=== PATIENT | female | born 1945 | race Caucasian/White ===

== ENCOUNTER → 2017-05-31 12:48 | Outpatient (CLI) | payer MEDICARE, SELFPAY ==
--- NOTE | 2017-05-31 12:51 | HPBI_ITS ---
MAMMOGRAPHY - BILATERAL DIAGNOSTIC REASON FOR EXAM: Female, 71 years old. History of left breast lump and left breast soreness. PERTINENT HISTORY: Daughter with breast cancer. Aunts with breast cancer. History of multiple bilateral breast biopsies. TECHNIQUE: Digital bilateral breast coni (3D mammographic acquisition) in the CC and MLO projections. 2-D mediolateral oblique (MLO) and craniocaudad (CC) views of both breasts were obtained. CAD: Full Field Digital Mammography with Computer Added Detection was performed. COMPARISON: Comparison is made with prior examination dated November 09, 2013. FINDINGS: Breast Composition: There are scattered areas of fibroglandular density. There are no dominant masses or suspicious calcifications. No other significant abnormalities are identified. There has been no significant change since the prior study. HPBI/DIAG MAMM W/CAD, BILAT IMPRESSION: Stable bilateral diagnostic mammogram. With the patient's history of a palpable lump in the left breast, correlation with ultrasound is recommended. ASSESSMENT CATEGORY: BIRADS Category 0: Incomplete. Need additional imaging evaluation. A letter regarding these results will be sent to the patient by the facility within 30 days. Approximately 10% of breast cancers are not detected by mammography. A normal mammogram should not delay biopsy of a clinically suspicious abnormality. Electronically Signed: Fco Eric MD at 8:57 EST Tel [phone], Service support ,
--- NOTE | 2017-05-31 12:52 | US_ITS ---
STUDY: ULTRASOUND BREAST - LEFT REASON FOR EXAM: Female, 71 years old. Palpable lump left breast. TECHNIQUE: Axial and longitudinal images of the LEFT breast were performed with a high resolution ultrasound transducer. COMPARISON: Comparison is made with prior mammogram done earlier in the day. FINDINGS: LEFT Breast: The lower inner quadrant of the left breast was examined by ultrasound. No sonographic abnormality is seen. US/Breast Limited Unilateral IMPRESSION: No sonographic abnormality is seen. ASSESSMENT CATEGORY: BIRADS Category 1: Negative. A letter regarding these results will be sent to the patient by the facility within 30 days. Electronically Signed: Fco Eric MD at 15:44 EST Tel [phone], Service support ,
== END ==
PROVIDERS: Family Provider Family Medicine; PCP Family Medicine; Visit Provider Family Medicine
DX: N63.20 Unspecified lump in the left breast, unspecified quadrant (principal)
CPT/HCPCS: 76642; 77062; 77066; G0279

== ENCOUNTER 2017-06-30 06:54 | Day surgery (SDC) | payer MEDICARE, SELFPAY ==
[2017-06-30 07:14] VITALS: BP 100/74; PULSE 56; RESP 18; TEMP 36.6; O2SAT 98; BMI 31.1
--- NOTE | 2017-06-30 08:23 | PCM.OPRPT ---
Problem List (1) Gastro-esophageal reflux disease without esophagitis Status: Acute (2) Epigastric pain Status: Acute Report of Operation Date of Procedure: 06/30/17 Pre-Operative Diagnosis: K 21.9 gastroesophageal reflux disease without esophagitis. r10.13 epigastric abdominal pain Post-Operative Diagnosis: Same Surgery/Procedure Performed:: [id number] esophagogastroduodenoscopy with biopsy Type of Anesthesia:: MAC Description of Procedure: Patient was brought into the endoscopy suite. The back of her throat was sprayed with Cetacaine spray. A bite-block was placed. She was placed in the left lateral decubitus position. She was given graded anesthesia. The scope was inserted into the oropharynx. The scope was directed down through the esophagus into the stomach and into the duodenum without difficulty. Operative findings: 1. Duodenum: Normal appearance no mass lesions no ulcerations identified. 2. Stomach: Moderate amount of erythema identified in the antrum and prepyloric area. Biopsy for H. pylori was performed. There is no obvious ulcerations. There is no obvious signs of bleeding. Retroflexion did not show any signs of a hiatal hernia. 3. Esophagus: Normal appearance no mass lesions normal Z line no erythema no signs of bleeding or irritation. Patient's wrap looks intact. We will need to wait for the biopsies for H. pylori. She clearly has some irritation in the antral prepyloric area. - Admit VTE Documentation VTE Present on Admission: No VTE Mechan Device Prophylaxis: None VTE Pharm Prophylaxis ordered?: No Reason prophylaxis not ordered:: Treatment Not Indicated
[2017-06-30 08:26] VITALS: BP 100/74; BP 98/51; PULSE 48; RESP 16; TEMP 36.3; O2SAT 97
[2017-06-30 08:30] VITALS: BP 100/74; BP 94/54; PULSE 48; RESP 16; O2SAT 97
[2017-06-30 08:35] VITALS: BP 100/74; BP 115/61; PULSE 44; RESP 16; O2SAT 97
[2017-06-30 08:40] VITALS: BP 100/74; BP 109/71; PULSE 48; RESP 16; O2SAT 98
[2017-06-30 09:08] VITALS: BP 100/74
== END 2017-06-30 09:10 | disposition home or self-care (01) ==
LOC: EN 06:54 → AC 06:55
PROVIDERS: Family Provider Family Medicine; PCP Family Medicine; Visit Provider Surgery
PROC: 0DJ08ZZ Inspection of Upper Intestinal Tract, Via Natural or Artificial Opening Endoscopic (ICD-10-PCS; CPT 43235; principal; 2017-06-30 08:25)
DX: K21.9 Gastro-esophageal reflux disease without esophagitis (principal); R10.13 Epigastric pain; I10 Essential (primary) hypertension; F17.200 Nicotine dependence, unspecified, uncomplicated; D64.9 Anemia, unspecified; E78.00 Pure hypercholesterolemia, unspecified
CPT/HCPCS: 43239; J7120

== ENCOUNTER → 2017-09-11 08:32 | Outpatient (CLI) | payer MEDICARE, SELFPAY ==
--- NOTE | 2017-09-11 09:10 | CT_ITS ---
STUDY: LOW DOSE CT LUNG CANCER SCREENING REASON FOR EXAM: Female, 72 years old. TROUBLE BREATHING, TOBACCO ABUSE, SMOKER OF 50 YEARS X 1PPD, NOW DOWN TO 1 CIG PER DAY, FAM HX OF LUNG CA, HTN, CAD, ASTHMA, COPD. RADIATION DOSAGE (If Supplied By Facility): CTDIvol = ( 3.02 ) mGy, DLP = ( 85.35 ) mGycm TECHNIQUE: No contrast was administered. Low dose technique was utilized (average mAS-38 and kVp 120). 1.25 mm axial source images with a slice interval of 1.25-mm were reconstructed in lung windows. 2.5 mm axial source images with a slice interval of 2.5-mm were reconstructed in lung windows. 5.0 mm axial source images with a slice interval of 5.0-mm were reconstructed in soft tissue windows. Nodule measured using lung windows on PACS and/or independent workstation with automated measurement of minimum and maximum diameter. Nodule measurement reported as average diameter rounded to the nearest whole number. Growth is defined as an increase ins size of greater than 1.5 mm. COMPARISON: 10/15/2015 NODULES: 2 calcified lung nodules are noted the largest measures 1 cm is in the superior segment of the left lung lower lobe some of these nodules are calcified they most likely represent granulomas. There is no demonstrated pleural abnormality. Normal heart and pericardium. Normal mediastinum. Normal hilar regions. Normal unenhanced pulmonary arteries. Normal aorta arch and descending thoracic aorta. 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 Old osteoporotic compression fractures are seen at T6, T7, T9. There is posterior fusion extending from T8 to T10 in good alignment. 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 There is a stable right adrenal mass measures 5 x 2.7 cm is consistent with benign adenoma. CT/Low Dose CT Lung Screening IMPRESSION: Lung-RADS category 2. 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 Old osteoporotic compression fractures are seen at T6, T7, T9. There is posterior fusion extending from T8 to T10 in good alignment. 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 There is a stable right adrenal mass measures 5 x 2.7 cm is consistent with benign adenoma. Recommendation: Routine screening CT scan in one year. IMPORTANT NOTES FOR USE: ACR Lung-RADS Version 1.0 Assessment Categories Release Date: September 18, 2013 Category: Coded 0-4 bases on nodule(s) with highest degree of suspicion. Negative screen is defined as categories 1 and 2; a positive screen is defined as categories 3 and 4. Category 3 and 4A nodules that are unchanged on interval CT should be coded as category 2, and individuals returned to screening in 12 months. Category 4X: Category 3 or 4 nodules with additional imaging findings that increase the suspicion of lung cancer, such as spiculation, GGN that doubles in size in 1 year, enlarged lymph notes, etc. Category Modifiers: S (significant finding unrelated to lung cancer) and C (prior history of treated lung cancer) may be added to the 0-4 Lung-RADS Electronically Signed: Marques Sherwood MD at 2:16 EDT Tel , Service support ,
== END ==
PROVIDERS: Family Provider Family Medicine; PCP Family Medicine; Visit Provider Internal Medicine Pulmonary Disease
DX: Z12.2 Encounter for screening for malignant neoplasm of respiratory organs (principal); Z87.891 Personal history of nicotine dependence
CPT/HCPCS: G0297

== ENCOUNTER → 2017-09-13 10:52 | Outpatient (CLI) | payer MEDICARE, SELFPAY ==
[2017-09-13 12:18] LABS: Absolute Lymphocyte Count 1.17 X10^3/ul (0.83-4.51); Absolute Neutrophil Count 4.8 X10^3/uL (2.0-7.7); Basophil# 0.06 X10^3/uL; Basophil% 0.9 % (0-1); Eosinophil# 0.24 X10^3/uL; Eosinophils% 3.5 % (0-5); Hematocrit 38.4 % (37-47); Lymphocyte # 1.17 X10^3/ul (4.0); Lymphocyte % 16.8 % (19-41); Mean Corp Hgb Conc 31.3 g/gl (32-36); Mean Corpuscular Volume 102.4 fL (81-99); Mean Platelet Vol. 10.4 fl (6.2-12.0); Monocyte# 0.69 X10^3/uL; Monocyte% 9.9 % (0-10); Neutrophil # 4.78 X10^3/uL (2.7-7.7); Neutrophil % 68.8 % (47-70); Platelet Count 225 K/mm3 (150-450); RBC Distribution Width CV 14.1 % (11.6-14.6); RBC Distribution Width SD 52.3 fl (35.1-43.9); Red Blood Count 3.75 M/mm3 (4.2-5.4)
[2017-09-13 12:28] LABS: POSITIVE COUNT NO; POSITIVE DIFFERENTIAL NO; POSITIVE MORPHOLOGY NO
[2017-09-13 12:44] LABS: PTHIN 177.9 pg/mL (18.4-80.1)
[2017-09-13 12:47] LABS: Vitamin D,25 Hydroxy 50.4 ng/mL (29.95-100.01)
[2017-09-13 12:48] LABS: AST(SGOT) 22 U/L (15-37); Alanine Aminotransfer ALT/SGPT 22 U/L (13-56); Albumin, Serum 3.2 g/dL (3.2-5.0); Alkaline Phosphatase 104 U/L (45-117); Anion Gap 6 (5-15); BUN 14 mg/dL (7-18); BUN/Creat Ratio 17.1 RATIO (10-20); Calcium,Total 8.9 mg/dL (8.5-10.1); Chloride 112 mmol/L (98-107); Cholesterol 122 mg/dL (200); Creatinine, Serum 0.82 mg/dL (0.55-1.02); EST Glomerular Filtration Rate 73 mL/min (>60); Est Glom Filt Rate - Afr Amer 89 mL/min (>60); Ferritin 57 ng/mL (8-252); Globulin 3.3 g/dL (2.2-4.2); Glucose 82 mg/dL (74-106); High Density Lipoprotein 49 mg/dL; Iron 56 ug/dL (50-170); Iron Binding Capacity,Total 258 ug/dL (250-450); PERCENT IRON SATURATION 21.7 % (15.0-55.0); Potassium 3.4 mmol/L (3.5-5.1); Protein, Total 6.5 g/dL (6.4-8.2); Sodium Level 145 mmol/L (136-145); Triglycerides 126 mg/dL; Very Low Density Lipoprotein 25 mg/dL (5-40)
== END ==
PROVIDERS: Family Provider Family Medicine; PCP Family Medicine; Visit Provider Family Medicine
DX: I10 Essential (primary) hypertension (principal); E78.5 Hyperlipidemia, unspecified; D35.1 Benign neoplasm of parathyroid gland; D50.9 Iron deficiency anemia, unspecified; E55.9 Vitamin D deficiency, unspecified
CPT/HCPCS: 36415; 80053; 80061; 82306; 82728; 83540; 83550; 83970; 85025

== ENCOUNTER → 2017-10-07 12:44 | Outpatient (CLI) | payer MEDICARE, SELFPAY ==
--- NOTE | 2017-10-07 12:46 | ECHOD_ITS ---
Reason For Study: DECREASED EJECTION FRACTION Procedure This was a 2D Doppler, Color Flow transthoracic echocardiogram. The exam was of poor technical quality due to body habitus. The study was technically difficult. Exam performed in department. Left Ventricle Normal LV size. Left ventricular systolic function is normal. The estimated ejection fraction is 55 %. No regional wall motion abnormalities noted. Right Ventricle Normal RV size. Normal systolic function. Atria The left atrium is moderately enlarged. Normal right atrium. No doppler evidence for ASD. Mitral Valve There is no mitral annular calcification. Normal mitral valve. Trivial mitral valve insufficiency. Tricuspid Valve Normal tricuspid valve. Trivial tricuspid valve insufficiency. Right ventricular systolic pressure estimated to be 30 mmHg. Aortic Valve Trisinus/trileaflet aortic valve. Mild focal aortic valve thickening. Mild (1+) aortic valve insufficiency. Pulmonic Valve The pulmonic valve is not well visualized. Great Vessels Normal sized aortic root. Pericardium/Pleural No pericardial effusion. MMode/2D Measurements & Calculations LVIDd: 4.6 cm IVSd: 1.1 cm Ao root diam: 3.5 cm LVIDs: 3.3 cm LVPWd: 1.1 cm LA dimension: 3.7 cm RVDd: 2.4 cm FS: 28.6 % LAV(MOD-bp): 65.9 ml LA A4 area: 22.0 cm2 RA A4 area: 15.1 cm2 LAV(MOD-bp) Indexed: 37.4 ml/m2 LAV(MOD-sp2): 67.7 ml LAV(MOD-sp4): 64.5 ml Doppler Measurements & Calculations MV E max geoff: 63.8 cm/sec Lat Peak E' Geoff: 8.8 cm/sec Med Peak E' Geoff: 7.0 cm/sec MV A max geoff: 52.8 cm/sec E/E' lat: 7.3 E/E' med: 9.1 MV E/A: 1.2 Ao V2 max: 128.2 cm/sec AI max geoff: 461.3 cm/sec LV V1 max: 101.7 cm/sec Ao max P.6 mmHg AI max P.1 mmHg LV V1 max P.1 mmHg AI dec slope: 138.0 cm/sec2 AI P1/2t: 979.3 msec PA V2 max: 68.9 cm/sec TR max geoff: 257.9 cm/sec TR max P.6 mmHg Interpretation Summary The study was technically difficult. Left ventricular systolic function is normal. The estimated ejection fraction is 55 %. The left atrium is moderately enlarged. Trivial mitral valve insufficiency. Trivial tricuspid valve insufficiency. Mild focal aortic valve thickening. Mild (1+) aortic valve insufficiency. Right ventricular systolic pressure estimated to be 30 mmHg. Transmitral diastolic flow velocities suggest diastolic dysfunction (pseudonormal pattern). Ordering Physician: Marino Williamson Referring Physician: Marino Williamson Performed By: Britney Salcedo, RDCS, RVT
== END ==
PROVIDERS: Family Provider Family Medicine; PCP Family Medicine; Visit Provider Family Medicine
DX: R94.31 Abnormal electrocardiogram [ECG] [EKG] (principal); R93.1 Abnormal findings on diagnostic imaging of heart and coronary circulation
CPT/HCPCS: 93306

== ENCOUNTER → 2017-11-05 13:36 | Outpatient (CLI) | payer MEDICARE, MEDICAID, SELFPAY ==
--- NOTE | 2017-11-05 18:31 | LEAS_ITS ---
Arterial Study - Arterial Study Arterial Study: This is a 72-year-old female with a history of hypertension and smoking. The patient presents with symptoms suggesting intermittent claudication secondary to peripheral arterial occlusive disease. The patient was brought to the noninvasive vascular laboratory at this time for the purpose of bilateral noninvasive lower extremity arterial assessment. Doppler signal assessment was used to evaluate the pulses at ankle level bilaterally. The posterior tibial and dorsalis pedis pulses were triphasic bilaterally. Segmental limb pressures were obtained at ankle level bilaterally. The right ankle pressure, as determined by posterior tibial pulse, was measured at 135 mmHg. The right ankle pressure, as determined by dorsalis pedis pulse, was measured at 139 mmHg. The left ankle pressure, as determined by posterior tibial pulse, was measured at 134 mmHg. The left ankle pressure, as determined by dorsalis pedis pulse, was measured at 144 mmHg. Resting ankle-brachial indices were calculated bilaterally. The resting right ankle-brachial index was calculated to be 1.01. The resting left ankle- brachial index was calculated to be 1.05. Impression: Based upon the findings of this resting noninvasive lower extremity arterial study, there is no evidence of significant atherosclerotic peripheral arterial occlusive disease in the lower extremities bilaterally. Triphasic waveforms were noted at ankle level bilaterally. Resting ankle-brachial indices were bilaterally normal. In summary, this represents a normal resting noninvasive lower extremity arterial study bilaterally. The exercise portion of the study was not performed due to patient refusal.
== END ==
PROVIDERS: Family Provider Family Medicine; PCP Family Medicine; Visit Provider Family Medicine
DX: I73.9 Peripheral vascular disease, unspecified (principal)
CPT/HCPCS: 93922

== ENCOUNTER → 2017-11-20 08:36 | Outpatient (CLI) | payer MEDICARE, MEDICAID, SELFPAY ==
--- NOTE | 2017-11-20 08:49 | MRI_ITS ---
STUDY: MRI LUMBAR SPINE WITHOUT CONTRAST REASON FOR EXAM: Female, 72 years old. Severe claudication. Patient has low back pain with bilateral leg feet pain and swelling. TECHNIQUE: Standardized fat and water weighted pulse sequences were obtained in the sagittal and axial planes. COMPARISON: CT of abdomen and pelvis dated October 15, 2015. FINDINGS: Interpedicular screws are visible at T10. T12-L1: There are small Schmorl's nodes at the endplates. Normal disc height and morphology. There is loss of normal T2 hyperintensity consistent with degenerative disc disease. Normal bilateral facet joints. Normal central canal and bilateral lateral recesses. Normal bilateral intervertebral neural foramina. Normal lumbar lordosis. There is no substantial scoliosis. Normal conus medullaris that terminates at the L1-L2 level. L1-2: There is mild annular disk bulge and osteophyte complex. There is mild degenerative arthropathy of the facet joints. Bilateral neuroforamina are narrowed without MR evidence for nerve impingement. There is no significant central canal stenosis. Interpedicular screws are visible at L2. L2-3: There is a compression fracture of L3. Patient appears to have had a vertebroplasty at this level. Interpedicular screws are visible at L2 and L3. There is mild annular disk bulge and osteophyte complex. There is mild degenerative arthropathy of the facet joints. Bilateral neuroforamina are narrowed without MR evidence for nerve impingement. There is no significant central canal stenosis. L3-4: There is mild annular disk bulge and osteophyte complex. There is mild degenerative arthropathy of the facet joints. Bilateral neuroforamina are narrowed without MR evidence for nerve impingement. There is no significant central canal stenosis. Interpedicular screws are visible at L3 and L4. L4-5: There is a broad central disc protrusion. There is mild central acquired canal stenosis. There is mild degenerative arthropathy of the facet joints. Neural foramina are bilaterally narrowed without evidence for nerve impingement. Interpedicular screws are visible at L4. L5-S1: Normal endplates. Normal disc height, hydration and morphology. Normal bilateral facet joints. Normal central canal and bilateral lateral recesses. Normal bilateral intervertebral neural foramina. Normal visualized sacral ala. Normal visualized paraspinous soft tissue structures. Appears to be mild aneurysmal dilatation of the proximal abdominal aorta with maximum transverse dimension of 3.5 cm. MRI/Spine Lumbar (Routine) IMPRESSION: 1. Status post treatment for compression fracture of L3 with surgical fusion of the L2, L3, and L4 segments as well as vertebroplasty of L3. 2. Multilevel degenerative disc disease and degenerative arthropathy of the lumbar spine with acquired canal stenosis and neural foraminal narrowing as described. 3. Mild aneurysmal dilatation of the proximal abdominal aorta. Electronically Signed: Mary Grace Alcaraz MD at 9:21 EDT , Service support ,
== END ==
PROVIDERS: Family Provider Family Medicine; PCP Family Medicine; Visit Provider Family Medicine
DX: M48.062 Spinal stenosis, lumbar region with neurogenic claudication (principal)
CPT/HCPCS: 72148

== ENCOUNTER → 2017-12-27 14:36 | Outpatient (CLI) | payer MEDICARE, SELFPAY ==
[2017-12-27 16:07] LABS: Calcium,Total 8.1 mg/dL (8.5-10.1)
[2017-12-27 16:20] LABS: PTHIN 31.8 pg/mL (18.4-80.1); Vitamin D,25 Hydroxy 66.6 ng/mL (29.95-100.01)
== END ==
PROVIDERS: Family Provider Family Medicine; PCP Family Medicine
DX: E21.3 Hyperparathyroidism, unspecified (principal)
CPT/HCPCS: 36415; 82306; 82310; 83970

== ENCOUNTER → 2018-01-11 15:56 | Outpatient (CLI) | payer MEDICARE, SELFPAY ==
[2018-01-11 18:02] LABS: Anion Gap 9 (5-15); BUN 13 mg/dL (7-18); BUN/Creat Ratio 14.1 RATIO (10-20); Calcium,Total 7.9 mg/dL (8.5-10.1); Chloride 110 mmol/L (98-107); Creatinine, Serum 0.92 mg/dL (0.55-1.02); EST Glomerular Filtration Rate 64 mL/min (>60); Est Glom Filt Rate - Afr Amer 77 mL/min (>60); Glucose 94 mg/dL (74-106); Potassium 4.1 mmol/L (3.5-5.1); Sodium Level 144 mmol/L (136-145)
== END ==
PROVIDERS: Family Provider Family Medicine; PCP Family Medicine; Visit Provider Family Medicine
DX: D35.1 Benign neoplasm of parathyroid gland (principal)
CPT/HCPCS: 36415; 80048; 82330

== ENCOUNTER → 2018-01-19 12:51 | Outpatient (CLI) | payer MEDICARE, SELFPAY ==
[2018-01-19 14:59] LABS: AST(SGOT) 21 U/L (15-37); Alanine Aminotransfer ALT/SGPT 21 U/L (13-56); Albumin, Serum 3.4 g/dL (3.2-5.0); Alkaline Phosphatase 108 U/L (45-117); Anion Gap 9 (5-15); BUN 14 mg/dL (7-18); BUN/Creat Ratio 16.2 RATIO (10-20); Calcium,Total 8.4 mg/dL (8.5-10.1); Chloride 111 mmol/L (98-107); Creatinine, Serum 0.86 mg/dL (0.55-1.02); EST Glomerular Filtration Rate 69 mL/min (>60); Est Glom Filt Rate - Afr Amer 83 mL/min (>60); Globulin 3.5 g/dL (2.2-4.2); Glucose 101 mg/dL (74-106); Phosphorus 3.4 mg/dL (2.5-4.9); Potassium 4.1 mmol/L (3.5-5.1); Protein, Total 6.9 g/dL (6.4-8.2); Sodium Level 143 mmol/L (136-145)
[2018-01-19 15:07] LABS: PTHIN 38.2 pg/mL (18.4-80.1)
== END ==
PROVIDERS: Family Provider Family Medicine; PCP Family Medicine; Visit Provider Internal Medicine Endocrinology, Diabetes & Metabolism
DX: E21.0 Primary hyperparathyroidism (principal)
CPT/HCPCS: 36415; 80053; 82330; 83970; 84100

== ENCOUNTER → 2018-01-25 12:23 | Outpatient (CLI) | payer MEDICARE, SELFPAY ==
[2018-01-25 13:57] LABS: Magnesium 1.9 mg/dL (1.6-2.6)
[2018-01-26 08:34] LABS: PTHIN 37.9 pg/mL (18.4-80.1)
[2018-01-26 08:46] LABS: Vitamin D,25 Hydroxy 59.9 ng/mL (29.95-100.01)
[2018-01-28 03:07] LABS: Creatinine, Urine 156.1 mg/dL (Not Estab.); N-Telopeptide, Urine 349 nmol BCE (Not Estab.)
[2018-01-28 11:25] LABS: NTX:Creatinine Ratio, Urine 25 (0-89)
== END ==
PROVIDERS: Family Provider Family Medicine; PCP Family Medicine; Visit Provider Internal Medicine Endocrinology, Diabetes & Metabolism
DX: E21.0 Primary hyperparathyroidism (principal); R43.2 Parageusia
CPT/HCPCS: 36415; 82306; 82330; 82523; 82652; 83735; 83970

== ENCOUNTER → 2018-03-15 16:32 | Outpatient (CLI) | payer MEDICARE, SELFPAY ==
[2018-03-15 16:37] LABS: Red Blood Cells-Urine 0 SEEN /hpf (0-5)
[2018-03-15 18:01] LABS: Color, Urine Yellow (Yellow); Glucose, Dipstick Normal (Normal); Ketone-Dipstick Negative (Negative); Leukocyte Esterase-Dipstick 100 /ul (Negative); Nitrite-Dipstick Negative (Negative); Occult Blood-Urine 10 /ul (Negative); Protein-Dipstick 30 mg/dl (Negative); Specific Gravity, Urine 1.015 (1.002-1.030); Urine Clarity Clear (Clear); Urine Urobilinogen 1 mg/dl (Normal)
[2018-03-15 18:03] LABS: Urine Bilirubin Dipstick 1 mg/dL (Negative)
[2018-03-15 18:04] LABS: Absolute Lymphocyte Count 1.52 X10^3/ul (0.83-4.51); Absolute Neutrophil Count 4.5 X10^3/uL (2.0-7.7); Basophil# 0.08 X10^3/uL; Basophil% 1.1 % (0-1); Eosinophil# 0.23 X10^3/uL; Eosinophils% 3.3 % (0-5); Hematocrit 41.5 % (37-47); Hemoglobin 13.1 g/dl (12.0-15.0); Lymphocyte # 1.52 X10^3/ul (4.0); Lymphocyte % 21.7 % (19-41); Mean Corp Hgb Conc 31.6 g/gl (32-36); Mean Corpuscular Hgb 33.3 pg (27.0-32.0); Mean Corpuscular Volume 105.6 fL (81-99); Mean Platelet Vol. 10.4 fl (6.2-12.0); Monocyte# 0.72 X10^3/uL; Monocyte% 10.3 % (0-10); Neutrophil # 4.47 X10^3/uL (2.7-7.7); Neutrophil % 63.6 % (47-70); Platelet Count 212 K/mm3 (150-450); RBC Distribution Width CV 14.6 % (11.6-14.6); Red Blood Count 3.93 M/mm3 (4.2-5.4)
[2018-03-15 18:11] LABS: Bacteria RARE /hpf (None Seen); Hyaline Cast 0-5 SEEN /lpf (0-5); Mucous, Urine 1+ /hpf (<or=2+); Squamous Epithelial Cells - UA 0-5 SEEN /hpf (5-10); White Blood Cells 0-5 SEEN /hpf (0-5)
[2018-03-15 18:14] LABS: POSITIVE COUNT NO; POSITIVE DIFFERENTIAL NO; POSITIVE MORPHOLOGY NO
[2018-03-15 18:38] LABS: AST(SGOT) 28 U/L (15-37); Alanine Aminotransfer ALT/SGPT 27 U/L (13-56); Albumin, Serum 3.3 g/dL (3.2-5.0); Alkaline Phosphatase 108 U/L (45-117); Anion Gap 7 (5-15); BUN 13 mg/dL (7-18); BUN/Creat Ratio 13.5 RATIO (10-20); Calcium,Total 7.8 mg/dL (8.5-10.1); Chloride 108 mmol/L (98-107); Cholesterol 148 mg/dL (200); Creatinine, Serum 0.96 mg/dL (0.55-1.02); EST Glomerular Filtration Rate 61 mL/min (>60); Est Glom Filt Rate - Afr Amer 73 mL/min (>60); Ferritin 109 ng/mL (8-252); Globulin 3.4 g/dL (2.2-4.2); Glucose 83 mg/dL (74-106); High Density Lipoprotein 57 mg/dL; Iron 79 ug/dL (50-170); Iron Binding Capacity,Total 244 ug/dL (250-450); Potassium 4.1 mmol/L (3.5-5.1); Protein, Total 6.7 g/dL (6.4-8.2); Sodium Level 142 mmol/L (136-145); Triglycerides 157 mg/dL; Very Low Density Lipoprotein 31 mg/dL (5-40)
== END ==
PROVIDERS: Family Provider Family Medicine; PCP Family Medicine; Visit Provider Family Medicine
DX: I10 Essential (primary) hypertension (principal); E78.5 Hyperlipidemia, unspecified; D50.9 Iron deficiency anemia, unspecified; Z72.0 Tobacco use
CPT/HCPCS: 36415; 80053; 80061; 81001; 82728; 83540; 83550; 85025

== ENCOUNTER → 2018-04-19 09:50 | Outpatient (CLI) | payer MEDICARE, SELFPAY ==
[2018-04-19 09:50] VITALS: BMI 31.1
--- NOTE | 2018-04-19 09:53 | RAD_ITS ---
STUDY: X-RAY - LUMBAR SPINE REASON FOR EXAM: Female, 72 years old. Back pain. TECHNIQUE: 4 images(s) of the lumbar spine were obtained, including lateral flexion and extension views. COMPARISON: 3 plain film views of the lumbar spine November 17, 2015; MRI lumbar spine November 20, 2017. FINDINGS: Again seen is prior cement augmentation of the L3 vertebra as well as posterior fusion L2-L4 with metal hardware. Bilateral transpedicular screws at those levels are connected on either side by longitudinal metal rods. Similar findings are again noted in the lower thoracic spine down to T10. There is a mildly exaggerated lumbar lordosis. There is limited range of motion on flexion and extension. There is no substantial scoliosis. There is a normal alignment of the vertebrae. Normal vertebral bodies and endplates. Normal disc space heights. There is no demonstrated acute fracture. There is atherosclerotic calcification of the abdominal aorta and iliac arteries. Cluster of surgical clips noted in the left flank the abdomen. Intramedullary deepali and compression screw are noted in the left femur. Calcified injection granuloma noted in the soft tissues of the buttocks. RAD/L/S Spine Min 4 Views IMPRESSION: 1. Prior cement augmentation of the L3 vertebra as well as posterior spinal fusion L2-L3 with metal hardware again noted. 2. Mildly exaggerated lumbar lordosis with limited range of motion on flexion-extension. No instability is demonstrated, however. 3. The degenerative disc disease and degenerative arthropathies with canal stenosis seen on MR are not as clearly depicted in this modality. 4. Aortoiliac atherosclerotic calcific plaquing. No demonstrated aneurysm, but this portends some risk for future cardiovascular event, Abdominal Aortic Calcific Deposits Are an Important Predictor of Vascular Morbidity and Mortality; Daniel Johns et al. Circulation, Jul 2000;103:[id number]. Electronically Signed: Naeem Tavera MD at 10:33 EST , Service support ,
--- NOTE | 2018-04-19 09:53 | RAD_ITS ---
STUDY: X-RAY - THORACIC SPINE REASON FOR EXAM: Female, 72 years old. Back pain TECHNIQUE: 2 view(s) of the thoracic spine were obtained. COMPARISON: None. FINDINGS: There is a severe collapse of T9 vertebral body with subsequent accentuation of the kyphotic curvature of the thoracic spine. 2 please and transpedicular screws through T8-T9 and T10 are noted. There are also plates and transpedicular screws through L2-L3 and L4 with kyphoplasty in the L3 vertebral body. There is a mild 14 degree upper thoracic scoliosis with convexity to the right with a compensatory lower thoracic scoliosis with convexity to the left. There is a mild compression fracture T11 vertebral body. RAD/Thoracic Spine 3 Views IMPRESSION: There is a superior compression fracture involving the vertebral body of T9 with subsequent accentuation of the kyphotic curvature of the thoracic spine. 2 plates and transpedicular screws through T8, T9 and T10 are evident. A mild and old compression fracture of T11. A 14 degree upper thoracic scoliosis with convexity to the right and a compensatory lower thoracic scoliosis with convexity to the left Electronically Signed: Serafin Cruz MD at 4:09 EST Tel , Service support ,
--- OUTSIDE RECORDS SUMMARY | 2018-06-01 00:07 | XMS RPT_ITS ---
:1945 Author Organization OHIP Support Name Relationship Address Phone R Unavailable Unavailable Unavailable THRASH, DARRYL Unavailable MONIQUE MURGUIA + [place] . R Unavailable Unavailable Unavailable THRASH, DARRYL Unavailable MONIQUE MURGUIA + [place] . R Unavailable Unavailable Unavailable THRASH, DARRYL Unavailable Unavailable + R Unavailable Unavailable Unavailable THRASH, DARRYL Unavailable Unavailable + R Unavailable Unavailable Unavailable THRASH, DARRYL Unavailable Unavailable + R Unavailable Unavailable Unavailable THRASH, DARRYL Unavailable Unavailable + R Unavailable Unavailable Unavailable THRASH, DARRYL Unavailable Unavailable + BROWN, IALENE Unavailable Unavailable Unavailable THRASH, DARRYL Unavailable Unavailable + VANDORN, TEAONNA Unavailable Unavailable Unavailable BROWN, IALENE Unavailable Unavailable Unavailable THRASH, DARRYL Unavailable Unavailable + VANDORN, TEAONNA Unavailable Unavailable Unavailable BROWN, IALENE Unavailable Unavailable Unavailable THRASH, DARRYL Unavailable Unavailable + VANDORN, TEAONNA Unavailable Unavailable Unavailable BROWN, IALENE Unavailable Unavailable Unavailable THRASH, DARRYL Unavailable Unavailable + VANDORN, TEAONNA Unavailable Unavailable Unavailable BROWN, IALENE Unavailable Unavailable Unavailable THRASH, DARRYL Unavailable Unavailable + VANDORN, TEAONNA Unavailable Unavailable Unavailable BROWN, IALENE Unavailable Unavailable Unavailable THRASH, DARRYL Unavailable Unavailable + VANDORN, TEAONNA Unavailable Unavailable Unavailable BROWN, IALENE Unavailable Unavailable Unavailable THRASH, DARRYL Unavailable Unavailable + VANDORN, TEAONNA Unavailable Unavailable Unavailable BROWN, IALENE Unavailable Unavailable Unavailable THRASH, DARRYL Unavailable Unavailable + KATHIE GUARDADOA Unavailable Unavailable Unavailable R Unavailable Unavailable Unavailable THRDARRYL WATTERS Unavailable Unavailable + GREEN, COURTNEY Unavailable [address] [place] [address] R Unavailable Unavailable Unavailable GEORGE DOTSONLENE Unavailable Unavailable Unavailable DARRYL ROBISON Unavailable Unavailable + LEONID GUARDADOONNA Unavailable Unavailable Unavailable JOHN IALENE Unavailable Unavailable Unavailable THRDARRYL WATTERS Unavailable Unavailable + LEONID GUARDADOONNA Unavailable Unavailable Unavailable GREEN, COURTNEY Unavailable [address] [place] [address] R Unavailable Unavailable Unavailable GREEN, COURTNEY Unavailable [address] [place] [address] R Unavailable Unavailable Unavailable GREEN, COURTNEY Unavailable [address] [place] [address] R Unavailable Unavailable Unavailable GREEN, COURTNEY Unavailable [address] [place] [address] R Unavailable Unavailable Unavailable GREEN, COURTNEY Unavailable [address] [place] [address] R Unavailable Unavailable Unavailable GREEN, COURTNEY Unavailable [address] [place] [address] R Unavailable Unavailable Unavailable GREEN, COURTNEY Unavailable [address] [place] [address] R Unavailable Unavailable Unavailable GREEN, COURTNEY Unavailable [address] [place] [address] R Unavailable Unavailable Unavailable GREEN, COURTNEY Unavailable [address] [place] [address] R Unavailable Unavailable Unavailable GREEN, COURTNEY Unavailable [address] [place] [address] R Unavailable Unavailable Unavailable GREEN, COURTNEY Unavailable [address] [place] [address] R Unavailable Unavailable Unavailable Care Team Providers Name Role Phone ARACELY AMARO Attending Unavailable SHANTE, NEELKANT Referring Unavailable SHANTE, NEELKANT Primary Care Unavailable ARACELY AMARO Attending Unavailable SHANTE, NEELKANT Referring Unavailable SHANTE, NEELKANT Primary Care Unavailable ARACELY AMARO Admitting Unavailable ARACELY AMARO Attending Unavailable SHANTE, NEELKANT Referring Unavailable SHANTE, NEELKANT Primary Care Unavailable STEELE, MATEO F Attending Unavailable STEELE, MATEO F Referring Unavailable UNKNOWN, DOC Primary Care Unavailable STEELE, MATEO F Attending Unavailable STEELE, MATEO F Referring Unavailable UNKNOWN, DOC Primary Care Unavailable STEELE, MATEO F Attending Unavailable STEELE, MATEO F Referring Unavailable UNKNOWN, DOC Primary Care Unavailable AFSHAN PAINTER Attending Unavailable MATEO STEELE F Referring Unavailable UNKNOWN, DOC Primary Care Unavailable AMY HANLEY Attending Unavailable AFSHAN PAINTER Referring Unavailable UNKNOWN, DOC Primary Care Unavailable ARACELY AMARO Attending Unavailable SHANTE, NEELKANT Referring Unavailable ARACELY FRAUSTO Primary Care Unavailable ARACELY AMARO Attending Unavailable SHANTE, NEELKANT Referring Unavailable ARACELY FRAUSTO Primary Care Unavailable Aracely Frausto Attending Unavailable Aracely Frausto Primary Care Unavailable Aracely Frausto Attending Unavailable Aracely Frausto Primary Care Unavailable Aracely Frausto Attending Unavailable Aracely Frasuto Referring Unavailable Aracely Frausto Primary Care Unavailable Fritz Hart Attending Unavailable Aracely Frausto Referring Unavailable Aracely Frausto Primary Care Unavailable Fritz Hart Attending Unavailable Fritz Hart Referring Unavailable Aracely Frausto Primary Care Unavailable Fritz Hart Attending Unavailable Fritz Hart Referring Unavailable Aracely Frausto Primary Care Unavailable Fritz Hart Consulting Unavailable Kemar Lara Attending Unavailable Kemar Lara Referring Unavailable Francisco Fallon Attending Unavailable Francisco Fallon Referring Unavailable SchAracely elizalde Primary Care Unavailable Aracely Frausto Attending Unavailable Aracely Frausto Primary Care Unavailable Aracely Frausto Attending Unavailable Aracely Frausto Referring Unavailable SchAracely elizalde Primary Care Unavailable Tam Morelos Attending Unavailable Aracely Frausto Attending Unavailable Aracely Frausto Referring Unavailable Aracely Frausto Primary Care Unavailable Aracely Frausto Attending Unavailable Aracely Frausto Referring Unavailable Schinner, Aracely E Primary Care Unavailable RADHA SYLVESTER Attending Unavailable SchinAracely hughes E Primary Care Unavailable SchAracely elizalde E Attending Unavailable Aracely Frausto E Primary Care Unavailable Ragrajindernatjuni, Sheree N. Attending Unavailable Schinellen Aracely E Primary Care Unavailable Raghunathan, Sheree NDione Referring Unavailable Raghunatjuni, Sheree N. Attending Unavailable Schinellen, Aracely E Primary Care Unavailable Aracely Frausto E Attending Unavailable Aracely Frausto E Primary Care Unavailable Triny Bal Attending Unavailable Aracely Frausto Referring Unavailable Triny Bal Attending Unavailable Flaquita BalTriny Referring Unavailable Schinner, Aracely E Primary Care Unavailable PROBLEMS PROBLEMS DATE TYPE CONDITION / CODE ATTENDING STATUS SOURCE Unknown M54.9 - Dorsalgia, Triny Bal Active [place] [facility] unspecified / Community M54.9(ICD-10) Hospital Repository Unknown R43.2 - Parageusia / Raghunathan, Active [place] 8 R43.2(ICD-10) [facility] E21.0 - Primary Raghunathan, Active [place] [facility] hyperparathyroidism / Sheree N Community E21.0(ICD-10) Hospital Repository Unknown E21.3 - RADHA SYLVESTER Active [place] 8 Hyperparathyroidism, [facility] unspecified / Hospital E21.3(ICD-10) Repository Admitting Encounter for other [place] [address] diagnosis preprocedural AMY R University examination / [facility] Medical Z01.818(ICD-10) Center Repository Admitting Gastro-esophageal reflux [place] [address] diagnosis disease without AMY R University esophagitis / [facility] K21.9(ICD-10) Center Repository Admitting Essential (primary) 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 / University D35.1(ICD-10) [facility] Repository Admitting Obesity, unspecified / AFSHAN PAINTER [facility] 8 diagnosis E66.9(ICD-10) University [facility] Repository Admitting Hyperlipidemia, AFSHAN PAINTER [place] [address] diagnosis unspecified / University E78.5(ICD-10) [facility] Repository Admitting 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 Center / I25.110(ICD-10) Repository Admitting Paroxysmal atrial [place] [address] diagnosis fibrillation / [place] I48.0(ICD-10) [facility] Repository Unknown 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, lumbar region E Community with neurogenic Hospital claudication / Repository M48.062(ICD-10) Unknown R94.31 - Abnormal Aracely Frausto Active [place] 8 electrocardiogram [ECG] E Community [EKG] / R94.31(ICD-10) Hospital Repository Unknown Z87.891 - Personal Sibilia, Active [place] 8 history of nicotine [place] Community dependence / Hospital Z87.891(ICD-10) Repository Unknown B37.0 - Cand[place], Active [place] 8 stomatitis / Fritz [facility] B37.0(ICD-10) Hospital Repository Unknown N63.20 - Unspecified Clay Aracely Active [place] 8 lump in the left breast, E Community unspecified quadrant / Hospital N63.20(ICD-10) Repository Unknown D75.89 - Other specified SumanAracely elizalde Active [place] [facility] diseases of blood and E Community blood-forming organs / Hospital D75.89(ICD-10) Repository Unknown 289.89 - Other specified SumanAracely elizalde Active [place] [facility] diseases of blood and E Community blood-forming organs / Hospital 289.89(ICD-9) Repository PROCEDURES PROCEDURES No Procedure Records FoundRESULTS RESULTS ORTHOPEDIC VISIT Observed: 04/29/2018 Status: F Source: [place] RE[place] 11:58 PM [facility] RE[facility]IT[facility] [address] [place] [address] 5 [place] [address] OFFICE VISIT Date of Service: 04/19/18 MR#: [id number] Acct: [id number] Name: PAULINO DOTSON Rep #: [id number] : 1945 Provider: Triny Bal MD Age/Sex: 72/F [place] [facility]: Signed Intake Intake Visit Reasons: LOW BACK Is patient in pain?: Yes Allergies hydrocodone bitartrate [From Vicodin] Allergy (Verified 04/19/18 09:42) Rash Penicillins Allergy (Verified 04/19/18 09:42) Rash clindamycin Adverse Reaction (Verified 04/19/18 09:42) Other tizanidine HCl [From Zanaflex] Adverse Reaction (Verified 04/19/18 09:42) Other Medications Budesonide/Formoterol 160/4.5 [Symbicort 160/4.5 Mcg Inhaler (SP)] 2 puff INHALATION BID 01/10/14 [History Confirmed 06/28/17] Cholecalciferol (Vitamin D3) [Vitamin D3] 5,000 unit PO DAILY 01/10/14 [History Confirmed 06/28/17] Citalopram [Celexa] 40 mg PO DAILY 01/10/14 [History Confirmed 06/28/17] Omeprazole [Prilosec] 40 mg PO DAILY 01/10/14 [History Confirmed 06/28/17] Lactobacillus acidophilus 1.5 mg (250 million cell) capsule 100 mmu cells PO QDAY 06/03/17 [History Confirmed 06/28/17] amlodipine 5 mg tablet 5 mg PO QDAY 06/03/17 [History Confirmed 06/28/17] ascorbic acid (vitamin C) 500 mg tablet 500 mg PO QDAY 06/03/17 [History Confirmed 06/28/17] atorvastatin 40 mg tablet 40 mg PO QDAY 06/03/17 [History Confirmed 06/28/17] calcitonin (salmon) 200 unit/actuation nasal spray 1 unit INTRANASAL DAILY 06/03/17 [History Confirmed 06/28/17] docusate sodium 250 mg capsule 250 mg PO DAILY 06/03/17 [History Confirmed 06/28/17] ferrous sulfate 325 mg (65 mg iron) tablet 325 mg PO DAILY 06/03/17 [History Confirmed 06/28/17] ibuprofen 800 mg tablet 800 mg PO TID PRN 06/03/17 [History Confirmed 06/28/17] metoprolol tartrate 25 mg tablet 25 mg PO BID 06/03/17 [History Confirmed 06/28/17] Albuterol Inhaler [Ventolin Hfa (SP)] 1 - 2 puff INHALATION Q4H PRN PRN 06/28/17 [History Confirmed 06/28/17] PFSH Medical History Ureteral calculus (Acute) Shoulder pain (Acute) Adrenal mass (Acute) Hypercalcemia (Acute) Vitamin D deficiency (Acute) Chronic GERD (Acute) Hypertension (Chronic) Adrenal nodule (Acute) Primary hyperparathyroidism (Acute) Osteoporosis (Acute) Surgical History Hx of kyphoplasty (Acute) History of back surgery (Acute) History of bone marrow biopsy (Acute) History of hip surgery (Acute) History of adrenal surgery (Acute) Renal stones (Acute) S/P hysterectomy (Acute) Hx of section (Acute) S/P ovarian cystectomy (Acute) S/P parathyroidectomy (Acute) Family History Mother Arthritis Hypertension Heart disease Osteoporosis Father Arthritis Lung cancer Brother Asthma Lung cancer Kidney disease Sister Arthritis Autoimmune disease Daughter Breast cancer Social History Smoking Status: Current every day smoker alcohol intake: never substance use type: does not use caffeine: No what type of physical activity do you participate in: none frequency: does not exercise seatbelt use: always HPI LOW BACK: Details: PAULINO DOTSON is a 72 year old RHD F here today for low back and mid thoracic spine pain. Her pain is more right sided back pain. Patient notes that she has had pain for many years, starting around 2008 at work. She states it has progressed. She has had a compression fracture in her thoracic spine in 2014. She states she underwent cement augmentation without improvement. She then underwent a thoracic fusion T8-T10 in 12/2015. She then underwent a fusion of L2-4 in 06/2016. She lastly sustained another compression fracture in 12/2017. She states the pain improved after surgery, but worsened over the past 6- [address] Rivera in [place], [place] performed the procedures, but she is unable to return to him as he does not accept her insurance. She denies postoperative complications. She has increased pain with all activities, bending, and ambulation. It is improved with laying and NSAIDs. She denies difficulty with hand dexterity. She uses a walker since 2017 secondary to pain from her prior left hip fracture. She states she had surgery in 12/2014. She has urinary urgency. She denies constitutaion symptoms. Patient states that she completed physical therapy in 2017 which was not helpful. She has a tens unit, which does not help. Patient denies any injections. She denies taking any pain medications. The patient is a poor historian. She is on forteo for osteoporosis. 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 She has had a parathyroidectomy, HTN. She is retired. She does smoke. ROS Const Reports system reviewed and no additional complaints, except as docu Eyes Reports system reviewed and no additional complaints, except as docu ENT Reports system reviewed and no additional complaints, except as docu Card Reports system reviewed and no additional complaints, except as docu Resp Reports system reviewed and no additional complaints, except as docu GI Reports system reviewed and no additional complaints, except as docu Reports system reviewed and no additional complaints, except as docu Musc Reports back pain Skin/Breast Reports system reviewed and no additional complaints, except as docu Neuro Yes system reviewed and no additional complaints, except as docu Psych Reports system reviewed and no additional complaints, except as docu Endo Reports system reviewed and no additional complaints, except as docu Ortho Exam Spine Neuro: Yes Clonus (none bilaterally), Stout's (positive on the left) and Babinski (downgoing bilaterally) General: alert, oriented x3 Skin: Yes healed (midline lumbar and thoracic incision) Capillary Refill <2sec: Yes Palpable Pulses: 1+ bilateral dp and pt pulses Gait: normal gait (with walker), other (able to heel and toe stand) Motor: strength 5/5 throughout Sensory Exam: no sensory deficits noted DTR's: Rt Triceps: 2+, Lt Triceps: 2+, Rt Biceps: 2+, Lt Biceps: 2+, Rt Brachioradialis: 2+, Lt Brachioradialis: 2+, Rt Patellar: 2+, Lt Patellar: 2+, Rt Ankle: 2+, Lt Ankle: 2+ Plantar Reflexes: Withdrawal: bilateral Coordination: Romberg test normal Details: hyperthoracic kyphosis normal rapid claim clinician and release SPINE TESTING CERVICAL THORACIC LUMBAR SLR: Negative Musculoskeletal General: Yes normal gait Cervical Spine: cervical ROM normal Thoracic/Lumbar Spine: surgical scar(s) present, pain with thoraco-lumbar ROM, thoraco-lumbar ROM limited, paraspinal tenderness, thoracic spinal tenderness, lumbar spinal tenderness, straight leg raise negative bilaterally Strength 0=absent - 5=normal Deltoid R (C5): 5, Deltoid L (C5): 5, R Bicep (C5-6): 5, L Bicep (C5-6): 5, R Wrist Extensor (C6): 5, L Wrist Extensor (C6): 5, R Tricep (C7): 5, L Tricep (C7): 5, R Finger Flexors (C8): 5, L Finger Flexors (C8): 5, R First Dorsal Interossei (C8): 5, L First Dorsal Interossei (C8): 5, R Hip Flexor (L1-3): 5, L Hip Flexor (L1-3): 5, R Quadriceps (L2-4): 5, L Quadriceps (L2-4): 5, R Anterior Tibialis (L4-5): 5, L Anterior Tibialis (L4- 5): 5, R Hamstrings (L5-S1): 5, L Hamstrings (L5-S1): 5, GS (S1): 5, L GS (S1): 5, R Peroneals (S1): 5, L Peroneals (S1): 5 Assessment AND Plan Problems 1. Chronic bilateral thoracic back pain M54.6; G89.29 Plan Imaging XR lumbar spine 04/19/2018 - diffuse spondylosis with L3 cement augmentation, L2-4 instrumentation, T8-T10 instrumentation with T9 cement augmentation MRI lumbar spine 11/20/2017 reveals diffuse spondylosis with L2-4 instrumentation. No severe central stenosis DEXA 2014 reveals T score of left hip -2.4 and right hip -3.2 I/R/P 1. back pain, lumbar and thoracic 2. prior thoracic and lumbar cement augmentation with instrumentated fusion, done elsewhere 3. osteoporosis on forteo 4. history of parathyroidectomy 5. nicotine use Ms. Dotson presents with worsening thoracic back pain. Her lumbar MRI does not reveal a new compression fracture. Recommend an MRI thoracic spine with and without contrast to rule out a new compression fracture given her prior history of fragility fractures. Recommend physical therapy given her physical therapy has been over 1 year ago. Counseled on nicotine cessation. Follow up after MRI or sooner if issues arise. Plan of care discussed. All questions answered. She is in understanding. Orders Orders: Coding Level of Care Code Off vis,new,level 4 Diagnoses Chronic bilateral thoracic back pain M54.6; G89.29 Back pain location: thoracic back pain Chronicity: chronic Back pain laterality: bilateral 04/29/18 2358 <Electronically signed by Triny Bal MD> Date Triny Bal MD Cosigner Signature: Date (if applicable) CC: Aracely Frausto MD L/S SPINE MIN 4 Observed: 04/19/2018 Status: F Source: [place] VIEWS 9:54 AM [facility] REPOSITORY [facility] Imaging Services [address] [address] L/S Spine Min 4 Views MR#: [id number] Acct: [id number] Name: PAULINO DOTSON Rep #: [id number] : 1945 F 72 From: Amos Tavera MD PCP: Aracely Frausto MD Status: REG CLI Study: L/S Spine Min 4 Views Date of Exam: 04/19/18 Exam# [id number] Ordering Dr: Triny Bal MD STUDY: X-RAY - LUMBAR SPINE REASON FOR EXAM: Female, 72 years old. Back pain. TECHNIQUE: 4 images(s) of the lumbar spine were obtained, including lateral flexion and extension views. COMPARISON: 3 plain film views of the lumbar spine November 17, 2015; MRI lumbar spine November 20, 2017. FINDINGS: Again seen is prior cement augmentation of the L3 vertebra as well as posterior fusion L2-L4 with metal hardware. Bilateral transpedicular screws at those levels are connected on either side by longitudinal metal rods. Similar findings are again noted in the lower thoracic spine down to T10. There is a mildly exaggerated lumbar lordosis. There is limited range of motion on flexion and extension. There is no substantial scoliosis. There is a normal alignment of the vertebrae. Normal vertebral bodies and endplates. Normal disc space heights. There is no demonstrated acute fracture. There is atherosclerotic calcification of the abdominal aorta and iliac arteries. Cluster of surgical clips noted in the left flank the abdomen. Intramedullary deepali and compression screw are noted in the left femur. Calcified injection granuloma noted in the soft tissues of the buttocks. RAD/L/S Spine Min 4 Views IMPRESSION: 1. Prior cement augmentation of the L3 vertebra as well as posterior spinal fusion L2-L3 with metal hardware again noted. 2. Mildly exaggerated lumbar lordosis with limited range of motion on flexion-extension. No instability is demonstrated, however. 3. The degenerative disc disease and degenerative arthropathies with canal stenosis seen on MR are not as clearly depicted in this modality. 4. Aortoiliac atherosclerotic calcific plaquing. No demonstrated aneurysm, but this portends some risk for future cardiovascular event, Abdominal Aortic Calcific Deposits Are an Important Predictor of Vascular Morbidity and Mortality; Daniel Johns et al. Circulation, Jul 2000;103:1542-7658. Electronically Signed: Naeem Tavera MD at 10:33 EST , Service support , CC: Triny Bal MD; Aracely Frausto MD Floor Layer Tile: Signed THORACIC SPINE 3 Observed: 04/19/2018 Status: F Source: [place] VIEWS 9:54 AM [facility] REPOSIT[facility] Imaging Services [address] [address] Thoracic Spine 3 Views MR#: [id number] Acct: [id number] Name: PAULINO DOTSON Rep #: [id number] : 1945 F 72 From: Serafin Cruz MD PCP: Aracely Frausto MD Status: REG CLI Study: Thoracic Spine 3 Views Date of Exam: 04/19/18 Exam# [id number] Ordering Dr: Triny Bal MD STUDY: X-RAY - THORACIC SPINE REASON FOR EXAM: Female, 72 years old. Back pain TECHNIQUE: 2 view(s) of the thoracic spine were obtained. COMPARISON: None. FINDINGS: There is a severe collapse of T9 vertebral body with subsequent accentuation of the kyphotic curvature of the thoracic spine. 2 please and transpedicular screws through T8-T9 and T10 are noted. There are also plates and transpedicular screws through L2-L3 and L4 with kyphoplasty in the L3 vertebral body. There is a mild 14 degree upper thoracic scoliosis with convexity to the right with a compensatory lower thoracic scoliosis with convexity to the left. There is a mild compression fracture T11 vertebral body. RAD/Thoracic Spine 3 Views IMPRESSION: There is a superior compression fracture involving the vertebral body of T9 with subsequent accentuation of the kyphotic curvature of the thoracic spine. 2 plates and transpedicular screws through T8, T9 and T10 are evident. A mild and old compression fracture of T11. A 14 degree upper thoracic scoliosis with convexity to the right and a compensatory lower thoracic scoliosis with convexity to the left Electronically Signed: Serafin Cruz MD at 4:09 EST Tel , Service support , CC: Triny Bal MD; Aracely Frausto MD Floor Layer Tile: Signed URINALYSIS, COMPLETE Collected: 03/15/2018 Status: F Source: [place] 4:36 PM [facility] REPOSITORY Order Comment: How was Urine Obtained? CLEAN CATCH TYPE CODE TESTS RESULT OUT OF RANGE REFERENCE UNITS LAB L400.3000 Yellow COLOR Normal Yellow LAB L400.3050 Clear Normal CLARITY Clear LAB L400.3200 Normal mg/dl Normal GLUCOSE, UR Normal LAB L400.3300 Negative mg/dL High BILIRUBIN URINE 1 Result Comment: COLOR OF URINE MAY AFFECT DIPSTICK RESULTS. LAB L400.3400 Negative mg/dl Normal KETONE UR Negative LAB L400.3465 1.002-1.030 Normal SP.GR. DIPSTX 1.015 LAB L400.3550 5.0 - 8.0 pH Normal UR 5.0 LAB L400.3600 Negative mg/dl High PROT DIPSTX 30 LAB L400.3700 Normal mg/dl High UROBILI 1 LAB L400.3750 Negative Normal NITRITE UR Negative LAB L400.3780 Negative /ul High OCCULT 10 BLOOD-UR LAB L400.3800 Negative /ul High LEUK ESTERASE 100 LAB L400.4050 0-5 /hpf Normal WBC 0-5 SEEN LAB L400.4100 0-5 /hpf Normal RBC-UA 0 SEEN LAB L400.4150 5-10 /hpf Normal SQUAM EPI 0-5 SEEN LAB L400.4300 None Seen /hpf Normal BACTERIA RARE LAB L400.4350 <or=2+ /hpf Normal MUCUS, URINE 1+ LAB L400.4400 0-5 /lpf Normal HYALINE CAST 0-5 SEEN Performed By: #### L400.0001 #### [facility] [address] [facility]. [place], [place], [id number] CBC W/DIFF, AUTOMATED Collected: 03/15/2018 Status: F Source: [place] 4:33 PM [facility] REPOSITORY TYPE CODE TESTS RESULT OUT OF RANGE REFERENCE UNITS LAB L100.1000 4.4-11.0 K/mm3 Normal WBC 7.0 LAB L100.1200 4.2-5.4 M/mm3 Low RBC 3.93 LAB L100.1300 12.0-15.0 g/dl Normal HGB 13.1 LAB L100.1400 37-47 % Normal HCT 41.5 LAB L100.1500 81-99 fL High MCV 105.6 LAB L100.1600 27.0-32.0 pg High MCH 33.3 LAB L100.1700 32-36 g/gl Low MCHC 31.6 LAB L100.1810 11.6-14.6 % Normal RDW CV 14.6 LAB L100.1820 35.1-43.9 fl High RDW SD 57.0 LAB L100.1900 150-450 K/mm3 Normal PLT 212 LAB L100.2000 6.2-12.0 fl Normal MPV 10.4 LAB L100.2100 47-70 % Normal NEUT% 63.6 LAB L100.2200 19-41 % Normal LY% 21.7 LAB L100.2300 0-10 % High MONO% 10.3 LAB L100.2400 0-5 % Normal EO% 3.3 LAB L100.2500 0-1 % High BASO% 1.1 LAB L100.2550 0.0-0.9 % Normal IM GRAN % 0.000 Result Comment: IG% - Immature Granulocytes (promyelocytes, myelocytes and metamyelocytes) > 1% indicates that a LEFT SHIFT is Present. LAB L100.2620 2.0-7.7 X10 3/uL Normal Absolute Neut 4.5 LAB L100.2720 0.83-4.51 X10 3/ul Normal Absolute Lymph 1.52 Performed By: #### L100.0100, L500.4050, L500.4100, L503.6075, L503.6150, L503.6550 #### [facility] [address] [place], [address] COMPREHENSIVE METABOLIC Collected: 03/15/2018 Status: F Source: [facility] 4:33 PM [facility] REPOSITORY TYPE CODE TESTS RESULT OUT OF RANGE REFERENCE UNITS LAB L501.0100 74-106 mg/dL Normal GLU 83 Result Comment: Please note revised GLUCOSE reference range effective 2017. LAB L501.1000 7-18 mg/dL Normal BUN 13 LAB L501.1100 0.55-1.02 mg/dL Normal CREAT,SERUM 0.96 Result Comment: The validity of the calculated GFR AND GFRAA in patients over 70 years has not been determined. Clinical correlation is essential. LAB L501.1110 >60 mL/min Normal EST GFR 61 Result Comment: Non- GFR Calc LAB L501.1115 >60 mL/min Normal EST GFR - AA 73 Result Comment: GFR Calc LAB L501.1300 10-20 RATIO Normal BUN/CRE 13.5 LAB L501.1500 6.4-8.2 g/dL T Normal PROT 6.7 LAB L501.1800 3.2-5.0 g/dL Normal ALB 3.3 LAB L501.1950 2.2-4.2 g/dL Normal GLOB 3.4 LAB L501.2000 0.9-2.4 RATIO Normal A/G 1.0 LAB L501.2200 8.5-10.1 mg/dL Low CA 7.8 LAB L501.4100 15-37 U/L Normal AST 28 LAB L501.4305 45-117 U/L Normal ALK P 108 LAB L501.4405 13-56 U/L Normal ALT 27 LAB L501.4600 0.20-1.00 mg/dL T Normal BILI 0.30 LAB L501.5300 136-145 mmol/L NA Normal 142 LAB L501.5600 3.5-5.1 mmol/L K Normal 4.1 LAB L501.5900 98-107 mmol/L High CL 108 LAB L501.6100 21.0-32.0 mmol/L Normal CO2 27.0 LAB L501.6200 5-15 Normal GAP 7 Performed By: #### L100.0100, L500.4050, L500.4100, L503.6075, L503.6150, L503.6550 #### [facility] [address] [place], [address] LIPID PROFILE Collected: 03/15/2018 Status: F Source: [place] 4:33 PM [facility] REPOSITORY TYPE CODE TESTS RESULT OUT OF RANGE REFERENCE UNITS LAB L501.4900 200 mg/dL Normal CHOL 148 Result Comment: <200 mg/dL Desirable 200-240 mg/dL Borderline >240 mg/dL High Risk LAB L501.5000 mg/dL Normal TRIG 157 Result Comment: The drugs N-Acetylcysteine and Metamizole may falsely depress this assay. Serum Triglycerides Reference Interval Normal <150 mg/dL Borderline high 150 - 199 mg/dL High 200 - 499 mg/dL Very High > or = 500 mg/dL LAB L501.6400 mg/dL Normal HDL 57 Result Comment: The drugs N-Acetylcysteine and Metamizole may falsely depress this assay. Reference Range HDL <40 mg/dL Low HDL Cholesterol HDL >or= 60 mg/dL High HDL Cholesterol LAB L501.6500 0-130 mg/dL Normal LDL 60 LAB L501.6600 5-40 mg/dL Normal VLDL 31 Performed By: #### L100.0100, L500.4050, L500.4100, L503.6075, L503.6150, L503.6550 #### [facility] [address] [place], [place], [id number] IRON BINDING Collected: 03/15/2018 Status: F Source: [facility] 4:33 PM [facility] REPOSITORY TYPE CODE TESTS RESULT OUT OF RANGE REFERENCE UNITS LAB L503.6075 250-450 ug/dL Low TIBC 244 Performed By: #### L100.0100, L500.4050, L500.4100, L503.6075, L503.6150, L503.6550 #### [facility] [address] [place], [place], [id number] IRON Collected: 03/15/2018 Status: F Source: [place] 4:33 PM [facility] REPOSITORY TYPE CODE TESTS RESULT OUT OF RANGE REFERENCE UNITS LAB L503.6150 50-170 ug/dL Normal IRON 79 Performed By: #### L100.0100, L500.4050, L500.4100, L503.6075, L503.6150, L503.6550 #### [facility] [address] [place], [place], [id number] FERRITIN Collected: 03/15/2018 Status: F Source: [place] 4:33 PM [facility] REPOSITORY TYPE CODE TESTS RESULT OUT OF RANGE REFERENCE UNITS LAB L503.6550 8-252 ng/mL Normal FERRITIN 109 Performed By: #### L100.0100, L500.4050, L500.4100, L503.6075, L503.6150, L503.6550 #### [facility] [address] [place], [address] MAGNESIUM Collected: 01/25/2018 Status: F Source: [facility] 12:24 PM [facility] REPOSITORY TYPE CODE TESTS RESULT OUT OF RANGE REFERENCE UNITS LAB L501.5200 1.6-2.6 mg/dL Normal MG 1.9 Performed By: #### L501.5200 #### [facility] [address] [place], [address] PTHIN Collected: 01/25/2018 Status: F Source: [facility] 12:24 PM [facility] REPOSITORY TYPE CODE TESTS RESULT OUT OF RANGE REFERENCE UNITS LAB L509.1000 18.4-80.1 pg/mL Normal PTHIN 37.9 Performed By: #### L509.1000 #### [facility] [address] [place], [address] VITAMIN D,25 HYDROXY Collected: 01/25/2018 Status: F Source: [facility] 12:24 PM [facility] REPOSITORY TYPE CODE TESTS RESULT OUT OF RANGE REFERENCE UNITS LAB L506.1000 29.95-100.01 ng/mL Normal Vitamin D 59.9 25-OH Result Comment: Vitamin D 25(OH) Status Range Deficiency <20 ng/mL (50nmol/L) Insuffciency 20 - 30 ng/mL (50 - 75 nmol/L) Sufficiency 30 - 100 ng/mL (75 - 250 nmol/L) Toxicity >100 ng/mL (>250 nmol/L) Performed By: #### L506.1000 #### [facility] [address] [place], [address] CALCIUM IONIZED Collected: 01/25/2018 Status: F Source: [facility] 12:24 PM [facility] REPOSITORY TYPE CODE TESTS RESULT OUT OF RANGE REFERENCE UNITS LAB L3100.9600 4.5-5.6 mg/dL Normal IONIZED CA 5.0 Result Comment: Performed at: - [facility] [id number] Executive Asst: Herman Kimball PhD, Phone: [phone] Performed By: #### L3100.9600 #### [facility] (refer to report for specific site) refer to report for address and phone number VITAMIN D 1,25-DIHYDROXY Collected: 01/25/2018 Status: F Source: [facility] 12:24 PM [facility] REPOSITORY TYPE CODE TESTS RESULT OUT OF RANGE REFERENCE UNITS LAB L3300.0960 19.9-79.3 pg/mL Normal VITD 1,25 45.0 31363 Result Comment: Performed at: - [facility] [address] [id number] Executive Asst: Doug Thompson MD, Phone: [phone] Performed at: - [facility] [id number] Executive Asst: Herman Kimball PhD, Phone: [phone] Performed By: #### L3300.0960, L3620.0100 #### [facility] (refer to report for specific site) refer to report for address and phone number N-TELOPEPTIDE,UR X LINK Collected: 01/25/2018 Status: F Source: [facility] 12:24 PM [facility] REPOSITORY TYPE CODE TESTS RESULT OUT OF RANGE REFERENCE UNITS LAB L3620.0200 Not Estab. nmol BCE Normal 349 N-TELOPEPTID E LAB L3620.0300 Not Estab. mg/dL Normal 156.1 CREATININE,U R LAB L3620.0400 0-89 Normal 25 N-TELO:CRE UR Result Comment: Result Units: nM BCE/mM Cr LAB L3620.0500 Normal INTERPRET.GUIDE Result Comment: The N-telopeptide and Creatinine are used to calculate the N-telo/Creat. Ratio which is referred to as NTx. Suggested guidelines for the clinical use of NTx are as follows: 1. Menopausal Women not on Hormone Replacement Therapy (HRT): Women with a baseline NTx value >38 are at significant risk for a decrease in bone mineral density (BMD) after 1 year compared to women on HRT. The probability of a decline in BMD increases with NTx value as follows: (1): Baseline NTx Probability of Decrease in BMD 18- 38 1.4 p=0.28 38- 51 2.5 p=0.03 51- 67 3.8 p=0.0006 67-188 17.3 p=0.0001 2. Menopausal Women Receiving Antiresorptive Therapy: The probability that treatment is effective after three months is increased when the measured NTx value is <or=38 nM BCE/mM [employer], or NTx has decreased >or=30% from baseline.[1] 3. Patients with Paget's Disease of Bone: The probability that treatment is effective after one month is increased when the measured NTx value is within the reference range, or NTx has decreased >or=30% from baseline.[2] 1. Linda CH, Gaines NH, Az GS, et al. Am J Med, 102:29-37,1997. (1):M757, 1995. 2. Bone H, Marleen J, et al. J Bone Min Res.11(1):M757,1995 Performed By: #### L3300.0960, L3620.0100 #### [facility] (refer to report for specific site) refer to report for address and phone number COMPREHENSIVE METABOLIC Collected: 01/19/2018 Status: F [facility] REPOSITORY TYPE CODE TESTS RESULT OUT OF RANGE REFERENCE UNITS LAB L501.0100 74-106 mg/dL Normal GLU 101 Result Comment: Fasting Glucose result from 100 to 125 mg/dL suggests IMPAIRED HOMEOSTASIS per A.D.A. criteria. Please note revised GLUCOSE reference range effective 2017. LAB L501.1000 7-18 mg/dL Normal BUN 14 LAB L501.1100 0.55-1.02 mg/dL Normal CREAT,SERUM 0.86 Result Comment: The validity of the calculated GFR AND GFRAA in patients over 70 years has not been determined. Clinical correlation is essential. LAB L501.1110 >60 mL/min Normal EST GFR 69 Result Comment: Non- GFR Calc LAB L501.1115 >60 mL/min Normal EST GFR - AA 83 Result Comment: GFR Calc LAB L501.1300 10-20 RATIO Normal BUN/CRE 16.2 LAB L501.1500 6.4-8.2 g/dL T Normal PROT 6.9 LAB L501.1800 3.2-5.0 g/dL Normal ALB 3.4 LAB L501.1950 2.2-4.2 g/dL Normal GLOB 3.5 LAB L501.2000 0.9-2.4 RATIO Normal A/G 1.0 LAB L501.2200 8.5-10.1 mg/dL Low CA 8.4 LAB L501.4100 15-37 U/L Normal AST 21 LAB L501.4305 45-117 U/L Normal ALK P 108 LAB L501.4405 13-56 U/L Normal ALT 21 LAB L501.4600 0.20-1.00 mg/dL T Normal BILI 0.40 LAB L501.5300 136-145 mmol/L NA Normal 143 LAB L501.5600 3.5-5.1 mmol/L K Normal 4.1 LAB L501.5900 98-107 mmol/L High CL 111 LAB L501.6100 21.0-32.0 mmol/L Normal CO2 23.0 LAB L501.6200 5-15 Normal GAP 9 Performed By: #### L500.4050, L501.2300 #### [facility] [address] [facility] [place], [address] PHOSPHORUS Collected: 01/19/2018 Status: F Source: [place] 1:10 PM [facility] REPOSITORY TYPE CODE TESTS RESULT OUT OF RANGE REFERENCE UNITS LAB L501.2300 2.5-4.9 mg/dL Normal PHOS 3.4 Performed By: #### L500.4050, L501.2300 #### [facility] [address] [facility] [place], [address] PTHIN Collected: 01/19/2018 Status: F Source: [place] 1:10 PM [facility] REPOSITORY TYPE CODE TESTS RESULT OUT OF RANGE REFERENCE UNITS LAB L509.1000 18.4-80.1 pg/mL Normal PTHIN 38.2 Performed By: #### L509.1000 #### [facility] [address] [facility] [place], [address] CALCIUM IONIZED Collected: 01/19/2018 Status: F Source: [place] 1:10 PM [facility] REPOSITORY TYPE CODE TESTS RESULT OUT OF RANGE REFERENCE UNITS LAB L3100.9600 4.5-5.6 mg/dL Normal IONIZED CA 5.0 Result Comment: Performed at: [address] [id number] Executive Asst: Herman Kimball PhD, Phone: [phone] Performed By: #### L3100.9600 #### [facility] (refer to report for specific site) refer to report for address and phone number BASIC METABOLIC Collected: 01/11/2018 Status: F Source: [facility] PROFILE (BMP) 3:57 PM [facility] REPOSITORY TYPE CODE TESTS RESULT OUT OF RANGE REFERENCE UNITS LAB L501.0100 74-106 mg/dL Normal GLU 94 Result Comment: Please note revised GLUCOSE reference range effective 2017. LAB L501.1000 7-18 mg/dL Normal BUN 13 LAB L501.1100 0.55-1.02 mg/dL Normal CREAT,SERUM 0.92 Result Comment: The validity of the calculated GFR AND GFRAA in patients over 70 years has not been determined. Clinical correlation is essential. LAB L501.1110 >60 mL/min Normal EST GFR 64 Result Comment: Non- GFR Calc LAB L501.1115 >60 mL/min Normal EST GFR - AA 77 Result Comment: GFR Calc LAB L501.1300 10-20 RATIO Normal BUN/CRE 14.1 LAB L501.2200 8.5-10.1 mg/dL Low CA 7.9 LAB L501.5300 136-145 mmol/L NA Normal 144 LAB L501.5600 3.5-5.1 mmol/L K Normal 4.1 Result Comment: Slight Hemolysis, Result may be falsely increased. LAB L501.5900 98-107 mmol/L High CL 110 LAB L501.6100 21.0-32.0 mmol/L Normal CO2 25.0 LAB L501.6200 5-15 Normal 9 GAP Performed By: #### L500.2500 #### [facility] [address] [place], [address] CALCIUM IONIZED Collected: 01/11/2018 Status: F Source: [facility] 3:57 PM [facility] REPOSITORY TYPE CODE TESTS RESULT OUT OF REFERENCE UNITS RANGE LAB L3100.9600 4.5-5.6 mg/dL Low IONIZED CA 4.4 Result Comment: Performed at: [facility] [id number] Executive Asst: Herman Kimball PhD, Phone: [phone] Performed By: #### L3100.9600 #### [facility] (refer to report for specific site) refer to report for address and phone number CALCIUM,TOTAL Collected: 12/27/2017 Status: F Source: [facility] 2:40 PM [facility] REPOSITORY TYPE CODE TESTS RESULT OUT OF RANGE REFERENCE UNITS LAB L501.2200 8.5-10.1 mg/dL Low CA 8.1 Performed By: #### L501.0 #### [facility] [address] [facility] [place], [address] PTHIN Collected: 12/27/2017 Status: F Source: [facility] 2:40 PM [facility] REPOSITORY TYPE CODE TESTS RESULT OUT OF RANGE REFERENCE UNITS LAB L509.1000 18.4-80.1 pg/mL Normal PTHIN 31.8 Performed By: #### L509.1000 #### [facility] [address] [facility] [place], [address] VITAMIN D,25 HYDROXY Collected: 12/27/2017 Status: F Source: [facility] 2:40 PM [facility] REPOSITORY TYPE CODE TESTS RESULT OUT OF RANGE REFERENCE UNITS LAB L506.1000 29.95-100.01 ng/mL Normal Vitamin D 66.6 25-OH Result Comment: Vitamin D 25(OH) Status Range Deficiency <20 ng/mL (50nmol/L) Insuffciency 20 - 30 ng/mL (50 - 75 nmol/L) Sufficiency 30 - 100 ng/mL (75 - 250 nmol/L) Toxicity >100 ng/mL (>250 nmol/L) Performed By: #### L506.1000 #### [facility] [address] [facility] [place], [address] CALCIUM Collected: 12/11/2017 Status: F Source: [facility] 3:13 AM [facility] REPOSITORY TYPE CODE TESTS RESULT OUT OF REFERENCE UNITS RANGE LAB CA 8.6-10.5 mg/dL Calcium 9.0 Performed By: #### CA #### [facility] [address] [place] [address] [facility] [address] [place], [place] [address] PLATELET COUNT Collected: 12/11/2017 Status: F Source: [facility] 2:38 AM [facility] REPOSITORY TYPE CODE TESTS RESULT OUT OF REFERENCE UNITS RANGE LAB PLT 182-369 K/uL Low Platelet Count 178 LAB MPV 9.4-12.3 fL Mean Platelet 11.1 Volume Performed By: #### PLAT #### [facility] [id number] [place] [address] [address] [place] [address] *INTACT*PTH Collected: 12/10/2017 Status: F Source: [facility] (INTRAOPERATIVE) 5:11 PM [facility] REPOSITORY TYPE CODE TESTS RESULT OUT OF RANGE REFERENCE UNITS LAB RPTH 14.0-72.0 pg/mL Low 11.6 *Intact*PTH (Intraoperat tra) Result Comment: Called to and read back by PATRICIA MCCABE AT 1742 ON 12.10.2017 Performed By: #### RPTH #### [place] [address] *INTACT*PTH Collected: 12/10/2017 Status: F Source: [facility] (INTRAOPERATIVE) 5:03 PM [facility] REPOSITORY TYPE CODE TESTS RESULT OUT OF RANGE REFERENCE UNITS LAB RPTH 14.0-72.0 pg/mL 14.4 *Intact*PTH (Intraoperat tra) Result Comment: Called to and read back by PATRICIA MCCABE AT 1734 ON 12.10.2017 Performed By: #### RPTH #### [facility] [address] [place] [address] *INTACT*PTH Collected: 12/10/2017 Status: F Source: [facility] (INTRAOPERATIVE) 4:09 PM [facility] REPOSITORY TYPE CODE TESTS RESULT OUT OF RANGE REFERENCE UNITS LAB RPTH 14.0-72.0 pg/mL High 119.3 *Intact*PTH (Intraoperat tra) Result Comment: Called to and read back by PATRICIA MCCABE AT 1652 ON 12.10.2017 Performed By: #### RPTH #### [facility] [address] [facility] [address] [address] *INTACT*PTH Collected: 12/10/2017 Status: F Source: [facility] (INTRAOPERATIVE) 4:08 PM [facility] REPOSITORY TYPE CODE TESTS RESULT OUT OF RANGE REFERENCE UNITS LAB RPTH 14.0-72.0 pg/mL High 239.3 *Intact*PTH (Intraoperat tra) Result Comment: Called to and read back by PATRICIA MCCABE AT 1651 ON 12.10.2017 Performed By: #### RPTH #### [facility] [address] [place] [address] [address] [address] *INTACT*PTH Collected: 12/10/2017 Status: F Source: [facility] (INTRAOPERATIVE) 12:15 PM [facility] REPOSITORY TYPE CODE TESTS RESULT OUT OF RANGE REFERENCE UNITS LAB RPTH 14.0-72.0 pg/mL High 99.6 *Intact*PTH (Intraoperat tra) Result Comment: Called to and read back by JOSE SZYMANSKI RN 12/10/2017 @ 1246 Performed By: #### RPTH #### [place] [address] SURGICAL PATHOLOGY Observed: 12/10/2017 Status: F Source: [facility] 9:31 AM [facility] REPOSITORY Surgical Pathology Report Patient Name: PAULINO DOTSON [facility]. Rec #: [id number] Submitting Physician: ARACELY AMARO --- Clinical History --- Preoperative Diagnosis: Parathyroid adenoma. Additional History: Hyperparathyroidism. D35.1 ---Final Pathologic Diagnosis--- A. Possible right inferior parathyroid, parathyroidectomy: - Hypercellular parathyroid, consistent with adenoma day39/LSMD:12/14/2017 Electronically Signed By Oriana Darby M.D. 12/14/2017 11:29:27 Professional Interpretation performed at location: [address] [place] [address] ---INTRAOPERATIVE CONSULTATION DIAGNOSIS:--- A1F. Possible right inferior parathyroid (Frozen section performed): - Parathyroid gland, 0.2 g Note: Reported to Dr. Amaro at 5:30 p.m. on 12/10/2017. Examining pathologist:Aldo Tapia MD ---SPECIMEN(S) RECEIVED:--- SBX A: Parathyroid gland, BX ---GROSS DESCRIPTION:--- The specimen is received in one properly labeled container with the patient's name and accession number. A. The specimen is designated possible right inferior parathyroid and consists of a 0.2 g, 1.0 x 0.7 x 0.6 cm pink- hall tissue fragment. One half of the specimen is submitted for frozen section and resubmitted as received for permanent section in cassette A1F. TE 2 Summary of Cassettes: A1F, residual frozen section tissue; A1, remaining specimen Lab Use Only: JobID [id number] Gross description by: Janelle Martin Performed By: #### SURGP #### [facility] [address] [place] [address] [place] [address] XR CHEST PA AND Observed: 11/22/2017 Status: F Source: [facility] LATERAL 2:49 PM [facility] REPOSITORY EXAM: XR CHEST PA AND LATERAL, 11/22/2017 14:25 PM COMPARISON: No prior studies available for comparison. CLINICAL INDICATIONS: preop RELEVANT CLINICAL HISTORY: Z01.818:Preop exam for internal medicine D35.1:Parathyroid adenoma E66.9:Obesity (BMI 30.0-34.9) G47.33:STEFANIA (obstructive sleep apnea) I10:Essential hypertension, benign K21.9:Gastroesophageal reflux disease, esophagitis presence not specified FINDINGS: (Adequate technique) Implanted Devices: None Chest Wall: Postsurgical changes in the spine with vertebroplasty procedure of T8. Several other compression deformities noted resulting in a kyphotic curvature Rosalie: Normal Mediastinum: Normal Pleural Spaces: No pleural effusion. No pneumothorax. Lungs: Calcified granulomata in the right middle lobe and an projected in the retrosternal space Cardiac Silhouette: Normal, without overall or specific chamber enlargement, or abnormal calcification Thoracic Aorta: Tortuous aorta with atherosclerotic calcifications Pulmonary Vessels: Normal, without PVH IMPRESSION: Previous granulomatous disease. No acute process. PARATHYROID Observed: 11/22/2017 Status: F Source: [facility] 2:18 PM [facility] REPOSITORY EXAM: NUC PARATHYROID SESTAMIBI, 11/22/2017 10:40 AM CLINICAL INDICATIONS: HYPERPARATHYROIDISM; this study is requested for the detection of parathyroid adenoma. COMPARISON: Comparison is made to outside hospital parathyroid scintigraphy dated October 14, 2016. TECHNIQUE: Spot views of the neck/chest plus magnification views of the neck were obtained at approximately 15 minutes and 2 hours following the administration of 21.9 mCi of Tc-99m sestamibi. SPECT-CT of the neck was performed at 1 hour post radiotracer administration. DLP 404 KV 130 FINDINGS: Symmetric radiotracer uptake is identified in the region of the thyroid gland on 15 minute images with expected washout of radiotracer activity at 2 hours resulting in only mild, symmetric residual activity within the thyroid bed. There are no suspicious foci of retained radiotracer activity to suggest a parathyroid adenoma. Incidental note is made of a surgically absent right submandibular gland. IMPRESSION: No scintigraphic evidence of parathyroid adenoma. I personally viewed and interpreted these images and I have reviewed and approved this report. E LUMBAR Observed: 11/20/2017 Status: F Source: [facility] (ROUTINE) 8:49 AM [facility] REPOSITORY [facility] Imaging Services [address] [id number] Spine Lumbar (Routine) MR#: [id number] Acct: [id number] Name: PAULINO DOTSON Rep #: [id number] : 1945 F 72 From: Mary Grace Alcaraz MD PCP: Aracely Frausto MD Status: REG CLI Study: Spine Lumbar (Routine) Date of Exam: 11/20/17 Exam# [id number] Ordering Dr: Aracely Frausto MD STUDY: MRI LUMBAR SPINE WITHOUT CONTRAST REASON FOR EXAM: Female, 72 years old. Severe claudication. Patient has low back pain with bilateral leg feet pain and swelling. TECHNIQUE: Standardized fat and water weighted pulse sequences were obtained in the sagittal and axial planes. COMPARISON: CT of abdomen and pelvis dated October 15, 2015. FINDINGS: Interpedicular screws are visible at T10. T12-L1: There are small Schmorl's nodes at the endplates. Normal disc height and morphology. There is loss of normal T2 hyperintensity consistent with degenerative disc disease. Normal bilateral facet joints. Normal central canal and bilateral lateral recesses. Normal bilateral intervertebral neural foramina. Normal lumbar lordosis. There is no substantial scoliosis. Normal conus medullaris that terminates at the L1-L2 level. L1-2: There is mild annular disk bulge and osteophyte complex. There is mild degenerative arthropathy of the facet joints. Bilateral neuroforamina are narrowed without MR evidence for nerve impingement. There is no significant central canal stenosis. Interpedicular screws are visible at L2. L2-3: There is a compression fracture of L3. Patient appears to have had a vertebroplasty at this level. Interpedicular screws are visible at L2 and L3. There is mild annular disk bulge and osteophyte complex. There is mild degenerative arthropathy of the facet joints. Bilateral neuroforamina are narrowed without MR evidence for nerve impingement. There is no significant central canal stenosis. L3-4: There is mild annular disk bulge and osteophyte complex. There is mild degenerative arthropathy of the facet joints. Bilateral neuroforamina are narrowed without MR evidence for nerve impingement. There is no significant central canal stenosis. Interpedicular screws are visible at L3 and L4. L4-5: There is a broad central disc protrusion. There is mild central acquired canal stenosis. There is mild degenerative arthropathy of the facet joints. Neural foramina are bilaterally narrowed without evidence for nerve impingement. Interpedicular screws are visible at L4. L5-S1: Normal endplates. Normal disc height, hydration and morphology. Normal bilateral facet joints. Normal central canal and bilateral lateral recesses. Normal bilateral intervertebral neural foramina. Normal visualized sacral ala. Normal visualized paraspinous soft tissue structures. Appears to be mild aneurysmal dilatation of the proximal abdominal aorta with maximum transverse dimension of 3.5 cm. MRI/Spine Lumbar (Routine) IMPRESSION: 1. Status post treatment for compression fracture of L3 with surgical fusion of the L2, L3, and L4 segments as well as vertebroplasty of L3. 2. Multilevel degenerative disc disease and degenerative arthropathy of the lumbar spine with acquired canal stenosis and neural foraminal narrowing as described. 3. Mild aneurysmal dilatation of the proximal abdominal aorta. Electronically Signed: Mary Grace Alcaraz MD at 9:21 EDT , Service support , CC: Aracely Frausto MD Floor Layer Tile: Signed LOWER EXT ARTERIAL Observed: 11/05/2017 Status: F Source: [facility] 6:31 PM [facility] REPOSITORY [facility] Cardiovascular Services [address] [place] [address] 11/05/17 1826 MR#: [id number] Acct: [id number] Name: PAULINO DOTSON Rep #: [id number] : 1945 72 From: Faheem Jluian MD Attending Dr: Aracely Frausto MD Status: REG CLI Ordering Dr: Date: 11/05/17 Location: [facility] Sex: F C Admitted: Arterial Study - Arterial Study Arterial Study: This is a 72-year-old female with a history of hypertension and smoking. The patient presents with symptoms suggesting intermittent claudication secondary to peripheral arterial occlusive disease. The patient was brought to the noninvasive vascular laboratory at this time for the purpose of bilateral noninvasive lower extremity arterial assessment. Doppler signal assessment was used to evaluate the pulses at ankle level bilaterally. The posterior tibial and dorsalis pedis pulses were triphasic bilaterally. Segmental limb pressures were obtained at ankle level bilaterally. The right ankle pressure, as determined by posterior tibial pulse, was measured at 135 mmHg. The right ankle pressure, as determined by dorsalis pedis pulse, was measured at 139 mmHg. The left ankle pressure, as determined by posterior tibial pulse, was measured at 134 mmHg. The left ankle pressure, as determined by dorsalis pedis pulse, was measured at 144 mmHg. Resting ankle-brachial indices were calculated bilaterally. The resting right ankle-brachial index was calculated to be 1.01. The resting left ankle-brachial index was calculated to be 1.05. Impression: Based upon the findings of this resting noninvasive lower extremity arterial study, there is no evidence of significant atherosclerotic peripheral arterial occlusive disease in the lower extremities bilaterally. Triphasic waveforms were noted at ankle level bilaterally. Resting ankle-brachial indices were bilaterally normal. In summary, this represents a normal resting noninvasive lower extremity arterial study bilaterally. The exercise portion of the study was not performed due to patient refusal. 11/05/171830 <Electronically signed by Faheem Julian MD> Date Faheem Julian MD CC: Aracely Frausto MD Date Dictated: 11/05/171825 Date Transcribed: 11/05/171825 Floor Layer Tile: ALESSANDRO Signed CBC WITH DIFF Collected: 11/02/2017 Status: F Source: [facility] 11:26 AM [facility] REPOSITORY TYPE CODE TESTS RESULT OUT OF REFERENCE UNITS RANGE LAB WBC 3.98-10.04 K/uL WBC Count 7.75 LAB RBC 3.93-5.22 M/uL RBC Count 3.96 LAB HGB 11.2-15.7 g/dL Hemoglobin 12.7 LAB HCT 34.1-44.9 % Hematocrit 39.9 LAB MCV 79.4-94.8 fL Mean Cell 100.8 High Volume LAB MCH 25.6-32.2 pg Mean Cell 32.1 Hgb LAB MCHC 32.2-35.5 g/dL Mean Cell 31.8 Low Hgb Conc LAB RDW 11.7-14.4 % RBC 13.9 Distribution LAB PLT 182-369 K/uL Platelet 183 Count LAB MPV 9.4-12.3 fL Mean 9.9 Platelet Volume LAB NRBC 0.0-0.2 /100 WBC NUCLEATED 0.0 RBC LAB DTYPE Electronic DIFFERENTIAL TYPE Differential LAB IGRE % IMMATURE 0.3 GRANS % LAB SEGS % NEUTROPHIL 66.7 SEGMENTED LAB LYM % LYMPHOCYTE 18.7 % LAB MON % MONOCYTE % 9.8 LAB EOS % EOSINOPHIL 3.5 % LAB BASO % BASOPHIL % 1.0 LAB IGABS <0.04 K/uL IMMATURE <0.04 GRANS ABSOLUTE LAB SBANS 1.56-6.13 K/uL SEGS + 5.17 Bands,Absolute LAB ALYM 1.18-3.74 K/uL Abs Lymph 1.45 LAB AMONO 0.24-0.86 K/uL Abs [place] 0.76 LAB AEOS <0.37 K/uL Abs Eos 0.27 LAB ABASO <0.09 K/uL Abs Baso 0.08 Performed By: #### CBCDFM, ICAC, CMPNC #### [place] [address] #### IPTH, D125 #### [facility] [address] [place] [address] [address] [place] [address] IONIZED CALCIUM - Collected: 11/02/2017 Status: F Source: [facility] 11:26 AM [facility] REPOSITORY TYPE CODE TESTS RESULT OUT OF REFERENCE UNITS RANGE LAB ICA 4.60-5.30 mg/dL Ionized 5.00 Calcium Performed By: #### CBCDFM, ICAC, CMPNC #### [place] [address] #### IPTH, D125 #### [facility] [address] [place] [address] [place] [address] COMP METABOLIC Collected: 11/02/2017 Status: F [facility] 11:26 AM [facility] REPOSITORY TYPE CODE TESTS RESULT OUT OF REFERENCE UNITS RANGE LAB NA 133-143 mmol/L Sodium 143 LAB K 3.5-5.0 mmol/L Potassium 3.5 LAB CL 98-108 mmol/L Chloride High 110 LAB BUN 7-22 mg/dL BUN 12 LAB CREA 0.50-1.20 mg/dL Creatinine 0.71 LAB GLUC 70-99 mg/dL Glucose 93 LAB BILT <1.5 mg/dL Bilirubin Total 0.3 LAB ALB 3.5-5.0 g/dL Albumin 4.0 LAB TP 6.4-8.3 g/dL Total Protein 6.6 LAB AST 14-40 U/L AST 28 LAB ALP 32-126 U/L Alkaline Phosphatase 105 LAB CA 8.6-10.5 mg/dL Calcium 9.6 LAB CO2 22-30 mmol/L Carbon Dioxide 28 LAB ALT 9-48 U/L ALT 20 LAB GFR >60 mL/min/1.7 3sqM Est GFR,non >60 LAB GFRA >60 mL/min/1.7 3sqM Est GFR, >60 LAB GAP 7-17 mmol/L Anion Gap 9 LAB OSMC 278-305 mOsm/kg Osmolality (Calc) 297 Performed By: #### TAMARADFM, ICAC, CMPNC #### [facility] [address] [place] [address] #### IPTH, D125 #### [facility] [address] [place] [address] [place] [address] INTACT PTH Collected: 11/02/2017 Status: F Source: [facility] 11:26 AM [facility] REPOSITORY TYPE CODE TESTS RESULT OUT OF REFERENCE UNITS RANGE LAB IPTH 14.0-72.0 pg/mL High INTACT PTH 211.7 Performed By: #### TAMARADFM, ICAC, CMPNC #### [facility] [address] [place] [address] #### IPTH, D125 #### [facility] [address] [place] [address] 1,25-DIHYDROXYVITAMIN D Collected: Status: F Source: [facility] 11/02/2017 11:26 AM [facility] REPOSITORY TYPE CODE TESTS RESULT OUT OF RANGE REFERENCE UNITS LAB D125 20-79 pg/mL High 93.6 1,25-Dihydro xyvitamin D Performed By: #### CBCDFM, ICAC, CMPNC #### [facility] [address] [place] [address] #### IPTH, D125 #### [facility] [address] [place] [address] [facility] [address] [place] [address] ECHOCARDIOGRAM COMPLETE Observed: 10/07/2017 Status: F Source: [facility] 5:14 PM [facility] REPOSITORY [facility] Cardiovascular Services [address] [place] [address] Echo Complete 10/07/17 1250 MR#: [id number] Acct: [id number] Name: PAULINO DOTSON Rep #: [id number] : 1945 72 From: Tam Morelos MD Attending Dr: Aracely Frausto MD Status: REG CLI Ordering Dr: Aracely Frausto MD Date: 10/07/17 Location: [facility] Sex: F C Admitted: Reason For Study: DECREASED EJECTION FRACTION Procedure This was a 2D Doppler, Color Flow transthoracic echocardiogram. The exam was of poor technical quality due to body habitus. The study was technically difficult. Exam performed in department. Left Ventricle Normal LV size. Left ventricular systolic function is normal. The estimated ejection fraction is 55 %. No regional wall motion abnormalities noted. Right Ventricle Normal RV size. Normal systolic function. Atria The left atrium is moderately enlarged. Normal right atrium. No doppler evidence for ASD. Mitral Valve There is no mitral annular calcification. Normal mitral valve. Trivial mitral valve insufficiency. Tricuspid Valve Normal tricuspid valve. Trivial tricuspid valve insufficiency. Right ventricular systolic pressure estimated to be 30 mmHg. Aortic Valve Trisinus/trileaflet aortic valve. Mild focal aortic valve thickening. Mild (1+) aortic valve insufficiency. Pulmonic Valve The pulmonic valve is not well visualized. Great Vessels Normal sized aortic root. Pericardium/Pleural No pericardial effusion. MMode/2D Measurements AND Calculations LVIDd: 4.6 cm IVSd: 1.1 cm Ao root diam: 3.5 cm LVIDs: 3.3 cm LVPWd: 1.1 cm LA dimension: 3.7 cm RVDd: 2.4 cm FS: 28.6 % LAV(MOD-bp): 65.9 ml LA A4 area: 22.0 cm2 RA A4 area: 15.1 cm2 LAV(MOD-bp) Indexed: 37.4 ml/m2 LAV(MOD-sp2): 67.7 ml LAV(MOD-sp4): 64.5 ml Doppler Measurements AND Calculations MV E max gabriel: 63.8 cm/sec Lat Peak E' Gabriel: 8.8 cm/sec Med Peak E' Gabriel: 7.0 cm/sec MV A max gabriel: 52.8 cm/sec E/E' lat: 7.3 E/E' med: 9.1 MV E/A: 1.2 Ao V2 max: 128.2 cm/sec AI max gabriel: 461.3 cm/sec LV V1 max: 101.7 cm/sec Ao max P.6 mmHg AI max P.1 mmHg LV V1 max P.1 mmHg AI dec slope: 138.0 cm/sec2 AI P1/2t: 979.3 msec PA V2 max: 68.9 cm/sec TR max gabriel: 257.9 cm/sec TR max P.6 mmHg Interpretation Summary The study was technically difficult. Left ventricular systolic function is normal. The estimated ejection fraction is 55 %. The left atrium is moderately enlarged. Trivial mitral valve insufficiency. Trivial tricuspid valve insufficiency. Mild focal aortic valve thickening. Mild (1+) aortic valve insufficiency. Right ventricular systolic pressure estimated to be 30 mmHg. Transmitral diastolic flow velocities suggest diastolic dysfunction (pseudonormal pattern). Ordering Physician: Aracely Frausto Referring Physician: Aracely Frausto Performed By: Britney Salcedo, RDCS, RVT 10/07/171712 Date Tam Morelos MD CC: Aracely Frausto MD Date Dictated: 10/07/17 1250 Date Transcribed: 10/07/171712 Floor Layer Tile: Signed CBC W/DIFF, AUTOMATED Collected: 09/13/2017 Status: F Source: [facility] 10:55 AM [facility] REPOSITORY TYPE CODE TESTS RESULT OUT OF RANGE REFERENCE UNITS LAB L100.1000 4.4-11.0 K/mm3 Normal WBC 7.0 LAB L100.1200 4.2-5.4 M/mm3 Low RBC 3.75 LAB L100.1300 12.0-15.0 g/dl Normal HGB 12.0 LAB L100.1400 37-47 % Normal HCT 38.4 LAB L100.1500 81-99 fL High MCV 102.4 LAB L100.1600 27.0-32.0 pg Normal MCH 32.0 LAB L100.1700 32-36 g/gl Low MCHC 31.3 LAB L100.1810 11.6-14.6 % Normal RDW CV 14.1 LAB L100.1820 35.1-43.9 fl High RDW SD 52.3 LAB L100.1900 150-450 K/mm3 Normal PLT 225 LAB L100.2000 6.2-12.0 fl Normal MPV 10.4 LAB L100.2100 47-70 % Normal NEUT% 68.8 LAB L100.2200 19-41 % Low LY% 16.8 LAB L100.2300 0-10 % Normal MONO% 9.9 LAB L100.2400 0-5 % Normal EO% 3.5 LAB L100.2500 0-1 % Normal BASO% 0.9 LAB L100.2550 0.0-0.9 % Normal IM GRAN % 0.100 Result Comment: IG% - Immature Granulocytes (promyelocytes, myelocytes and metamyelocytes) > 1% indicates that a LEFT SHIFT is Present. LAB L100.2620 2.0-7.7 X10 3/uL Normal Absolute Neut 4.8 LAB L100.2720 0.83-4.51 X10 3/ul Normal Absolute Lymph 1.17 Performed By: #### L100.0100 #### [facility] [address] [place], [address] PTHIN Collected: 09/13/2017 Status: F Source: [place] 10:55 AM [facility] REPOSITORY TYPE CODE TESTS RESULT OUT OF RANGE REFERENCE UNITS LAB L509.1000 18.4-80.1 pg/mL High PTHIN 177.9 Result Comment: Please Note: PTH INTACT METHOD AND REFERENCE RANGE CHANGE Effective 05/12/2017. Performed By: #### L509.1000 #### [facility] [address] [place], [place], [address] VITAMIN D,25 HYDROXY Collected: 09/13/2017 Status: F Source: [place] 10:55 [facility] REPOSITORY TYPE CODE TESTS RESULT OUT OF RANGE REFERENCE UNITS LAB L506.1000 29.95-100.01 ng/mL Normal Vitamin D 50.4 25-OH Result Comment: Vitamin D 25(OH) Status Range Deficiency <20 ng/mL (50nmol/L) Insuffciency 20 - 30 ng/mL (50 - 75 nmol/L) Sufficiency 30 - 100 ng/mL (75 - 250 nmol/L) Toxicity >100 ng/mL (>250 nmol/L) Performed By: #### L506.1000 #### [facility] [address] [place], [address] COMPREHENSIVE METABOLIC Collected: 09/13/2017 Status: F Source: [facility] 10:55 AM [facility] REPOSITORY TYPE CODE TESTS RESULT OUT OF RANGE REFERENCE UNITS LAB L501.0100 74-106 mg/dL Normal GLU 82 Result Comment: Please note revised GLUCOSE reference range effective 2017. LAB L501.1000 7-18 mg/dL Normal BUN 14 LAB L501.1100 0.55-1.02 mg/dL Normal CREAT,SERUM 0.82 Result Comment: The validity of the calculated GFR AND GFRAA in patients over 70 years has not been determined. Clinical correlation is essential. LAB L501.1110 >60 mL/min Normal EST GFR 73 Result Comment: Non- GFR Calc LAB L501.1115 >60 mL/min Normal EST GFR - AA 89 Result Comment: GFR Calc LAB L501.1300 10-20 RATIO Normal BUN/CRE 17.1 LAB L501.1500 6.4-8.2 g/dL T Normal PROT 6.5 LAB L501.1800 3.2-5.0 g/dL Normal ALB 3.2 LAB L501.1950 2.2-4.2 g/dL Normal GLOB 3.3 LAB L501.2000 0.9-2.4 RATIO Normal A/G 1.0 LAB L501.2200 8.5-10.1 mg/dL CA Normal 8.9 LAB L501.4100 15-37 U/L Normal AST 22 LAB L501.4305 45-117 U/L Normal ALK P 104 LAB L501.4405 13-56 U/L Normal ALT 22 LAB L501.4600 0.20-1.00 mg/dL T Normal BILI 0.20 LAB L501.5300 136-145 mmol/L NA Normal 145 LAB L501.5600 3.5-5.1 mmol/L Low K 3.4 LAB L501.5900 98-107 mmol/L High CL 112 LAB L501.6100 21.0-32.0 mmol/L Normal CO2 27.0 LAB L501.6200 5-15 Normal GAP 6 Performed By: #### L500.4050, L500.4100, L503.6030, L503.6550 #### [facility] [address] [place], [address] LIPID PROFILE Collected: 09/13/2017 Status: F Source: [place] 10:55 AM [facility] REPOSITORY TYPE CODE TESTS RESULT OUT OF RANGE REFERENCE UNITS LAB L501.4900 200 mg/dL Normal CHOL 122 Result Comment: <200 mg/dL Desirable 200-240 mg/dL Borderline >240 mg/dL High Risk LAB L501.5000 mg/dL Normal TRIG 126 Result Comment: The drugs N-Acetylcysteine and Metamizole may falsely depress this assay. Serum Triglycerides Reference Interval Normal <150 mg/dL Borderline high 150 - 199 mg/dL High 200 - 499 mg/dL Very High > or = 500 mg/dL LAB L501.6400 mg/dL Normal HDL 49 Result Comment: The drugs N-Acetylcysteine and Metamizole may falsely depress this assay. Reference Range HDL <40 mg/dL Low HDL Cholesterol HDL >or= 60 mg/dL High HDL Cholesterol LAB L501.6500 0-130 mg/dL Normal LDL 48 LAB L501.6600 5-40 mg/dL Normal VLDL 25 Performed By: #### L500.4050, L500.4100, L503.6030, L503.6550 #### [facility] [address] [place], [place], [id number] IRON+IRON BINDING Collected: 09/13/2017 Status: F Source: [place] [facility] 10:55 AM [facility] REPOSITORY TYPE CODE TESTS RESULT OUT OF RANGE REFERENCE UNITS LAB L503.6075 250-450 ug/dL TIBC Normal 258 LAB L503.6150 50-170 ug/dL IRON Normal 56 LAB L503.6250 15.0-55.0 % IRON Normal SATURATION 21.7 Performed By: #### L500.4050, L500.4100, L503.6030, L503.6550 #### [facility] [address] [place], [place], [address] FERRITIN Collected: 09/13/2017 Status: F Source: [place] 10:55 AM [facility] REPOSITORY TYPE CODE TESTS RESULT OUT OF RANGE REFERENCE UNITS LAB L503.6550 8-252 ng/mL Normal FERRITIN 57 Performed By: #### L500.4050, L500.4100, L503.6030, L503.6550 #### [facility] [address] [place], [place], [id number] LOW DOSE CT LUNG Observed: 09/11/2017 Status: F Source: [place] [facility] 9:18 AM [facility] REPOSITORY [facility] Imaging Services [address] [place] [address] Lung Screening MR#: [id number] Acct: [id number] Name: PAULINO DOTSON Rep #: [id number] : 1945 F 72 From: Marques Sherwood MD PCP: Aracely Frausto MD Status: REG CLI Study: Low Dose CT Lung Screening Date of Exam: 09/11/17 Exam# [id number] Ordering Dr: Francisco Fallon MD STUDY: LOW DOSE CT LUNG CANCER SCREENING REASON FOR EXAM: Female, 72 years old. TROUBLE BREATHING, TOBACCO ABUSE, SMOKER OF 50 YEARS X 1PPD, NOW DOWN TO 1 CIG PER DAY, FAM HX OF LUNG CA, HTN, CAD, ASTHMA, COPD. RADIATION DOSAGE (If Supplied By Facility): CTDIvol = ( 3.02 ) mGy, DLP = ( 85.35 ) mGycm TECHNIQUE: No contrast was administered. Low dose technique was utilized (average mAS-38 and kVp 120). 1.25 mm axial source images with a slice interval of 1.25- mm were reconstructed in lung windows. 2.5 mm axial source images with a slice interval of 2.5-mm were reconstructed in lung windows. 5.0 mm axial source images with a slice interval of 5.0-mm were reconstructed in soft tissue windows. Nodule measured using lung windows on PACS and/or independent workstation with automated measurement of minimum and maximum diameter. Nodule measurement reported as average diameter rounded to the nearest whole number. Growth is defined as an increase ins size of greater than 1.5 mm. COMPARISON: 10/15/2015 NODULES: 2 calcified lung nodules are noted the largest measures 1 cm is in the superior segment of the left lung lower lobe some of these nodules are calcified they most likely represent granulomas. There is no demonstrated pleural abnormality. Normal heart and pericardium. Normal mediastinum. Normal hilar regions. Normal unenhanced pulmonary arteries. Normal aorta arch and descending thoracic aorta. 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 Old osteoporotic compression fractures are seen at T6, T7, T9. There is posterior fusion extending from T8 to T10 in good alignment. 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 There is a stable right adrenal mass measures 5 x 2.7 cm is consistent with benign adenoma. CT/Low Dose CT Lung Screening IMPRESSION: Lung-RADS category 2. 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 Old osteoporotic compression fractures are seen at T6, T7, T9. There is posterior fusion extending from T8 to T10 in good alignment. 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 There is a stable right adrenal mass measures 5 x 2.7 cm is consistent with benign adenoma. Recommendation: Routine screening CT scan in one year. IMPORTANT NOTES FOR USE: ACR Lung-RADS Version 1.0 Assessment Categories Release Date: September 18, 2013 Category: Coded 0-4 bases on nodule(s) with highest degree of suspicion. Negative screen is defined as categories 1 and 2; a positive screen is defined as categories 3 and 4. Category 3 and 4A nodules that are unchanged on interval CT should be coded as category 2, and individuals returned to screening in 12 months. Category 4X: Category 3 or 4 nodules with additional imaging findings that increase the suspicion of lung cancer, such as spiculation, GGN that doubles in size in 1 year, enlarged lymph notes, etc. Category Modifiers: S (significant finding unrelated to lung cancer) and C (prior history of treated lung cancer) may be added to the 0-4 Lung-RADS Electronically Signed: Marques Sherwood MD at 2:16 EDT Tel , Service support , CC: Aracely Frausto MD; Francisco Fallon MD Floor Layer Tile: Signed OPERATIVE REPORT Observed: 06/30/2017 Status: F Source: [facility] 8:27 AM [facility] REPOSITORY [facility] Medical Records Department [address] [place] [address] Operative Report 06/30/17 0823 MR#: [id number] Acct: [id number] Name: PAULINO DOTSON Rep #: [id number] : 1945 71 From: Fritz Hart MD PCP: Aracely Frausto MD Status: REG [facility] Location: [place] [address] Problem List (1) Gastro-esophageal reflux disease without esophagitis Status: Acute (2) Epigastric pain Status: Acute Report of Operation Date of Procedure: 06/30/17 Pre-Operative Diagnosis: K 21.9 gastroesophageal reflux disease without esophagitis. r10.13 epigastric abdominal pain Post-Operative Diagnosis: Same Surgery/Procedure Performed:: 77021 esophagogastroduodenoscopy with biopsy Type of Anesthesia:: MAC Description of Procedure: Patient was brought into the endoscopy suite. The back of her throat was sprayed with Cetacaine spray. A bite-block was placed. She was placed in the left lateral decubitus position. She was given graded anesthesia. The scope was inserted into the oropharynx. The scope was directed down through the esophagus into the stomach and into the duodenum without difficulty. Operative findings: 1. Duodenum: Normal appearance no mass lesions no ulcerations identified. 2. Stomach: Moderate amount of erythema identified in the antrum and prepyloric area. Biopsy for H. pylori was performed. There is no obvious ulcerations. There is no obvious signs of bleeding. Retroflexion did not show any signs of a hiatal hernia. 3. Esophagus: Normal appearance no mass lesions normal Z line no erythema no signs of bleeding or irritation. Patient's wrap looks intact. We will need to wait for the biopsies for H. pylori. She clearly has some irritation in the antral prepyloric area. - Admit VTE Documentation VTE Present on Admission: No VTE Mechan Device Prophylaxis: None VTE Pharm Prophylaxis ordered?: No Reason prophylaxis not ordered:: Treatment Not Indicated 06/30/17 0827 <Electronically signed by Fritz Hart MD> Date Fritz Hart MD CC: Fritz Hart MD; Aracely Frausto MD Signed SURGERY VISIT REPORT Observed: 06/04/2017 Status: F Source: [place] 7:42 AM [facility] [address] [place] [id number] OFFICE VISIT Date of Service: 06/03/17 MR#: [id number] Acct: [id number] Name: PAULINO DOTSON Rep #: [id number] : 1945 Provider: Fritz Hart MD Age/Sex: 71/F Location: [facility] Status: Signed Intake Vital Signs06/03/17 Height 5 ft 1 in 06/03/17 Weight: 169 lb 8 oz Intake Visit Reasons: Gastroesophageal reflux disease (GERD) Official Court Interpreter Required: No Is patient in pain?: No Allergies acetaminophen [From Vicodin] Allergy (Verified 06/03/17 15:19) Rash hydrocodone bitartrate [From Vicodin] Allergy (Verified 06/03/17 15:19) Rash Penicillins Allergy (Verified 06/03/17 15:19) Rash clindamycin Adverse Reaction (Verified 06/03/17 15:19) Other tizanidine HCl [From Zanaflex] Adverse Reaction (Verified 06/03/17 15:19) Other Medications Budesonide/Formoterol 160/4.5 [Symbicort 160/4.5 Mcg Inhaler (SP)] 2 puff INHALATION BID 01/10/14 [History Confirmed 06/03/17] Cholecalciferol (Vitamin D3) [Vitamin D3] 5,000 unit PO DAILY 01/10/14 [History Confirmed 06/03/17] Citalopram [Celexa] 40 mg PO DAILY 01/10/14 [History Confirmed 06/03/17] Omeprazole [Prilosec] 40 mg PO DAILY 01/10/14 [History Confirmed 06/03/17] Lactobacillus acidophilus 1.5 mg (250 million cell) capsule 100 mmu cells PO QDAY 06/03/17 [History Confirmed 06/03/17] amlodipine 5 mg tablet 5 mg PO QDAY 06/03/17 [History Confirmed 06/03/17] ascorbic acid (vitamin C) 500 mg tablet 500 mg PO QDAY 06/03/17 [History Confirmed 06/03/17] atorvastatin 40 mg tablet 40 mg PO QDAY 06/03/17 [History Confirmed 06/03/17] calcitonin (salmon) 200 unit/actuation nasal spray unit INTRANASAL 06/03/17 [History Confirmed 06/03/17] docusate sodium 250 mg capsule 250 mg PO ONCE 06/03/17 [History Confirmed 06/03/17] ferrous sulfate 325 mg (65 mg iron) tablet PO 06/03/17 [History Confirmed 06/03/17] ibuprofen 800 mg tablet 800 mg PO TID 06/03/17 [History Confirmed 06/03/17] metoprolol tartrate 25 mg tablet 25 mg PO BID 06/03/17 [History Confirmed 06/03/17] nystatin 100,000 unit/mL oral suspension 100,000 unit PO ONCE #250 ml 06/03/17 [Rx Confirmed 06/03/17] [facility] Medical History Ureteral calculus (Acute) Shoulder pain (Acute) Adrenal mass (Acute) Hypercalcemia (Acute) Vitamin D deficiency (Acute) Chronic GERD (Acute) Hypertension (Chronic) Adrenal nodule (Acute) Primary hyperparathyroidism (Acute) Osteoporosis (Acute) Surgical History Hx of kyphoplasty (Acute) History of back surgery (Acute) History of bone marrow biopsy (Acute) History of hip surgery (Acute) History of adrenal surgery (Acute) Renal stones (Acute) S/P hysterectomy (Acute) Hx of section (Acute) S/P ovarian cystectomy (Acute) S/P parathyroidectomy (Acute) Family History Mother Arthritis Hypertension Heart disease Osteoporosis Father Arthritis Lung cancer Brother Asthma Lung cancer Kidney disease Sister Arthritis Autoimmune disease Daughter Breast cancer Social History Smoking Status: Current every day smoker alcohol intake: never substance use type: does not use caffeine: No what type of physical activity do you participate in: none frequency: does not exercise seatbelt use: always HPI HPI HPI: PAULINO DOTSON, is a 71 F who presents to the office today for epigastric abdominal pain and a history of gastric ulcers. Patient was seen by her primary care physician who palpated her upper abdomen and once noted that the patient has significantly increased abdominal discomfort in the epigastric right upper quadrant area. Patient has a known history of reflux disease and had a esophagogastroduodenoscopy by Dr. Proctor on May 31, 2013. Patient was noted to have a normal esophagus and erythematous mucosa in the antrum normal duodenum. I do not have the results of H pylori. Patient presents today for evaluation of upper endoscopy for reflux and epigastric abdominal discomfort. ROS General General: Yes weight change and fatigue; no appetite, colon cancer, breast cancer or weakness HEENT HEENT: Yes eye surgery; no difficulty swallowing, eye injury, swollen glands or hoarseness Endo Endocrine: Yes thyroid disease; no diabetes mellitus, thyroid cancer, Hair loss, heat intolerance or cold intolerance Skin Skin: No rash or changing moles Musc Musculoskeletal: Yes back problems and arthritis; no rheumatoid arthritis, gout or joint pain Cardio Cardiovascular: Yes atrial fibrillation and high blood pressure; no murmur, pacemaker, heart disease, heart attack, heart stent, palpitations, shortness of breat with exertion or chest pain Psych Psychiatric: Yes depression; no anxiety or hearing voices Resp Respiratory: Yes COPD, No shortness of breath, No sleep apnea, No cough, No asthma, No emphysema, No wheezing Gastro Gastrointestinal: Yes abdominal pain, Yes nausea or vomiting, No diarrhea, Yes constipation, No blood in stool, Yes acid reflux, Yes hemorrhoids, No ulcers, No gallbladder problem, No black,tarry stools Mookie Hematologic: No blood thinners, No blood disorders, No bleeding, No anemia, No blood clots Neuro Neurologic: No system reviewed and no additional complaints, except as docu, No as per HPI, No abnormal walking, No abnormal hearing, No abnormal movements, No abnormal speech, No behavioral changes, No burning sensations, No confusion, No seizure-like activity, No unsteadiness, No dizziness, No localized weakness, No frequent falls, No headache(s), No lack of coordination, No loss of vision, No memory loss, No numbness, No other visual disturbances, No radiating pain, No restless legs, No sensory deficit, No fainting, No tingling, No tremor(s), No weakness, No other Exam Const General: well developed, no acute distress, well hydrated Orientation: oriented to person, oriented to place, oriented to time [facility] Head: normocephalic, atraumatic Ears: external ears normal Mouth: moist mucous membranes Eyes Sclera: sclerae normal Pupils: normal by confrontation Neck Neck: no lymphadenopathy noted Neck mass: No Thyroid: symmetrical, thyroid normal Chest Chest palpation AND inspection: normal inspection of the chest Resp Effort AND Inspection: normal respiratory effort Auscultation: clear to auscultation bilaterally Percussion: percussion normal Cardio Rate: regular rate Rhythm: regular rhythm Heart Sounds: no murmurs GI Palpation: soft, no masses, no hepatosplenomegaly, tender in the epigastrum (This is minimal tenderness to deep palpation there is no rebound guarding or peritoneal signs identified) Rectal Exam: other Other: Rectal exam deferred. Extrem General: no clubbing, cyanosis or edema, normal to inspection Assessment AND Plan 1. Gastroesophageal reflux disease, esophagitis presence not specified K21.9 Plan I have discussed the above with the patient. I have offered the patient esophagogastroduodenoscopy for evaluation. I have explained the risks/benefits of the procedure and described the procedure. I have discussed the risks with the patient, including but not limited to: infection, bleeding, perforation of the GI tract requiring emergency surgery, inability to complete the procedure, injury to any internal organs, complications of anesthesia, etc. - the patient understands and agrees to proceed. I have answered all the patient's questions to the patient's satisfaction and the patient has no further questions. The patient has been given instructions for the colon cleansing preparation. 2. Epigastric abdominal pain R10.13 Plan Detail Other Medications New: Discontinued: hydrocodone-acetaminophen 5-325 mg Disc1 - 2 tabs PO Q6H PRN PRN Pain Fatmata Blackwell ontinued Reason: Pt no longer taking 06/04/17 0742 <Electronically signed by Fritz Hart MD> Date Fritz Hart MD Cosigner Signature: Date (if applicable) CC: Aracely Frausto MD PULMONARY FUNCTION Observed: 06/03/2017 Status: F Source: [place] REPORT COMP 3:34 PM [facility] REPOSITORY [facility] Pulmonary Services/Neurology [address] [place] [address] MR#: [id number] Acct: [id number] Name: PAULINO DOTSON Rep #: [id number] : 1945 71 From: Kemar Lara MD Referring Dr: Aracely Frausto MD Status: REG CLI Ordering Dr: Date: Location: [facility] Sex: F C COMPLETE PULMONARY FUNCTION TEST INTERPRETATION Brief HPI: Patient is a 71 year old female, currently under the care of Dr. Frausto, who presents to [facility] for complete pulmonary function tests secondary to diagnosis of COPD. Respiratory therapist reports good effort and reproducible results. Interpretation: Forced expiration spirometry shows a moderately severe large airways obstructive ventilatory defect with an FEV1 of 59 % predicted. There is a significant bronchodilator response in both FEV1 and FVC by ATS criteria. Spirograms are of good quality and plateau slowly, indicating slowly emptying areas of the lungs. The respiratory flow volume loop shows decreased expiratory flow rates at all lung volumes consistent with airway obstruction. Lung volumes by body plethysmography show a normal total lung capacity at 4.83 L, 115 % predicted. FRC and RV are elevated out of proportion. Lung volume measurements are consistent with air-trapping. Diffusion capacity by carbon monoxide is at the lower limit of normal at 63 % predicted. The airway resistance is elevated. No previous pulmonary function tests were available for review. Impression: Partially reversible moderately severe large airways obstructive ventilatory defect with symmetric reduction diffusing capacity consistent with COPD/asthma overlap syndrome. 06/03/17 1534 <Electronically signed by Kemar Lara MD> Date Kemar Lara MD CC: Kemar Lara MD; Aracely Frausto MD Date Dictated: 06/03/17 153 Date Transcribed: 06/03/17 153 Floor Layer Tile: ARIEL Signed BREAST LIMITED Observed: 05/31/2017 Status: F Source: [place] UNILATERAL 12:53 PM [facility] REPOSITORY [facility] Imaging Services [address] [place] [address] Breast Limited Unilateral MR#: [id number] Acct: [id number] Name: PAULINO DOTSON Rep #: [id number] : 1945 F 71 From: Fco Eric MD PCP: Aracely Frausto MD Status: REG CLI Study: Breast Limited Unilateral Date of Exam: 05/31/17 Exam# [id number] Ordering Dr: Aracely Frausto MD STUDY: ULTRASOUND BREAST - LEFT REASON FOR EXAM: Female, 71 years old. Palpable lump left breast. TECHNIQUE: Axial and longitudinal images of the LEFT breast were performed with a high resolution ultrasound transducer. COMPARISON: Comparison is made with prior mammogram done earlier in the day. FINDINGS: LEFT Breast: The lower inner quadrant of the left breast was examined by ultrasound. No sonographic abnormality is seen. US/Breast Limited Unilateral IMPRESSION: No sonographic abnormality is seen. ASSESSMENT CATEGORY: BIRADS Category 1: Negative. A letter regarding these results will be sent to the patient by the facility within 30 days. Electronically Signed: Fco Eric MD at 15:44 EST Tel [phone], Service support , CC: Aracely Frausto MD Floor Layer Tile: Signed DIAG MAMM W/CAD, Observed: 05/31/2017 Status: F Source: [place] BILAT 12:53 PM [facility] REPOSITORY [facility] Imaging Services [address] [place], [place] [address] [place] [address] DIAG MAMM W/CAD, BILAT MR#: [id number] Acct: [id number] Name: PAULINO DOTSON Rep #: [id number] : 1945 F 71 From: Fco Eric MD PCP: Aracely Frausto MD Status: REG CLI Study: DIAG MAMM W/CAD, BILAT Date of Exam: 05/31/17 Exam# [id number] Ordering Dr: Aracely Frausto MD MAMMOGRAPHY - BILATERAL DIAGNOSTIC REASON FOR EXAM: Female, 71 years old. History of left breast lump and left breast soreness. PERTINENT HISTORY: Daughter with breast cancer. Aunts with breast cancer. History of multiple bilateral breast biopsies. TECHNIQUE: Digital bilateral breast coni (3D mammographic acquisition) in the CC and MLO projections. 2-D mediolateral oblique (MLO) and craniocaudad (CC) views of both breasts were obtained. CAD: Full Field Digital Mammography with Computer Added Detection was performed. COMPARISON: Comparison is made with prior examination dated November 09, 2013. FINDINGS: Breast Composition: There are scattered areas of fibroglandular density. There are no dominant masses or suspicious calcifications. No other significant abnormalities are identified. There has been no significant change since the prior study. BI/DIAG MAMM W/CAD, BILAT IMPRESSION: Stable bilateral diagnostic mammogram. With the patient's history of a palpable lump in the left breast, correlation with ultrasound is recommended. ASSESSMENT CATEGORY: BIRADS Category 0: Incomplete. Need additional imaging evaluation. A letter regarding these results will be sent to the patient by the facility within 30 days. Approximately 10% of breast cancers are not detected by mammography. A normal mammogram should not delay biopsy of a clinically suspicious abnormality. Electronically Signed: Fco Eric MD at 8:57 EST Tel [phone], Service support , CC: Aracely Frausto MD Floor Layer Tile: Signed FOLATES, (FOLIC ACID) Collected: 05/25/2017 Status: F Source: [place] 3:54 PM [facility] REPOSITORY Order Comment: Order Date: 05/25/17 Order Info: 2284-8 - FOLS Is Patient Taking Vitamins or Folic Acid Supplements? N TYPE CODE TESTS RESULT OUT OF RANGE REFERENCE UNITS LAB L506.0250 3.1-55.4 ng/mL Normal FOLATES 31.70 Result Comment: Please note revised Folates reference range effective 2017. Moderate Hemolysis, Result may be falsely increased. Performed By: #### L506.0250, L503.0105 #### [facility] Laboratory [address] [place], [address] VITAMIN B12 Collected: 05/25/2017 Status: F Source: [place] 3:54 PM [facility] REPOSITORY Order Comment: Order Date: 05/25/17 Order Info: 2132-9 - B12 SPECIMEN IS MODERATELY HEMOLYZED. RESULTS MAY BE EFFECTED. TYPE CODE TESTS RESULT OUT OF REFERENCE UNITS RANGE LAB L503.0105 211-911 pg/mL High Vitamin B12 1118 Performed By: #### L506.0250, L503.0105 #### [facility] [address] [place], [address] ALLERGIES ALLERGIES DATE TYPE / CODE NAME / CODE REACTION SEVERITY SOURCE 04/19/2018 Drug hydrocodone Rash Unknown [place] Allergy/416 bitartrate/A811601 Formerly [facility] 060201([place] [address] 04/19/2018 Drug tizanidine Other Unknown [place] Allergy/416 HCl/[id number](RXN Community 538623([facility] ED CT) Repository 04/19/2018 Drug Penicillins/A40599 Rash Unknown [place] Allergy/416 0476(RXNORM) Former[facility] 718370([facility] ED CT) Repository 04/19/2018 Drug clindamycin/Z88690 Other Unknown [place] Allergy/416 2794(RXNORM) Former[facility] 313894([facility] ED CT) Repository 06/03/2017 Drug acetaminophen/F006 Rash Unknown [place] Allergy/416 111568(RXNORM) [facility] 597973([facility] ED CT) Repository ENCOUNTERS ENCOUNTERS ADMIT/DISCHARGE ACCOUNT NUMBER ADMITTING ENCOUNTER LOCATION SOURCE CLASS 04/19/2018 [id number] [facility] ding:HPRAD Repository 04/19/2018/04/19/20 [id number] Ambulatory BMSBuilding: [place] 18 [facility] Repository 03/15/2018 [id number] [facility] ding:MFPLAB Repository 01/25/2018 [id number] [facility] ding:MFPLAB Repository 01/19/2018 [id number] [facility] ding:MTLAB Repository 01/11/2018 [id number] [facility] ding:MFPLAB Repository 12/27/2017 [id number] [facility] ding:MFPLAB Repository 12/21/2017 [id number] Ambulatory Building:[address] Repository 12/21/2017 [id number] Ambulatory Building:[facility] Repository 12/10/2017/12/12/19 [id number] ARACELY AMARO Ambulatory Building:[place] [address] Room: [address]: A [facility] Repository 11/22/2017 [id number] Ambulatory Building:[facility] Repository 11/22/2017 [id number] Ambulatory Building:[facility] Repository 11/22/2017 [id number] Ambulatory Building:[facility] Repository 11/22/2017 [id number] Ambulatory Building:[facility] Repository 11/22/2017 [id number] Ambulatory Building:[facility] Repository 11/20/2017 [id number] [facility] ding:MRI Repository 11/05/2017 [id number] [facility] ding:[facility] Repository 11/02/2017 [id number] Ambulatory Building:[address] Repository 11/02/2017 [id number] Ambulatory Building:[facility] Repository 10/07/2017 [id number] [facility] ding[facility] Repository 10/07/2017 [id number] Ambulatory BMSBuilding: [place] [facility] Repository 09/13/2017 [id number] [facility] ding:MFPLAB Repository 09/11/2017 [id number] [facility] ding:CT Repository 06/30/2017/06/30/19 [id number] Ambulatory [place] [address] ding:ENRoom: Repository AC12 06/30/2017 [id number] Ambulatory BMSBuilding: [place] BMS.CF.formerly [facility] Repository 06/03/2017/06/03/19 [id number] Ambulatory BMSBuilding: [place] 18 BMS.formerly [facility] Repository 06/03/2017 [id number] [facility] ding:PSN Repository 06/03/2017 [id number] Ambulatory BMSBuilding: [place] [facility] Repository 05/31/2017 [id number] [facility] ding:BI Repository 05/25/2017 [id number] [facility] ding:MFPLAB Repository PAYERS PAYERS ENCOUNTER GUARANTOR PAYER SUBSCRIBER SOURCE 04/19/2018 IAYAMILKAE F Primary IALENE F [place] [id number] Insurance:[facility] BROWNDOB: Community [address] *IN [facility] [id number] Number: Repository [address]Khm: (630) [id number] [phone] () Date:9055-63-25TOXV CLAIMS DEPO [address] [address]BS: 04/19/2018 Secondary IALENE F [place] Insurance:MEDICARE BROWNDOB: Community PART A [facility] [id number] Hospital Number: Repository [id number] Date:2018-04-19 04/19/2018 Tertiary NOT GIVENUNK [place] Insurance:SELF PAY [facility] Number: Effective Repository Date:2018-04-19 04/19/2018 IALENE F Primary IALENE F [place] [id number] Insurance:MYCARE [facility]SC BROWNDOB: Community [address] *IN [facility] [id number] Number: Repository [address]Wnn: 740 [id number] [phone] (HP) Date:0285-37-77NKWG CLAIMS [address] [place] [address]PP: 04/19/2018 Secondary IALENE F [place] Insurance:MEDICARE BROWNDOB: Community PART A [facility] [id number] Hospital Number: Repository [id number] Date:2018-01-27 04/19/2018 Tertiary NOT GIVENUNK [place] Insurance:SELF PAY [facility] Number: Effective Repository Date:2018-04-19 03/15/2018 IALENE F Primary IALENE F [place] [id number] Insurance:MYCARE CRSC BROWNDOB: Community [address] *IN [facility] [id number] Number: Repository [address]Vsv: 740 [id number] [phone] () Date:4203-01-11VHCM CLAIMS DEPTPO [address] [place] [address]NL: 03/15/2018 Secondary NOT GIVENUNK [place] Insurance:SELF PAY [facility] Number: Effective Repository Date:2018-03-15 01/25/2018 IALENE F Primary IALENE F [place] [id number] Insurance:MYCARE CRSC BROWNDOB: Community SEE [address] *IN [facility] [id number] Number: Repository [address]Eci: 740 [id number] [phone] () Date:9108-81-17FWIY CLAIMS [address] [place] [address]SP: 01/25/2018 Secondary NOT GIVENUNK [place] Insurance:SELF PAY [facility] Number: Effective Repository Date:2018-01-25 01/19/2018 IALENE F Primary IALENE F [place] [id number] Insurance:MYCARE CRS BROWNDOB: Community [address] *IN [facility] [id number] Number: Repository [address]Yjd: 740 [id number] [phone] () Date:4886-37-01KJEN [address]S [address], [place] [address]DX: 01/19/2018 Secondary NOT GIVENUNK [place] Insurance:SELF PAY [facility] Number: Effective Repository Date:2018-01-19 01/11/2018 IALENE F Primary IALENE F [place] [id number] Insurance:[facility] Community SEE [address] *IN [facility] [id number] Number: Repository [address]Lwn: 740 [id number] [phone] () Date:8563-91-21EYWI CLAIMS [address] [place] [address]TZ: 01/11/2018 Secondary NOT GIVENUNK [place] Insurance:SELF PAY [facility] Number: Effective Repository Date:2018-01-11 12/27/2017 IALENE F Primary IALENE F [place] [id number] [facility] Community SEE [address] *IN [facility] [id number] Number: Repository [address]Ydz: 740 [id number] [phone] () Date:7963-63-35BRMU [address], [place] [address]HP: 12/27/2017 Secondary NOT GIVENUNK [place] Insurance:SELF PAY [facility] Number: Effective Repository Date:2017-12-27 12/21/2017 IALENE F Primary IALENE F [facility] BROWNDOB: [facility]: [place] MYCARE MEDICARE [id number] [facility] [address] RXPolicy Number: [address] Center [address] [place] [address], [place] [id number] [address] [place] [address], [place] Repository [address]Wic: (740) Date:6593-81-52Jblc 58219Joc: () Name:SANGITA [id number] () 12/21/2017 [facility]ALENE F [facility]: [place] MYCARE MEDICARE [id number] [facility] [address] RXPolicy Number: [address] Center [address] [place] [address] [id number] [place] [address], [place] Repository [address]Yky: (740) Date:5446-54-75Zwrn 43525Gvb: () Name:CARE [phone] () 12/10/2017 IALENE F Primary [facility]ENE F [facility] Insurance:[facility]: [place] MYCARE MEDICARE [id number] [facility] [address]T RXPolicy Number: [address] Center [address] [place] [address] [id number] [place] [address] Repository 036[address]Zng: (740) Date:2191-16-05Cenz 46067Kmw: () Name:CARE [phone] () 11/22/2017 IALENE F Primary [facility]ENE [facility] Insurance:[facility]: [place] MYCARE MEDICARE [id number] [facility] [address] RXPolicy Number: [address] Center [address] [place] [address], [place] [id number] [address] [place] [address], [place] Repository [address]Uzw: (740) Date:8709-30-36Xlsh 36643Nhe: () Name:CARE [phone] () 11/22/2017 IALENE F Primary [facility]ENE [facility] Insurance:[facility]: [place] MYCARE MEDICARE [id number] [facility] [address] RXPolicy Number: [address] Center [address] [place] [address] [id number] [place] [address] Repository [address]Hpj: (740) Date:9560-23-10Hcrx 93196Ran: () Name:CARE [phone] () 11/22/2017 IALENE F Primary [facility]ENE F [facility] Insurance:[facility]: [place] MYCARE MEDICARE [id number] [facility] [address] RXPolicy Number: [address] Center [address] [place] [address] [id number] [place] [address] Repository 83[address]Vzb: (740) Date:1679-60-12Ymcx 48010Ytx: () Name:CARE [phone] () 11/22/2017 IALENE F Primary [facility]ALENE F [facility]: [place] MYCARE MEDICARE [id number] [facility] [address] RXPolicy Number: [address] Center [address] [place] [address] [id number] [place] [address] Repository [address]Xks: (740) Date:2081-58-88Hqwn 98933Xkq: () Name:CARE [phone] () 11/22/2017 IALENE F Primary [facility]ALENE F [facility]: Insurance:[facility]: [place] MYCARE MEDICARE [id number] [facility] [address]T RXPolicy Number: [address] Center [address] [place] [address] [id number] [place] [address] Repository [address]Yvi: (740) Date:1044-12-97Zmbv 98866Xlv: () Name:[facility] [id number] () 11/20/2017 IALENE F Primary IALENE F [place] [id number] Insurance:[facility]: Community SEE [address] MEDICARE [facility] [id number] Number: Repository [address]Wdd: 740 [id number] [phone] () Date:0459-74-80XL [address] [place] [address]HK: 11/20/2017 Secondary IALENE F [place] Insurance:MEDICAIDPol BROWNDOB: [facility] icy Number: [id number] Hospital [id number] Repository Date:2017-11-16 11/20/2017 Tertiary NOT GIVENUNK [place] Insurance:[facility] Number: Effective Repository Date:2017-11-16 11/05/2017 IALENE F Primary IALENE F [place] [id number] [facility] SEE [address]T MEDICARE [facility] [id number] Number: Repository [address]Dei: 740 [id number] [phone] () Date:3820-93-75RZ [address] [address]MU: 11/05/2017 Secondary IALENE F [place] Insurance:MEDICAIDPol BROWNDOB: [facility] icy Number: [id number] Hospital [id number] Repository Date:2017-10-13 11/05/2017 Tertiary NOT GIVENUNK [place] Insurance:SELF PAY [facility] Number: Effective Repository Date:2017-10-13 11/02/2017 IALENE F Primary IALENE F [facility] BROWNDOB: Insurance[facility] [place] HUMANA O [facility] [id number] [address] Number: [address] Center [address] [place] [address] [id number] [place] [address] Repository [phone]: [phone]) Date:2016-11-18 [id number]: () [id number] [phone] () Name:CARE 11/02/2017 Secondary IALENE F [facility] Number: [id number] [facility] [id number] Center Date:2017-10-[address] [place] [address] Repository [id number] [phone]: [phone]) Name:NATHALIE [phone] () 11/02/2017 IALENE F Primary IALENE F [facility] BROWNDOB: Insurance:MEDICARE BROWNDOB: [place] [facility] [id number] [facility] [address] Number: [address] Center [address] [place] [address] [id number] [address] [place] [address] Repository [phone]: [phone]) Date:[id number] [id number]: () Name:[facility] [phone] () 10/07/2017 IALENE F Primary IALENE F [place] [id number] Insurance:HUMANA BROWNDOB: Community [address] MEDICARE [facility] [id number] Number: Repository [phone]: [phone]) [id number] [phone] () Date:[id number] [address] [place] [address]AJ: 10/07/2017 Secondary NOT GIVENUNK Jose Carlos Insurance:SELF PAY [facility]: Effective Repository Date:2017-09-14 10/07/2017 IALENE F Primary IALENE F Jose [place] [id number] Insurance:HUMANA BROWNDOB: Community [address] MEDICARE [facility] [id number] Number: Repository [phone]: [phone] [id number] [phone] ([phone]) Date:[id number] [address]4601WP: 10/07/2017 Secondary NOT GIVENUNK Jose Carlos Insurance:SELF PAY [facility] Number: Effective Repository Date:2017-10-07 09/13/2017 IALENE F Primary IALENE F Jose Carlos [id number] Insurance:HUMANA BROWNDOB: Community [address] MEDICARE [facility] [id number] Number: Repository [phone]: [phone]) [id number] [phone] () Date:9953-06-60VJ [address]4601WP: 09/13/2017 Secondary NOT GIVENUNK [place] Insurance:SELF PAY [facility] Number: Effective Repository Date:2017-09-13 09/11/2017 IALENE F Primary IALENE F [place] [id number] Insurance:HUMANA BROWNDOB: Community [address] MEDICARE [facility] [id number] Number: Repository [phone]: [phone]) [id number] [phone] () Date:[id number] [address] [address]XG: 09/11/2017 Secondary NOT GIVENUNK [place] Insurance:SELF PAY [facility] Number: Effective Repository Date:2017-09-03 06/30/2017 IALENE [id number] Primary IALENE BROWNDOB: [place] [address] Insurance:HUMANA [id number] [place] [address] [facility] [id number]: [phone]) Number: Repository [phone] () [id number] Date:0500-15-99BH [address] [address]YM: 06/30/2017 Secondary NOT GIVENUNK Jose Carlos Insurance:SELF PAY [facility] Number: Effective Repository Date:2017-06-03 06/30/2017 PAULINO HOLGUIN66 Primary IALENE BROWNDOB: Jose Carlos [address] Insurance:HUMANA [id number] [place] [address] [facility] [address]Tel: (740) Number: Repository [phone] () [id number] Date:[id number] [place] [address]WP: 06/30/2017 Secondary NOT GIVENUNK [place] Insurance:SELF PAY [facility] Number: Effective Repository Date:2017-06-30 06/03/2017 PAULINO HOLGUIN66 Primary IALENE BROWNDOB: Jose Carlos [address] Insurance:HUMANA [id number] [place] [address] [facility] [address]Tel: (740) Number: Repository [phone] () [id number] Date:[id number] [place] [address]WP: 06/03/2017 Secondary NOT GIVENUNK [place] Insurance:SELF PAY [facility] Number: Effective Repository Date:2017-05-27 06/03/2017 PAULINO HOLGUIN66 Primary IALENE BROWNDOB: [place] [address] Insurance:HUMANA [id number] [place] [address] [facility] [address]Tel: (740) Number: Repository [phone] () [id number] Date:1570-41-60[place] [address]WP: 06/03/2017 Secondary NOT GIVENUNK [place] Insurance:SELF PAY [facility] Number: Effective Repository Date:2017-06-02 06/03/2017 PAULINO HOLGUIN66 Primary IALENE BROWNDOB: [place] [address] Insurance:HUMANA [id number] [place] [address] [facility] [address]Tel: (740) Number: Repository [phone] () [id number] Date:[id number] [address] [place] [address]ZN: 06/03/2017 Secondary NOT GIVENUNK Jose Acrlos Insurance:SELF PAY [facility] Number: Effective Repository Date:2017-06-03 05/31/2017 PAULINO HOLGUIN66 Primary IALENE BROWNDOB: [place] [address] Insurance:HUMAN [id number] [place] [address] [facility] [address]Tel: (740) Number: Repository [phone] () [id number] Date:1331-08-21CW [address] [place] [address]LC: 05/31/2017 Secondary NOT GIVENUNK [place] Insurance:SELF PAY [facility] Number: Effective Repository Date:2017-05-27 05/25/2017 PAULINO HOLGUIN66 Primary IALENE BROWNDOB: [place] [address] Insurance:[facility] [id number] [place] [address] [facility] [address]Tel: [phone]) Number: Repository [phone] () [id number] Date:[id number] [address] [place] [address]WD: 05/25/2017 Secondary NOT GIVENUNK [place] Insurance:SELF PAY [facility] Number: Effective Repository Date:2017-05-25
== END ==
PROVIDERS: Family Provider Family Medicine; PCP Family Medicine; Referring Provider Orthopaedic Surgery; Visit Provider Orthopaedic Surgery
DX: M54.9 Dorsalgia, unspecified (principal)
CPT/HCPCS: 72072; 72110

== ENCOUNTER → 2018-05-19 11:55 | Outpatient (CLI) | payer MEDICARE, SELFPAY ==
[2018-04-19 09:50] VITALS: BMI 31.1
--- NOTE | 2018-05-19 11:58 | MRI_ITS ---
STUDY: MRI THORACIC SPINE WITH AND WITHOUT CONTRAST REASON FOR EXAM: Female, 72 years old. Fracture and back pain TECHNIQUE: 7 ml of Gadavist was administered intravenously for the contrast portion of the examination. COMPARISON: Radiographs 04/19/2018 FINDINGS: Remote compression fractures of T6, T9 and L3. Mild T9 retropulsion. And L3 vertebroplasties. Bilateral posterior pedicle fusions at T8 and T10 with left pedicle fusion at T9. Bilateral posterior pedicle fusions at L2, L3, and L4. No acute compression fractures are seen. Exaggerated thoracic kyphosis. At T6-7, a central disc protrusion is present with mild central canal stenosis. At T7-8, a right paracentral disc protrusion is present with mild central canal stenosis. At T10-11, a right paracentral disc protrusion is present with minimal central canal stenosis. A right adrenal mass is present measuring 5.2 x 2.[address] or adrenal MRI. MRI/Spine Thoracic W/WO Contrast IMPRESSION: Multilevel degenerative disease and postoperative change as described. Remote compression deformities of T6, T9, and L3 with mild T9 retropulsion. No cord signal abnormalities are seen. No evidence of exiting nerve root impingement. Indeterminate right adrenal mass. Consider adrenal CT or MRI. Electronically Signed: Doug Crystal MD at 6:45 EST Tel , Service support ,
[2018-05-19 12:46] LABS: CREATININE FINGERSTICK 0.7 mg/dL (0.55-1.02); EGFR FINGERSTICK > 60.0000 mL/min (>60)
== END ==
PROVIDERS: Family Provider Family Medicine; PCP Family Medicine; Referring Provider Orthopaedic Surgery; Visit Provider Orthopaedic Surgery
DX: S22.000A Wedge compression fracture of unspecified thoracic vertebra, initial encounter for closed fracture (principal)
CPT/HCPCS: 72157; A9585

== ENCOUNTER → 2018-06-14 13:34 | Outpatient (CLI) | payer MEDICARE, SELFPAY ==
[2018-04-19 09:50] VITALS: BMI 31.1
[2018-06-14 15:50] LABS: Absolute Lymphocyte Count 0.97 X10^3/ul (0.83-4.51); Absolute Neutrophil Count 8.8 X10^3/uL (2.0-7.7); Basophil# 0.08 X10^3/uL; Basophil% 0.7 % (0-1); Eosinophil# 0.17 X10^3/uL; Eosinophils% 1.5 % (0-5); Hematocrit 41.5 % (37-47); Hemoglobin 13.9 g/dl (12.0-15.0); Lymphocyte # 0.97 X10^3/ul (4.0); Lymphocyte % 8.8 % (19-41); Mean Corp Hgb Conc 33.5 g/gl (32-36); Mean Corpuscular Hgb 35.1 pg (27.0-32.0); Mean Corpuscular Volume 104.8 fL (81-99); Mean Platelet Vol. 10.2 fl (6.2-12.0); Monocyte# 0.97 X10^3/uL; Monocyte% 8.8 % (0-10); Neutrophil # 8.77 X10^3/uL (2.7-7.7); Neutrophil % 79.8 % (47-70); POSITIVE COUNT NO; POSITIVE DIFFERENTIAL NO; POSITIVE MORPHOLOGY NO; Platelet Count 265 K/mm3 (150-450); RBC Distribution Width SD 54.4 fl (35.1-43.9); Red Blood Count 3.96 M/mm3 (4.2-5.4)
[2018-06-14 15:54] LABS: ALB/GLOB Ratio 0.8 RATIO (0.9-2.4); AST(SGOT) 22 U/L (15-37); Alanine Aminotransfer ALT/SGPT 22 U/L (13-56); Albumin, Serum 3.1 g/dL (3.2-5.0); Alkaline Phosphatase 122 U/L (45-117); Anion Gap 9 (5-15); BUN 19 mg/dL (7-18); BUN/Creat Ratio 21.5 RATIO (10-20); Calcium,Total 8.4 mg/dL (8.5-10.1); Chloride 111 mmol/L (98-107); Cholesterol 131 mg/dL (200); Creatinine, Serum 0.88 mg/dL (0.55-1.02); EST Glomerular Filtration Rate 67 mL/min (>60); Est Glom Filt Rate - Afr Amer 81 mL/min (>60); Ferritin 95 ng/mL (8-252); Globulin 3.8 g/dL (2.2-4.2); Glucose 85 mg/dL (74-106); High Density Lipoprotein 71 mg/dL; Iron 71 ug/dL (50-170); Iron Binding Capacity,Total 243 ug/dL (250-450); Protein, Total 6.9 g/dL (6.4-8.2); Sodium Level 146 mmol/L (136-145); Triglycerides 102 mg/dL; Very Low Density Lipoprotein 20 mg/dL (5-40)
[2018-06-14 16:34] LABS: PTHIN 40.2 pg/mL (18.4-80.1)
[2018-06-14 16:48] LABS: Vitamin D,25 Hydroxy 71.4 ng/mL (29.95-100.01)
--- OUTSIDE RECORDS SUMMARY | 2018-08-16 18:10 | XMS RPT_ITS ---
:1945 Author Organization OHIP Support Name Relationship Address Phone R Unavailable Unavailable Unavailable THRASH, DARRYL Unavailable [address] + [place] [address] R Unavailable Unavailable Unavailable THRASH, DARRYL Unavailable [address] + [place] [address] R Unavailable Unavailable Unavailable THRASH, DARRYL Unavailable [...] Unavailable Unavailable THRASH, DARRYL Unavailable Unavailable + JOHNATHAN DOTSONE Unavailable Unavailable Unavailable THRASH, DARRYL Unavailable Unavailable [...] Unavailable + VANDORN, TEAONNA Unavailable Unavailable Unavailable R Unavailable Unavailable Unavailable THRASH, DARRYL Unavailable Unavailable + GREEN, COUTRNEY Unavailable [address] [place] [address] R Unavailable Unavailable Unavailable BROWN, IALENE Unavailable Unavailable Unavailable THRASH, DARRYL Unavailable Unavailable + VANDORN, TEAONNA Unavailable Unavailable Unavailable BROWN, IALENE Unavailable Unavailable Unavailable THRASH, DARRYL Unavailable Unavailable + VANDORN, TEAONNA Unavailable Unavailable Unavailable GREEN, COURTNEY Unavailable [address] [place] [address] R Unavailable Unavailable Unavailable GREEN, COURTNEY Unavailable [address] [place] [address] R Unavailable Unavailable Unavailable GREEN, COURTNEY Unavailable [address] [place] [address] R Unavailable Unavailable Unavailable GREEN, COURTNEY Unavailable [address] [place] [address] R Unavailable Unavailable Unavailable GREEN, COURTNEY Unavailable [address] [place] [address] R Unavailable Unavailable Unavailable GREEN, COURTNEY Unavailable [address] [place] [address] R Unavailable Unavailable Unavailable Care Team Providers Name Role Phone ARACELY AMARO Attending Unavailable SHANTE, NEELKANT Referring Unavailable SHANTE, NEELKANT Primary Care Unavailable ARACELY AMARO Attending Unavailable SHANTE, NEELKANT Referring Unavailable SHANTE, NEELKANT Primary Care Unavailable ARACELY AMARO Admitting Unavailable ARACELY AMARO Attending Unavailable SHANTE, NEELKANT Referring Unavailable SHANTE, NEELKANT Primary Care Unavailable MATEO STEELE Attending Unavailable MATEO STEELE Referring Unavailable UNKNOWN, DOC Primary Care Unavailable KOBE STEELEHEL F Attending Unavailable STEELE, MATEO F Referring Unavailable UNKNOWN, DOC Primary Care Unavailable STEELE, MATEO F Attending Unavailable STEELE, MATEO F Referring Unavailable UNKNOWN, DOC Primary Care Unavailable AFSHAN PAINTER Attending Unavailable STEELE, MATEO F Referring Unavailable UNKNOWN, DOC Primary Care Unavailable AMY HANLEY Attending Unavailable AFSHAN PAINTER Referring Unavailable UNKNOWN, DOC Primary Care Unavailable ARACELY AMARO Attending Unavailable ANDREW FREY Referring Unavailable SCHINARACELY NELSON Primary Care Unavailable ARACELY AMARO Attending Unavailable ANDREW FREY Referring Unavailable SCHINARACELY NELSON Primary Care Unavailable Triny Bal Attending Unavailable Triny Bal Referring Unavailable SchAracely elizalde Primary Care Unavailable Aracely Frausto Attending Unavailable Aracely Frausto Primary Care Unavailable Fritz Hart Attending Unavailable Fritz Hart Referring Unavailable SchAracely elizalde Primary Care Unavailable Fritz Hart Attending Unavailable Fritz Hart Referring Unavailable Aracely Frausto Primary Care Unavailable Fritz Hart Consulting Unavailable Francisco Fallon Attending Unavailable Francisco Fallon Referring Unavailable SchAracely elizalde Primary Care Unavailable SchAracely elizalde Attending Unavailable Aracely Frausto Primary Care Unavailable Aracely Frausto Attending Unavailable Aracely Frausto Referring Unavailable SchAracely elizalde Primary Care Unavailable Tam Morelos Attending Unavailable SchAracely elizalde Attending Unavailable Aracely Frausto Referring Unavailable SchAracely elizalde Primary Care Unavailable Aracely Frausto Attending Unavailable Aracely Frausto Referring Unavailable SchAracely elizalde Primary Care Unavailable RADHA SYLVESTER Attending Unavailable SchAracely elizalde Primary Care Unavailable SchAracely elizalde Attending Unavailable Aracely Frausto Primary Care Unavailable Sheree Pelayo Attending Unavailable Aracely Frausto Primary Care Unavailable Pierce, Sheree NDione Referring Unavailable Sheree Pelayo Attending Unavailable Aracely Frausto Primary Care Unavailable Aracely Frausto Attending Unavailable Aracely Frausto Primary Care Unavailable Triny Bal Attending Unavailable Aracely Frausto Referring Unavailable Triny Bal Attending Unavailable Triny Bal Referring Unavailable Schinner, Aracley E Primary Care Unavailable PROBLEMS PROBLEMS DATE TYPE CONDITION / CODE ATTENDING STATUS SOURCE Unknown M54.9 - Dorsalgia, Triny Bal Active [place] 8 unspecified / [facility] M54.9(ICD-10) Hospital Repository Unknown R43.2 - Parageusia / Raghunathan, Active [place] 8 R43.2(ICD-10) [facility] Repository Unknown E21.0 - Primary Raghunathan, Active [place] 8 hyperparathyroidism / [facility] E21.0(ICD-10) Hospital Repository Unknown E21.3 - RADHA SYLVESTER Active [place] 8 Hyperparathyroidism, [facility] unspecified / Hospital E21.3(ICD-10) Repository Admitting Encounter for other HANLEY, [place] [address] diagnosis preprocedural AMY R [facility] examination [facility] Z01.818(ICD-10) Center Repository Admitting Gastro-esophageal reflux [place] [address] diagnosis disease without AMY R University esophagitis / [facility] K21.9(ICD-10) Center Repository Admitting Essential (primary) [place] [address] diagnosis hypertension / AMY R University I10(ICD-10) [facility] Repository Admitting Obstructive sleep apnea [facility], [place] [address] diagnosis (adult) (pediatric) / AMY R University G47.33(ICD-10) [facility] Repository Admitting 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 / University D35.1(ICD-10) [facility] Repository Admitting Obesity, unspecified / PAINTER, AFSHAN [place] [address] diagnosis E66.9(ICD-10) University [facility] Repository Admitting Hyperlipidemia, PAINTER, AFSHAN [place] [address] diagnosis unspecified / University E78.5(ICD-10) [facility] Repository Admitting Atherosclerotic heart PAINTER, 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 Center / I25.110(ICD-10) Repository Admitting Paroxysmal atrial AFSHAN PAINTER Active [facility] 8 diagnosis fibrillation / University I48.0(ICD-10) [facility] Repository Unknown 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, lumbar region E Community with neurogenic Hospital claudication / Repository M48.062(ICD-10) Unknown R94.31 - Abnormal Aracely Frausto Active [place] 8 electrocardiogram [ECG] E Community [EKG] / R94.31(ICD-10) Hospital Repository Unknown Z87.891 - Personal Sibilia, Active [place] 8 history of nicotine [facility] dependence / Hospital Z87.891(ICD-10) Repository PROCEDURES PROCEDURES No Procedure Records FoundRESULTS RESULTS CBC W/DIFF, AUTOMATED Collected: 06/14/2018 Status: F Source: [place] 1:37 PM [facility] HOSPITAL REPOSITORY Order Comment: DR. FRAUSTO ORDERED TIBC,LIPID,VITD,CMP,BRADY,IRON,CBCD DR. PELAYO ORDERED CALCIUM,CMP,PTH BOTH DRS ARE TO GET ALL RESULTS TYPE CODE TESTS RESULT OUT OF RANGE REFERENCE UNITS LAB L100.1000 4.4-11.0 K/mm3 Normal WBC 11.0 LAB L100.1200 4.2-5.4 M/mm3 Low RBC 3.96 LAB L100.1300 12.0-15.0 g/dl Normal HGB 13.9 LAB L100.1400 37-47 % Normal HCT 41.5 LAB L100.1500 81-99 fL High MCV 104.8 LAB L100.1600 27.0-32.0 pg High MCH 35.1 LAB L100.1700 32-36 g/gl Normal MCHC 33.5 LAB L100.1810 11.6-14.6 % Normal RDW CV 14.0 LAB L100.1820 35.1-43.9 fl High RDW SD 54.4 LAB L100.1900 150-450 K/mm3 Normal PLT 265 LAB L100.2000 6.2-12.0 fl Normal MPV 10.2 LAB L100.2100 47-70 % High NEUT% 79.8 LAB L100.2200 19-41 % Low LY% 8.8 LAB L100.2300 0-10 % Normal MONO% 8.8 LAB L100.2400 0-5 % Normal EO% 1.5 LAB L100.2500 0-1 % Normal BASO% 0.7 LAB L100.2550 0.0-0.9 % Normal IM GRAN % 0.400 Result Comment: IG% - Immature Granulocytes (promyelocytes, myelocytes and metamyelocytes) > 1% indicates that a LEFT SHIFT is Present. LAB L100.2620 2.0-7.7 X10 3/uL High Absolute Neut 8.8 LAB L100.2720 0.83-4.51 X10 3/ul Normal Absolute Lymph 0.97 Performed By: #### L100.0100 #### [facility] [address] [place], [place], [address] COMPREHENSIVE METABOLIC Collected: 06/14/2018 Status: F Source: [facility] 1:37 PM [facility] Order Comment: DR. FRAUSTO ORDERED TIBC,LIPID,VITD,CMP,BRADY,IRON,CBCD DR. PELAYO ORDERED CALCIUM,CMP,PTH BOTH DRS ARE TO GET ALL RESULTS TYPE CODE TESTS RESULT OUT OF RANGE REFERENCE UNITS LAB L501.0100 74-106 mg/dL Normal GLU 85 Result Comment: Please note revised GLUCOSE reference range effective 2017. LAB L501.1000 7-18 mg/dL High BUN 19 LAB L501.1100 0.55-1.02 mg/dL Normal CREAT,SERUM 0.88 Result Comment: The validity of the calculated GFR AND GFRAA in patients over 70 years has not been determined. Clinical correlation is essential. LAB L501.1110 >60 mL/min Normal EST GFR 67 Result Comment: Non- GFR Calc LAB L501.1115 >60 mL/min Normal EST GFR - AA 81 Result Comment: GFR Calc LAB L501.1300 10-20 RATIO High BUN/CRE 21.5 LAB L501.1500 6.4-8.2 g/dL T Normal PROT 6.9 LAB L501.1800 3.2-5.0 g/dL Low ALB 3.1 LAB L501.1950 2.2-4.2 g/dL Normal GLOB 3.8 LAB L501.2000 0.9-2.4 RATIO Low A/G 0.8 LAB L501.2200 8.5-10.1 mg/dL Low CA 8.4 LAB L501.4100 15-37 U/L Normal AST 22 LAB L501.4305 45-117 U/L High ALK P 122 LAB L501.4405 13-56 U/L Normal ALT 22 LAB L501.4600 0.20-1.00 mg/dL T Normal BILI 0.40 LAB L501.5300 136-145 mmol/L High NA 146 LAB L501.5600 3.5-5.1 mmol/L K Normal 4.0 LAB L501.5900 98-107 mmol/L High CL 111 LAB L501.6100 21.0-32.0 mmol/L Normal CO2 26.0 LAB L501.6200 5-15 Normal GAP 9 Performed By: #### L500.4050, L500.4100, L503.6075, L503.6150, L503.6550 #### [facility] [address] [place], [address] LIPID PROFILE Collected: 06/14/2018 Status: F Source: [place] 1:37 PM [facility]ITORY Order Comment: DR. FRAUSTO ORDERED TIBC,LIPID,VITD,CMP,BRADY,IRON,CBCD DR. PELAYO ORDERED CALCIUM,CMP,PTH BOTH DRS ARE TO GET ALL RESULTS TYPE CODE TESTS RESULT OUT OF RANGE REFERENCE UNITS LAB L501.4900 200 mg/dL Normal CHOL 131 Result Comment: <200 mg/dL Desirable 200-240 mg/dL Borderline >240 mg/dL High Risk LAB L501.5000 mg/dL Normal TRIG 102 Result Comment: The drugs N-Acetylcysteine and Metamizole may falsely depress this assay. Serum Triglycerides Reference Interval Normal <150 mg/dL Borderline high 150 - 199 mg/dL High 200 - 499 mg/dL Very High > or = 500 mg/dL LAB L501.6400 mg/dL Normal HDL 71 Result Comment: The drugs N-Acetylcysteine and Metamizole may falsely depress this assay. Reference Range HDL <40 mg/dL Low HDL Cholesterol HDL >or= 60 mg/dL High HDL Cholesterol LAB L501.6500 0-130 mg/dL Normal LDL 40 LAB L501.6600 5-40 mg/dL Normal VLDL 20 Performed By: #### L500.4050, L500.4100, L503.6075, L503.6150, L503.6550 #### [facility] [address] [place], [place], [id number] IRON BINDING Collected: 06/14/2018 Status: F Source: [facility] 1:37 PM [facility] Order Comment: DR. FRAUSTO ORDERED TIBC,LIPID,VITD,CMP,BRADY,IRON,CBCD DR. PELAYO ORDERED CALCIUM,CMP,PTH BOTH DRS ARE TO GET ALL RESULTS TYPE CODE TESTS RESULT OUT OF RANGE REFERENCE UNITS LAB L503.6075 250-450 ug/dL Low TIBC 243 Performed By: #### L500.4050, L500.4100, L503.6075, L503.6150, L503.6550 #### [facility] [address] [place], [place], [id number] IRON Collected: 06/14/2018 Status: F Source: [place] 1:37 PM [facility] Order Comment: DR. FRAUSTO ORDERED TIBC,LIPID,VITD,CMP,BRADY,IRON,CBCD DR. PELAYO ORDERED CALCIUM,CMP,PTH BOTH DRS ARE TO GET ALL RESULTS TYPE CODE TESTS RESULT OUT OF RANGE REFERENCE UNITS LAB L503.6150 50-170 ug/dL Normal IRON 71 Performed By: #### L500.4050, L500.4100, L503.6075, L503.6150, L503.6550 #### [facility] [address] [place], [address] FERRITIN Collected: 06/14/2018 Status: F Source: [place] 1:37 PM [facility] Order Comment: DR. FRAUSTO ORDERED TIBC,LIPID,VITD,CMP,BRADY,IRON,CBCD DR. PELAYO ORDERED CALCIUM,CMP,PTH BOTH DRS ARE TO GET ALL RESULTS TYPE CODE TESTS RESULT OUT OF RANGE REFERENCE UNITS LAB L503.6550 8-252 ng/mL Normal FERRITIN 95 Performed By: #### L500.4050, L500.4100, L503.6075, L503.6150, L503.6550 #### [facility] [address] [place], [place], [address] PTHIN Collected: 06/14/2018 Status: F Source: [place] 1:37 PM [facility] Order Comment: DR. FRAUSTO ORDERED TIBC,LIPID,VITD,CMP,BRADY,IRON,CBCD DR. PELAYO ORDERED CALCIUM,CMP,PTH BOTH DRS ARE TO GET ALL RESULTS TYPE CODE TESTS RESULT OUT OF RANGE REFERENCE UNITS LAB L509.1000 18.4-80.1 pg/mL Normal PTHIN 40.2 Performed By: #### L509.1000 #### [facility] [place], [place], [id number] VITAMIN D,25 HYDROXY Collected: 06/14/2018 Status: F Source: [place] 1:37 PM [facility] Order Comment: DR. FRAUSTO ORDERED TIBC,LIPID,VITD,CMP,BRADY,IRON,CBCD DR. PELAYO ORDERED CALCIUM,CMP,PTH BOTH DRS ARE TO GET ALL RESULTS TYPE CODE TESTS RESULT OUT OF RANGE REFERENCE UNITS LAB L506.1000 29.95-100.01 ng/mL Normal Vitamin D 71.4 25-OH Result Comment: Vitamin D 25(OH) Status Range Deficiency <20 ng/mL (50nmol/L) Insuffciency 20 - 30 ng/mL (50 - 75 nmol/L) Sufficiency 30 - 100 ng/mL (75 - 250 nmol/L) Toxicity >100 ng/mL (>250 nmol/L) Performed By: #### L506.1000 #### [facility] [place], [place], [address] CALCIUM IONIZED Collected: 06/14/2018 Status: F Source: [place] 1:37 PM [facility] Order Comment: DR. FRAUSTO ORDERED TIBC,LIPID,VITD,CMP,BRADY,IRON,CBCD DR. PELAYO ORDERED CALCIUM,CMP,PTH BOTH DRS ARE TO GET ALL RESULTS TYPE CODE TESTS RESULT OUT OF RANGE REFERENCE UNITS LAB L3100.9600 4.5-5.6 mg/dL Normal IONIZED CA 5.2 Result Comment: Performed at: CB - [facility] [address] [id number] Wire Rope Sling Maker: Herman Kimball PhD, Phone: [phone] Performed By: #### L3100.9600 #### [facility] (refer to report for specific site) refer to report for address and phone number CREATININE FINGERSTICK Collected: 05/19/2018 Status: F Source: [place] 12:26 PM [facility] TYPE CODE TESTS RESULT OUT OF RANGE REFERENCE UNITS LAB L9100.0210 0.55-1.02 mg/dL Normal CREATININE WB 0.7 LAB L9100.0220 >60 mL/min EGFR WB Normal > 60.0000 Performed By: #### L9100.0200 #### [facility] Point of Care [address] [place] [address] SPINE THORACIC W/WO Observed: 05/19/2018 Status: F Source: [place] CONTRAST 11:58 AM [facility] REPOSITORY [facility] Imaging Services [address] [place] [address] Spine Thoracic W/WO Contrast MR#: [id number] Acct: [id number] Name: PAULINO DOTSON Rep #: [id number] : 1945 F 72 From: Doug Crystal MD PCP: Aracely Frausto MD Status: REG CLI Study: Spine Thoracic W/WO Contrast Date of Exam: 05/19/18 Exam# [id number] Ordering Dr: Triny Bal MD STUDY: MRI THORACIC SPINE WITH AND WITHOUT CONTRAST REASON FOR EXAM: Female, 72 years old. Fracture and back pain TECHNIQUE: 7 ml of Gadavist was administered intravenously for the contrast portion of the examination. COMPARISON: Radiographs 04/19/2018 FINDINGS: Remote compression fractures of T6, T9 and L3. Mild T9 retropulsion. And L3 vertebroplasties. Bilateral posterior pedicle fusions at T8 and T10 with left pedicle fusion at T9. Bilateral posterior pedicle fusions at L2, L3, and L4. No acute compression fractures are seen. Exaggerated thoracic kyphosis. At T6-7, a central disc protrusion is present with mild central canal stenosis. At T7-8, a right paracentral disc protrusion is present with mild central canal stenosis. At T10-11, a right paracentral disc protrusion is present with minimal central canal stenosis. A right adrenal mass is present measuring 5.2 x 2.[address] or adrenal MRI. MRI/Spine Thoracic W/WO Contrast IMPRESSION: Multilevel degenerative disease and postoperative change as described. Remote compression deformities of T6, T9, and L3 with mild T9 retropulsion. No cord signal abnormalities are seen. No evidence of exiting nerve root impingement. Indeterminate right adrenal mass. Consider adrenal CT or MRI. Electronically Signed: Doug Crystal MD at 6:45 EST Tel , Service support , CC: Triny Bal MD; Aracely Frausto MD Print Production Associate: Signed ORTHOPEDIC VISIT Observed: 04/29/2018 Status: F Source: [place] REPORT 11:58 PM [facility] REPOS[facility]ORY [facility] [address] [place] [address] OFFICE VISIT Date of Service: 04/19/18 MR#: [id number] Acct: [id number] Name: PAULINO DOTSON Rep #: [id number] : 1945 Provider: Triny Bal MD Age/Sex: 72/F Location[place] [facility] [place] Status: Signed Intake Intake Visit Reasons: LOW [...] [address] Rivera in [place], [place] performed the procedures, but she is [...] on forteo for osteoporosis. 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 She has had a parathyroidectomy, HTN. She [...] reviewed and no additional complaints, [facility] Reports system reviewed and no additional complaints, except [facility] Musc Reports back pain Skin/Breast Reports system reviewed and no additional complaints, except [facility] Neuro Yes system reviewed and no additional complaints, except [facility] Psych Reports system reviewed and no additional complaints, except [facility] Endo Reports system reviewed and no additional [...] test normal Details: hyperthoracic kyphosis normal rapid renal medicine specialist and release SPINE TESTING CERVICAL THORACIC LUMBAR [...] Chronicity: chronic Back pain laterality: bilateral 04/29/18 8175 <Electronically signed by Triny Bal MD> Date Triny Bal MD Cosigner Signature: Date (if applicable) CC: Aracely Frausto MD L/S SPINE MIN 4 Observed: 04/19/2018 Status: F Source: [place] VIEWS 9:54 AM [facility] RE[facility] Imaging Services [address] [place] [address] L/S Spine Min 4 Views MR#: [id number] Acct: [id number] Name: PAULINO DOTSON Rep #: [id number] : 1945 F 72 From: Amos Tavera MD PCP: Aracely Frausto MD Status: REG CLI Study: L/S Spine Min 4 Views Date of Exam: 04/19/18 Exam# [id number] Ordering Dr: Triny Bal MD STUDY: X-RAY [...] Mortality; Daniel Johns et al. Circulation, Jul 2000;103:7932-5424. Electronically Signed: Naeem Tavera MD at 10:33 EST , Service support , CC: Triny Bal MD; Aracely Frausto MD Print Production Associate: Signed THORACIC SPINE 3 Observed: 04/19/2018 Status: F Source: [facility] 9:54 AM [facility] RE[facility] Imaging Services [address] [place] [address] Thoracic Spine 3 Views MR#: [id number] Acct: [id number] Name: PAULINO DOTSON Rep #: [id number] : 1945 F 72 From: Serafin Cruz MD PCP: Aracely Frausto MD Status: REG CLI Study: Thoracic Spine 3 Views Date of Exam: 04/19/18 Exam# [id number] Ordering Dr: Triny Bal MD STUDY: X-RAY [...] CC: Triny Bal MD; Aracely Frausto MD Print Production Associate: Signed URINALYSIS, COMPLETE Collected: 03/15/2018 Status: F Source: [place] 4:36 PM [facility] RE[facility]ITORY Order Comment: How was Urine Obtained? [...] 0-5 SEEN Performed By: #### L400.0001 #### [facility] [address] [place], [place], [id number] CBC W/DIFF, AUTOMATED Collected: 03/15/2018 Status: F Source: [place] 4:33 PM [facility] RE[facility] TYPE CODE TESTS RESULT OUT OF [...] L100.0100, L500.4050, L500.4100, L503.6075, L503.6150, L503.6550 #### [facility] [address] [place], [address] COMPREHENSIVE METABOLIC Collected: 03/15/2018 Status: F [facility] TYPE CODE TESTS RESULT OUT OF [...] L100.0100, L500.4050, L500.4100, L503.6075, L503.6150, L503.6550 #### [facility] [address] [place], [place], [id number] LIPID PROFILE Collected: 03/15/2018 Status: F Source: [place] 4:33 PM [facility] TYPE CODE TESTS RESULT OUT OF [...] L100.0100, L500.4050, L500.4100, L503.6075, L503.6150, L503.6550 #### [facility] [address] [place], [place], [id number] IRON BINDING Collected: 03/15/2018 Status: F Source: [place] 4:33 PM [facility] RE[facility] TYPE CODE TESTS RESULT OUT OF RANGE REFERENCE UNITS LAB L503.6075 250-450 ug/dL Low TIBC 244 Performed By: #### L100.0100, L500.4050, L500.4100, L503.6075, L503.6150, L503.6550 #### [facility] [address] [place], [address] IRON Collected: 03/15/2018 Status: F Source: [place] 4:33 PM [facility] TYPE CODE TESTS RESULT OUT OF RANGE REFERENCE UNITS LAB L503.6150 50-170 ug/dL Normal IRON 79 Performed By: #### L100.0100, L500.4050, L500.4100, L503.6075, L503.6150, L503.6550 #### [facility] [address] [place], [address] FERRITIN Collected: 03/15/2018 Status: F Source: [place] 4:33 PM [facility] TYPE CODE TESTS RESULT OUT OF RANGE REFERENCE UNITS LAB L503.6550 8-252 ng/mL Normal FERRITIN 109 Performed By: #### L100.0100, L500.4050, L500.4100, L503.6075, L503.6150, L503.6550 #### [facility] [place], [address] MAGNESIUM Collected: 01/25/2018 Status: F Source: [place] 12:24 PM [facility] TYPE CODE TESTS RESULT OUT OF RANGE REFERENCE UNITS LAB L501.5200 1.6-2.6 mg/dL Normal MG 1.9 Performed By: #### L501.5200 #### [facility] [address] [place], [address] PTHIN Collected: 01/25/2018 Status: F Source: [place] 12:24 PM [facility] TYPE CODE TESTS RESULT OUT OF RANGE REFERENCE UNITS LAB L509.1000 18.4-80.1 pg/mL Normal PTHIN 37.9 Performed By: #### L509.1000 #### [facility] [address] [place], [address] VITAMIN D,25 HYDROXY Collected: 01/25/2018 Status: F Source: [place] 12:24 PM [facility] TYPE CODE TESTS RESULT OUT OF RANGE REFERENCE UNITS LAB L506.1000 29.95-100.01 ng/mL Normal Vitamin D 59.9 25-OH Result Comment: Vitamin D 25(OH) Status Range Deficiency <20 ng/mL (50nmol/L) Insuffciency 20 - 30 ng/mL (50 - 75 nmol/L) Sufficiency 30 - 100 ng/mL (75 - 250 nmol/L) Toxicity >100 ng/mL (>250 nmol/L) Performed By: #### L506.1000 #### [facility] [place], [address] CALCIUM IONIZED Collected: 01/25/2018 Status: F Source: [facility] 12:24 PM [facility] TYPE CODE TESTS RESULT OUT OF RANGE REFERENCE UNITS LAB L3100.9600 4.5-5.6 mg/dL Normal IONIZED CA 5.0 Result Comment: Performed at: [address] [id number] Wire Rope Sling Maker: Herman Kimball PhD, Phone: [phone] Performed By: #### L3100.9600 #### [facility] (refer to report for specific site) refer to report for address and phone number VITAMIN D 1,25-DIHYDROXY Collected: 01/25/2018 Status: F Source: [place] CAR[place]OS 12:24 PM [facility] TYPE CODE TESTS RESULT OUT OF RANGE REFERENCE UNITS LAB L3300.0960 19.9-79.3 pg/mL Normal VITD 1,25 45.0 05936 Result Comment: Performed at: [address] [id number] Wire Rope Sling Maker: Doug [place] MD, Phone: [phone] Performed at: [address] [id number] Wire Rope Sling Maker: Herman Kimball PhD, Phone: [phone] Performed By: #### L3300.0960, L3620.0100 #### [facility] (refer to report for specific site) refer to report for address and phone number N-TELOPEPTIDE,UR X LINK Collected: 01/25/2018 Status: F Source: [place] 12:24 PM [facility] TYPE CODE TESTS RESULT OUT OF [...] measured NTx value is <or=38 nM BCE/mM MUSIC MINISTER, or NTx has decreased >or=30% from baseline.[1] 3. Patients with Paget's Disease of Bone: The probability that treatment is effective after one month is increased when the measured NTx value is within the reference range, or NTx has decreased >or=30% from baseline.[2] 1. Linda CH, Gaines NH, Az GS, et al. Am J Med, 102:29-37,1997. (1):M757, 1996. 2. Bone H, Marleen J, et al. J Bone Min Res.11(1):M757,1995 Performed By: #### L3300.0960, L3620.0100 #### [facility] (refer to report for specific site) refer to report for address and phone number COMPREHENSIVE METABOLIC Collected: 01/19/2018 Status: F [facility] PM [facility] TYPE CODE TESTS RESULT OUT OF [...] 9 Performed By: #### L500.4050, L501.2300 #### [facility] Laboratory [address] [place], [address] PHOSPHORUS Collected: 01/19/2018 Status: F Source: [place] CARLOS 1:10 PM [facility] REPOS[facility] TYPE CODE TESTS RESULT OUT OF RANGE REFERENCE UNITS LAB L501.2300 2.5-4.9 mg/dL Normal PHOS 3.4 Performed By: #### L500.4050, L501.2300 #### [facility] Laboratory [address] [place], [address] PTHIN Collected: 01/19/2018 Status: F Source: [place] CAR[place] 1:10 PM [facility]POS[facility] TYPE CODE TESTS RESULT OUT OF RANGE REFERENCE UNITS LAB L509.1000 18.4-80.1 pg/mL Normal PTHIN 38.2 Performed By: #### L509.1000 #### [facility] Laboratory [address] [place], [place], [address] CALCIUM IONIZED Collected: 01/19/2018 Status: F Source: [place] CAR[place] 1:10 PM [facility] TYPE CODE TESTS RESULT OUT OF RANGE REFERENCE UNITS LAB L3100.9600 4.5-5.6 mg/dL Normal IONIZED CA 5.0 Result Comment: Performed at: [facility] [id number] Wire Rope Sling Maker: Herman Kimball PhD, Phone: [phone] Performed By: #### L3100.9600 #### [facility] (refer to report for specific site) refer to report for address and phone number BASIC METABOLIC Collected: 01/11/2018 Status: F Source: JOSE CARLOS PROFILE (BMP) 3:57 PM [facility] TYPE CODE TESTS RESULT OUT OF [...] 9 GAP Performed By: #### L500.2500 #### [facility] Laboratory [address] [place], [address] CALCIUM IONIZED Collected: 01/11/2018 Status: F Source: [place] CAR[facility] 3:57 PM [facility] TYPE CODE TESTS RESULT OUT OF REFERENCE UNITS RANGE LAB L3100.9600 4.5-5.6 mg/dL Low IONIZED CA 4.4 Result Comment: Performed at: [facility] [address] [id number] Wire Rope Sling Maker: Herman Kimball PhD, Phone: [phone] Performed By: #### L3100.9600 #### [facility] (refer to report for specific site) refer to report for address and phone number CALCIUM,TOTAL Collected: 12/27/2017 Status: F Source: [place] [facility] 2:40 PM [facility] TYPE CODE TESTS RESULT OUT OF RANGE REFERENCE UNITS LAB L501.2200 8.5-10.1 mg/dL Low CA 8.1 Performed By: #### L501.2200 #### [facility] Laboratory [address] [place], [address] PTHIN Collected: 12/27/2017 Status: F Source: [facility] 2:40 PM [facility] TYPE CODE TESTS RESULT OUT OF RANGE REFERENCE UNITS LAB L509.1000 18.4-80.1 pg/mL Normal PTHIN 31.8 Performed By: #### L509.1000 #### [facility] Laboratory [address] [place], [address] VITAMIN D,25 HYDROXY Collected: 12/27/2017 Status: F Source: JO[facility] CARLOS 2:40 PM [facility] TYPE CODE TESTS RESULT OUT OF RANGE REFERENCE UNITS LAB L506.1000 29.95-100.01 ng/mL Normal Vitamin D 66.6 25-OH Result Comment: Vitamin D 25(OH) Status Range Deficiency <20 ng/mL (50nmol/L) Insuffciency 20 - 30 ng/mL (50 - 75 nmol/L) Sufficiency 30 - 100 ng/mL (75 - 250 nmol/L) Toxicity >100 ng/mL (>250 nmol/L) Performed By: #### L506.1000 #### [facility] [address] [place], [address] CALCIUM Collected: 12/11/2017 Status: F Source: [facility] 3:13 AM [facility] REPOSITORY TYPE CODE TESTS RESULT OUT OF REFERENCE UNITS RANGE LAB CA 8.6-10.5 mg/dL Calcium 9.0 Performed By: #### CA #### [place] [address] PLATELET COUNT Collected: 12/11/2017 Status: F Source: [facility] BATTERY 2:38 AM [facility] REPOSITORY TYPE CODE TESTS RESULT OUT OF REFERENCE UNITS RANGE LAB PLT 182-369 K/uL Low Platelet Count 178 LAB MPV 9.4-12.3 fL Mean Platelet 11.1 Volume Performed By: #### PLAT #### [id number] [place] [address] *INTACT*PTH Collected: 12/10/2017 Status: F Source: [facility] (INTRAOPERATIVE) 5:11 PM [facility] REPOSITORY TYPE CODE TESTS RESULT OUT OF RANGE REFERENCE UNITS LAB RPTH 14.0-72.0 pg/mL Low 11.6 *Intact*PTH (Intraoperat tra) Result Comment: Called to and read back by PATRICIA MCCABE AT 1742 ON 12.10.2017 Performed By: #### RPTH #### [id number] [place] [address] *INTACT*PTH Collected: 12/10/2017 Status: F Source: [facility] (INTRAOPERATIVE) 5:03 PM [facility] REPOSITORY TYPE CODE TESTS RESULT OUT OF RANGE REFERENCE UNITS LAB RPTH 14.0-72.0 pg/mL 14.4 *Intact*PTH (Intraoperat tra) Result Comment: Called to and read back by PATRICIA MCCABE AT 1734 ON 12.10.2017 Performed By: #### RPTH #### [facility] [address] [place] [id number] [place] [address] [address] [place] [address] *INTACT*PTH Collected: 12/10/2017 Status: F Source: [facility] (INTRAOPERATIVE) 4:09 PM [facility] REPOSITORY TYPE CODE TESTS RESULT OUT OF RANGE REFERENCE UNITS LAB RPTH 14.0-72.0 pg/mL High 119.3 *Intact*PTH (Intraoperat tra) Result Comment: Called to and read back by PATRICIA MCCABE AT 1652 ON 12.10.2017 Performed By: #### RPTH #### [facility] [address] [place] [address] [facility] [address] [address] *INTACT*PTH Collected: 12/10/2017 Status: F Source: [facility] (INTRAOPERATIVE) 4:08 PM [facility] REPOSITORY TYPE CODE TESTS RESULT OUT OF RANGE REFERENCE UNITS LAB RPTH 14.0-72.0 pg/mL High 239.3 *Intact*PTH (Intraoperat tra) Result Comment: Called to and read back by PATRICIA MCCABE AT 1651 ON 12.10.2017 Performed By: #### RPTH #### [facility] [address] [place] [address] [facility] [address] [address] *INTACT*PTH Collected: 12/10/2017 Status: F Source: [facility] (INTRAOPERATIVE) 12:15 PM [facility] REPOSITORY TYPE CODE TESTS RESULT OUT OF RANGE REFERENCE UNITS LAB RPTH 14.0-72.0 pg/mL High 99.6 *Intact*PTH (Intraoperat tra) Result Comment: Called to and read back by JOSE SZYMANSKI RN 12/10/2017 @ 1246 Performed By: #### RPTH #### [facility] [address] [place] [address] [place] [address] SURGICAL PATHOLOGY Observed: 12/10/2017 Status: F Source: [facility] 9:31 AM [facility] REPOSITORY Surgical Pathology Report Patient Name: PAULINO DOTSON [facility]. Rec #: [id number] Submitting Physician: ARACELY AMARO --- Clinical History --- Preoperative Diagnosis: Parathyroid adenoma. Additional History: Hyperparathyroidism. D35.1 ---Final Pathologic Diagnosis--- A. Possible right inferior parathyroid, parathyroidectomy: - Hypercellular parathyroid, consistent with adenoma day39/LSMD:12/14/2017 Electronically Signed By Oriana Darby M.D. 12/14/2017 11:29:27 Professional Interpretation performed at location: [address] [place] [address] ---INTRAOPERATIVE CONSULTATION DIAGNOSIS:--- A1F. Possible right inferior [...] A1, remaining specimen Lab Use Only: JobID [id number] Gross description by: Janelle Martin Performed By: #### SURGP #### [facility] [address] [place] [address] [place] [address] XR CHEST PA AND Observed: 11/22/2017 Status: F Source: [facility]ERAL 2:49 PM [facility] REPOSITORY EXAM: XR CHEST PA AND LATERAL, [...] process. PARATHYROID Observed: 11/22/2017 Status: F Source: [facility] SESTAMIBI 2:18 PM [facility] REPOSITORY EXAM: NUC PARATHYROID SESTAMIBI, 11/22/2017 10:40 [...] F Source: JOSE CARLOS (ROUTINE) 8:49 AM [facility] Imaging Services [address] [place] [address] Spine Lumbar (Routine) MR#: [id number] Acct: [id number] Name: PAULINO DOTSON Rep #: [id number] : 1945 F 72 From: Mary Grace Alcaraz MD PCP: Aracely Frausto MD Status: REG CLI Study: Spine Lumbar (Routine) Date of Exam: 11/20/17 Exam# [id number] Ordering Dr: Aracely Frausto MD STUDY: MRI [...] Service support , CC: Aracely Frausto MD Print Production Associate: Signed LOWER EXT ARTERIAL Observed: 11/05/2017 Status: F Source: [place] STUDY 6:31 PM [facility] REPOS[facility]ORY [facility] Cardiovascular Services [address] [place] [address] 11/05/17 1826 MR#: [id number] Acct: [id number] Name: PAULINO DOTSON Rep #: [id number] : 1945 72 From: Faheem Julian MD Attending Dr: Aracely Frausto MD Status: REG CLI Ordering Dr: Date: 11/05/17 Location: [facility] Sex: F C Admitted: Arterial Study - [...] MD Date Dictated: 11/05/171825 Date Transcribed: 11/05/171825 Print Production Associate: ALESSANDRO Signed CBC WITH DIFF Collected: 11/02/2017 Status: F Source: [facility] 11:26 AM [facility] REPOSITORY TYPE CODE TESTS RESULT OUT OF [...] Lymph 1.45 LAB AMONO 0.24-0.86 K/uL Abs [place] 0.76 LAB AEOS <0.37 K/uL Abs Eos 0.27 LAB ABASO <0.09 K/uL Abs Baso 0.08 Performed By: #### CBCDFM, ICAC, CMPNC #### [place] [address] [address] [place] [address] #### IPTH, D125 #### [facility] [place] [address] [place] [address] [place] [address] IONIZED CALCIUM - Collected: 11/02/2017 Status: F Source: [facility] ARIELA LAB 11:26 AM [facility] REPOSITORY TYPE CODE TESTS RESULT OUT OF REFERENCE UNITS RANGE LAB ICA 4.60-5.30 mg/dL Ionized 5.00 Calcium Performed By: #### CBCDFM, ICAC, CMPNC #### [facility] [address] [place] [address] #### IPTH, D125 #### [facility] [address] [place] [address] [address] [place], [place] [address] COMP METABOLIC Collected: 11/02/2017 Status: F Source: [facility] IVORY LAB 11:26 AM [facility] REPOSITORY TYPE CODE TESTS RESULT OUT OF [...] mOsm/kg Osmolality (Calc) 297 Performed By: #### CBCDFM, ICAC, CMPNC #### [facility] [address] [place] [address] #### IPTH, D125 #### [facility] [address] [place] [address] [address] [place] [address] INTACT PTH Collected: 11/02/2017 Status: F Source: [facility] 11:26 AM [facility] REPOSITORY TYPE CODE TESTS RESULT OUT OF REFERENCE UNITS RANGE LAB IPTH 14.0-72.0 pg/mL High INTACT PTH 211.7 Performed By: #### CBCDFM, ICA, CMPNC #### [facility] [address] [place], [place] [address] #### IPTH, D125 #### [facility] [address] [place] [address] [facility] [address] [place], [place] [address] 1,25-DIHYDROXYVITAMIN D Collected: Status: F Source: [facility] 11/02/2017 11:26 AM [facility] REPOSITORY TYPE CODE TESTS RESULT OUT OF RANGE REFERENCE UNITS LAB D125 20-79 pg/mL High 93.6 1,25-Dihydro xyvitamin D Performed By: #### CBCDFM, ICA, CMPNC #### [facility] [address] [place], [place] [address] #### IPTH, D125 #### [facility] [address] [place] [address] [facility] [address] [place], [place] [address] ECHOCARDIOGRAM COMPLETE Observed: 10/07/2017 Status: F Source: [place] 5:14 PM [facility] Cardiovascular Services [address] [place] [address] Echo Complete 10/07/17 1250 MR#: [id number] Acct: [id number] Name: PAULINO DOTSON Rep #: [id number] : 1945 72 From: Tam Morelos MD Attending Dr: Aracely Frausto MD Status: REG CLI Ordering Dr: Aracely Frausto MD Date: 10/07/17 Location: [facility] Sex: F C Admitted: Reason For Study: [...] Doppler Measurements AND Calculations MV E max geoff: 63.8 cm/sec Lat Peak E' Geoff: 8.8 cm/sec Med Peak E' Geoff: 7.0 cm/sec MV A max geoff: 52.8 cm/sec E/E' lat: 7.3 E/E' med: 9.1 MV E/A: 1.2 Ao V2 max: 128.2 cm/sec AI max geoff: 461.3 cm/sec LV V1 max: 101.7 cm/sec Ao max P.6 mmHg AI max P.1 mmHg LV V1 max P.1 mmHg AI dec slope: 138.0 cm/sec2 AI P1/2t: 979.3 msec PA V2 max: 68.9 cm/sec TR max geoff: 257.9 cm/sec TR max P.6 mmHg Interpretation [...] Physician: Aracely Frausto Performed By: Britney Salcedo, ZHANG, RVT 10/07/171712 Date Tam Morelos MD CC: Aracely Frausto MD Date Dictated: 10/07/17 1250 Date Transcribed: 10/07/171712 Print Production Associate: Signed CBC W/DIFF, AUTOMATED Collected: 09/13/2017 Status: F Source: [facility] CAR[facility] 10:55 AM [facility] HOSPITAL REPOSITORY TYPE CODE TESTS RESULT OUT OF [...] Lymph 1.17 Performed By: #### L100.0100 #### [place] [facility] Laboratory [address] [place], [place], [address] PTHIN Collected: 09/13/2017 Status: F Source: [place] 10:55 AM [facility]POS[facility] TYPE CODE TESTS RESULT OUT OF RANGE REFERENCE UNITS LAB L509.1000 18.4-80.1 pg/mL High PTHIN 177.9 Result Comment: Please Note: PTH INTACT METHOD AND REFERENCE RANGE CHANGE Effective 05/12/2017. Performed By: #### L509.1000 #### [facility] Laboratory [address] [place], [address] VITAMIN D,25 HYDROXY Collected: 09/13/2017 Status: F Source: [place] 10:55 AM [facility] TYPE CODE TESTS RESULT OUT OF RANGE REFERENCE UNITS LAB L506.1000 29.95-100.01 ng/mL Normal Vitamin D 50.4 25-OH Result Comment: Vitamin D 25(OH) Status Range Deficiency <20 ng/mL (50nmol/L) Insuffciency 20 - 30 ng/mL (50 - 75 nmol/L) Sufficiency 30 - 100 ng/mL (75 - 250 nmol/L) Toxicity >100 ng/mL (>250 nmol/L) Performed By: #### L506.1000 #### [facility] Laboratory [address] [place], [address] COMPREHENSIVE METABOLIC Collected: 09/13/2017 Status: F Source: [facility] 10:55 AM [facility] REPOSITORY TYPE CODE TESTS RESULT OUT OF [...] By: #### L500.4050, L500.4100, L503.6030, L503.6550 #### [facility] Laboratory [address] [facility] [place], [place], [address] LIPID PROFILE Collected: 09/13/2017 Status: F Source: [place] 10:55 AM [facility] REPOSITORY TYPE CODE TESTS RESULT OUT OF [...] By: #### L500.4050, L500.4100, L503.6030, L503.6550 #### [facility] Laboratory [address] [place], [place], [address] IRON+IRON BINDING Collected: 09/13/2017 Status: F Source: [place] CAR[place] [place]AC[place] 10:55 AM [facility] REPOSITORY TYPE CODE TESTS RESULT OUT OF RANGE REFERENCE UNITS LAB L503.6075 250-450 ug/dL TIBC Normal 258 LAB L503.6150 50-170 ug/dL IRON Normal 56 LAB L503.6250 15.0-55.0 % IRON Normal SATURATION 21.7 Performed By: #### L500.4050, L500.4100, L503.6030, L503.6550 #### [facility] Laboratory [address] [place], [address] FERRITIN Collected: 09/13/2017 Status: F Source: [place] 10:55 AM [facility] REPOSITORY TYPE CODE TESTS RESULT OUT OF RANGE REFERENCE UNITS LAB L503.6550 8-252 ng/mL Normal FERRITIN 57 Performed By: #### L500.4050, L500.4100, L503.6030, L503.6550 #### [facility] Laboratory [address] [place], [address] LUNG Observed: 09/11/2017 Status: F Source: [place] SCREENING 9:18 AM [facility] REPOSITORY [facility] Imaging Services [address] [place] [address] Lung Screening MR#: [id number] Acct: [id number] Name: PAULINO DOTSON Rep #: [id number] : 1945 F 72 From: Marques Sherwood MD PCP: Aracely Frausto MD Status: [facility] CLI Study: Low Dose CT Lung Screening Date of Exam: 09/11/17 Exam# [id number] Ordering Dr: Francisco Fallon MD STUDY: LOW [...] CC: Aracely Frausto MD; Francisco Fallon MD Print Production Associate: Signed OPERATIVE REPORT Observed: 06/30/2017 Status: F Source: [place] 8:27 AM [facility] Medical Records Department [address] [place] [address] Operative Report 06/30/17 0823 MR#: [id number] Acct: [id number] Name: PAULINO DOTSON Rep #: [id number] : 1945 71 From: Fritz Hart MD PCP: Aracely Frausto MD Status: REG [facility] Y Location: [place] [address] Problem List (1) Gastro-esophageal reflux disease without esophagitis Status: Acute (2) Epigastric pain Status: Acute Report of Operation Date of Procedure: 06/30/17 Pre-Operative Diagnosis: K 21.9 gastroesophageal reflux disease without esophagitis. r10.13 epigastric abdominal pain Post-Operative Diagnosis: Same Surgery/Procedure Performed:: 41893 esophagogastroduodenoscopy with biopsy Type of Anesthesia:: MAC [...] Reason prophylaxis not ordered:: Treatment Not Indicated 06/30/17826 <Electronically signed by Fritz Hart MD> Date Fritz Hart MD CC: Fritz Hart MD; Aracely Frausto MD Signed ALLERGIES ALLERGIES DATE TYPE / CODE NAME / CODE REACTION SEVERITY SOURCE 04/19/2018 Drug hydrocodone Rash Unknown [place] Allergy/416 bitartrate/Y949683 [facility] 240516[facility] 04/19/2018 Drug tizanidine Other Unknown [place] Allergy/416 HCl/[id number](RXN Community 519221([facility] ED CT) Repository 04/19/2018 Drug Penicillins/X48886 Rash Unknown [place] Allergy/416 0476(RXNORM) Community 775430([facility] ED CT) Repository 04/19/2018 Drug clindamycin/K97710 Other Unknown [place] Allergy/416 2794(RXNORM) [facility] 673714([facility] ED CT) Repository ENCOUNTERS ENCOUNTERS ADMIT/DISCHARGE ACCOUNT NUMBER ADMITTING ENCOUNTER LOCATION SOURCE CLASS 06/14/2018 [id number] [facility] ding:MFPLAB Repository 05/19/2018 [id number] [facility] ding:MRI Repository 04/19/2018 [id number] [facility] ding:HPRAD Repository 04/19/2018/04/19/20 [id number] Ambulatory BMSBuilding: [place] [address] [facility] Repository 03/15/2018 [id number] Ambulatory [facility] ding:MFPLAB Repository 01/25/2018 [id number] Ambulatory [facility] ding:MFPLAB Repository 01/19/2018 [id number] Ambulatory [facility] ding:MTLAB Repository 01/11/2018 [id number] Ambulatory [facility] ding:MFPLAB Repository 12/27/2017 [id number] Ambulatory [facility] ding:MFPLAB Repository 12/21/2017 [id number] Ambulatory Building:[address] Repository 12/21/2017 [id number] Ambulatory Building:[facility] Repository 12/10/2017/12/12/19 [id number] ARACELY AMARO Ambulatory Building:[place] [address] Room: [address]: [facility] Repository 11/22/2017 [id number] Ambulatory Building:[facility] Repository 11/22/2017 [id number] Ambulatory Building:[facility] Repository 11/22/2017 [id number] Ambulatory Building:[facility] Repository 11/22/2017 [id number] Ambulatory Building:[facility] Repository 11/22/2017 [id number] Ambulatory Building:[facility] Repository 11/20/2017 [id number] Ambulatory [facility] ding:MRI Repository 11/05/2017 [id number] Ambulatory [facility] ding:[facility] Repository 11/02/2017 [id number] Ambulatory Building:[address] Repository 11/02/2017 [id number] Ambulatory Building:[facility] Repository 10/07/2017 [id number] Ambulatory [facility] ding:[facility] Repository 10/07/2017 [id number] Ambulatory BMSBuilding: [place] [facility] Repository 09/13/2017 [id number] [facility] Rep[facility] 09/11/2017 [id number] [facility] Repository 06/30/2017/06/30/19 [id number] Ambulatory [place] ding:ENRoom: Repository AC12 06/30/2017 [id number] Ambulatory BMSBuilding: [place] BMS.[facility] Repository PAYERS PAYERS ENCOUNTER GUARANTOR PAYER SUBSCRIBER SOURCE 06/14/2018 IALENE Stacy Primary IALENE Stacy [id number] Insurance:MYCARE CRSC BROWNDOB: Community SEE [address] *IN [facility] [id number] Number: Repository [id number]: [phone] [id number] () Date:1257-13-08KVRW CLAIMS DEPTPO [address] [address]XA: 06/14/2018 Secondary NOT GIVENUNK [place] Insurance:SELF PAY [facility] Number: Effective Repository Date:2018-06-14 05/19/2018 IAYAMILKAE Stacy Primary JOHNATHANE Stacy Branch [id number] Insurance:MYCARE CRSC BROWNDOB: Community SEE [address] *IN [facility] [id number] Number: Repository [id number]: ([phone] [id number] [phone] () Date:[id number] CLAIMS [address] [place] [address]SA: 05/19/2018 Secondary NOT GIVENUNK [place] Insurance:SELF PAY [facility] Number: Effective Repository Date:2018-05-05 04/19/2018 IALENE F Primary IALENE F [place] [id number] Insurance:MYCARE CRSC BROWNDOB: Community SEE [address] *IN [facility] [id number] Number: Repository [address]Imu: ([phone] [id number] [phone] (HP) Date:2770-37-52ZERD CLAIMS [address], [place] [address]WK: 04/19/2018 Secondary IALENE F [place] Insurance:MEDICARE BROWNDOB: Community PART A [facility] [facility] [id number] Hospital Number: Repository [id number] Date:2018-04-19 04/19/2018 Tertiary [place] Insurance:SELF PAY [facility]: Effective Repository Date:2018-04-19 04/19/2018 IALENE F Primary IALENE F [place] [id number] Insurance:MYCARE CRSC BROWNDOB: Community SEE [address] *IN [facility] [id number] Number: Repository [id number]: [phone] [id number] [phone] (HP) Date:9924-01-96WQRS [address]S [address] [address]EL: 04/19/2018 Secondary IALENE F [place] Insurance:MEDICARE BROWNDOB: Community PART A [facility] [id number] Number: Repository [id number] Date:2018-01-27 04/19/2018 Tertiary NOT GIVENUNK [place] Insurance:SELF PAY [facility] Number: Effective Repository Date:2018-04-19 03/15/2018 IALENE F Primary IALENE F [place] [id number] Insurance:MYCARE CRSC BROWNDOB: Community SEE [address] *IN [facility] [id number] Number: Repository [id number]: (169) [id number] [phone] (HP) Date:8549-98-48LHZP CLAIMS [address], [place] [address]PO: 03/15/2018 Secondary NOT GIVENUNK [place] Insurance:SELF PAY [facility] Number: Effective Repository Date:2018-03-15 01/25/2018 IALENE F Primary IALENE F [place] [id number] Insurance:MYCARE CRSC BROWNDOB: Community SEE [address] *IN [facility] [id number] Number: Repository [phone]: [phone] [id number] [phone] (HP) Date:5669-15-65ZBXB [place]S [address] [address]SY: 01/25/2018 Secondary NOT GIVENUNK [place] Insurance:SELF PAY [facility] Number: Effective Repository Date:2018-01-25 01/19/2018 IALENE F Primary IALENE F [place] [id number] Insurance:MYCARE CRSC BROWNDOB: Community SEE [address] *IN [address] Number: Repository [phone]: [phone] [id number] [phone] (HP) Date:6604-80-99XFEW CLAIMS [address] [address]CY: 01/19/2018 Secondary [place] GIVENUNK [place] Insurance:SELF PAY [facility] Number: Effective Repository Date:2018-01-19 01/11/2018 IALENE F Primary IALENE F [place] [id number] Insurance:MYCARE CRSC BROWNDOB: Community SEE [address] *IN [facility] [id number] Number: Repository [phone]: [phone] [id number] [phone] (HP) Date:2659-63-44LLGH CLAIMS [address] [address]EG: 01/11/2018 Secondary NOT GIVENUNK [place] Insurance:SELF PAY [facility] Number: Effective Repository Date:2018-01-11 12/27/2017 IALENE F Primary IALENE F [place] [id number] Insurance:MYCARE CRSC BROWNDOB: Community SEE [address] *IN [place] [id number] Number: Repository [phone]: ([phone] [id number] [phone] () Date:9765-87-75URDH CLAIMS [address] [place] [address]DY: 12/27/2017 Secondary NOT GIVENUNK [place] Insurance:SELF PAY [facility] Number: Effective Repository Date:2017-12-27 12/21/2017 IALENE F Primary [facility] F [facility] [place] MYCARE MEDICARE [id number] [facility] [address] RXPolicy Number: [address] Center [address] [place] [address] [id number] [place] [address] Repository [address]Gto: (740) Date:6175-76-94Ugsj 82317Dhc: () Name:CARE [phone] () 12/21/2017 IALENE F Primary IALENE F [facility]: Insurance:[facility]: [place] MYCARE MEDICARE [id number] [facility] [address] APT RXPolicy Number: [address] Center [address] [place] [address] [id number] [place] [address] Repository 78[address]Hdu: (740) Date:9057-55-23Jeem 18669Vmd: () Name:CARE [phone] () 12/10/2017 IALENE F Primary IALENE F [facility] [place] MYCARE MEDICARE [id number] [facility] [address] APT RXPolicy Number: [address] Center [address] [place] [id number] [place] [address] Repository 087[address]Lmg: (740) Date:7056-82-65Szbq 78523Hot: () Name:CARE [phone] () 11/22/2017 IALENE F Primary IALENE F [facility]: Insurance:[facility]: [place] MYCARE MEDICARE [id number] [facility] [address] APT RXPolicy Number: [address] Center [address] [place] [address] [id number] [place] [address] Repository 328[address]Uow: (740) Date:6154-36-36Dhgb 30854Hyw: () Name:CARE [phone] () 11/22/2017 IALENE F Primary IALENE F [facility] [place] MYCARE MEDICARE [id number] [facility] [address] APT RXPolicy Number: [address] Center [address] [place] [address] [id number] [place] [address] Repository 03377Zkv: (740) Date:6620-15-77Jmpg 24283Ike: () Name:CARE [phone] () 11/22/2017 IALENE F Primary IALENE F [facility]: [facility] [place] MYCARE MEDICARE [id number] [facility] [address] APT RXPolicy Number: [address] Center [address] [place] [id number] [place] [address] Repository 54605Kqo: (740) Date:1907-67-26Udgn 45203Afj: () Name:CARE [phone] () 11/22/2017 IALENE F Primary IALENE F [facility]: [facility] [place] MYCARE MEDICARE [id number] [facility] [address] RXPolicy Number: [address] Center [address] [place] [address] [id number] [place] [address] Repository 43095Fqc: (740) Date:5270-94-56Qpvk 42852Zgm: () Name:CARE [phone] () 11/22/2017 IALENE F Primary IALENE F [facility]: Insurance:[facility]: [place] MYCARE MEDICARE [id number] [facility] SEE [address] APT RXPolicy Number: [address] Center [address] [place] [address] [id number] [place] [address] Repository 90766Dsz: (740) Date:1084-25-92Fydo 51712Sjc: () Name:CARE [phone] () 11/20/2017 IALENE F Primary IALENE F [place] [id number] [facility] Community SEE RDAPT MEDICARE [facility] [id number] Number: Repository [address]Vtj: 740) [id number] [phone] () Date:1160-91-32[place] [address]WP: 11/20/2017 Secondary IALENE F [place] Insurance:MEDICAIDPol BROWNDOB: [facility] ic Number: [id number] Hospital [id number] Repository Date:2017-11-16 11/20/2017 Tertiary NOT [place]IVENUNK [place] Insurance:SELF PAY [facility]: Effective Repository Date:2017-11-16 11/05/2017 IALENE F Primary IALENE F [place] [id number] Insurance[facility] Community SEE [address] MEDICARE [facility] [id number] Number: Repository [phone]: 740) [id number] [phone] () Date:8053-86-22YF [address] [address]WK: 11/05/2017 Secondary IALENE F [place] Insurance:[facility]ID[facility] SystemB: [facility] icy Number: [id number] Hospital [id number] Repository Date:2017-10-13 11/05/2017 Tertiary NOT GIVENUNK [place] Insurance:SELF PAY [facility] Number: Effective Repository Date:2017-10-13 11/02/2017 IALENE F Primary IALENE F [facility] BROWNDOB: Insurance:[facility]ICARE [facility] [place] HUMANA HMO [facility] [id number] [facility] [address] Number: [address] Center [address] [place] [address] [id number] [place], [place] Repository [address]Tlv: (740) Date:2016-11-18 41567Een: () 8191-23-12Cphh [phone] () Name:CARE 11/02/2017 Secondary IALENE F [facility] Insurance:MEDICAIDPol BROWNDOB: [place] icy Number: [id number] [facility] [id number] [address] Center Date:2017-10-22[place], [place] Repository [id number] 57527Brk: (740) Name:NATHALIE [phone] () 11/02/2017 IALENE F Primary IALENE F [facility] BROWNDOB: Insurance:MEDICARE [facility] [place] HUMANA O [facility] [id number] [facility] [address] Number: [address] Center [address] [place] [address] [id number] [place], [place] Repository [address]Xwv: (740) Date:1658-52-57Wixl 45540Yol: () Name:CARE [phone] () 10/07/2017 IALENE F Primary IALENE F [place] [id number] Insurance:HUMANA BROWNDOB: Community SEE [address] MEDICARE OPolicy [id number] [place] Number: Repository [phone]: [phone]) [id number] [phone] (HP) Date:3070-47-16VS [address] [place] [address]VP: 10/07/2017 Secondary NOT GIVENUNK [place] Insurance:SELF PAY [facility] Number: Effective Repository Date:2017-09-14 10/07/2017 IALENE F Primary IALENE F Jose [place] [id number] Insurance:HUMANA BROWNDOB: Community SEE [address] MEDICARE PPOPolicy [id number] [place] Number: Repository [address]Lzp: (740) [id number] [phone] (HP) Date:2364-80-81LW [address] [place] [address]NU: 10/07/2017 Secondary NOT GIVENUNK [place] Insurance:SELF PAY [facility] Number: Effective Repository Date:2017-10-07 09/13/2017 IALENE F Primary IALENE F [place] [id number] Insurance:HUMANA BROWNDOB: Community SEE [address] MEDICARE PPOPolicy [id number] Number: Repository [address]Bhh: (740) [id number] [phone] (HP) Date:8730-38-41RL [address] [address]LW: 09/13/2017 Secondary NOT GIVENUNK [place] Insurance:SELF PAY [facility] Number: Effective Repository Date:2017-09-13 09/11/2017 IALENE F Primary IALENE F [place] [id number] Insurance:HUMANA BROWNDOB: Community SEE [address] MEDICARE PPOPolicy [id number] Number: Repository [address]Yug: [phone]) [id number] [phone] (HP) Date:7325-14-65YX [address] [place] [address]IC: 09/11/2017 Secondary NOT GIVENUNK [place] Insurance:SELF PAY [facility] Number: Effective Repository Date:2017-09-03 06/30/2017 PAULINO HOLGUIN66 Primary IALENE BROWNDOB: [place] SEE [address] Insurance:HUMAN [id number] [place] MEDICARE PPOPolicy Hospital [address]Tel: (740) Number: Repository [phone] () [id number] Date:6704-02-15WG [address] [place] [address]PL: 06/30/2017 Secondary NOT GIVENUNK Jose [place] Insurance:SELF PAY [facility] Number: Effective Repository Date:2017-06-03 06/30/2017 PAULINO HOLGUIN66 Primary IALENE BROWNDOB: Jose [place] SEE [address] Insurance:[facility] [id number] [place] MEDICARE PPOPolicy Hospital [id number]: (600) Number: Repository [phone] () [id number] Date:0701-65-62HC [address] [place] [address]VT: 06/30/2017 Secondary NOT GIVENUNK [place] Insurance:SELF PAY [facility] Number: Effective Repository Date:2017-06-30
== END ==
PROVIDERS: Family Provider Family Medicine; PCP Family Medicine; Visit Provider Family Medicine
DX: D50.9 Iron deficiency anemia, unspecified (principal); E78.5 Hyperlipidemia, unspecified; I10 Essential (primary) hypertension; E55.9 Vitamin D deficiency, unspecified; M81.0 Age-related osteoporosis without current pathological fracture
CPT/HCPCS: 36415; 80053; 80061; 82306; 82330; 82728; 83540; 83550; 83970; 85025

== ENCOUNTER → 2018-08-04 15:45 | Outpatient (CLI) | payer MEDICARE, SELFPAY ==
[2018-04-19 09:50] VITALS: BMI 31.1
== END ==
PROVIDERS: Family Provider Family Medicine; PCP Family Medicine; Referring Provider Otolaryngology; Visit Provider Otolaryngology
DX: J02.9 Acute pharyngitis, unspecified (principal)
CPT/HCPCS: 87070; 87077; 87186

== ENCOUNTER → 2018-09-08 15:49 | Outpatient (CLI) | payer MEDICARE, SELFPAY ==
[2018-04-19 09:50] VITALS: BMI 31.1
[2018-09-08 17:39] LABS: Absolute Lymphocyte Count 0.96 X10^3/ul (0.83-4.51); Absolute Neutrophil Count 7.3 X10^3/uL (2.0-7.7); Basophil# 0.04 X10^3/uL; Basophil% 0.4 % (0-1); Eosinophil# 0.33 X10^3/uL; Eosinophils% 3.4 % (0-5); Hematocrit 41.8 % (37-47); Hemoglobin 13.7 g/dl (12.0-15.0); Lymphocyte # 0.96 X10^3/ul (4.0); Lymphocyte % 9.9 % (19-41); Mean Corp Hgb Conc 32.8 g/gl (32-36); Mean Corpuscular Hgb 33.3 pg (27.0-32.0); Mean Corpuscular Volume 101.5 fL (81-99); Mean Platelet Vol. 10.5 fl (6.2-12.0); Monocyte# 1.01 X10^3/uL; Monocyte% 10.4 % (0-10); Neutrophil # 7.31 X10^3/uL (2.7-7.7); Neutrophil % 75.6 % (47-70); Platelet Count 195 K/mm3 (150-450); RBC Distribution Width CV 15.4 % (11.6-14.6); RBC Distribution Width SD 56.7 fl (35.1-43.9); Red Blood Count 4.12 M/mm3 (4.2-5.4); White Blood Count 9.7 K/mm3 (4.4-11.0)
[2018-09-08 17:40] LABS: POSITIVE COUNT NO; POSITIVE DIFFERENTIAL NO; POSITIVE MORPHOLOGY NO
[2018-09-08 17:54] LABS: Vitamin B12 874 pg/mL (211-911); Vitamin D,25 Hydroxy 75.2 ng/mL (29.95-100.01)
[2018-09-08 17:56] LABS: AST(SGOT) 29 U/L (15-37); Alanine Aminotransfer ALT/SGPT 21 U/L (13-56); Albumin, Serum 3.2 g/dL (3.2-5.0); Alkaline Phosphatase 138 U/L (45-117); Anion Gap 9 (5-15); BUN 6 mg/dL (7-18); BUN/Creat Ratio 7.2 RATIO (10-20); CPK Total, Creatine Kinase 70 U/L (26-192); Calcium,Total 8.1 mg/dL (8.5-10.1); Chloride 111 mmol/L (98-107); Cholesterol 142 mg/dL (200); Creatinine, Serum 0.83 mg/dL (0.55-1.02); EST Glomerular Filtration Rate 72 mL/min (>60); Est Glom Filt Rate - Afr Amer 87 mL/min (>60); Ferritin 89 ng/mL (8-252); Globulin 3.2 g/dL (2.2-4.2); Glucose 87 mg/dL (74-106); High Density Lipoprotein 64 mg/dL; Iron 86 ug/dL (50-170); Iron Binding Capacity,Total 238 ug/dL (250-450); Potassium 3.8 mmol/L (3.5-5.1); Protein, Total 6.4 g/dL (6.4-8.2); Sodium Level 144 mmol/L (136-145); Triglycerides 133 mg/dL; Very Low Density Lipoprotein 27 mg/dL (5-40)
[2018-09-13 17:51] LABS: Vitamin B1, Thiamine 335.9 nmol/L (66.5-200.0)
== END ==
PROVIDERS: Family Provider Family Medicine; PCP Family Medicine; Referring Provider Family Medicine; Visit Provider Family Medicine
DX: E78.5 Hyperlipidemia, unspecified (principal); I10 Essential (primary) hypertension; E55.9 Vitamin D deficiency, unspecified; Z86.39 Personal history of other endocrine, nutritional and metabolic disease; E53.9 Vitamin B deficiency, unspecified; R25.2 Cramp and spasm
CPT/HCPCS: 36415; 80053; 80061; 82306; 82550; 82607; 82728; 83540; 83550; 84425; 85025

== ENCOUNTER 2018-09-21 18:21 | Observation (INO) | payer MEDICARE, SELFPAY ==
[2018-04-19 09:50] VITALS: BMI 31.1
[2018-09-21] VITALS (8 sets, daily range): BP systolic 109–115; BP diastolic 60–84; PULSE 79–124; RESP 15–25; TEMP 36.7–36.9; O2SAT 94–98; BMI 27.9; BMI 27.5
--- NOTE | 2018-09-21 19:29 | RAD_ITS ---
STUDY: X-RAY CHEST REASON FOR EXAM: Female, 73 years old. Weakness TECHNIQUE: Frontal view of the chest COMPARISON: CT dated 10/15/2015 FINDINGS: The lungs are clear. There are no pleural effusions. There is no pneumothorax. The heart is normal in size. There is fusion hardware noted in the spine. RAD/Chest 1 View (Portable) IMPRESSION: No acute thoracic pathology. Electronically Signed: Khurram Jain, at 20:03 EDT Tel , Service support ,
--- NOTE | 2018-09-21 19:29 | EKG12_ITS ---
Test Reason : CP Blood Pressure : / mmHG Vent. Rate : 089 BPM Atrial Rate : 079 BPM P-R Int : 000 ms QRS Dur : 072 ms QT Int : 418 ms P-R-T Axes : 075 -25 -01 degrees QTc Int : 508 ms Multifocal atrial tachycardia Low voltage QRS Inferior infarct , age undetermined Abnormal ECG Confirmed by RAJAN LARA ([id number]), associate entertainment editor IVON MURRIETA ([id number]) on 09/26/2018 2:03:33 PM Referred By: Barry Tamez Confirmed By:BERNY LARA
[2018-09-21 19:54] LABS: Absolute Lymphocyte Count 0.86 X10^3/ul (0.83-4.51); Absolute Neutrophil Count 8.9 X10^3/uL (2.0-7.7); Basophil# 0.04 X10^3/uL; Basophil% 0.4 % (0-1); Eosinophil# 0.17 X10^3/uL; Eosinophils% 1.5 % (0-5); Hematocrit 41.6 % (37-47); Hemoglobin 14.1 g/dl (12.0-15.0); Lymphocyte # 0.86 X10^3/ul (4.0); Lymphocyte % 7.7 % (19-41); Mean Corp Hgb Conc 33.9 g/gl (32-36); Mean Corpuscular Hgb 33.9 pg (27.0-32.0); Mean Platelet Vol. 9.7 fl (6.2-12.0); Monocyte% 10.7 % (0-10); Neutrophil % 79.5 % (47-70); Platelet Count 252 K/mm3 (150-450); RBC Distribution Width SD 54.8 fl (35.1-43.9); Red Blood Count 4.16 M/mm3 (4.2-5.4); White Blood Count 11.2 K/mm3 (4.4-11.0)
[2018-09-21 19:58] LABS: Prothrombin Time (Protime)PT. 12.8 SECONDS (11.7-14.9)
[2018-09-21 19:59] LABS: Partial Thromboplast Time 29.5 Seconds (24.1-36.2)
[2018-09-21 20:11] LABS: Anion Gap 7 (5-15); BUN 6 mg/dL (7-18); BUN/Creat Ratio 6.4 RATIO (10-20); Chloride 112 mmol/L (98-107); Creatinine, Serum 0.94 mg/dL (0.55-1.02); EST Glomerular Filtration Rate 62 mL/min (>60); Est Glom Filt Rate - Afr Amer 75 mL/min (>60); Estimated Creatinine Clearance 40.82 ml/min; Glucose 125 mg/dL (74-106); Magnesium 1.8 mg/dL (1.6-2.6); Potassium 3.1 mmol/L (3.5-5.1); Sodium Level 142 mmol/L (136-145); Thyroid Stim Hormone (TSH) 1.52 uIU/mL (0.358-3.74)
[2018-09-21 20:20] LABS: POSITIVE COUNT NO; POSITIVE DIFFERENTIAL NO; POSITIVE MORPHOLOGY NO
--- NOTE | 2018-09-21 20:39 | CT_ITS ---
STUDY: CTA CHEST REASON FOR EXAM: Female, 73 years old. Tachycardia. Weakness. RADIATION DOSAGE (If Supplied By Facility): CTDIvol = ( 10.81 ) mGy, DLP = ( 357.69 ) mGycm TECHNIQUE: The examination was performed with the intravenous administration of 75ML IV Isovue 370. Post-processing of the angiographic images was performed, with multiplanar reformation and 3D reconstruction. Individualized dose optimization techniques were used for this CT. COMPARISON: 10/15/2015. FINDINGS: There is no evidence of thoracic aortic aneurysm or dissection. There is no evidence of pulmonary embolus. The heart and pericardium are within normal limits. There are coronary artery calcifications noted. There are no pulmonary infiltrates or pleural effusions. There are mild emphysematous changes noted in the lungs. There is no pneumothorax. Images through the upper abdomen demonstrate bilateral nonobstructing renal collecting system stones. There is a 4.8 x 2.4 cm right adrenal adenoma. There is fusion hardware noted in the spine. CT/CTA Chest W/WO Contrast IMPRESSION: No evidence of pulmonary embolus or other acute thoracic disease. Coronary artery disease. Nonobstructing renal stones. Right adrenal adenoma. Electronically Signed: Khurram Jain, at 21:19 EDT Tel , Service support ,
--- NOTE | 2018-09-21 21:56 | EKG12_ITS ---
Test Reason : PALPITATIONS Blood Pressure : / mmHG Vent. Rate : 107 BPM Atrial Rate : 107 BPM P-R Int : 144 ms QRS Dur : 070 ms QT Int : 360 ms P-R-T Axes : 059 -30 020 degrees QTc Int : 480 ms Multifocal atrial tachycardia Left axis deviation Low voltage QRS Inferior infarct , age undetermined Abnormal ECG Confirmed by RAJAN LARA ([id number]), sound editor IVON MURRIETA (56) on 09/26/2018 2:03:59 PM Referred By: Barry Tamez Confirmed By:BERNY LARA
--- NOTE | 2018-09-21 22:02 | HP.PCM_ITS ---
Problem List (1) Paroxysmal A-fib Status: Acute (2) Pre-syncope Status: Acute (3) Chest pain Status: Acute History of Present Illness Date of Admission: 09/21/18 Chief Complaint: feeling of being about to pass out. The patient is a 73 year old F with a significant history of left adrenal mass status post surgery; right adrenal mass; primary hyperparathyroidism and hype rtension who presented to the emergency department because of a feeling of being about to pass out. This occurred 2 times on the day of presentation. The first time her pulse was 186 and a second time her pulse was 195. Patient reported that on Wednesday, she felt some palpitations and pain in between shoulder blades. She reported that a few days before the Wednesday her PCP had discontinued her amlodipine because of low blood pressure. However with her feeling of palpitations and pain in between her shoulder blades she check her blood pressure and a blood pressure at that time was about 165 for which reason she took a dose of her discontinued amlodipine. She reported that ever since she had been tired and lethargic. She is ambivalent on whether in the past she has had A. fib. At the Emergency department patient was noted to be going in and out of A. fib. While in the emergency department patient reported an episode of chest pain that lasted for about 10 to 15 minutes. This chest pain was substernal; rated as 4-5 on a scale of 1-10. The pain was an aching type of pain. She denies any nausea, vomiting or diaphoresis associated with the pain. The pain went away by itself. In the past patient had some cardiac evaluation at [facility]. She reports of a leaky aortic valve. Apparently, it was reported to her that the lower part of her heart was pumping at about 45%; and she has some blockage in her coronary vessels. The blockage in the coronary vessels may be of a low percentage. She reported that episodically she has had right leg and foot swelling. Past Medical History Past Medical History (Chronic Problems): Chronic Problems (Last Reviewed 09/22/18 @ 03:07 by Barry Tamez MD) Hypertension (Chronic) Medical History: Medical History (Last Reviewed 09/22/18 @ 06:40 by Barry Tamez MD) Ureteral calculus (Acute) N20.1 Shoulder pain (Acute) M25.519 Adrenal mass (Acute) E27.9 Hypercalcemia (Acute) E83.52 Vitamin D deficiency (Acute) E55.9 Chronic GERD (Acute) K21.9 Hypertension (Chronic) I10 Adrenal nodule (Acute) E27.9 Primary hyperparathyroidism (Acute) E21.0 Osteoporosis (Acute) M81.0 Allergies hydrocodone bitartrate [From Vicodin] Allergy (Verified 09/21/18 18:44) Rash Penicillins Allergy (Verified 09/21/18 18:44) Rash clindamycin Adverse Reaction (Verified 09/21/18 18:44) Other tizanidine HCl [From Zanaflex] Adverse Reaction (Verified 09/21/18 18:44) Other Home Medications: Ambulatory Orders Medication Instructions Recorded Budesonide/Formoterol 160/4.5 2 puff INHALATION BID 01/10/14 [Symbicort 160/4.5 Mcg Inhaler (SP)] Cholecalciferol (Vitamin D3) 2,000 unit PO DAILY 01/10/14 [Vitamin D3] Citalopram [Celexa] 40 mg PO DAILY 01/10/14 Omeprazole [Prilosec] 40 mg PO DAILY 01/10/14 atorvastatin 40 mg tablet 40 mg PO DAILY 06/03/17 ibuprofen 800 mg tablet 800 mg PO TID PRN 06/03/17 Albuterol Inhaler [Ventolin Hfa 1 - 2 puff INHALATION Q4H PRN PRN 06/28/17 (SP)] Cyanocobalamin/Folic AC/Vit B6 [B 1 each PO DAILY 09/21/18 Complex-Folic Acid Tablet] Oxybutynin Chloride [Oxybutynin 15 mg PO DAILY 09/21/18 Chloride ER] Surgical History: Surgical History (Last Reviewed 09/22/18 @ 06:40 by Barry Tamez MD) Hx of kyphoplasty (Acute) Z98.890 05/23/15 History of back surgery (Acute) Z98.890 Broken back T-9 05/21/2015 History of bone marrow biopsy (Acute) Z98.890 04/11/15 History of hip surgery (Acute) Z98.890 Crushed hip 12/23/2014 History of adrenal surgery (Acute) Z98.890 Left- Mass 2002 Renal stones (Acute) N20.0 X5 S/P hysterectomy (Acute) Z90.710 Hx of section (Acute) Z98.891 X2 1968 ,1969 S/P ovarian cystectomy (Acute) Z98.890, Z87.42 X2 1962, 1967 S/P parathyroidectomy (Acute) E89.2 Lives: Alone Smoking Status: Current every day smoker Tobacco Use: Cigarettes Alcohol: Occasional - *Family History Maternal Family History: Family History (Last Reviewed 09/22/18 @ 03:08 by Barry Tamez MD) Mother Arthritis Hypertension Heart disease Osteoporosis Father Arthritis Lung cancer Brother Asthma Lung cancer Kidney disease Sister Arthritis Autoimmune disease Daughter Breast cancer Paternal Family History: Family History (Last Reviewed 09/22/18 @ 03:08 by Barry Tamez MD) Mother Arthritis Hypertension Heart disease Osteoporosis Father Arthritis Lung cancer Brother Asthma Lung cancer Kidney disease Sister Arthritis Autoimmune disease Daughter Breast cancer Review of Systems Constitutional: Denies: Chills, Fever, Weight Change HEENT: Denies: Head Aches, Sinus Congestion, Sinus Drainage Cardiovascular: Reports: Chest Pain, Edema - episodic right leg swelling, Palpitations Respiratory: Denies: Cough, Shortness of breath at rest, Sputum production Gastrointestinal: Denies: Abdominal Pain, Nausea, Vomiting Genitourinary: Denies: Dysuria Musculoskeletal: Denies: Joint Pain, Joint Tenderness Skin: Denies: Rash, Wounds Neurological: Denies: Numbness, Tingling, Focal weakness Psychiatric: Denies: Anxiety, Depression, Homicidal Ideations, Suicidal Ideations Hematologic/ Lymphatic: Denies: Easy Bruising, Easy Bleeding VTE Information - Inpt Only VTE Present on Admission: No VTE Mechan Device Prophylaxis: None VTE Pharm Prophylaxis ordered?: No Reason prophylaxis not ordered:: Treatment Not Indicated - Started on therapeutic Lovenox for paroxysmal A. fib. Patient Problems: Active and Suspected Problems (Last Reviewed 09/22/18 @ 03:07 by Barry Tamez MD) Paroxysmal A-fib (Acute) Pre-syncope (Acute) Chest pain (Acute) - Physical Exam General: Alert, Oriented x3, Cooperative HEENT: Atraumatic, PERRLA, EOMI, Normocephalic Neck: Supple, No JVD, Negative Carotid Bruits Lungs: Wheezes Cardiovascular: Regular rate, No murmurs Abdomen: Bowel Sounds Present, Soft, Non Tender Extremities: No edema, Capillary Refill Less than 3 Seconds Skin: No rashes, No breakdown Musculoskeletal: No Tenderness to Palpation of Joints or Extremities Neurological: Neuro grossly intact Psych/Mental Status: Normal Affect, Appropriate Vital Signs Temp Pulse Resp BP Pulse Ox 98.3 F 92 17 113/79 94 09/21/18 18:26 09/21/18 20:30 09/21/18 20:30 09/21/18 20:30 09/21/18 20:30 Oxygen Delivery Method Room Air Weight: 67.132 kg Body Mass Index (BMI) 27.9 Laboratory Tests Past 24 Hrs 09/21/18 09/21/18 09/21/18 19:00 19:00 19:00 WBC 11.2 H RBC 4.16 L Hgb 14.1 Hct 41.6 MCV 100.0 H MCH 33.9 H MCHC 33.9 RDW 15.0 H RDW Differential 54.8 H Plt Count 252 MPV 9.7 Immature Gran % (Auto) 0.200 Neut % (Auto) 79.5 H Lymph % (Auto) 7.7 L O'Brien % (Auto) 10.7 H Eos % (Auto) 1.5 Baso % (Auto) 0.4 Absolute Neuts (auto) 8.9 H Absolute Lymphs (auto) 0.86 Total Counted Not Reportable PT 12.8 INR 1.0 APTT 29.5 Sodium 142 Potassium 3.1 L Chloride 112 H Carbon Dioxide 23.0 Anion Gap 7 BUN 6 L Creatinine 0.94 Estim Creat Clear Calc 40.82 Est GFR (MDRD) Af Amer 75 Est GFR (MDRD) Non-Af 62 BUN/Creatinine Ratio 6.4 L Glucose 125 H Calcium 8.0 L Magnesium 1.8 Troponin I < 0.015 TSH 1.52 Assessment/Plan All Active Problems (Last Reviewed 09/22/18 @ 03:07 by Barry Tamez MD) Gastro-esophageal reflux disease without esophagitis (Acute) Epigastric pain (Acute) Paroxysmal A-fib (Acute) Pre-syncope (Acute) Chest pain (Acute) Hx of kyphoplasty (Acute) History of back surgery (Acute) History of bone marrow biopsy (Acute) History of hip surgery (Acute) History of adrenal surgery (Acute) Renal stones (Acute) S/P hysterectomy (Acute) Hx of section (Acute) S/P ovarian cystectomy (Acute) Ureteral calculus (Acute) Shoulder pain (Acute) Adrenal mass (Acute) Hypercalcemia (Acute) Vitamin D deficiency (Acute) Chronic GERD (Acute) Adrenal nodule (Acute) Primary hyperparathyroidism (Acute) Osteoporosis (Acute) S/P parathyroidectomy (Acute) The patient is a 73 year old F with a significant history of left adrenal mass status post surgery; right adrenal mass; primary hyper thyroidism and hypertension who presented to the emergency department because of a feeling of being about to pass out; with transient chest pain at the emergency department and was found to be going in and out of A. fib while in the emergency department. Presyncope Etiology include valvular disease; coronary artery disease; A. fib. We will get a stress echocardiogram to evaluate abdominal disease and coronary artery disease. Will admit to PCU on telemetry. Paroxysmal A. fib [id number] Score of at least 4 (age 65-74; female; hypertension; valvular disease history). Will start patient on therapeutic dose of Lovenox. TSH was unremarkable. Potassium was low at 3.1; replaced with 40 mEq potassium x2. Magnesium was in the normal range of 1.8. Stress echocardiogram as above. Chest pain Admit to a monitored bed on PCU CXR independently reviewed confirms no acute cardiopulmonary process. EKG independently reviewed confirms sinus tach with PVCs; and sinus rhythm with PAC. ASA 324 mg p.o. ordered. SL NTG 0.4 mg prn as needed for chest pain Morphine as needed for pain We will check lipid panel. High intensity statin continued Serial cardiac enzymes Stat EKG as needed for chest pain Echocardiogram stress test in the AM if the cardiac enzymes are negative . Hypokalemia Potassium on admission was 3.1. Replaced Trend BMP. Hyperlipidemia Atorvastatin continued. Tobacco abuse Counseled Nicotine patch prescribed. GERD Protonix continued Overactive bladder On home oxybutynin. Detrol ordered. COPD Patient on Symbicort at home. Therapeutic change with scheduled budesonide and scheduled albuterol nebulization. PRN albuterol nebulization ordered. Depression Celexa continued Chronic back pain on home ibuprofen. Will hold for now because of chest pain. Tylenol as needed; and morphine as needed for pain. Right adrenal mass Patient reports that right adrenal mass was noted around 2003 - 2004 and is being followed up outpatient. Continue patient to follow-up. Of note she had a left adrenal mass which was removed previously. Subacute Diarrhea Was advised by PCP to take fiber supplement Continue outpatient follow up DVT prophylaxis Not indicated since the patient has been started on therapeutic Lovenox for paroxysmal A. fib. Code Visit OBSV E&M: [id number] Initial observation care L3
[2018-09-22] VITALS (17 sets, daily range): BP systolic 97–132; BP diastolic 51–76; PULSE 70–102; RESP 15–18; TEMP 36.2–37.4; O2SAT 92–97
--- NOTE | 2018-09-22 00:24 | ED.VISSUMM ---
- ER Visit Summary Date of Service: 09/22/18 Chief Complaint: Fatigue palpitations History of Present Illness: The patient is a 73 F who states that on Easter in the evening to sit at the table she began really feel weak. She states that she first started to feel a fast heart rate and then had pain in her shoulder blades in her chest. She took her blood pressure which was elevated. She had noted that she was just taken off of amlodipine and was off it for about 3 days. She decided taken amlodipine and her blood pressure came down but she is felt fatigued ever since. She continued to take her blood pressure time she was doing good her heart rate was as high as 185. She thinks maybe she has a history of atrial fibrillation but she is not sure. She knows she has a history of hypertension as well as abdominal aortic aneurysm. She is an active smoker. Her last echocardiogram in September 2017 showed ejection fraction of 55% and 1+ insufficiency of her valves. Heart cath in 2017 showed minimal disease. Physical Examination: 111/60 temperature 93 heart rate of 124 respirations are 18 pulse ox is 96 room air Gen: Well-nourished well-developed Head: Normocephalic atraumatic Eyes: Perrl EOMI ENT: TMs clear no rhinorrhea moist mucous membranes Neck: Supple no lymphadenopathy no JVD nontender CVS: Irregularly irregular rhythm no murmurs normal S1-S2 Respiratory: No distress clear to auscultation bilaterally chest nontender Abdomen: Soft nontender nondistended normal bowel sounds no masses Back: Nontender Extremity: Nontender no edema Skin: Normal color no rash Neuro: alert orientated ?3 CN II-XII intact normal strength sensation reflexes gait cerebellar Psych: Normal affect normal mood Test Results: EKG shows sinus rhythm at a rate of 107 with PACs. White count 11.2. Potassium 3.1. BUN 32 with creatinine 1.37. Troponin negative. INR 1.7. Chest x-ray negative. CT Melisa of the chest showed no dissection or pulmonary embolism. Emergency Department Course and Treatment: When I first was speaking with the patient she was going in and out of atrial fibrillation. At that time she had rates up to 140 and 150. Over the last hour of her ED course she has subsequently settled into it appears to be a sinus rhythm in the 90s. She did develop a brief episode of chest pain and EKG was ordered which shows a sinus rhythm with no ACS features. Her plan is admission. Impression: 1. Paroxysmal atrial fibrillation 2. Weakness This note was generated with [employer] dictation software. It may contain incorrect words, spelling, and punctuation that were not noted in review of the chart prior to signing ED Disposition - Plan for ED Patient: Disposition: Acute Care Hospital [facility]
--- NOTE | 2018-09-22 00:28 | ED.DCSUM_ITS ---
- ER Visit Summary Date of Service: 09/22/18 Chief Complaint: Fatigue palpitations History of Present Illness: The patient is a 73 F who states that on Easter in the evening to sit at the table she began really feel weak. She states that she first started to feel a fast heart rate and then had pain in her shoulder blades in her chest. She took her blood pressure which was elevated. She had noted that she was just taken off of amlodipine and was off it for about 3 days. She decided taken amlodipine and her blood pressure came down but she is felt fatigued ever since. She continued to take her blood pressure time she was doing good her heart rate was as high as 185. She thinks maybe she has a hi story of atrial fibrillation but she is not sure. She knows she has a history of hypertension as well as abdominal aortic aneurysm. She is an active smoker. Her last echocardiogram in September 2017 showed ejection fraction of 55% and 1+ insufficiency of her valves. Heart cath in 2017 showed minimal disease. Physical Examination: 111/60 temperature 93 heart rate of 124 respirations are 18 pulse ox is 96 room air Gen: Well-nourished well-developed Head: Normocephalic atraumatic Eyes: Perrl EOMI ENT: TMs clear no rhinorrhea moist mucous membranes Neck: Supple no lymphadenopathy no JVD nontender CVS: Irregularly irregular rhythm no murmurs normal S1-S2 Respiratory: No distress clear to auscultation bilaterally chest nontender Abdomen: Soft nontender nondistended normal bowel sounds no masses Back: Nontender Extremity: Nontender no edema Skin: Normal color no rash Neuro: alert orientated ?3 CN II-XII intact normal strength sensation reflexes gait cerebellar Psych: Normal affect normal mood Test Results: EKG shows sinus rhythm at a rate of 107 with PACs. White count 11.2. Potassium 3.1. BUN 32 with creatinine 1.37. Troponin negative. INR 1. 7. Chest x-ray negative. CT Melisa of the chest showed no dissection or pulmonary embolism. Emergency Department Course and Treatment: When I first was speaking with the patient she was going in and out of atrial fibrillation. At that time she had rates up to 140 and 150. Over the last hour of her ED course she has subsequently settled into it appears to be a sinus rhythm in the 90s. She did develop a brief episode of chest pain and EKG was ordered which shows a sinus rhythm with no ACS features. Her plan is admission. Impression: 1. Paroxysmal atrial fibrillation 2. Weakness This note was generated with [employer] dictation software. It may contain incorrect words, spelling, and punctuation that were not noted in review of the chart prior to signing ED Disposition - Plan for ED Patient: Disposition: Acute Care Hospital [facility]
--- NOTE | 2018-09-22 01:05 | EKG12_ITS ---
Test Reason : CP-AFIB ADMIT Blood Pressure : / mmHG Vent. Rate : 084 BPM Atrial Rate : 073 BPM P-R Int : 142 ms QRS Dur : 070 ms QT Int : 428 ms P-R-T Axes : 066 -13 026 degrees QTc Int : 505 ms Sinus rhythm with Premature supraventricular complexes and with occasional Premature ventricular comp lexes Prolonged QT Abnormal ECG When compared with ECG of 21-SEP-2018 22:03, MANUAL COMPARISON REQUIRED, DATA IS UNCONFIRMED Confirmed by RAJAN LARA ([id number]), acquisition editor IVON MURRIETA ([id number]) on 09/26/2018 2:37:18 PM Referred By: Barry Tamez Confirmed By:BERNY LARA
[2018-09-22] MEDS: Enoxaparin 80 MG/0.8 ML Syringe 70 MG SC ×2 (01:35→21:51)
[2018-09-22] MEDS: Aspirin 81 MG TAB.CHEW 324 MG PO (01:35)
[2018-09-22 05:03] LABS: Absolute Lymphocyte Count 1.64 X10^3/ul (0.83-4.51); Absolute Neutrophil Count 6.8 X10^3/uL (2.0-7.7); Basophil# 0.08 X10^3/uL; Basophil% 0.8 % (0-1); Eosinophil# 0.28 X10^3/uL; Eosinophils% 2.9 % (0-5); Hemoglobin 13.8 g/dl (12.0-15.0); Lymphocyte # 1.64 X10^3/ul (4.0); Lymphocyte % 16.7 % (19-41); Mean Corp Hgb Conc 32.9 g/gl (32-36); Mean Corpuscular Volume 100.5 fL (81-99); Mean Platelet Vol. 9.9 fl (6.2-12.0); Monocyte# 0.98 X10^3/uL; Neutrophil % 69.3 % (47-70); Platelet Count 211 K/mm3 (150-450); RBC Distribution Width CV 15.3 % (11.6-14.6); RBC Distribution Width SD 55.3 fl (35.1-43.9); Red Blood Count 4.18 M/mm3 (4.2-5.4); White Blood Count 9.8 K/mm3 (4.4-11.0)
[2018-09-22 05:09] LABS: International Normalized Ratio 1.1; Prothrombin Time (Protime)PT. 13.6 SECONDS (11.7-14.9)
[2018-09-22 05:10] LABS: Partial Thromboplast Time 41.3 Seconds (24.1-36.2)
[2018-09-22 05:18] LABS: POSITIVE COUNT NO; POSITIVE DIFFERENTIAL NO; POSITIVE MORPHOLOGY NO
[2018-09-22 05:23] LABS: Anion Gap 8 (5-15); BUN 7 mg/dL (7-18); BUN/Creat Ratio 8.5 RATIO (10-20); Calcium,Total 7.5 mg/dL (8.5-10.1); Chloride 115 mmol/L (98-107); Cholesterol 117 mg/dL (200); Creatinine, Serum 0.83 mg/dL (0.55-1.02); EST Glomerular Filtration Rate 72 mL/min (>60); Est Glom Filt Rate - Afr Amer 87 mL/min (>60); Estimated Creatinine Clearance 46.23 ml/min; Glucose 100 mg/dL (74-106); High Density Lipoprotein 69 mg/dL; Sodium Level 144 mmol/L (136-145); Triglycerides 91 mg/dL; Very Low Density Lipoprotein 18 mg/dL (5-40)
[2018-09-22] MEDS: Budesonide Respules 0.5 MG/2 ML AMPUL.NEB. INHALATION ×2 (06:58→19:15)
[2018-09-22] MEDS: Albuterol 2.5 MG/3 ML VIAL.NEB. INHALATION ×3 (06:58→19:15)
[2018-09-22] MEDS: Ondansetron 4 MG/2 ML Vial IV (08:19)
[2018-09-22] MEDS: 0.9% NaCl Peripheral Flush Adult/Peds IV ×2 (08:19→22:42)
[2018-09-22] MEDS: Vitamin B Comp W-C Capsule 1 CAP PO (12:07)
[2018-09-22] MEDS: Citalopram 40 MG TABLET PO (12:07)
[2018-09-22] MEDS: Pantoprazole Sodium 40 MG Tablet PO (12:08)
[2018-09-22] MEDS: Tolterodine Tartrate 4 MG CAP.SA PO (12:08)
--- NOTE | 2018-09-22 13:29 | STRESSREP ---
Stress Test Report Date: September 22, 2018 Procedure: Pharmacologic stress nuclear imaging study Indications: [Chest pain] Consent: Per the patient Procedure: The patient underwent pharmacologic (Regadenoson) evaluation with a peak heart rate of [107] beats per minute (72 %predicted maximal heart rate) and a peak blood pressure of 110/70 mmHg. The baseline ECG demonstrated normal sinus rhythm, no significant ST-T changes, occasional PACs. EKG during lexiscan infusion revealed sinus tachycardia with no significant ST-T changes, occasional PACs. EKG post infusion revealed no significant change from baseline [There were no significant cardiac dysrhythmias pretest, during pharmacologic infusion, or recovery]. [There was no complaint of chest discomfort during pharmacologic infusion or recovery]. The examination was discontinued secondary to completion of protocol. Impression: 1. Lexiscan stress test test is negative for Lexiscan infusion induced EKG changes of ischemia. 2. Lexiscan stress test test is negative for Lexiscan infusion induced chest pain. 3. Results of the nuclear portion of the test is as below Myocardial perfusion imaging study: Technique: The patient was injected with [11.3] millicuries of technetium 99m Cardiolite and subsequently rest SPECT Cardiolite nuclear imaging was obtained in the horizontal long, vertical long, and short axis views. The patient underwent pharmacologic (Regadenoson) evaluation with a peak heart rate of 107 beats per minute (72 % percent predicted maximal heart rate) and a peak blood pressure of 110/70 mmHg. The patient was injected with 33.7 millicuries of technetium 99m Cardiolite and subsequently stress SPECT Cardiolite nuclear imaging was obtained in the horizontal long, vertical long, and short axis views. A gated Cardiolite study at peak stress was obtained. Interpretation: Rest and stress SPECT Cardiolite nuclear imaging status post realignment, normalization, and attenuation correction demonstrate mild decrease in radioisotope uptake in the apex on the rest and stress images. There is no evidence of significant ischemia or infarction. Gated images reveal no significant regional wall motion abnormalities. The reported LVEF is 66%. Impression: 1. There is no evidence of significant ischemia or infarction. 2. Estimated ejection fraction is 66%. This note was generated with [employer] software. It may contain incorrect words, spelling, and punctuation that were not noted in checking the note before signing.
--- NOTE | 2018-09-22 13:34 | STRESSREP_ITS ---
Stress Test Report Date: September 22, 2018 Procedure: Pharmacologic stress nuclear imaging study Indications: [Chest pain] Consent: Per the patient Procedure: The patient underwent pharmacologic (Regadenoson) evaluation with a peak heart rate of [107] beats per minute (72 %predicted maximal heart rate) and a peak blood pressure of 110/70 mmHg. The baseline ECG demonstrated normal sinus rhythm, no significant ST-T changes, occasional PACs. EKG during lexiscan infusion revealed sinus tachycardia with no significant ST-T changes, occasional PACs. EKG post infusion revealed no significant change from baseline [There were no significant cardiac dysrhythmias pretest, during pharmacologic infusion, or recovery]. [There was no complaint of chest discomfort during pharmacologic infusion or recovery]. The examination was discontinued secondary to completion of protocol. Impression: 1. Lexiscan stress test test is negative for Lexiscan infusion induced EKG changes of ischemia. 2. Lexiscan stress test test is negative for Lexiscan infusion induced chest pain. 3. Results of the nuclear portion of the test is as below Myocardial perfusion imaging study: Technique: The patient was injected with [11.3] millicuries of technetium 99m Cardiolite and subsequently rest SPECT Cardiolite nuclear imaging was obtained in the horizontal long, vertical long, and short axis views. The patient underwent pharmacologic (Regadenoson) evaluation with a peak heart rate of 107 beats per minute (72 % percent predicted maximal heart rate) and a peak blood pressure of 110/70 mmHg. The patient was injected with 33.7 millicuries of technetium 99m Cardiolite and subsequently stress SPECT Cardiolite nuclear imaging was obtained in the horizontal long, vertical long, and short axis views. A gated Cardiolite study at peak stress was obtained. Interpretation: Rest and stress SPECT Cardiolite nuclear imaging status post realignment, arron lization, and attenuation correction demonstrate mild decrease in radioisotope uptake in the apex on the rest and stress images. There is no evidence of significant ischemia or infarction. Gated images reveal no significant regional wall motion abnormalities. The reported LVEF is 66%. Impression: 1. There is no evidence of significant ischemia or infarction. 2. Estimated ejection fraction is 66%. This note was generated with [employer] software. It may contain incorrect words, spelling, and punctuation that were not noted in checking the note before signing.
--- NOTE | 2018-09-22 13:50 | DCINST_ITS ---
- Discharge Diagnoses Current Active Problems: Current Active and Chronic Problems (Last Reviewed 09/22/18 @ 06:40 by Barry Tamez MD) Paroxysmal A-fib (Acute) Pre-syncope (Acute) Chest pain (Acute) You will use the following diet at home:: Cardiac Your food should be the consistency of: Regular Your liquids should be the consistency of: Regular/Thin Discharge Activity: Return to Normal Activity Allergies/Adverse Reactions: Allergies hydrocodone bitartrate [From Vicodin] Allergy (Verified 09/21/18 18:44) Rash Penicillins Allergy (Verified 09/21/18 18:44) Rash clindamycin Adverse Reaction (Verified 09/21/18 18:44) Other tizanidine HCl [From Zanaflex] Adverse Reaction (Verified 09/21/18 18:44) Other Medications to take at Discharge Budesonide/Formoterol 160/4.5 [Symbicort 160/4.5 Mcg Inhaler (SP)] 2 puff INHALATION BID 01/10/14 Cholecalciferol (Vitamin D3) [Vitamin D3] 2,000 unit PO DAILY 01/10/14 Citalopram [Celexa] 40 mg PO DAILY 01/10/14 Omeprazole [Prilosec] 40 mg PO DAILY 01/10/14 atorvastatin 40 mg tablet 40 mg PO DAILY 06/03/17 ibuprofen 800 mg tablet 800 mg PO TID PRN 06/03/17 Albuterol Inhaler [Ventolin Hfa] 1 - 2 puff INHALATION Q4H PRN PRN 06/28/17 Cyanocobalamin/Folic AC/Vit B6 [B Complex-Folic Acid Tablet] 1 each PO DAILY 09/21/18 Oxybutynin Chloride [Oxybutynin Chloride ER] 15 mg PO DAILY 09/21/18 Primary Care Physician: Marino Williamson MD [Primary Care Provider] - Please follow up with your Primary Care Physician in: 1-2 weeks Test Results: Test results from this visit will be discussed in further detail at your follow- up appointment, if applicable. Proposed Discharge Date: 09/22/18
--- NOTE | 2018-09-22 14:29 | PN_ITS ---
<Isidoro Garcia - Last Filed: 09/22/18 14:23> Patient Problems: Active and Suspected Problems (Last Reviewed 09/22/18 @ 06:40 by Barry Tamez MD) Paroxysmal A-fib (Acute) Pre-syncope (Acute) Chest pain (Acute) Subjective: Today patient is feeling well. No chest pain today, no palpitations, no dizziness/LH, no SOB. Stress test this AM was negative. BP is low normal and pt states that 2 weeks ago her PCP stopped her metoprolol and norvasc for hypotension. No A fib on monitor while here - Sinus arrhythmia. - Physical Exam General: Alert, Oriented x3, Cooperative HEENT: Atraumatic, PERRLA, EOMI, Normocephalic Neck: Supple, No JVD, Negative Carotid Bruits Lungs: Clear to auscultation, Normal air movement Cardiovascular: No murmurs, Irregular Rate Abdomen: Bowel Sounds Present, Soft, Non Tender Extremities: No edema, Capillary Refill Less than 3 Seconds Skin: No rashes, No breakdown Musculoskeletal: No Tenderness to Palpation of Joints or Extremities Neurological: Cranial nerves II-XII grossly intact Psych/Mental Status: Normal Affect, Appropriate, Alert and oriented to time, place, person, mood and affect Vital Signs Temp Pulse Resp BP Pulse Ox 98.4 F 83 16 97/61 96 09/22/18 12:00 09/22/18 13:27 09/22/18 13:27 09/22/18 12:00 09/22/18 12:00 Oxygen Delivery Method Room Air Weight: 145 lb 8.081 oz Body Mass Index (BMI) 27.5 Orthostatic Vital Signs Start: 09/22/18 04:34 Freq: q24h Status: Active Protocol: Activity Type Activity Date Activity User E-Sign Co-Sign Detail Recorded Client Recorded Date Recorded By Document 09/22/18 04:35 AR [id number] 09/22/18 04:40 AR 09/22/18 04:35 Orthostatic Vitals Standing -Blood Pressure (90/60-120/80 mm Hg) 126/76 H -Extremity Use Left Arm -Pulse Rate (60-100 beats/min) 82 Sitting -Blood Pressure (90/60-120/80 mm Hg) 132/66 H -Extremity Use Left Arm -Pulse Rate (60-100 beats/min) 80 Lying -Blood Pressure (90/60-120/80 mm Hg) 107/51 L -Extremity Use Left Arm -Pulse Rate (60-100 beats/min) 70 Intake and Output for Last 24 Hours 09/20/18 09/21/18 09/22/18 23:59 23:59 23:59 Intake Total 120 / 120 100 / 100 Balance 120 / 120 100 / 100 Laboratory Tests Past 24 Hrs 09/21/18 09/21/18 09/21/18 19:00 19:00 19:00 WBC 11.2 H RBC 4.16 L Hgb 14.1 Hct 41.6 MCV 100.0 H MCH 33.9 H MCHC 33.9 RDW 15.0 H RDW Differential 54.8 H Plt Count 252 MPV 9.7 Immature Gran % (Auto) 0.200 Neut % (Auto) 79.5 H Lymph % (Auto) 7.7 L [place] % (Auto) 10.7 H Eos % (Auto) 1.5 Baso % (Auto) 0.4 Absolute Neuts (auto) 8.9 H Absolute Lymphs (auto) 0.86 Total Counted Not Reportable PT 12.8 INR 1.0 APTT 29.5 Sodium 142 Potassium 3.1 L Chloride 112 H Carbon Dioxide 23.0 Anion Gap 7 BUN 6 L Creatinine 0.94 Estim Creat Clear Calc 40.82 Est GFR (MDRD) Af Amer 75 Est GFR (MDRD) Non-Af 62 BUN/Creatinine Ratio 6.4 L Glucose 125 H Calcium 8.0 L Magnesium 1.8 Troponin I < 0.015 Triglycerides Cholesterol LDL Cholesterol VLDL Cholesterol HDL Cholesterol TSH 1.52 09/22/18 09/22/18 09/22/18 01:25 04:54 04:54 WBC 9.8 RBC 4.18 L Hgb 13.8 Hct 42.0 MCV 100.5 H MCH 33.0 H MCHC 32.9 RDW 15.3 H RDW Differential 55.3 H Plt Count 211 MPV 9.9 Immature Gran % (Auto) 0.300 Neut % (Auto) 69.3 Lymph % (Auto) 16.7 L [place] % (Auto) 10.0 Eos % (Auto) 2.9 Baso % (Auto) 0.8 Absolute Neuts (auto) 6.8 Absolute Lymphs (auto) 1.64 Total Counted Not Reportable PT INR APTT Sodium 144 Potassium 4.0 Chloride 115 H Carbon Dioxide 21.0 Anion Gap 8 BUN 7 Creatinine 0.83 Estim Creat Clear Calc 46.23 Est GFR (MDRD) Af Amer 87 Est GFR (MDRD) Non-Af 72 BUN/Creatinine Ratio 8.5 L Glucose 100 Calcium 7.5 L Magnesium Troponin I < 0.015 < 0.015 Triglycerides 91 Cholesterol 117 LDL Cholesterol 30 VLDL Cholesterol 18 HDL Cholesterol 69 TSH 09/22/18 09/22/18 04:54 07:35 WBC RBC Hgb Hct MCV MCH MCHC RDW RDW Differential Plt Count MPV Immature Gran % (Auto) Neut % (Auto) Lymph % (Auto) [place] % (Auto) Eos % (Auto) Baso % (Auto) Absolute Neuts (auto) Absolute Lymphs (auto) Total Counted PT 13.6 INR 1.1 APTT 41.3 H Sodium Potassium Chloride Carbon Dioxide Anion Gap BUN Creatinine Estim Creat Clear Calc Est GFR (MDRD) Af Amer Est GFR (MDRD) Non-Af BUN/Creatinine Ratio Glucose Calcium Magnesium Troponin I 0.016 Triglycerides Cholesterol LDL Cholesterol VLDL Cholesterol HDL Cholesterol TSH Medical Necessity - Tobacco Use Smoking Status: Current every day smoker Tobacco Use: Cigarettes Assessment/Plan All Active Problems (Last Reviewed 09/22/18 @ 06:40 by Barry Tamez MD) Gastro-esophageal reflux disease without esophagitis (Acute) Epigastric pain (Acute) Paroxysmal A-fib (Acute) Pre-syncope (Acute) Chest pain (Acute) Hx of kyphoplasty (Acute) History of back surgery (Acute) History of bone marrow biopsy (Acute) History of hip surgery (Acute) History of adrenal surgery (Acute) Renal stones (Acute) S/P hysterectomy (Acute) Hx of section (Acute) S/P ovarian cystectomy (Acute) Ureteral calculus (Acute) Shoulder pain (Acute) Adrenal mass (Acute) Hypercalcemia (Acute) Vitamin D deficiency (Acute) Chronic GERD (Acute) Adrenal nodule (Acute) Primary hyperparathyroidism (Acute) Osteoporosis (Acute) S/P parathyroidectomy (Acute) 1. Afib RVR - Reportedly in and out of Afib with RVR in the ER. none on tele while here. EKGs without Afib. Sinus arrhythmia. Restarted low dose metoprolol. Will continue to monitor overnight and obtain echo. On therapeutic lovenox 2. Presyncope - possibly 2/2 recurrent hypotension, or paroxysmal afib. orthos negative. CTA negative. TSH normal. 3. Chest pain - resolved. Stress test/ekg/tele/trop negative. 4. Debility - PTOT evals. 5. hypokalemia - resolved 6. Right adrenal adenoma - Noted on CTA chest. outpatient follow up. 7. GERD - protonix 8. COPD - no acute exacerbation, budesonide, albuterol 9. Depression - ssri DVT ppx: lovenox DC planning: monitor overnight, ptot evals This patient was seen by Isidoro Garcia PA-C under the supervision of Doctor Eri. <EriSalvisa - Last Filed: 09/22/18 16:10> - Physical Exam Vital Signs Temp Pulse Resp BP Pulse Ox 98.4 F 102 H 16 97/61 96 09/22/18 12:00 09/22/18 15:08 09/22/18 13:27 09/22/18 12:00 09/22/18 12:00 Oxygen Delivery Method Room Air Weight: 66 kg Body Mass Index (BMI) 27.5 Orthostatic Vital Signs Start: 09/22/18 04:34 Freq: q24h Status: Active Protocol: Activity Type Activity Date Activity User E-Sign Co-Sign Detail Recorded Client Recorded Date Recorded By Document 09/22/18 04:35 AR [id number] 09/22/18 04:40 AR 09/22/18 04:35 Orthostatic Vitals Standing -Blood Pressure (90/60-120/80) 126/76 H -Extremity Use Left Arm -Pulse Rate (60-100) 82 Sitting -Blood Pressure (90/60-120/80) 132/66 H -Extremity Use Left Arm -Pulse Rate (60-100) 80 Lying -Blood Pressure (90/60-120/80) 107/51 L -Extremity Use Left Arm -Pulse Rate (60-100) 70 Intake and Output for Last 24 Hours 09/20/18 09/21/18 09/22/18 23:59 23:59 23:59 Intake Total 120 / 120 100 / 100 Balance 120 / 120 100 / 100 Laboratory Tests Past 24 Hrs 09/21/18 09/21/18 09/21/18 19:00 19:00 19:00 WBC 11.2 H RBC 4.16 L Hgb 14.1 Hct 41.6 MCV 100.0 H MCH 33.9 H MCHC 33.9 RDW 15.0 H RDW Differential 54.8 H Plt Count 252 MPV 9.7 Immature Gran % (Auto) 0.200 Neut % (Auto) 79.5 H Lymph % (Auto) 7.7 L [place] % (Auto) 10.7 H Eos % (Auto) 1.5 Baso % (Auto) 0.4 Absolute Neuts (auto) 8.9 H Absolute Lymphs (auto) 0.86 Total Counted Not Reportable PT 12.8 INR 1.0 APTT 29.5 Sodium 142 Potassium 3.1 L Chloride 112 H Carbon Dioxide 23.0 Anion Gap 7 BUN 6 L Creatinine 0.94 Estim Creat Clear Calc 40.82 Est GFR (MDRD) Af Amer 75 Est GFR (MDRD) Non-Af 62 BUN/Creatinine Ratio 6.4 L Glucose 125 H Calcium 8.0 L Magnesium 1.8 Troponin I < 0.015 Triglycerides Cholesterol LDL Cholesterol VLDL Cholesterol HDL Cholesterol TSH 1.52 09/22/18 09/22/18 09/22/18 01:25 04:54 04:54 WBC 9.8 RBC 4.18 L Hgb 13.8 Hct 42.0 MCV 100.5 H MCH 33.0 H MCHC 32.9 RDW 15.3 H RDW Differential 55.3 H Plt Count 211 MPV 9.9 Immature Gran % (Auto) 0.300 Neut % (Auto) 69.3 Lymph % (Auto) 16.7 L [place] % (Auto) 10.0 Eos % (Auto) 2.9 Baso % (Auto) 0.8 Absolute Neuts (auto) 6.8 Absolute Lymphs (auto) 1.64 Total Counted Not Reportable PT INR APTT Sodium 144 Potassium 4.0 Chloride 115 H Carbon Dioxide 21.0 Anion Gap 8 BUN 7 Creatinine 0.83 Estim Creat Clear Calc 46.23 Est GFR (MDRD) Af Amer 87 Est GFR (MDRD) Non-Af 72 BUN/Creatinine Ratio 8.5 L Glucose 100 Calcium 7.5 L Magnesium Troponin I < 0.015 < 0.015 Triglycerides 91 Cholesterol 117 LDL Cholesterol 30 VLDL Cholesterol 18 HDL Cholesterol 69 TSH 09/22/18 09/22/18 04:54 07:35 WBC RBC Hgb Hct MCV MCH MCHC RDW RDW Differential Plt Count MPV Immature Gran % (Auto) Neut % (Auto) Lymph % (Auto) [place] % (Auto) Eos % (Auto) Baso % (Auto) Absolute Neuts (auto) Absolute Lymphs (auto) Total Counted PT 13.6 INR 1.1 APTT 41.3 H Sodium Potassium Chloride Carbon Dioxide Anion Gap BUN Creatinine Estim Creat Clear Calc Est GFR (MDRD) Af Amer Est GFR (MDRD) Non-Af BUN/Creatinine Ratio Glucose Calcium Magnesium Troponin I 0.016 Triglycerides Cholesterol LDL Cholesterol VLDL Cholesterol HDL Cholesterol TSH Assessment/Plan This patient was seen in conjunction with NAYELI Wiley. I have independently interviewed and examined the patient and reviewed pertinent historical, laboratory, and other data. Please refer to NAYELI Wiley note for his patient's presentation, findings, and recommendations. I have reviewed and his note and concur with his documentation Patient was seen and examined. No new complaints. Denied any chest pain or dizziness. Remeasure shows normal sinus rhythm Blood Pressure relatively low. Orthostatic vitals negative Stress test is negative Physical Exam: Gen: comfortable, not pale, not jaundiced CVS:HS I +II, regular, no murmurs RESP: CTA GI: BS present and normal, soft, nontender, no palpable organs EXT:No edema ASSESSMENT: 1. A. fib with RVR, spontaneously converted, in normal sinus rhythm, CHADS-VASC score is 2 History of falls, reluctant to start anti-coagulation, will await PT and OT eval 2. Presyncope 3. Chest pain, ACS ruled out, stress test negative 4. Hypokalemia, replaced 5. Debility, PT and OT to evaluate and treat Plan: Metoprolol started, continue to monitor vitals Recheck blood work in a.m. 2D echo Code Visit Inpatient E&M: 43449 Subs Hosp L2
[2018-09-22] MEDS: Metoprolol Tartrate 25 MG Tablet 12.5 MG PO (15:44)
[2018-09-22] MEDS: Nystatin Powder 15gm Bottle 1 APPLIC TOPICAL ×2 (15:46→21:51)
[2018-09-22] MEDS: Acetaminophen 325 MG Tablet 650 MG PO (20:07)
[2018-09-22 21:51] LABS: Hematocrit 35.7 % (37-47); Hemoglobin 11.7 g/dl (12.0-15.0)
[2018-09-22] MEDS: Atorvastatin Calcium 40 MG Tablet PO (21:51)
--- NOTE | 2018-09-22 23:22 | PCM.PN.BLA ---
Progress Note Nurse reports stool with mucus and blood. H&H ordered. Stop Lovenox for Afib.
[2018-09-23] VITALS (8 sets, daily range): BP systolic 90–116; BP diastolic 60–76; PULSE 66–106; RESP 16–18; TEMP 36.7–36.8; O2SAT 94–97
[2018-09-23 06:29] LABS: Hematocrit 36.2 % (37-47); Hemoglobin 11.8 g/dl (12.0-15.0)
[2018-09-23] MEDS: Nystatin Powder 15gm Bottle 1 APPLIC TOPICAL (06:32)
[2018-09-23] MEDS: Albuterol 2.5 MG/3 ML VIAL.NEB. INHALATION (06:53)
[2018-09-23] MEDS: Budesonide Respules 0.5 MG/2 ML AMPUL.NEB. INHALATION (06:54)
[2018-09-23] MEDS: Tolterodine Tartrate 4 MG CAP.SA PO (10:10)
[2018-09-23] MEDS: Vitamin B Comp W-C Capsule 1 CAP PO (10:10)
[2018-09-23] MEDS: Citalopram 40 MG TABLET PO (10:10)
[2018-09-23] MEDS: Metoprolol Tartrate 25 MG Tablet 12.5 MG PO (10:10)
--- NOTE | 2018-09-23 10:35 | CASEMGMT ---
PATRICIA MCGREGOR NOTE: AGUILERA form reviewed with pt and she denies having any questions. Form signed by pt, copy made and placed on chart, and original given to pt. Sonal HUANG RN CM
--- NOTE | 2018-09-23 11:16 | DCINST_ITS ---
- Discharge Diagnoses Current Active Problems: Current Active and Chronic Problems (Last Reviewed 09/22/18 @ 06:40 by Barry Tamez MD) Paroxysmal A-fib (Acute) Pre-syncope (Acute) Chest pain (Acute) You will use the following diet at home:: Cardiac Your food should be the consistency of: Regular Your liquids should be the consistency of: Regular/Thin Discharge Activity: Return to Normal Activity Allergies/Adverse Reactions: Allergies hydrocodone bitartrate [From Vicodin] Allergy (Verified 09/21/18 18:44) Rash Penicillins Allergy (Verified 09/21/18 18:44) Rash clindamycin Adverse Reaction (Verified 09/21/18 18:44) Other tizanidine HCl [From Zanaflex] Adverse Reaction (Verified 09/21/18 18:44) Other Medications to take at Discharge Budesonide/Formoterol 160/4.5 [Symbicort 160/4.5 Mcg Inhaler (SP)] 2 puff INHALATION BID 01/10/14 Cholecalciferol (Vitamin D3) [Vitamin D3] 2,000 unit PO DAILY 01/10/14 Citalopram [Celexa] 40 mg PO DAILY 01/10/14 Omeprazole [Prilosec] 40 mg PO DAILY 01/10/14 atorvastatin 40 mg tablet 40 mg PO DAILY 06/03/17 ibuprofen 800 mg tablet 800 mg PO TID PRN 06/03/17 Albuterol Inhaler [Ventolin Hfa] 1 - 2 puff INHALATION Q4H PRN PRN 06/28/17 Cyanocobalamin/Folic AC/Vit B6 [B Complex-Folic Acid Tablet] 1 each PO DAILY 09/21/18 Oxybutynin Chloride [Oxybutynin Chloride ER] 15 mg PO DAILY 09/21/18 Metoprolol Tartrate [Lopressor (beta marvin)] 12.5 mg PO BID #60 tablet 09/22/18 The following prescriptions were given: Metoprolol Tartrate [Lopressor (beta marvin)] 12.5 mg PO BID #60 tablet Primary Care Physician: Marino Williamson MD [Primary Care Provider] - Please follow up with your Primary Care Physician in: 1-2 weeks Test Results: Test results from this visit will be discussed in further detail at your follow- up appointment, if applicable. Please Follow Up With: Fritz Hart MD When: 2 weeks Please Follow Up With: Fritz Thomas MD When: Call for appointment Proposed Discharge Date: 09/22/18
[2018-09-23] MEDS: Hydrocortisone 25 MG Suppository RECTAL (11:29)
[2018-09-23] MEDS: Pantoprazole Sodium 40 MG Tablet PO (11:29)
[2018-09-23] MEDS: Loperamide 2 MG Capsule PO (11:48)
--- NOTE | 2018-09-23 11:55 | CASEMGMT ---
PATRICIA MCGREGOR NOTE: PT phil reviewed. To room to discuss discharge planning and pt made aware of therapy's recommendatoins. Pt states she lives @ home alone and has had Home Health therapy in the past. She states she is not interested/does not want Home therapy at this time. Pt made aware that if she decides in the future that she would want HHC/therapy, to discuss this with her PCP. Pt stated she plans on seeing her PCP next week and will discuss it at that time if she is interested. She states she currently has an aide through [facility] 2 x's/week for 1 hour a day. She states the next scheduled date for the aide to come to her home is Wednesday. She states she also has a Head Men[employer]S Golf Coach through [facility], Padmini Awad. Kandice BARNES, made aware. Pt denies having any home-going needs or concerns @ discharge. Sonal HUANG RN CM
--- NOTE | 2018-09-23 13:21 | CASEMGMT ---
CAMERON called [facility] and spoke with Sandy on the coverage line. CAMERON let her know about patient's admission and discharge. Kandice FREITAS MSW
--- NOTE | 2018-09-23 14:04 | PCM.DC.SUM ---
<Isidoro Garcia - Last Filed: 09/23/18 14:17> Discharge Date and Diagnosis Date of Admission: 09/21/18 Date of Discharge: 09/23/18 - Primary Discharge Diagnosis Paroxysmal Afib with RVR Presyncope 2/2 above Chest pain - musculoskeletal Hypokelemia Chronic diarrhea Hemorrhoidal bleeding GERD COPD Depression Right adrenal adenoma Debility - Secondary Discharge Diagnosis Chronic Problems (Last Reviewed 09/22/18 @ 06:40 by Barry Tamez MD) Hypertension (Chronic) Hospital Course and Treatment Imaging Results: RAD/Chest 1 View (Portable) IMPRESSION: No acute thoracic pathology. CT/CTA Chest W/WO Contrast IMPRESSION: No evidence of pulmonary embolus or other acute thoracic disease. Coronary artery disease. Nonobstructing renal stones. Right adrenal adenoma. Stress test: Interpretation: Rest and stress SPECT Cardiolite nuclear imaging status post realignment, normalization, and attenuation correction demonstrate mild decrease in radioisotope uptake in the apex on the rest and stress images. There is no evidence of significant ischemia or infarction. Gated images reveal no significant regional wall motion abnormalities. The reported LVEF is 66%. Impression: 1. There is no evidence of significant ischemia or infarction. 2. Estimated ejection fraction is 66%. Operations: None Procedures: 2-D Echocardiogram, Stress test Summary of Care Provided: Hospital Course: The patient is a 73 year old F with pmhx as above who presented to the ER with complaints of 2 episodes where she felt like she was going to pass about. She did not lose consciousness. She checked her pulse at home and was >180 both times she felt like she was going to pass out. She had recently had her norvasc and metoprolol discontinued as her BP had been running low. In the ER she was noted to be in Afib with rate up to 140 and 150 by the ER physician, however it reverted to a sinus rhythm in the 90s without additional therapy. She also had an episode of substernal chest aching for about 15 minutes. EKG was negative for acute changes. She was admitted on tele for Afib RVR, near syncope, and chest pain. She had persistent sinus arrhythmia on the monitor with intermittent tachycardia. She was placed on low dose metoprolol for rate control which she tolerated. She was initially on therapeutic lovenox, however she reported blood on the toilet paper and that her hemorrhoids were bleeding so this was stopped. Her hgb remained stable. She had a colonoscopy [address] Plummer, who she no longer sees as he has left town, but she has seen Dr. Hart in the past and would like to follow up with him as an outpatient. I mentioned this to Dr. Hart and he was agreeable. As for her CP, troponin was cycled and she had a stress test and echo. These were negative. She had no further issues of presyncope, afib, or chest pain after admission. We advised her to follow up with her PCP in 1-2 weeks, cardiology as directed, and with Dr. Hart in 2 weeks. She may need to be considered for anticoagulation once there is no longer concern for bleeding hemorrhoids. This patient was seen by Isidoro Garcia PA-C under the supervision of Dr. Hwang. [] - Physical Exam General: Alert, Oriented x3, Cooperative HEENT: Atraumatic, PERRLA, EOMI, Normocephalic Neck: Supple, No JVD, Negative Carotid Bruits Lungs: Clear to auscultation, Normal air movement Cardiovascular: No murmurs, Irregular Rate Abdomen: Bowel Sounds Present, Soft, Non Tender Extremities: No edema, Capillary Refill Less than 3 Seconds Skin: No rashes, No breakdown Musculoskeletal: No Tenderness to Palpation of Joints or Extremities Neurological: Cranial nerves II-XII grossly intact Psych/Mental Status: Normal Affect, Appropriate, Alert and oriented to time, place, person, mood and affect Vital Signs Temp Pulse Resp BP Pulse Ox 98.1 F 73 16 116/72 94 09/23/18 09:48 09/23/18 11:15 09/23/18 11:15 09/23/18 11:15 09/23/18 11:15 Oxygen Delivery Method Room Air Weight: 145 lb 8.081 oz Body Mass Index (BMI) 27.5 Orthostatic Vital Signs Start: 09/22/18 04:34 Freq: q24h Status: Active Protocol: Activity Type Activity Date Activity User E-Sign Co-Sign Detail Recorded Client Recorded Date Recorded By Document 09/23/18 06:33 CAD [id number] 09/23/18 06:38 CAD 09/23/18 06:33 Orthostatic Vitals Standing -Blood Pressure (90/60-120/80) 114/76 -Extremity Use Right Arm -Pulse Rate (60-100) 78 Sitting -Blood Pressure (90/60-120/80) 108/69 -Extremity Use Right Arm -Pulse Rate (60-100) 71 Lying -Blood Pressure (90/60-120/80) 95/74 -Extremity Use Right Arm -Pulse Rate (60-100) 73 Intake and Output for Last 24 Hours 09/21/18 09/22/18 09/23/18 23:59 23:59 23:59 Intake Total 120 / 120 440 / 440 486 / 486 Balance 120 / 120 440 / 440 486 / 486 Microbiology Past 72 Hours 09/22/18 19:00 C. difficile DNA Amplification - Final Stool Laboratory Tests Past 24 Hrs 09/22/18 09/23/18 21:40 06:07 Hgb 11.7 L 11.8 L Hct 35.7 L 36.2 L Discharge Diet: Low fat/ Low Cholesterol Discharge Activity: Return to Normal Activity Home Medications: Medications to take at Discharge Budesonide/Formoterol 160/4.5 [Symbicort 160/4.5 Mcg Inhaler (SP)] 2 puff INHALATION BID 01/10/14 Cholecalciferol (Vitamin D3) [Vitamin D3] 2,000 unit PO DAILY 01/10/14 Citalopram [Celexa] 40 mg PO DAILY 01/10/14 Omeprazole [Prilosec] 40 mg PO DAILY 01/10/14 atorvastatin 40 mg tablet 40 mg PO DAILY 06/03/17 ibuprofen 800 mg tablet 800 mg PO TID PRN 06/03/17 Albuterol Inhaler [Ventolin Hfa] 1 - 2 puff INHALATION Q4H PRN PRN 06/28/17 Cyanocobalamin/Folic AC/Vit B6 [B Complex-Folic Acid Tablet] 1 each PO DAILY 09/21/18 Oxybutynin Chloride [Oxybutynin Chloride ER] 15 mg PO DAILY 09/21/18 Metoprolol Tartrate [Lopressor (beta marvin)] 12.5 mg PO BID #60 tablet 09/22/18 Following Prescrptions Were Given to Patient: Metoprolol Tartrate [Lopressor (beta marvin)] 12.5 mg PO BID #60 tablet Primary Care Physician: Marino Williamson MD [Primary Care Provider] - Please follow up with your Primary Care Physician in: 1-2 weeks Please Follow Up With: Fritz Hart MD When: 2 weeks Please Follow Up With: Fritz Thomas MD When: Call for appointment Disposition: Home Minutes spent on discharge:: 35 Patient Condition:: Stable Medical Necessity - Tobacco Use Smoking Status: Current every day smoker Tobacco Use: Cigarettes Meaningful Use Info Meaningful Use Diagnoses (Choose all that apply): None applicable <[place] - Last Filed: 09/23/18 17:10> Discharge Date and Diagnosis - Secondary Discharge Diagnosis Chronic Problems (Last Reviewed 09/22/18 @ 06:40 by Barry Tamez MD) Hypertension (Chronic) Hospital Course and Treatment Summary of Care Provided: 73-year-old female with past medical history of hypertension, hemorrhoids who presented with complaints of feeling of passing out. She had recently stopped her Norvasc and metoprolol on account of relative hypotension. She was found to have A. fib with RVR and spontaneously converted to normal sinus rhythm. She had persistent chest pain and had a stress test done that was negative. Over the course of her hospital stay, patient developed bleeding per rectum second to her hemorrhoids. Hemoglobin remained stable. Patient follows with Dr. Hart and will follow up with him today. She was discharged on low-dose metoprolol. Physical Exam: Gen: comfortable, not pale, not jaundiced CVS:HS I +II, regular, no murmurs RESP: CTA GI: BS present and normal, soft, nontender, no palpable organs EXT:No edema ASSESSMENT: 1. A. fib with RVR, spontaneously converted, in normal sinus rhythm, CHADS-VASC score is 2 History of falls, history of rectal bleeding, will not start anticoagulation 2. Presyncope 3. Chest pain, ACS ruled out, stress test negative 4. Hypokalemia, replaced 5. Debility - Physical Exam Vital Signs Temp Pulse Resp BP Pulse Ox 98.1 F 73 16 116/72 94 09/23/18 09:48 09/23/18 11:15 09/23/18 11:15 09/23/18 11:15 09/23/18 11:15 Oxygen Delivery Method Room Air Weight: 66 kg Body Mass Index (BMI) 27.5 Orthostatic Vital Signs Start: 09/22/18 04:34 Freq: q24h Status: Active Protocol: Activity Type Activity Date Activity User E-Sign Co-Sign Detail Recorded Client Recorded Date Recorded By Document 09/23/18 06:33 CAD [id number] 09/23/18 06:38 CAD 09/23/18 06:33 Orthostatic Vitals Standing -Blood Pressure (90/60-120/80) 114/76 -Extremity Use Right Arm -Pulse Rate (60-100) 78 Sitting -Blood Pressure (90/60-120/80) 108/69 -Extremity Use Right Arm -Pulse Rate (60-100) 71 Lying -Blood Pressure (90/60-120/80) 95/74 -Extremity Use Right Arm -Pulse Rate (60-100) 73 Intake and Output for Last 24 Hours 09/21/18 09/22/18 09/23/18 23:59 23:59 23:59 Intake Total 120 / 120 440 / 440 486 / 486 Balance 120 / 120 440 / 440 486 / 486 Microbiology Past 72 Hours 09/22/18 19:00 C. difficile DNA Amplification - Final Stool Laboratory Tests Past 24 Hrs 09/22/18 09/23/18 21:40 06:07 Hgb 11.7 L 11.8 L Hct 35.7 L 36.2 L Code Visit Inpatient E&M: [id number] Disch Hosp
== END 2018-09-23 11:15 | disposition home health service (06) ==
LOC: ED 19:39 → PCU 09-22 02:33
PROVIDERS: Admitting Provider Hospitalist; Emergency Provider Emergency Medicine; Family Provider Family Medicine; PCP Family Medicine; Referring Provider Hospitalist; Visit Provider Internal Medicine
DX: R07.89 Other chest pain (principal); I48.0 Paroxysmal atrial fibrillation; R55 Syncope and collapse; E21.0 Primary hyperparathyroidism; I10 Essential (primary) hypertension; M79.89 Other specified soft tissue disorders; K21.9 Gastro-esophageal reflux disease without esophagitis; F17.210 Nicotine dependence, cigarettes, uncomplicated; I25.10 Atherosclerotic heart disease of native coronary artery without angina pectoris; N32.81 Overactive bladder; J44.9 Chronic obstructive pulmonary disease, unspecified; E87.6 Hypokalemia; Z79.899 Other long term (current) drug therapy; Z79.51 Long term (current) use of inhaled steroids; F32.9 Major depressive disorder, single episode, unspecified; G89.29 Other chronic pain; D35.01 Benign neoplasm of right adrenal gland
CPT/HCPCS: 36415; 71045; 71275; 78452; 80048; 80061; 83735; 84443; 84484; 85014; 85018; 85025; 85610; 85730; 87493; 93005; 93017; 93306; 94640; 96365; 96372; 96375; 97116; 97162; 97530; 97802; 99218; 99285; 99406; A9500; J7040; Q9967; A4216; G0378; J2405; J2785

== ENCOUNTER → 2018-09-28 10:29 | Outpatient (CLI) | payer MEDICARE, SELFPAY ==
[2018-09-21 23:24] VITALS: BMI 27.5
== END ==
PROVIDERS: Family Provider Family Medicine; PCP Family Medicine; Referring Provider Family Medicine; Visit Provider Family Medicine
DX: R19.7 Diarrhea, unspecified (principal)
CPT/HCPCS: 87493

== ENCOUNTER → 2018-10-04 15:36 | Outpatient (CLI) | payer MEDICARE, SELFPAY ==
[2018-10-04 14:31] VITALS: BMI 27.6
--- NOTE | 2018-10-04 15:40 | RAD_ITS ---
STUDY: X-RAY CHEST REASON FOR EXAM: Female, 73 years old. Chest pain. Syncope. Atrial fibrillation. TECHNIQUE: PA and lateral views of the chest. COMPARISON: Comparison is made with prior study dated September 21, 2018. FINDINGS: Calcified granuloma in the right lower lobe. There is no demonstrated pleural abnormality. Normal size heart. Normal mediastinum and neeraj. Normal visualized pulmonary arteries. There is atherosclerotic calcification of the aortic arch with tortuosity. Prior deepali and screw fixation in the mid dorsal and lumbar spines. Increased kyphosis. Demineralization of the thoracic vertebrae with loss of height of mid and lower dorsal vertebrae with prior vertebroplasty. Normal visualized ribs, clavicles, and shoulders. There is no demonstrated abnormality of the visualized soft tissue structures of the upper abdomen. RAD/Chest PA and Lateral IMPRESSION: No acute abnormality is seen. Electronically Signed: Fco Eric, at 9:00 EDT , Service support ,
[2018-10-04 17:03] LABS: Absolute Lymphocyte Count 0.98 X10^3/ul (0.83-4.51); Absolute Neutrophil Count 10.7 X10^3/uL (2.0-7.7); Basophil# 0.03 X10^3/uL; Basophil% 0.2 % (0-1); Eosinophil# 0.14 X10^3/uL; Eosinophils% 1.1 % (0-5); Hematocrit 41.8 % (37-47); Hemoglobin 13.9 g/dl (12.0-15.0); Lymphocyte # 0.98 X10^3/ul (4.0); Lymphocyte % 7.7 % (19-41); Mean Corp Hgb Conc 33.3 g/gl (32-36); Mean Corpuscular Hgb 32.8 pg (27.0-32.0); Mean Corpuscular Volume 98.6 fL (81-99); Mean Platelet Vol. 9.8 fl (6.2-12.0); Monocyte# 0.94 X10^3/uL; Monocyte% 7.4 % (0-10); Neutrophil # 10.65 X10^3/uL (2.7-7.7); Neutrophil % 83.3 % (47-70); Platelet Count 296 K/mm3 (150-450); RBC Distribution Width CV 14.8 % (11.6-14.6); RBC Distribution Width SD 51.9 fl (35.1-43.9); Red Blood Count 4.24 M/mm3 (4.2-5.4); White Blood Count 12.8 K/mm3 (4.4-11.0)
[2018-10-04 17:12] LABS: POSITIVE COUNT NO; POSITIVE DIFFERENTIAL NO; POSITIVE MORPHOLOGY NO
[2018-10-04 18:03] LABS: Anion Gap 9 (5-15); BUN 5 mg/dL (7-18); BUN/Creat Ratio 5.4 RATIO (10-20); Calcium,Total 7.7 mg/dL (8.5-10.1); Chloride 109 mmol/L (98-107); Creatinine, Serum 0.93 mg/dL (0.55-1.02); EST Glomerular Filtration Rate 63 mL/min (>60); Est Glom Filt Rate - Afr Amer 77 mL/min (>60); Glucose 97 mg/dL (74-106); Potassium 2.5 mmol/L (3.5-5.1); Sodium Level 145 mmol/L (136-145)
[2018-10-04 18:17] LABS: Prothrombin Time (Protime)PT. 13.4 SECONDS (11.7-14.9)
== END ==
PROVIDERS: Family Provider Family Medicine; PCP Family Medicine; Referring Provider Internal Medicine Cardiovascular Disease; Visit Provider Internal Medicine Cardiovascular Disease
DX: R07.9 Chest pain, unspecified (principal); R55 Syncope and collapse; I25.10 Atherosclerotic heart disease of native coronary artery without angina pectoris; I48.0 Paroxysmal atrial fibrillation
CPT/HCPCS: 36415; 71046; 80048; 85025; 85610; 85730; 93225; 93226

== ENCOUNTER → 2018-10-06 10:50 | Outpatient (REF) | payer MEDICARE, SELFPAY ==
[2018-10-04 14:31] VITALS: BMI 27.6
== END ==
LOC: CVS 10:50
PROVIDERS: Family Provider Family Medicine; PCP Family Medicine; Referring Provider Internal Medicine Cardiovascular Disease; Visit Provider Internal Medicine Cardiovascular Disease
DX: I48.0 Paroxysmal atrial fibrillation (principal); I25.10 Atherosclerotic heart disease of native coronary artery without angina pectoris; R07.9 Chest pain, unspecified; R55 Syncope and collapse
CPT/HCPCS: 93270

== ENCOUNTER → 2018-10-06 11:57 | Outpatient (CLI) | payer MEDICARE, SELFPAY ==
[2018-10-04 14:31] VITALS: BMI 27.6
[2018-10-06 12:36] LABS: Hematocrit 40.8 % (37-47); Hemoglobin 13.1 g/dl (12.0-15.0); Mean Corp Hgb Conc 32.1 g/gl (32-36); Mean Corpuscular Hgb 33.1 pg (27.0-32.0); Mean Platelet Vol. 9.5 fl (6.2-12.0); Platelet Count 269 K/mm3 (150-450); RBC Distribution Width CV 15.4 % (11.6-14.6); Red Blood Count 3.96 M/mm3 (4.2-5.4); White Blood Count 10.5 K/mm3 (4.4-11.0)
[2018-10-06 12:37] LABS: Scan Indicated on CBC? Y/N NO
[2018-10-06 13:09] LABS: Anion Gap 4 (5-15); BUN 4 mg/dL (7-18); BUN/Creat Ratio 5.4 RATIO (10-20); Calcium,Total 7.5 mg/dL (8.5-10.1); Chloride 111 mmol/L (98-107); Creatinine, Serum 0.74 mg/dL (0.55-1.02); EST Glomerular Filtration Rate 82 mL/min (>60); Est Glom Filt Rate - Afr Amer 99 mL/min (>60); Glucose 82 mg/dL (74-106); Potassium 3.9 mmol/L (3.5-5.1); Sodium Level 140 mmol/L (136-145)
== END ==
PROVIDERS: Family Provider Family Medicine; PCP Family Medicine; Referring Provider Internal Medicine Cardiovascular Disease; Visit Provider Internal Medicine Cardiovascular Disease
DX: E87.6 Hypokalemia (principal); D72.829 Elevated white blood cell count, unspecified
CPT/HCPCS: 36415; 80048; 85027

== ENCOUNTER 2018-10-10 07:35 | Day surgery (SDC) | payer MEDICARE, SELFPAY ==
--- NOTE | 2018-10-04 03:11 | HP_ITS ---
HPI HPI History of Present Illness Surgical H&P: Yes Details: Mrs. Dotson is a very pleasant 73-year-old [id number]-myek smoking history, currently smoking, nondiabetic, female with a history of hypertension, hyperlipidemia. Patient was in her normal state of health until around September 21, 2018, and while she was standing making a sandwich, she developed lightheadedness and dizziness as well as feeling as though she was going to pass out. She took her pulse and reportedly was found to be in the 160s. Her symptoms abated, then she went into the bathroom to get ready to go to the emergency room and she had another occurrence where she almost passed out requiring her to sit on the commode. She sought medical attention at [facility] on 09/23/2018 when she was initially thought to have atrial fibrillation with RVR but upon further evaluation appeared that she had multifocal atrial tachycardia. She was given low-dose beta-marvin therapy as well as Lovenox. During her admission she developed significant rectal GI bleeding and her Lovenox was discontinued. She was sent home on baby aspirin but no anticoagulant therapy or antiplatelet therapy. She is awaiting colonoscopy with Dr. Hart. She had a colonoscopy about 5 years ago which reportedly showed some polyps per the patient. In addition she underwent a diagnostic left heart catheterization at [facility] in [facility] on 04/03/2014. This was done for chest pain radiating to her left arm and shoulder. This demonstrated minimal nonobstructive coronary disease with 50% proximal LAD stenosis, 50% mid left circumflex, 20% proximal left circumflex and 25% mid RCA stenosis. Her LV function was found to be normal. On further history during her episodes when she had heart rates in the 180s prior to admission she had significant midsternal chest pain radiating to her shoulder blades. She has had no further symptoms. She underwent a 2D echo with Doppler which showed the following: Left ventricular systolic function is normal. The estimated ejection fraction is 55 %. The left atrium is moderately enlarged. Trivial mitral valve insufficiency. Trivial tricuspid valve insufficiency. Mild focal aortic valve thickening. Mild (1+) aortic valve insufficiency. Right ventricular systolic pressure estimated to be 30 mmHg. Transmitral diastolic flow velocities suggest diastolic dysfunction (pseudonormal pattern). In addition she underwent a non-walking nuclear stress test which was negative for inducible ischemia. No consultation was obtained and she was subsequently discharged. She is now here in follow-up. Since discharge, the patient has had daily episodes of spells where she feels as though she is going to pass out, superimposed upon tachycardia. She has had no syncopal episodes. Unfortunately despite all this she continues to smoke a pack of cigarettes per day. In our office her blood pressure is 140/70, pulse is 96 and regular. Her physical exam demonstrates distant breath sounds bilaterally, regular rate and rhythm, frequent ectopic beats, normal S1/S2. She has no edema. EKG is as above. Her lipids as of 09/22/2018 show an LDL of 30 and HDL of 69. EKG today 10/04/2018 shows normal sinus rhythm with frequent PACs, poor R wave progression across precordium which may be due to lead misplacement. 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 Intake Vital Signs 10/04/18 Height 5 ft 1 in 10/04/18 Weight: 146 lb 10/04/18 Body Mass Index (BMI) 27.6 10/04/18 Blood Pressure 140/70 H 10/04/18 Blood Pressure Location Lt brachial 10/04/18 Blood Pressure Position Sitting 10/04/18 Respiratory Rate 20 H 10/04/18 Pulse Rate 96 10/04/18 Pulse Source Auscultation Intake Visit Reasons: A FIB ([facility] - NO CONSULT) Allergies hydrocodone bitartrate [From Vicodin] Allergy (Verified 09/21/18 18:44) Rash Penicillins Allergy (Verified 09/21/18 18:44) Rash sulfamethoxazole [From Bactrim] Adverse Reaction (Intermediate, Verified 09/28/18 08:59) nausea and vomiting trimethoprim [From Bactrim] Adverse Reaction (Intermediate, Verified 09/28/18 08:59) nausea and vomiting clindamycin Adverse Reaction (Verified 09/21/18 18:44) Other tizanidine HCl [From Zanaflex] Adverse Reaction (Verified 09/21/18 18:44) Other Medications Budesonide/Formoterol 160/4.5 [Symbicort 160/4.5 Mcg Inhaler (SP)] 2 puff INHALATION BID 01/10/14 [History Confirmed 09/28/18] Citalopram [Celexa] 40 mg PO DAILY 01/10/14 [History Confirmed 09/28/18] Omeprazole [Prilosec] 40 mg PO DAILY 01/10/14 [History Confirmed 09/28/18] atorvastatin 40 mg tablet 40 mg PO DAILY 06/03/17 [History Confirmed 09/28/18] ibuprofen 800 mg tablet 800 mg PO TID PRN 06/03/17 [History Confirmed 09/28/18] Albuterol Inhaler [Ventolin Hfa] 1 - 2 puff INHALATION Q4H PRN PRN 06/28/17 [History Confirmed 09/28/18] Oxybutynin Chloride [Oxybutynin Chloride ER] 15 mg PO DAILY 09/21/18 [History Confirmed 09/28/18] B complex-Folic acid PO 09/28/18 [History Confirmed 09/28/18] ascorbate calcium (Vitamin C) 500 mg tablet 500 mg PO DAILY 09/28/18 [History Confirmed 09/28/18] cholecalciferol (vitamin D3) 5,000 unit capsule 5,000 unit PO DAILY 09/28/18 [History Confirmed 09/28/18] magnesium oxide 400 mg (241.3 mg magnesium) tablet 400 mg PO DAILY tab 10/04/18 [History Confirmed 10/04/18] [facility] Medical History Atherosclerotic heart disease of [place] coronary artery without angina pectoris (Chronic) Hypokalemia (Resolved) Left atrial enlargement (Chronic) Paroxysmal atrial fibrillation (Chronic) COPD (chronic obstructive pulmonary disease) (Chronic) Obstructive sleep apnea (Chronic) Essential hypertension (Chronic) Hyperlipidemia (Chronic) Nonrheumatic aortic (valve) insufficiency (Chronic) History of renal stone (Chronic) Shoulder pain (Chronic) Adrenal mass (Chronic) Hypercalcemia (Chronic) Vitamin D deficiency (Chronic) Chronic GERD (Chronic) Adrenal nodule (Chronic) Primary hyperparathyroidism (Chronic) Osteoporosis (Chronic) Bleeding hemorrhoids (Acute) Chronic diarrhea (Resolved) Surgical History History of left heart catheterization (Chronic 04/03/14) Hx of kyphoplasty (Chronic) History of back surgery (Chronic) History of bone marrow biopsy (Chronic) History of hip surgery (Chronic) History of adrenal surgery (Chronic) S/P hysterectomy (Chronic) Hx of section (Chronic) S/P ovarian cystectomy (Chronic) S/P parathyroidectomy (Chronic) Family History Mother Arthritis Hypertension Heart disease Osteoporosis Father Arthritis Lung cancer Brother Asthma Lung cancer Kidney disease Sister Arthritis Autoimmune disease Daughter Breast cancer Social History Smoking Status: Current every day smoker tobacco type: cigarettes alcohol intake: never substance use type: does not use caffeine: No what type of physical activity do you participate in: none frequency: does not exercise seatbelt use: always ROS Const Const: Positive for fatigue (Feeling very tired, anemic: gi bleed while in [facility]), weakness and other (Was in [facility] for a-fib RVR on 09/21/18. No anticoag due to severe rectal bleed.); negative for body ache, fever(s), headache(s), chills, frequent falls, night sweats, daytime sleepiness, difficulty sleeping, excessive sweating, weight gain, weight loss, increased appetite, poor appetite or anorexia Eyes Eyes: Negative for blind spots, loss of peripheral vision, transient loss of vision, blurry vision, change in vision, double vision, floaters, tunnel vision or other ENT ENT: Negative for headache(s), dizziness, hearing loss, tinnitus, Nosebleed/epistaxis, balance problems, post nasal drip, lip swelling, tongue swelling, bleeding gums, hoarseness, neck pain, dry mouth or other Cardio Chest Pain: No Palpitations: No (She has more near syncope rather than feeling palps.) Edema: None Muscle aches with walking: None Resp Respiratory: Negative for SOB with activity, SOB at rest, SOB orthopnea\SOB lying down, Cough, Coughing up blood/hemoptysis, chest congestion, pain on inspiration, snoring, stridor, wheezing, crackles, paroxysmal nocturnal dyspnea or other GI GI: Positive for bright, red blood in stools and other (Lovenox was stopped in [facility] due to filling toilet with blood.); negative nausea, vomiting, heartburn, constipation, belching, bloating, cramping, vomiting blood/hematemesis, black,tarry stools, loose stools or Difficulty Swallowing : Negative for hematuria, frequent nighttime urination/ nocturia, erectile dysfunction or abnormal vaginal bleeding Musc Musc: Negative for muscle aches/ myalgia, muscle weakness, joint pain or balance problems Skin Skin: Negative redness, non-healing lesions, rash, unusual bruising, skin ulcer, wounds, jaundice or other Neuro Neuro: Positive for near syncope ([place] last night like going to pass out, has done this a few times.) and weakness; negative for dizziness, lightheadedness, syncope, orthostatic symptoms, frequent falls, headache(s), confusion, memory loss, restless legs, blurry vision, double vision, vertigo, seizures, lack of coordination or other [place] Hematologic/Lymphatic: Negative for easy bleeding, easy bruising, enlarged lymph nodes or other Endo Endo: Positive for fatigue (Feeling very tired, anemic: gi bleed while in [facility]); negative for cold intolerance, heat intolerance, excessive sweating, flushing, increased thirst/drinking, increased hunger, hair loss, hair growth or other Psych Psych: Negative for anxiety, depression, thoughts of harming anyone, thoughts of harming yourself, visual hallucinations, panic attacks or audible hallucinations Allergy Allergy/Immunology: Negative for throat swelling, Negative for tongue swelling, Negative for hives, Negative for rash, Negative for lip swelling Cardiology Exam Const Appearance: cooperative, healthy appearing and no acute distress Nutritional Appearance: well nourished Orientation: alert, oriented x3 and oriented to person Head Head: normal to inspection, normocephalic and atraumatic Nose: external nose normal Face and Sinus: face symmetric Mouth: oral mucosae normal Eyes General: appearance normal, both eyes and all related structures Eyelids: eyelids normal Conjunctivae: conjunctivae normal Pupils: PERRL and normal by confrontation EOM: EOM intact bilaterally Neck Neck: normal visual inspection and full ROM Carotids: normal carotid upstroke Chest Chest inspection: normal inspection of the chest Auscultation: Bilateral: Clear to Auscultation Cardio Palpation: normal PMI Rate: regular rate Rhythm: regular rhythm Heart sounds: S1 normal and S2 normal GI GI: normal to inspection, no hepatosplenomegaly and bowel sounds present Neuro General: alert, awake, oriented x3, CN's II-XI intact bilaterally and moves all extremities Skin Skin: no rashes or lesions noted Extremities Pulses: Normal: Right Femoral Pulse, Left Femoral Pulse, Right Dorsalis Pedis Pulse, Left Dorsalis Pedis Pulse, Right Posterior Tibial Pulse, Left Posterior Tibial Pulse, Right Radial Pulse, Left Radial Pulse Lower Extremity Edema: None: Bilateral Psych Psychological: normal affect Assessment & Plan 1. Atherosclerotic heart disease of [place] coronary artery without angina pectoris I25.10 Per [facility] 06/03[facility]2013 [facility] [place] [place]: Proximal LAD 15% stenosis, Mid CX 15 % stenosis , proximal CX 20% stenosis, Mid RCA 20% stenosis Plan 1. Coronary artery disease: The patient was found to have nonobstructive coronary disease in March 2014 in outside hospital facility. I have reviewed her catheterization report as well as the photographs provided with her chart. I am concerned the patient may have had progression of her coronary disease and her mid RCA to explain her symptoms. Although she has had a negative stress test, this was non-walking and the patient developed chest pain with a rapid heart rate similar to a failed stress test. She also has evidence of possible old inferior wall myocardial infarction. Prior to any additional colonoscopy or further analysis I recommended she undergo a repeat diagnostic coronary angiogram as it is been almost 5 years since her last one. If she has no significant coronary occlusive disease, I would not recommend dual and upper lid therapy or anticoagulation therapy until after she is completed her colonoscopy with Dr. Hart. If however she has a significant critical lesion in any of her coronary artery she may require loading with Plavix followed by angioplasty and stenting. In the meantime I would discontinue her beta-marvin as this did not appear to be working, and switch her to Cardizem CD 120 mg p.o. daily for atrial premature contractions. She will return in 2 weeks time for a blood pressure check. If she has no significant worsening of her coronary occlusive disease, she will be deemed at low risk for noncardiac colonoscopy. In addition I have strongly recommended the patient discontinue all tobacco products. Orders Orders: 12 Lead EKG performed by [facility] Today Left Heart Cath/COR/LV Percut Today Basic Metabolic Profile (BMP) Today Prothrombin Time w/INR Today Chest PA and Lateral Today 2. Paroxysmal atrial fibrillation I48.0 Went in and out of atrial fib in [facility] ER per monitor 09/21/18, rates 140-150. She returned spontaneously to sinus, rates in 90's. Pt states thinks she has had this for some time. Plan 2. Paroxysmal atrial fibrillation: The patient has evidence of either periodic atrial fibrillation with RVR or multifocal atrial tachycardia. She does not drink caffeine or alcohol. I recommended switching her from beta-marvin to Cardizem CD 120 mg p.o. daily. Would hold off on anticoagulation at this time given her recent lower GI bleeding and awaiting colonoscopy In the meantime she will undergo a 30-day event monitor to try and capture episodes where she is symptomatic. Orders Orders: 12 Lead EKG performed by [facility] Today 12 Lead EKG performed by [facility] Today Basic Metabolic Profile (BMP) Today 3. Hyperlipidemia E78.5 Plan 3. Hyperlipidemia: Her LDL and HDL cholesterol are at goal. Continue Lipitor. 4. Return office in 6-months This note was generated using a voice recognition system and there may be incorrect words, spelling or punctuation that were not noted when reviewing the office note prior to saving. Plan Detail Other Orders Orders: 12 Lead EKG performed by [facility] Today R55 Chest PA and Lateral Today J44.9 Other Medications New: [B complex-Folic acid] PO 0RF magnesium oxide 400 mg PO DAILY Discontinued: metoprolol tartrate Discontinued Reason: Order Changed 12.5 mg PO BID Follow Up +6M (William) Coding Level of Care Code Off vis,new,level 4 Diagnoses Atherosclerotic heart disease of [place] coronary artery without angina pectoris I25.10 Paroxysmal atrial fibrillation I48.0 Hyperlipidemia E78.5 Coding Level of Care Code Off vis,new,level 4 Diagnoses Atherosclerotic heart disease of [place] coronary artery without angina pectoris I25.10 Paroxysmal atrial fibrillation I48.0 Hyperlipidemia E78.5 Supplemental Info Supplemental Information Labs LDL Cholesterol 30 mg/dL (0-130) 09/22/18 HDL Cholesterol 69 mg/dL (40-) 09/22/18 Triglycerides 91 mg/dL (-199) 09/22/18 VLDL Cholesterol 18 mg/dL (5-40) 09/22/18 Diagnostics Electrocardiogram 10/04/18 Echocardiogram 10/07/17 Stress Test Nuclear Medicine 09/22/18 Stress Test 09/22/18 Chest X-Ray 09/21/18 Pulmonary Pulmonary Function Test 06/03/17 10/04/18 1511 <Electronically signed by Fritz Thomas MD> Date Fritz Thomas MD
[2018-10-04 14:31] VITALS: BMI 27.6
[2018-10-07 14:42] VITALS: BMI 27.6
[2018-10-10] VITALS (11 sets, daily range): BP systolic 115–151; BP diastolic 69–93; PULSE 58–75; RESP 15–17; TEMP 36.8–37.2; O2SAT 94–97
--- NOTE | 2018-10-10 09:38 | CL.D_ITS ---
Patient Name: PAULINO LOPEZ Study Date: 10/10/2018 Performing: Fritz Thomas MD Ht: 61.02 inches 155 cm : 1945 Wt: 145.51 lbs 66 kg Age: 73 Gender: female BSA: 1.65 PROCEDURE(S) PERFORMED [id number]/LV CLINICAL PROFILE AND INDICATIONS Indications: Stable Known CAD Heart Failure: None Stress/Imaging Date: 09/29/2018 Angina Classification Anginal Classification w/in 2 Weeks: No symptoms CAD Presentations: Other: Pt with multiple episodes of pre syncope and syncope. Comorbidities/Risk Factors: Current/Recent Smoker (< 1year) Hypertension Dyslipidemia CONCLUSIONS Non obstructive coronary arteries Perserved Left Ventricular systolic function with normal EDP RECOMMENDATIONS Risk factor modification ASA Indefinitely Management as per referring Distribution Technician Pt is at low risk for non cardiac surgery. DESCRIPTION OF PROCEDURE The patient arrived to the procedure lab. The risks and benefits of the procedure as well as a full d escription of our services here and current unavailability of surgical backup were fully explained to the patient and/or their significant other prior to the catheterization. The Timeout was completed, verifying the correct patient and procedure. The patient's procedural site was prepped and draped in the usual fashion. Local anesthetic was given subcutaneously to right groin region with Lidocaine 2%. Using a modified Seldinger technique, arterial access was obtained via the right femoral artery, a 4 Fr sheath was inserted Left Coronary Artery selective angiography was performed in multiple views us ing a 4 Fr. JL5 catheter. Right Coronary Artery selective angiography was then performed in multiple views using a 4 Fr. 3DRC catheter. Left Ventriculography was performed in [place] projection using a 4 Fr . Pigtail catheter. LV to AO pullback pressures were then recorded.The arterial sheath was pulled and manual compression applied until hemostasis is achieved. CORONARY ANGIOGRAPHY DOMINANCE: Right Dominant LEFT HEART ASSESSMENT Left Ventricular Ejection Fraction: by LV Gram 60 % Normal LV wall motion Normal Left Ventricular systolic function LEFT MAIN: Angiographically normal LEFT ANTERIOR DESCENDING ARTERY: Mild luminal irregularities less than 30% CIRCUMFLEX ARTERY: Mild luminal irregularities less than 30% RIGHT CORONARY ARTERY: Mild luminal irregularities less than 30% COMPLICATIONS No Complications PROCEDURE MEDICATIONS Oxygen: 2 L/min via nasal cannula SUMMARY OF HEMODYNAMIC DATA Time AIR REST ECG 08:06:04 AO 126/67 (91) SA 09:16:36 LV 139/-8, 12 09:21:52 LV 137/-9, 9 09:21:58 LVp 133/-2, 14 09:22:01 AOp 138/66 (95) 09:22:06 Signed By Fritz Thomas MD On 10/10/2018 9:37:41 AM Fritz Thomas MD
[2018-10-10] MEDS: Acetaminophen 325 MG Tablet PO (12:51)
== END 2018-10-10 14:36 | disposition home or self-care (01) ==
LOC: CLSP 07:39 → PCU 09:52
PROVIDERS: Family Provider Family Medicine; PCP Family Medicine; Referring Provider Internal Medicine Cardiovascular Disease; Visit Provider Internal Medicine Cardiovascular Disease
DX: I25.10 Atherosclerotic heart disease of native coronary artery without angina pectoris (principal); I48.0 Paroxysmal atrial fibrillation; E78.5 Hyperlipidemia, unspecified; F17.210 Nicotine dependence, cigarettes, uncomplicated; I10 Essential (primary) hypertension; I25.2 Old myocardial infarction; I35.1 Nonrheumatic aortic (valve) insufficiency; I49.1 Atrial premature depolarization; Z88.0 Allergy status to penicillin; Z88.1 Allergy status to other antibiotic agents; Z88.2 Allergy status to sulfonamides; Z88.5 Allergy status to narcotic agent; Z79.899 Other long term (current) drug therapy; J44.9 Chronic obstructive pulmonary disease, unspecified; G47.33 Obstructive sleep apnea (adult) (pediatric); K21.9 Gastro-esophageal reflux disease without esophagitis; M81.0 Age-related osteoporosis without current pathological fracture
CPT/HCPCS: 93458; J7040; C1769; C1894; Q9967

== ENCOUNTER → 2018-10-28 15:52 | Outpatient (CLI) | payer MEDICARE, SELFPAY ==
[2018-10-26 13:59] VITALS: BMI 27.6
[2018-10-28 17:32] LABS: Absolute Lymphocyte Count 0.98 X10^3/ul (0.83-4.51); Absolute Neutrophil Count 7.1 X10^3/uL (2.0-7.7); Basophil# 0.06 X10^3/uL; Basophil% 0.6 % (0-1); Eosinophil# 0.33 X10^3/uL; Eosinophils% 3.5 % (0-5); Hematocrit 43.4 % (37-47); Hemoglobin 13.4 g/dl (12.0-15.0); Lymphocyte # 0.98 X10^3/ul (4.0); Lymphocyte % 10.3 % (19-41); Mean Corp Hgb Conc 30.9 g/gl (32-36); Mean Corpuscular Hgb 31.1 pg (27.0-32.0); Mean Corpuscular Volume 100.7 fL (81-99); Mean Platelet Vol. 9.8 fl (6.2-12.0); Monocyte# 1.04 X10^3/uL; Neutrophil # 7.05 X10^3/uL (2.7-7.7); Neutrophil % 74.3 % (47-70); Platelet Count 261 K/mm3 (150-450); RBC Distribution Width CV 15.7 % (11.6-14.6); RBC Distribution Width SD 57.2 fl (35.1-43.9); Red Blood Count 4.31 M/mm3 (4.2-5.4); White Blood Count 9.5 K/mm3 (4.4-11.0)
[2018-10-28 17:42] LABS: POSITIVE COUNT NO; POSITIVE DIFFERENTIAL NO; POSITIVE MORPHOLOGY NO
[2018-10-28 17:45] LABS: ALB/GLOB Ratio 0.7 RATIO (0.9-2.4); AST(SGOT) 29 U/L (15-37); Alanine Aminotransfer ALT/SGPT 23 U/L (13-56); Albumin, Serum 2.6 g/dL (3.2-5.0); Alkaline Phosphatase 148 U/L (45-117); Anion Gap 8 (5-15); BUN 5 mg/dL (7-18); Calcium,Total 7.8 mg/dL (8.5-10.1); Chloride 108 mmol/L (98-107); Creatinine, Serum 0.84 mg/dL (0.55-1.02); EST Glomerular Filtration Rate 71 mL/min (>60); Est Glom Filt Rate - Afr Amer 86 mL/min (>60); Ferritin 100 ng/mL (8-252); Globulin 3.9 g/dL (2.2-4.2); Glucose 83 mg/dL (74-106); Iron 84 ug/dL (50-170); Iron Binding Capacity,Total 207 ug/dL (250-450); Potassium 4.5 mmol/L (3.5-5.1); Protein, Total 6.5 g/dL (6.4-8.2); Sodium Level 142 mmol/L (136-145)
== END ==
PROVIDERS: Family Provider Family Medicine; PCP Family Medicine; Referring Provider Family Medicine; Visit Provider Family Medicine
DX: I48.0 Paroxysmal atrial fibrillation (principal); K62.5 Hemorrhage of anus and rectum; R19.7 Diarrhea, unspecified
CPT/HCPCS: 36415; 80053; 82728; 83540; 83550; 83735; 85025

== ENCOUNTER 2018-11-14 06:52 | Day surgery (SDC) | payer MEDICARE, SELFPAY ==
--- NOTE | 2018-10-04 03:11 | HP_ITS ---
HPI HPI History of Present Illness Surgical H&P: Yes Details: Mrs. Dotson is a very pleasant 73-year-old [id number] smoking history, currently smoking, nondiabetic, female with a history of hypertension, hyperlipidemia. Patient was in her normal state of health until around September 21, 2018, and while she was standing making a sandwich, she developed lightheadedness and dizziness as well as feeling as though she was going to pass out. She took her pulse and reportedly was found to be in the 160s. Her symptoms abated, then she went into the bathroom to get ready to go to the emergency room and she had another occurrence where she almost passed out requiring her to sit on the commode. She sought medical attention at [facility] on 09/23/2018 when she was initially thought to have atrial fibrillation with RVR but upon further evaluation appeared that she had multifocal atrial tachycardia. She was given low-dose beta-marvin therapy as well as Lovenox. During her admission she developed significant rectal GI bleeding and her Lovenox was discontinued. She was sent home on baby aspirin but no anticoagulant therapy or antiplatelet therapy. She is awaiting colonoscopy with Dr. Hart. She had a colonoscopy about 5 years ago which reportedly showed some polyps per the patient. In addition she underwent a diagnostic left heart catheterization at [facility] in [facility] on 04/03/2014. This was done for chest pain radiating to her left arm and shoulder. This demonstrated minimal nonobstructive coronary disease with 50% proximal LAD stenosis, 50% mid left circumflex, 20% proximal left circumflex and 25% mid RCA stenosis. Her LV function was found to be normal. On further history during her episodes when she had heart rates in the 180s prior to admission she had significant midsternal chest pain radiating to her shoulder blades. She has had no further symptoms. She underwent a 2D echo with Doppler which showed the following: Left ventricular systolic function is normal. The estimated ejection fraction is 55 %. The left atrium is moderately enlarged. Trivial mitral valve insufficiency. Trivial tricuspid valve insufficiency. Mild focal aortic valve thickening. Mild (1+) aortic valve insufficiency. Right ventricular systolic pressure estimated to be 30 mmHg. Transmitral diastolic flow velocities suggest diastolic dysfunction (pseudonormal pattern). In addition she underwent a non-walking nuclear stress test which was negative for inducible ischemia. No consultation was obtained and she was subsequently discharged. She is now here in follow-up. Since discharge, the patient has had daily episodes of spells where she feels as though she is going to pass out, superimposed upon tachycardia. She has had no syncopal episodes. Unfortunately despite all this she continues to smoke a pack of cigarettes per day. In our office her blood pressure is 140/70, pulse is 96 and regular. Her physical exam demonstrates distant breath sounds bilaterally, regular rate and rhythm, frequent ectopic beats, normal S1/S2. She has no edema. EKG is as above. Her lipids as of 09/22/2018 show an LDL of 30 and HDL of 69. EKG today 10/04/2018 shows normal sinus rhythm with frequent PACs, poor R wave progression across precordium which may be due to lead misplacement. 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 Intake Vital Signs 10/04/18 Height 5 ft 1 in 10/04/18 Weight: 146 lb 10/04/18 Body Mass Index (BMI) 27.6 10/04/18 Blood Pressure 140/70 H 10/04/18 Blood Pressure Location Lt brachial 10/04/18 Blood Pressure Position Sitting 10/04/18 Respiratory Rate 20 H 10/04/18 Pulse Rate 96 10/04/18 Pulse Source Auscultation Intake Visit Reasons: A FIB ([facility] - NO CONSULT) Allergies hydrocodone bitartrate [From Vicodin] Allergy (Verified 09/21/18 18:44) Rash Penicillins Allergy (Verified 09/21/18 18:44) Rash sulfamethoxazole [From Bactrim] Adverse Reaction (Intermediate, Verified 09/28/18 08:59) nausea and vomiting trimethoprim [From Bactrim] Adverse Reaction (Intermediate, Verified 09/28/18 08:59) nausea and vomiting clindamycin Adverse Reaction (Verified 09/21/18 18:44) Other tizanidine HCl [From Zanaflex] Adverse Reaction (Verified 09/21/18 18:44) Other Medications Budesonide/Formoterol 160/4.5 [Symbicort 160/4.5 Mcg Inhaler (SP)] 2 puff INHALATION BID 01/10/14 [History Confirmed 09/28/18] Citalopram [Celexa] 40 mg PO DAILY 01/10/14 [History Confirmed 09/28/18] Omeprazole [Prilosec] 40 mg PO DAILY 01/10/14 [History Confirmed 09/28/18] atorvastatin 40 mg tablet 40 mg PO DAILY 06/03/17 [History Confirmed 09/28/18] ibuprofen 800 mg tablet 800 mg PO TID PRN 06/03/17 [History Confirmed 09/28/18] Albuterol Inhaler [Ventolin Hfa] 1 - 2 puff INHALATION Q4H PRN PRN 06/28/17 [History Confirmed 09/28/18] Oxybutynin Chloride [Oxybutynin Chloride ER] 15 mg PO DAILY 09/21/18 [History Confirmed 09/28/18] B complex-Folic acid PO 09/28/18 [History Confirmed 09/28/18] ascorbate calcium (Vitamin C) 500 mg tablet 500 mg PO DAILY 09/28/18 [History Confirmed 09/28/18] cholecalciferol (vitamin D3) 5,000 unit capsule 5,000 unit PO DAILY 09/28/18 [History Confirmed 09/28/18] magnesium oxide 400 mg (241.3 mg magnesium) tablet 400 mg PO DAILY tab 10/04/18 [History Confirmed 10/04/18] [facility] Medical History 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) Hypokalemia (Resolved) Left atrial enlargement (Chronic) Paroxysmal atrial fibrillation (Chronic) COPD (chronic obstructive pulmonary disease) (Chronic) Obstructive sleep apnea (Chronic) Essential hypertension (Chronic) Hyperlipidemia (Chronic) Nonrheumatic aortic (valve) insufficiency (Chronic) History of renal stone (Chronic) Shoulder pain (Chronic) Adrenal mass (Chronic) Hypercalcemia (Chronic) Vitamin D deficiency (Chronic) Chronic GERD (Chronic) Adrenal nodule (Chronic) Primary hyperparathyroidism (Chronic) Osteoporosis (Chronic) Bleeding hemorrhoids (Acute) Chronic diarrhea (Resolved) Surgical History History of left heart catheterization (Chronic 04/03/14) Hx of kyphoplasty (Chronic) History of back surgery (Chronic) History of bone marrow biopsy (Chronic) History of hip surgery (Chronic) History of adrenal surgery (Chronic) S/P hysterectomy (Chronic) Hx of section (Chronic) S/P ovarian cystectomy (Chronic) S/P parathyroidectomy (Chronic) Family History Mother Arthritis Hypertension Heart disease Osteoporosis Father Arthritis Lung cancer Brother Asthma Lung cancer Kidney disease Sister Arthritis Autoimmune disease Daughter Breast cancer Social History Smoking Status: Current every day smoker tobacco type: cigarettes alcohol intake: never substance use type: does not use caffeine: No what type of physical activity do you participate in: none frequency: does not exercise seatbelt use: always ROS Const Const: Positive for fatigue (Feeling very tired, anemic: gi bleed while in [facility]), weakness and other (Was in [facility] for a-fib RVR on 09/21/18. No anticoag due to severe rectal bleed.); negative for body ache, fever(s), headache(s), chills, frequent falls, night sweats, daytime sleepiness, difficulty sleeping, excessive sweating, weight gain, weight loss, increased appetite, poor appetite or anorexia Eyes Eyes: Negative for blind spots, loss of peripheral vision, transient loss of vision, blurry vision, change in vision, double vision, floaters, tunnel vision or other ENT ENT: Negative for headache(s), dizziness, hearing loss, tinnitus, Nosebleed/epistaxis, balance problems, post nasal drip, lip swelling, tongue swelling, bleeding gums, hoarseness, neck pain, dry mouth or other Cardio Chest Pain: No Palpitations: No (She has more near syncope rather than feeling palps.) Edema: None Muscle aches with walking: None Resp Respiratory: Negative for SOB with activity, SOB at rest, SOB orthopnea\SOB lying down, Cough, Coughing up blood/hemoptysis, chest congestion, pain on inspiration, snoring, stridor, wheezing, crackles, paroxysmal nocturnal dyspnea or other GI GI: Positive for bright, red blood in stools and other (Lovenox was stopped in [facility] due to filling toilet with blood.); negative nausea, vomiting, heartburn, constipation, belching, bloating, cramping, vomiting blood/hematemesis, black,tarry stools, loose stools or Difficulty Swallowing : Negative for hematuria, frequent nighttime urination/ nocturia, erectile dysfunction or abnormal vaginal bleeding Musc Musc: Negative for muscle aches/ myalgia, muscle weakness, joint pain or balance problems Skin Skin: Negative redness, non-healing lesions, rash, unusual bruising, skin ulcer, wounds, jaundice or other Neuro Neuro: Positive for near syncope ([place] last night like going to pass out, has done this a few times.) and weakness; negative for dizziness, lightheadedness, syncope, orthostatic symptoms, frequent falls, headache(s), confusion, memory loss, restless legs, blurry vision, double vision, vertigo, seizures, lack of coordination or other Mookie Hematologic/Lymphatic: Negative for easy bleeding, easy bruising, enlarged lymph nodes or other Endo Endo: Positive for fatigue (Feeling very tired, anemic: gi bleed while in [facility]); negative for cold intolerance, heat intolerance, excessive sweating, flushing, increased thirst/drinking, increased hunger, hair loss, hair growth or other Psych Psych: Negative for anxiety, depression, thoughts of harming anyone, thoughts of harming yourself, visual hallucinations, panic attacks or audible hallucinations Allergy Allergy/Immunology: Negative for throat swelling, Negative for tongue swelling, Negative for hives, Negative for rash, Negative for lip swelling Cardiology Exam Const Appearance: cooperative, healthy appearing and no acute distress Nutritional Appearance: well nourished Orientation: alert, oriented x3 and oriented to person Head Head: normal to inspection, normocephalic and atraumatic Nose: external nose normal Face and Sinus: face symmetric Mouth: oral mucosae normal Eyes General: appearance normal, both eyes and all related structures Eyelids: eyelids normal Conjunctivae: conjunctivae normal Pupils: PERRL and normal by confrontation EOM: EOM intact bilaterally Neck Neck: normal visual inspection and full ROM Carotids: normal carotid upstroke Chest Chest inspection: normal inspection of the chest Auscultation: Bilateral: Clear to Auscultation Cardio Palpation: normal PMI Rate: regular rate Rhythm: regular rhythm Heart sounds: S1 normal and S2 normal GI GI: normal to inspection, no hepatosplenomegaly and bowel sounds present Neuro General: alert, awake, oriented x3, CN's II-XI intact bilaterally and moves all extremities Skin Skin: no rashes or lesions noted Extremities Pulses: Normal: Right Femoral Pulse, Left Femoral Pulse, Right Dorsalis Pedis Pulse, Left Dorsalis Pedis Pulse, Right Posterior Tibial Pulse, Left Posterior Tibial Pulse, Right Radial Pulse, Left Radial Pulse Lower Extremity Edema: None: Bilateral Psych Psychological: normal affect Assessment & Plan 1. Atherosclerotic heart disease of ambler coronary artery without angina pectoris I25.10 Per [facility] 06/03/2013 done @ [facility] in [place], [place]: Proximal LAD 15% stenosis, Mid CX 15 % stenosis , proximal CX 20% stenosis, Mid RCA 20% stenosis Plan 1. Coronary artery disease: The patient was found to have nonobstructive coronary disease in March 2014 in outside hospital facility. I have reviewed her catheterization report as well as the photographs provided with her chart. I am concerned the patient may have had progression of her coronary disease and her mid RCA to explain her symptoms. Although she has had a negative stress test, this was non-walking and the patient developed chest pain with a rapid heart rate similar to a failed stress test. She also has evidence of possible old inferior wall myocardial infarction. Prior to any additional colonoscopy or further analysis I recommended she undergo a repeat diagnostic coronary angiogram as it is been almost 5 years since her last one. If she has no significant coronary occlusive disease, I would not recommend dual and upper lid therapy or anticoagulation therapy until after she is completed her colonoscopy with Dr. Hart. If however she has a significant critical lesion in any of her coronary artery she may require loading with Plavix followed by angioplasty and stenting. In the meantime I would discontinue her beta-marvin as this did not appear to be working, and switch her to Cardizem CD 120 mg p.o. daily for atrial premature contractions. She will return in 2 weeks time for a blood pressure check. If she has no significant worsening of her coronary occlusive disease, she will be deemed at low risk for noncardiac colonoscopy. In addition I have strongly recommended the patient discontinue all tobacco products. Orders Orders: 12 Lead EKG performed by [facility] Today Left Heart Cath/COR/LV Percut Today Basic Metabolic Profile (BMP) Today Prothrombin Time w/INR Today Chest PA and Lateral Today 2. Paroxysmal atrial fibrillation I48.0 Went in and out of atrial fib in [facility] ER per monitor 09/21/18, rates 140-150. She returned spontaneously to sinus, rates in 90's. Pt states thinks she has had this for some time. Plan 2. Paroxysmal atrial fibrillation: The patient has evidence of either periodic atrial fibrillation with RVR or multifocal atrial tachycardia. She does not drink caffeine or alcohol. I recommended switching her from beta-marvin to Cardizem CD 120 mg p.o. daily. Would hold off on anticoagulation at this time given her recent lower GI bleeding and awaiting colonoscopy In the meantime she will undergo a 30-day event monitor to try and capture episodes where she is symptomatic. Orders Orders: 12 Lead EKG performed by [facility] Today 12 Lead EKG performed by [facility] Today Basic Metabolic Profile (BMP) Today 3. Hyperlipidemia E78.5 Plan 3. Hyperlipidemia: Her LDL and HDL cholesterol are at goal. Continue Lipitor. 4. Return office in 6-months This note was generated using a voice recognition system and there may be incorrect words, spelling or punctuation that were not noted when reviewing the office note prior to saving. Plan Detail Other Orders Orders: 12 Lead EKG performed by [facility] Today R55 Chest PA and Lateral Today J44.9 Other Medications New: [B complex-Folic acid] PO 0RF magnesium oxide 400 mg PO DAILY Discontinued: metoprolol tartrate Discontinued Reason: Order Changed 12.5 mg PO BID Follow Up +6M (William) Coding Level of Care Code Off vis,new,level 4 Diagnoses Atherosclerotic heart disease of ambler coronary artery without angina pectoris I25.10 Paroxysmal atrial fibrillation I48.0 Hyperlipidemia E78.5 Coding Level of Care Code Off vis,new,level 4 Diagnoses Atherosclerotic heart disease of ambler coronary artery without angina pectoris I25.10 Paroxysmal atrial fibrillation I48.0 Hyperlipidemia E78.5 Supplemental Info Supplemental Information Labs LDL Cholesterol 30 mg/dL (0-130) 09/22/18 HDL Cholesterol 69 mg/dL (40-) 09/22/18 Triglycerides 91 mg/dL (-199) 09/22/18 VLDL Cholesterol 18 mg/dL (5-40) 09/22/18 Diagnostics Electrocardiogram 10/04/18 Echocardiogram 10/07/17 Stress Test Nuclear Medicine 09/22/18 Stress Test 09/22/18 Chest X-Ray 09/21/18 Pulmonary Pulmonary Function Test 06/03/17 10/04/18 1511 <Electronically signed by Fritz Thomas MD> Date Fritz Thomas MD
[2018-10-26 13:59] VITALS: BMI 27.6
[2018-11-14] VITALS (7 sets, daily range): BP systolic 94–116; BP diastolic 58–88; PULSE 77–94; RESP 16–18; TEMP 36.7–36.9; O2SAT 95–97; BMI 27.1
--- NOTE | 2018-11-14 | IMM_PTH ---
PATIENT: PAULINO LOPEZ LOC: EN U#:[id number] AGE/SX: 73/F ROOM: RE11/14/[address]: Dr. Fritz Hart MD : 1945 BED: DIS: 11/14/2018 SPEC #: [id number] RECD: 11/14/18 13:44 STATUS: CAM REConstantine #: [id number] KEARA: 11/14/18 00:[address]: Fritz Hart DEPT: IMMUNOHISTOCHEMISTRY RECD BY: Baljeet Valera ENTERED: 11/14/18 13:44 SP TYPE: IMMUNO OTHR DR: Dr. Marino Williamson MD Tissues: Gastric mucous membrane Procedures: H Pylori (initial) PHYSICIAN & INSTITUTION [place] [id number] SPECIMEN INFORMATION: Tissue Source: B - Antral biopsy Clinical Info: Chronic diarrhea, weight loss, occasional rectal bleeding Specimen Number: [id number] CPT code: 47990 METHODOLOGY: Deparaffinized sections of prefer/formalin-fixed tissue or PAP/DQ stained slides are incubated with monoclonal/polyclonal antibodies/oligonucleotide probes. Localization is made via biotin free immunoperoxidase method. Appropriate controls are performed and reacted as expected. Results on target cell population are indicated in the following table: RESULTS: ANTIBODY / CLONE RESULT Block B H Pylori (polyclonal) negative These tests were developed and their performance characteristics determined by [facility]. They may not have been cleared or approved by the U.S. Food and Drug Administration. The FDA has determined that such clearance or approval is not necessary. INTERPRETATION: Antral biopsy: Negative for Helicobacter pylori organisms. FA:leandro 11/15/18
--- NOTE | 2018-11-14 08:17 | PCM.HP.BLA ---
History and Physical Date of Admission: 11/14/18 [facility] [address] [place], [place] [id number] OFFICE VISIT Date of Service: 10/26/18 MR#: [id number] Acct: [id number] Name: PAULINO LOPEZ Rep #: [id number] : 1945 Provider: Fritz Hart MD Age/Sex: 73/F Location: [facility] Status: Signed Intake Vital Signs 10/26/18 Body Mass Index (BMI) 27.6 10/26/18 Height 5 ft 1 in 10/26/18 Weight: 139 lb 10/26/18 Body Mass Index (BMI) 26.2 10/26/18 Blood Pressure 137/84 H 10/26/18 Blood Pressure Location Rt brachial 10/26/18 Blood Pressure Position Sitting 10/26/18 Respiratory Rate 20 H 10/26/18 Pulse Rate 95 10/26/18 Pulse Source Monitor 10/26/18 Temperature 98.3 F 10/26/18 Temperature Source [place] 10/26/18 Pulse Ox 98 10/26/18 Oxygen Delivery Method room air Intake Visit Reasons: C-Scope Consult Chief Complaint: AFIB RVR Insole Doubler Required: No Is patient in pain?: No Allergies hydrocodone bitartrate [From Vicodin] Allergy (Verified 10/26/18 13:56) Rash Penicillins Allergy (Verified 10/26/18 13:56) Rash sulfamethoxazole [From Bactrim] Adverse Reaction (Intermediate, Verified 10/26/18 13:56) nausea and vomiting trimethoprim [From Bactrim] Adverse Reaction (Intermediate, Verified 10/26/18 13:56) nausea and vomiting clindamycin Adverse Reaction (Verified 10/26/18 13:56) Other tizanidine HCl [From Zanaflex] Adverse Reaction (Verified 10/26/18 13:56) Other Medications Budesonide/Formoterol 160/4.5 [Symbicort 160/4.5 Mcg Inhaler (SP)] 2 puff INHALATION BID 01/10/14 [History Confirmed 10/26/18] Citalopram [Celexa] 40 mg PO DAILY 01/10/14 [History Confirmed 10/26/18] Omeprazole [Prilosec] 40 mg PO DAILY 01/10/14 [History Confirmed 10/26/18] atorvastatin 40 mg tablet 40 mg PO DAILY 06/03/17 [History Confirmed 10/26/18] ibuprofen 800 mg tablet 800 mg PO TID PRN 06/03/17 [History Confirmed 10/26/18] Albuterol Inhaler [Ventolin Hfa] 1 - 2 puff INHALATION Q4H PRN PRN 06/28/17 [History Confirmed 10/26/18] Oxybutynin Chloride [Oxybutynin Chloride ER] 15 mg PO DAILY 09/21/18 [History Confirmed 10/26/18] B complex-Folic acid PO 09/28/18 [History Confirmed 10/26/18] ascorbate calcium (Vitamin C) 500 mg tablet 500 mg PO DAILY 09/28/18 [History Confirmed 10/26/18] cholecalciferol (vitamin D3) 5,000 unit capsule 5,000 unit PO DAILY 09/28/18 [History Confirmed 10/26/18] magnesium oxide 400 mg (241.3 mg magnesium) tablet 400 mg PO DAILY tab 10/04/18 [History Confirmed 10/26/18] potassium chloride ER 20 mEq tablet,extended release 20 meq PO .COMPLEX 10/05/18 [History Confirmed 10/26/18] Aspirin E.C. [Ecotrin] 81 mg PO DAILY@0800 10/07/18 [History Confirmed 10/26/18] PFS Medical History Atherosclerotic heart disease of [place] coronary artery without angina pectoris (Chronic) Hypokalemia (Resolved) Left atrial enlargement (Chronic) Paroxysmal atrial fibrillation (Chronic) COPD (chronic obstructive pulmonary disease) (Chronic) Obstructive sleep apnea (Chronic) Essential hypertension (Chronic) Hyperlipidemia (Chronic) Nonrheumatic aortic (valve) insufficiency (Chronic) History of renal stone (Chronic) Pre-syncope (Acute) Chest pain (Acute) Shoulder pain (Chronic) Adrenal mass (Chronic) Hypercalcemia (Chronic) Vitamin D deficiency (Chronic) Chronic GERD (Chronic) Adrenal nodule (Chronic) Primary hyperparathyroidism (Chronic) Osteoporosis (Chronic) Bleeding hemorrhoids (Acute) Diarrhea (Acute) Hemorrhoids (Acute) Rectal bleeding (Acute) Chronic diarrhea (Resolved) Surgical History History of left heart catheterization (Chronic 04/03/14) Hx of kyphoplasty (Chronic) History of back surgery (Chronic) History of bone marrow biopsy (Chronic) History of hip surgery (Chronic) History of adrenal surgery (Chronic) S/P hysterectomy (Chronic) Hx of section (Chronic) S/P ovarian cystectomy (Chronic) S/P parathyroidectomy (Chronic) Family History Mother Arthritis Hypertension Heart disease Osteoporosis Father Arthritis Lung cancer Brother Asthma Lung cancer Kidney disease Sister Arthritis Autoimmune disease Daughter Breast cancer Social History Smoking Status: Current every day smoker tobacco type: cigarettes alcohol intake: never substance use type: does not use caffeine: No what type of physical activity do you participate in: none frequency: does not exercise seatbelt use: always HPI HPI HPI: PAULINO LOPEZ, is a 73 F who presents to the office today for HPI HPI Surgical H&P: Yes HPI: PAULINO LOPEZ, is a 73 F who presents to the office today for evaluation of chronic diarrhea as well as weight loss. Patient states that she is been hospitalized in the past for cardiac reasons subsequent to that she has noticed that just about every time she eats anything it runs right through her she is also noticed some occasional painless rectal bleeding. In addition she is also noticed that she has lost approximately 10 to 15 pounds without even having to try. She has had some stool cultures and C. difficile check which have been negative. ROS General General: Yes weight change and fatigue; no appetite, colon cancer, breast cancer or weakness HEENT HEENT: Yes difficulty swallowing and eye surgery; no eye injury, swollen glands or hoarseness Endo Endocrine: Yes thyroid disease; no diabetes mellitus, thyroid cancer, Hair loss, heat intolerance or cold intolerance Skin Skin: Yes changing moles; no rash Breast Breast: No left breast lump, right breast lump, nipple discharge, breast pain, abnormal mammogram, abnormal US or breast enlargement Musc Musculoskeletal: Yes back problems and arthritis; no rheumatoid arthritis, gout or joint pain Cardio Cardiovascular: Yes heart disease, atrial fibrillation and high blood pressure; no murmur, pacemaker, heart attack, heart stent, palpitations, shortness of breat with exertion or chest pain Psych Psychiatric: No depression, anxiety or hearing voices Resp Respiratory: No shortness of breath, No sleep apnea, No cough, Yes COPD, No asthma, No emphysema, No wheezing Gastro Gastrointestinal: No abdominal pain, No nausea or vomiting, Yes diarrhea, No constipation, Yes blood in stool, Yes acid reflux, Yes hemorrhoids, No ulcers, No gallbladder problem, No black,tarry stools [place] Hematologic: Yes blood thinners, No blood disorders, No bleeding, No anemia, No blood clots Neuro Neurologic: No system reviewed and no additional complaints, except as docu, No as per HPI, No abnormal walking, No abnormal hearing, No abnormal movements, No abnormal speech, No behavioral changes, No burning sensations, No confusion, No seizure-like activity, No unsteadiness, No dizziness, No localized weakness, No frequent falls, No headache(s), No lack of coordination, No loss of vision, No memory loss, No numbness, No other visual disturbances, No radiating pain, No restless legs, No sensory deficit, No fainting, No tingling, No tremor(s), No weakness, No other Exam Const General: no acute distress, well developed, well hydrated Orientation: oriented to person, oriented to place, oriented to time [facility] [place] Head: normocephalic, atraumatic Ears: external ears normal Mouth: moist mucous membranes Eyes Sclera: sclerae normal Pupils: normal by confrontation Neck Neck: no lymphadenopathy noted Neck mass: No Thyroid: thyroid normal, symmetrical Chest Chest palpation & inspection: normal inspection of the chest Breast Palpation: No nipple discharge Resp Effort & Inspection: normal respiratory effort Auscultation: clear to auscultation bilaterally Percussion: percussion normal Cardio Rate: regular rate Rhythm: regular rhythm Heart Sounds: no murmurs GI Palpation: soft, no hepatosplenomegaly, no masses, nontender Rectal Exam: other Other: Rectal exam deferred. Extrem General: normal to inspection, no clubbing, cyanosis or edema Assessment & Plan Problems 1. Diarrhea, unspecified type R19.7 2. Rectal hemorrhage K62.5 3. Weight loss, non-intentional R63.4 Plan I have discussed the above with the patient. I have offered the patient colonoscopy as well as an EGD for evaluation. I have explained the risks/benefits of the procedure and described the procedure. I have discussed the risks with the patient, including but not limited to: infection, bleeding, perforation of the GI tract requiring emergency surgery, inability to complete the procedure, injury to any internal organs, complications of anesthesia, etc. - the patient understands and agrees to proceed. I have answered all the patient's questions to the patient's satisfaction and the patient has no further questions. The patient has been given instructions for the colon cleansing preparation. We will be doing random colon biopsies. Coding Level of Care Code Off vis,new,level 3 Diagnoses Diarrhea, unspecified type R19.7 ??Diarrhea type: unspecified type Rectal hemorrhage K62.5 Weight loss, non-intentional R63.4 11/02/18 0751 <Electronically signed by Fritz Hart MD> Date Fritz Hart MD Cosign Signature: Date (if applicable) CC: Marino Williamson MD ~ Insert H&P no changes
--- NOTE | 2018-11-14 08:30 | EGD_PTH ---
PATIENT: PAULINO LOPEZ LOC: EN U#:[id number] AGE/SX: 73/F ROOM: RE11/14/[address]: Dr. Fritz Hart MD : 1945 BED: DIS: 11/14/2018 SPEC #: [id number] RECD: 11/14/18 11:17 STATUS: CAM LEILA #: [id number] KEARA: 11/14/18 08:[address]: Fritz Hart DEPT: SURGICAL PATHOLOGY RECD BY: Himanshu Canchola ENTERED: 11/14/18 11:33 SP TYPE: EGD BIOPSY LAURYN DR: Dr. Marino Williamson MD Tissues: A - Duodenum, NOS B - Gastric mucous membrane C - COLON BIOPSY Procedures: Trichrome (control) Special Stain Group II Surgery Specimen Level IV HEADER OPERATION: Colonoscopy, EGD ([facility] [place] PRE-OP DIAGNOSIS: Chronic diarrhea, weight loss, occasional rectal bleeding TISSUE SUBMITTED: A. Duodenal biopsy, B. Antral biopsy and H. pylori, C. Random colonic biopsies MICROSCOPIC DIAGNOSIS A. Duodenal biopsy: Small bowel mucosa with no significant pathologic changes. B. Antral biopsy: Gastric mucosa with no significant pathologic changes. Negative for Helicobacter pylori organisms. See comment. C. Random colonic biopsies: Microscopic (collagenous) colitis. See comment. FA:leandro 11/15/18 COMMENT B. The results of immunohistochemistry for Helicobacter pylori will be reported separately ([id number]). C. Special stain for Kathryn's Trichrome is positive for subepithelial increased collagen. Concurrent features of lymphocytic colitis are also seen. Case has been reviewed in consultation with Dr. Perez who concurs with the above diagnosis. IDC:CE MICROSCOPIC DESCRIPTION Slides are reviewed. GROSS DESCRIPTION A - Received in fixative is one container labeled with the patient's name and designated duodenal biopsy. The specimen consists of three pink-hall biopsy fragments measuring up to 2 mm in greatest dimension. The specimen is totally submitted in one cassette. B - Received in fixative is one container labeled with the patient's name and designated antral biopsy and H. pylori. The specimen consists of a single pink-hall biopsy fragment measuring up to 2 mm in greatest dimension. The specimen is totally submitted in one cassette. C - Received in fixative is one container labeled with the patient's name and designated random colonic biopsies. The specimen consists of multiple pink-hall biopsy fragments measuring up to 2 mm in greatest dimension. The specimen is totally submitted in one cassette. / FA:leandro 11/14/18 TC:5 CPT: 54611 x3, 60600
--- NOTE | 2018-11-14 08:58 | OP.ENDO_ITS ---
11/14/2018 Marino Williamson [address] [place] [address] Re : Upper GI endoscopy procedure for Da Dotson Dear Dr. Williamson This procedure was performed on Wednesday, November 14, 2018. My impressions and recommendations are as follows: Impressions : - Z-line regular, 39 cm from the incisors. No specimens collected. - Normal esophagus. - Mucosal changes suspicious for gastritis. Biopsied. - Normal examined duodenum. Biopsied. Recommendations : - Await pathology results. - Repeat upper endoscopy (date not yet determined) for surveillance. - Return to my office in 1 week. - Continue present medications. My findings are described in the full procedure note, which is enclosed. If I can be of further assistance, please feel free to contact me at Doctor phone number(s): , Fax: [phone], Work: . Sincerely, MD Fritz Mcdonald MD 11/14/2018 8:58:29 AM This report has been signed electronically.
--- NOTE | 2018-11-14 09:02 | OP.ENDO_ITS ---
11/14/2018 Marino Williamson [address] [place] [address] Re : Colonoscopy procedure for Da Dotson Dear Dr. Williamson This procedure was performed on Wednesday, November 14, 2018. My impressions and recommendations are as follows: Impressions : - Diverticulosis in the entire examined colon. - Non-bleeding internal hemorrhoids. No specimens collected. - Multiple random biopsies were obtained in the entire colon. Recommendations : - Repeat colonoscopy in 10 years for screening purposes. - Return to my office in 1 week. - Continue present medications. My findings are described in the full procedure note, which is enclosed. If I can be of further assistance, please feel free to contact me at Doctor phone number(s): , Fax: [phone], Work: . Sincerely, MD Fritz Mcdonald MD 11/14/2018 9:02:27 AM This report has been signed electronically.
== END 2018-11-14 09:33 | disposition home or self-care (01) ==
LOC: EN 06:54 → AC 06:56
PROVIDERS: Family Provider Family Medicine; PCP Family Medicine; Referring Provider Family Medicine; Visit Provider Surgery
PROC: 0DJD8ZZ Inspection of Lower Intestinal Tract, Via Natural or Artificial Opening Endoscopic (ICD-10-PCS; CPT 45378; principal; 2018-11-14 08:25)
DX: K52.9 Noninfective gastroenteritis and colitis, unspecified (principal); K57.30 Diverticulosis of large intestine without perforation or abscess without bleeding; R63.4 Abnormal weight loss; K31.89 Other diseases of stomach and duodenum; K62.5 Hemorrhage of anus and rectum; F17.210 Nicotine dependence, cigarettes, uncomplicated; I48.0 Paroxysmal atrial fibrillation; J44.9 Chronic obstructive pulmonary disease, unspecified; G47.33 Obstructive sleep apnea (adult) (pediatric); E78.5 Hyperlipidemia, unspecified; I10 Essential (primary) hypertension; D64.9 Anemia, unspecified; I25.10 Atherosclerotic heart disease of native coronary artery without angina pectoris; Z79.82 Long term (current) use of aspirin
CPT/HCPCS: 43239; 45380; 88305; 88313; 88342; J7120; J1610; J2405

== ENCOUNTER 2018-11-30 18:40 | Emergency (ER) | payer MEDICARE, SELFPAY ==
[2018-11-29 14:13] VITALS: BMI 25.7
[2018-11-30 18:44] VITALS: BP 100/88; PULSE 105; RESP 20; TEMP 36.9; BMI 26.0
[2018-11-30 19:13] VITALS: BP 109/91; PULSE 97; RESP 22
--- NOTE | 2018-11-30 19:20 | EKG12_ITS ---
Test Reason : IRR HR Blood Pressure : / mmHG Vent. Rate : 101 BPM Atrial Rate : 101 BPM P-R Int : 126 ms QRS Dur : 064 ms QT Int : 368 ms P-R-T Axes : 013 -19 007 degrees QTc Int : 477 ms Sinus tachycardia Otherwise normal ECG Confirmed by JANE MCMILLAN, RAJAN ([id number]), associate entertainment editor NANI BUI ([id number]) on 12/02/2018 12:27:19 PM Referred By: ANAIS Confirmed By:BERNY LARA MD
--- NOTE | 2018-11-30 19:25 | RAD_ITS ---
STUDY: X-RAY CHEST REASON FOR EXAM: Female, 73 years old. Palpitations TECHNIQUE: AP portable COMPARISON: October 04, 2018 FINDINGS: Less than optimal inspiratory effort is seen. There is calcified granuloma in right lower lobe.. There is no demonstrated pleural abnormality. Heart is mildly enlarged. Normal mediastinum and neeraj. Normal visualized pulmonary arteries. Normal visualized aortic arch and descending thoracic aorta. Dorsal spine demonstrates scoliosis and degenerative change. There are also postsurgical changes involving the thoracolumbar spine. Normal visualized ribs, clavicles, and shoulders. There is no demonstrated abnormality of the visualized soft tissue structures of the upper abdomen. No significant change since prior study RAD/Chest 1 View (Portable) IMPRESSION: Old granulomatous disease on the right. No acute cardiopulmonary pathology. Electronically Signed: Raf Alcocer MD at 19:45 EDT , Service support ,
[2018-11-30 19:38] LABS: Absolute Lymphocyte Count 1.35 X10^3/ul (0.83-4.51); Absolute Neutrophil Count 6.1 X10^3/uL (2.0-7.7); Basophil# 0.09 X10^3/uL; Eosinophils% 3.4 % (0-5); Hematocrit 42.5 % (37-47); Hemoglobin 13.9 g/dl (12.0-15.0); Lymphocyte # 1.35 X10^3/ul (4.0); Lymphocyte % 15.2 % (19-41); Mean Corp Hgb Conc 32.7 g/gl (32-36); Mean Corpuscular Hgb 33.5 pg (27.0-32.0); Mean Corpuscular Volume 102.4 fL (81-99); Mean Platelet Vol. 9.9 fl (6.2-12.0); Monocyte% 11.3 % (0-10); Neutrophil # 6.11 X10^3/uL (2.7-7.7); Neutrophil % 68.9 % (47-70); Platelet Count 248 K/mm3 (150-450); RBC Distribution Width CV 15.2 % (11.6-14.6); RBC Distribution Width SD 56.2 fl (35.1-43.9); Red Blood Count 4.15 M/mm3 (4.2-5.4); White Blood Count 8.9 K/mm3 (4.4-11.0)
[2018-11-30 19:43] LABS: POSITIVE COUNT NO; POSITIVE DIFFERENTIAL NO; POSITIVE MORPHOLOGY NO
[2018-11-30 19:56] LABS: Prothrombin Time (Protime)PT. 12.5 SECONDS (11.7-14.9)
[2018-11-30 19:58] LABS: Anion Gap 6 (5-15); BUN 7 mg/dL (7-18); BUN/Creat Ratio 6.8 RATIO (10-20); Calcium,Total 8.4 mg/dL (8.5-10.1); Chloride 110 mmol/L (98-107); Creatinine, Serum 1.03 mg/dL (0.55-1.02); EST Glomerular Filtration Rate 56 mL/min (>60); Est Glom Filt Rate - Afr Amer 68 mL/min (>60); Estimated Creatinine Clearance 37.26 ml/min; Glucose 93 mg/dL (74-106); Potassium 3.7 mmol/L (3.5-5.1); Sodium Level 143 mmol/L (136-145)
[2018-11-30 20:03] VITALS: BP 102/57; PULSE 83; RESP 23; O2SAT 96
[2018-11-30] MEDS: Acetaminophen 500 MG Tablet 1000 MG PO (20:18)
--- NOTE | 2018-11-30 20:37 | ED.VISSUMM ---
- ER Visit Summary Date of Service: 11/30/18 Chief Complaint: Palpitations History of Present Illness: The patient is a 73 F history of A. fib recently started on digoxin. Not on anticoagulation due to hemorrhoids that bleed. History of minor CAD. Patient states she is at home the day and without accelerated heart rate as high as 180. She said she checked it again several minutes later it was not improving call her primary care physician's office who sent her to the ER. She was seen by her inspector scales yesterday and was doing well and her primary care physician earlier today. She felt her heart rate was going fast that she might pass out. She had no chest pain. Physical Examination: Older female no acute distress. Current blood pressure 102/57. Current heart rate 83 and regular sinus rhythm. HEENT exam unremarkable. Neck nontender no lymphadenopathy. Lungs clear to auscultation bilaterally. Heart regular rhythm no murmur. Chest wall nontender. Abdomen soft nontender. She is moving all 4 extremities. Calves are nontender without edema or cords. Equal symmetrical radial pulses. Neurologically she is awake alert. Test Results: Chest x-ray showed no acute abnormality chronic changes read by myself the radiologist portable one view. EKG sinus rhythm rate of 101 no acute signs of MA or ischemia. Unchanged from prior EKG. CBC shows a white count 8. Hemoglobin 13. Chemistries are normal. Troponin normal. INR unremarkable. Emergency Department Course and Treatment: Repeat exam patient is doing well. Her current heart rates in the 80s. Sinus. She denies in her friend in the room are all card with her being discharged home. Treatment Plan: Follow-up with her inspector scales. Continue her current medications. Disposition: Discharge Impression: Acute palpitations and tachycardia resolved History of A. fib This note was generated with [employer] dictation software. It may contain incorrect words, spelling, and punctuation that were not noted in review of the chart prior to signing ED Disposition - Plan for ED Patient: Referrals: Marino Williamson MD [Primary Care Provider] -
--- NOTE | 2018-11-30 20:40 | DCINST.ED_ITS ---
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 Varinder Thomas as needed. Continue current medications. Return to the ER if you are feeling worse or develop an accelerated heart rate.
[2018-11-30 20:43] VITALS: BP 126/68; PULSE 87; RESP 20; TEMP 35
== END 2018-11-30 20:50 | disposition home or self-care (01) ==
PROVIDERS: Emergency Provider Emergency Medicine; Family Provider Family Medicine; PCP Family Medicine
DX: R00.2 Palpitations (principal); I48.91 Unspecified atrial fibrillation; R19.7 Diarrhea, unspecified; I25.10 Atherosclerotic heart disease of native coronary artery without angina pectoris; Z72.0 Tobacco use
CPT/HCPCS: 71045; 80048; 84484; 85025; 85610; 93005; 99285; A4216

== ENCOUNTER → 2019-01-13 14:58 | Outpatient (CLI) | payer MEDICARE, SELFPAY ==
[2019-01-12 14:26] VITALS: BMI 26.0
[2019-01-13 15:47] LABS: Absolute Lymphocyte Count 1.21 X10^3/uL (0.83-4.51); Absolute Neutrophil Count 3.5 X10^3/uL (2.0-7.7); Basophil% 1.7 % (0-1); Eosinophil# 0.31 X10^3/uL; Eosinophils% 5.1 % (0-5); Hematocrit 39.9 % (37-47); Hemoglobin 12.7 g/dL (12.0-15.0); Lymphocyte # 1.21 X10^3/ul (4.0); Lymphocyte % 20.1 % (19-41); Mean Corp Hgb Conc 31.8 g/dL (32-36); Mean Corpuscular Hgb 33.5 pg (27.0-32.0); Mean Corpuscular Volume 105.3 fL (81-99); Mean Platelet Vol. 9.7 fl (6.2-12.0); Monocyte# 0.85 X10^3/uL; Monocyte% 14.1 % (0-10); NRBC Flagged by Analyzer 0 % (0-5); Neutrophil # 3.54 X10^3/uL (2.7-7.7); Neutrophil % 58.7 % (47-70); Platelet Count 230 K/mm3 (150-450); RBC Distribution Width CV 14.7 % (11.6-14.6); RBC Distribution Width SD 57.4 fl (35.1-43.9); Red Blood Count 3.79 M/mm3 (4.2-5.4)
[2019-01-13 16:32] LABS: ALB/GLOB Ratio 0.8 RATIO (0.9-2.4); AST(SGOT) 27 U/L (15-37); Alanine Aminotransfer ALT/SGPT 25 U/L (13-56); Albumin, Serum 2.7 g/dL (3.2-5.0); Alkaline Phosphatase 90 U/L (45-117); Anion Gap 7 (5-15); BUN 8 mg/dL (7-18); BUN/Creat Ratio 9.1 RATIO (10-20); Calcium,Total 7.6 mg/dL (8.5-10.1); Chloride 112 mmol/L (98-107); Cholesterol 157 mg/dL (200); Creatinine, Serum 0.88 mg/dL (0.55-1.02); EST Glomerular Filtration Rate 67 mL/min (>60); Est Glom Filt Rate - Afr Amer 81 mL/min (>60); Globulin 3.5 g/dL (2.2-4.2); Glucose 80 mg/dL (74-106); High Density Lipoprotein 69 mg/dL; Magnesium 2.1 mg/dL (1.6-2.6); Potassium 4.4 mmol/L (3.5-5.1); Protein, Total 6.2 g/dL (6.4-8.2); Sodium Level 145 mmol/L (136-145); Thyroid Stim Hormone (TSH) 6.55 uIU/mL (0.358-3.74); Triglycerides 98 mg/dL; Very Low Density Lipoprotein 20 mg/dL (5-40)
[2019-01-13 16:34] LABS: Vitamin B12 416 pg/mL (211-911); Vitamin D,25 Hydroxy 56.7 ng/mL (29.95-100.01)
== END ==
PROVIDERS: Family Provider Family Medicine; PCP Family Medicine; Referring Provider Family Medicine; Visit Provider Family Medicine
DX: E55.9 Vitamin D deficiency, unspecified (principal); R53.83 Other fatigue; E78.5 Hyperlipidemia, unspecified; I48.0 Paroxysmal atrial fibrillation
CPT/HCPCS: 36415; 80053; 80061; 82306; 82607; 83735; 84443; 85025

== ENCOUNTER → 2019-01-18 10:19 | Outpatient (CLI) | payer MEDICARE, SELFPAY ==
[2019-01-12 13:57] VITALS: BMI 26.0
[2019-01-12 14:26] VITALS: BMI 26.0
--- NOTE | 2019-01-18 10:22 | US_ITS ---
STUDY: ABDOMINAL ULTRASOUND - RIGHT UPPER QUADRANT REASON FOR VISIT: Female, 73 years old. Biliary colic and epigastric pain x3 months TECHNIQUE: Ultrasound evaluation of the right upper quadrant was performed with real-time and static raines-scale imaging. TECHNICAL QUALITY: Limited. Examination limited by bowel gas. COMPARISON: None. FINDINGS: Liver: The liver measures 13.6 cm. There is normal echogenicity of the liver. The bile ducts are within normal limits. There is hepatic color flow. The direction of portal flow is hepatopetal. There is no demonstrated mass lesion. Gallbladder: Normal distended gallbladder. The gallbladder wall measures 2.6 mm. There is a negative sonographic Guadarrama's sign. There is no pericholecystic fluid. There are no gallstones. Common Bile Duct (C.B.D.): The common bile duct measures 6.5 mm. Pancreas: There is nonvisualization of the pancreas. Right Kidney: Normal size of the right kidney. The right kidney measures 8.6 cm. Normal renal cortex. The right cortex measures 1.8 cm. There is no demonstrated renal mass or cyst. There is no right hydronephrosis. There are 2 identified nonobstructing right renal stones, largest of which measures 4 mm US/Abdomen Limited IMPRESSION: Grossly unremarkable, bladder and common bile duct. Nonobstructing right-sided nephroliths. Nonvisualized pancreas. Electronically Signed: Sebastian Wick DO at 13:53 EDT Tel , Service support ,
[2019-01-18 14:40] LABS: T4 Free Direct 0.81 ng/dL (0.76-1.46)
[2019-01-20 13:05] LABS: Anti-Thyroglobulin AB < 1.0 IU/mL (0.0-0.9); Thyroglobulin, Serum Qt. 31.6 ng/mL (1.5-38.5); Thyroid Peroxidase AB 8 IU/mL (0-34)
== END ==
PROVIDERS: Family Provider Family Medicine; PCP Family Medicine; Referring Provider Surgery; Visit Provider Surgery
DX: R79.89 Other specified abnormal findings of blood chemistry (principal); K80.50 Calculus of bile duct without cholangitis or cholecystitis without obstruction; I10 Essential (primary) hypertension
CPT/HCPCS: 36415; 76705; 84432; 84439; 86376; 86800

== ENCOUNTER → 2019-01-20 12:11 | Outpatient (CLI) | payer MEDICARE, SELFPAY ==
[2019-01-12 13:57] VITALS: BMI 26.0
[2019-01-12 14:26] VITALS: BMI 26.0
--- NOTE | 2019-01-20 12:13 | NM_ITS ---
CLINICAL: 73-year-old female with reported history of abdominal pain. RADIONUCLIDE HEPATOBILIARY SCINTIGRAPHY COMPARISON: Abdominal ultrasound report 01/18/2019 FINDINGS: Following the intravenous administration of 4.8 mCi of 99m Tc Mebrofenin, hepatobiliary images reveal: 1. Relatively prompt and homogeneous radiopharmaceutical concentration is noted by a normal sized liver. No parenchymal defects are identified. 2. Gallbladder activity is identified at 30 minutes post radiopharmaceutical administration. 3. Small intestinal tract is not visualized during 60 minutes of pre-CCK sequential imaging. Small bowel activity is identified following the administration of cholecystokinin. 4. Washout of the radiopharmaceutical by the hepatic parenchyma appears qualitatively normal. Cholecystokinin (0.02 ug/kg) was administered intravenously over a 30-minute period. The post CCK gallbladder ejection fraction calculated at 20 minutes following Cholecystokinin administration was noted to be 66.0 % (normal greater than 35%). During 30 minutes of post CCK imaging, there is no scintigraphic evidence of reflux of the radiotracer into the common hepatic duct or refilling of the gallbladder. NM/Hepatobilliary Img w/Pharm Int IMPRESSION: 1. NORMAL 99m Tc Mebrofenin hepatobiliary imaging examination with Cholecystokinin. A. A gallbladder ejection fraction calculated to be greater than 35% following the administration of Cholecystokinin makes the probability of functional hepatobiliary disease (gallbladder and/or sphincter of Oddi dyskinesia) and/or organic hepatobiliary disease (chronic acalculous cholecystitis and/or cystic duct syndrome) to be low. (Aida Gaitan et al, Journal of Nuclear Medicine 32:1695, 1990). Electronically Signed: Pablito Desai DO at 8:05 EDT Tel , Service support ,
== END ==
PROVIDERS: Family Provider Family Medicine; PCP Family Medicine; Referring Provider Surgery; Visit Provider Surgery
DX: K80.50 Calculus of bile duct without cholangitis or cholecystitis without obstruction (principal); R10.13 Epigastric pain
CPT/HCPCS: 78227; A9537

== ENCOUNTER → 2019-05-05 14:01 | Outpatient (CLI) | payer MEDICARE, SELFPAY ==
[2019-01-12 14:26] VITALS: BMI 26.0
[2019-05-05 15:30] LABS: Absolute Lymphocyte Count 1.01 X10^3/uL (0.83-4.51); Absolute Neutrophil Count 5.2 X10^3/uL (2.0-7.7); Basophil# 0.06 X10^3/uL; Basophil% 0.8 % (0-1); Eosinophil# 0.19 X10^3/uL; Eosinophils% 2.6 % (0-5); Hematocrit 41.8 % (37-47); Hemoglobin 13.6 g/dL (12.0-15.0); Lymphocyte # 1.01 X10^3/ul (4.0); Lymphocyte % 13.8 % (19-41); Mean Corp Hgb Conc 32.5 g/dL (32-36); Mean Corpuscular Hgb 34.3 pg (27.0-32.0); Mean Corpuscular Volume 105.6 fL (81-99); Mean Platelet Vol. 10.1 fl (6.2-12.0); Monocyte# 0.83 X10^3/uL; Monocyte% 11.3 % (0-10); NRBC Flagged by Analyzer 0 % (0-5); Neutrophil % 71.1 % (47-70); Platelet Count 213 K/mm3 (150-450); RBC Distribution Width CV 14.7 % (11.6-14.6); RBC Distribution Width SD 58.2 fl (35.1-43.9); Red Blood Count 3.96 M/mm3 (4.2-5.4); White Blood Count 7.3 K/mm3 (4.4-11.0)
[2019-05-05 15:48] LABS: Vitamin D,25 Hydroxy 42.6 ng/mL (29.95-100.01)
[2019-05-05 15:50] LABS: ALB/GLOB Ratio 0.8 RATIO (0.9-2.4); AST(SGOT) 28 U/L (15-37); Alanine Aminotransfer ALT/SGPT 27 U/L (13-56); Albumin, Serum 3.1 g/dL (3.2-5.0); Alkaline Phosphatase 121 U/L (45-117); Anion Gap 3 (5-15); BUN 10 mg/dL (7-18); Calcium,Total 7.5 mg/dL (8.5-10.1); Chloride 106 mmol/L (98-107); Cholesterol 163 mg/dL (200); Creatinine, Serum 1.11 mg/dL (0.55-1.02); EST Glomerular Filtration Rate 51 mL/min (>60); Est Glom Filt Rate - Afr Amer 62 mL/min (>60); Globulin 3.7 g/dL (2.2-4.2); Glucose 96 mg/dL (74-106); High Density Lipoprotein 99 mg/dL; Magnesium 2.3 mg/dL (1.6-2.6); Potassium 4.7 mmol/L (3.5-5.1); Protein, Total 6.8 g/dL (6.4-8.2); Sodium Level 137 mmol/L (136-145); T4 Free Direct 0.83 ng/dL (0.76-1.46); Triglycerides 104 mg/dL; Very Low Density Lipoprotein 21 mg/dL (5-40)
== END ==
PROVIDERS: Family Provider Family Medicine; PCP Family Medicine; Referring Provider Family Medicine; Visit Provider Family Medicine
DX: I48.0 Paroxysmal atrial fibrillation (principal); E78.5 Hyperlipidemia, unspecified; E03.9 Hypothyroidism, unspecified; E55.9 Vitamin D deficiency, unspecified
CPT/HCPCS: 36415; 80053; 80061; 82306; 83735; 84439; 84443; 85025

== ENCOUNTER → 2019-05-18 14:49 | Outpatient (CLI) | payer MEDICARE, SELFPAY ==
[2019-01-12 14:26] VITALS: BMI 26.0
[2019-05-18 16:11] LABS: Anion Gap 4 (5-15); BUN 13 mg/dL (7-18); BUN/Creat Ratio 11.2 RATIO (10-20); Calcium,Total 7.6 mg/dL (8.5-10.1); Chloride 106 mmol/L (98-107); Creatinine, Serum 1.16 mg/dL (0.55-1.02); EST Glomerular Filtration Rate 49 mL/min (>60); Est Glom Filt Rate - Afr Amer 59 mL/min (>60); Glucose 90 mg/dL (74-106); Potassium 4.2 mmol/L (3.5-5.1); Sodium Level 138 mmol/L (136-145)
[2019-05-22 15:40] LABS: Thyroglobulin Antibody < 1.0 IU/mL (0.0-0.9); Thyroid Peroxidase AB 12 IU/mL (0-34)
== END ==
PROVIDERS: Family Provider Family Medicine; PCP Family Medicine; Visit Provider Family Medicine
DX: E01.0 Iodine-deficiency related diffuse (endemic) goiter (principal); R94.4 Abnormal results of kidney function studies
CPT/HCPCS: 36415; 80048; 86376; 86800

== ENCOUNTER → 2019-05-19 15:27 | Outpatient (CLI) | payer MEDICARE, SELFPAY ==
[2019-01-12 14:26] VITALS: BMI 26.0
[2019-05-18 16:02] VITALS: BMI 26.0
--- NOTE | 2019-05-19 15:31 | US_ITS ---
STUDY: THYROID ULTRASOUND REASON FOR EXAM: Female, 73 years old. THYROMEGALY ---SORENESS TECHNIQUE: Ultrasound evaluation of the thyroid was performed with real-time and static raines-scale imaging. COMPARISON: None. FINDINGS: RIGHT LOBE: The right lobe of the thyroid gland measures 3.9 x 1.6 x 1.3 cm. There is a heterogeneous echotexture. Hypoechoic nodule (TIRADS 4) of the right thyroid lobe measures 9 x 8 x 7 mm without microcalcifications. LEFT LOBE: The left lobe of the thyroid gland measures 3.7 x 1.2 x 1.3 cm. There is a heterogeneous echotexture. Hypoechoic nodule (TIRADS 4) of the left thyroid lobe measures 1.2 x 0.8 x 0.8 cm without microcalcifications. 3 mm nearly anechoic cyst of the inferior to mid left thyroid lobe also demonstrated. ISTHMUS: The isthmus measures 5 mm. The regional lymph nodes are normal. US/Thyroid IMPRESSION: Bilateral thyroid nodules. Follow-up ultrasound in one year recommended. Electronically Signed: Jonathan Au MD ([place]) at 17:11 EST , Service support ,
--- NOTE | 2019-05-19 15:31 | CT_ITS ---
STUDY: LOW DOSE CT LUNG CANCER SCREENING REASON FOR EXAM: Female, 73 years old. NICOTINE ABUSE, SCREENING. SMOKER 1 PPD X 56 YEARS. H/O COPD. RADIATION DOSAGE (If Supplied By Facility): CTDIvol = ( 2.01 ) mGy, DLP = ( 65.70 ) mGycm TECHNIQUE: No contrast was administered. Low dose technique was utilized (average mAS-38 and kVp 120). 1.25 mm axial source images with a slice interval of 1.25-mm were reconstructed in lung windows. 2.5 mm axial source images with a slice interval of 2.5-mm were reconstructed in lung windows. 5.0 mm axial source images with a slice interval of 5.0-mm were reconstructed in soft tissue windows. Nodule measured using lung windows on PACS and/or independent workstation with automated measurement of minimum and maximum diameter. Nodule measurement reported as average diameter rounded to the nearest whole number. Growth is defined as an increase ins size of greater than 1.5 mm. COMPARISON: CTA chest 09/21/2018 NODULES: No noncalcified pulmonary nodules. Minimal fibrotic scarring in the lung bases. There is a calcified granuloma in the right middle lobe. Tiny granuloma in the lateral left lower lobe. Total lung nodules (excluding granulomas): 0 Emphysema: Not significant Endobronchial lesion: None Aorta: Atherosclerosis and tortuosity. Coronary arteries: Coronary artery atherosclerosis. Heart: Normal size Pulmonary artery: Unremarkable for unopacified technique. Mediastinal nodes: There are calcified mediastinal and right hilar lymph nodes. Other chest and abdominal findings: There are degenerative changes of the thoracic spine with fusion hardware present. Prior vertebral augmentation of mid thoracic and upper lumbar vertebral bodies. Fusion hardware of the lumbar spine partially visualized. There is exaggerated thoracic kyphosis. Chronic compression fractures noted, stable. CT/Low Dose CT Lung Screening IMPRESSION: Lung-RADS category 1 - Continue annual screening with LDCT in 12 months. IMPORTANT NOTES FOR USE: ACR Lung-RADS Version 1.0 Assessment Categories Release Date: September 18, 2013 Category: Coded 0-4 bases on nodule(s) with highest degree of suspicion. Negative screen is defined as categories 1 and 2; a positive screen is defined as categories 3 and 4. Category 3 and 4A nodules that are unchanged on interval CT should be coded as category 2, and individuals returned to screening in 12 months. Category 4X: Category 3 or 4 nodules with additional imaging findings that increase the suspicion of lung cancer, such as spiculation, GGN that doubles in size in 1 year, enlarged lymph notes, etc. Category Modifiers: S (significant finding unrelated to lung cancer) and C (prior history of treated lung cancer) may be added to the 0-4 Lung-RADS Electronically Signed: Jonathan Au MD (Brooks) at 17:52 EST , Service support ,
== END ==
PROVIDERS: Family Provider Family Medicine; PCP Family Medicine; Referring Provider Family Medicine; Visit Provider Family Medicine
DX: E01.0 Iodine-deficiency related diffuse (endemic) goiter (principal); F17.210 Nicotine dependence, cigarettes, uncomplicated; Z12.2 Encounter for screening for malignant neoplasm of respiratory organs
CPT/HCPCS: 76536; G0297

== ENCOUNTER → 2019-05-31 14:01 | Outpatient (CLI) | payer MEDICARE, SELFPAY ==
[2019-05-22 12:41] VITALS: BMI 26.0
[2019-05-31 16:02] LABS: Anion Gap 6 (5-15); BUN 11 mg/dL (7-18); BUN/Creat Ratio 9.7 RATIO (10-20); Calcium,Total 8.1 mg/dL (8.5-10.1); Chloride 106 mmol/L (98-107); Creatinine, Serum 1.13 mg/dL (0.55-1.02); EST Glomerular Filtration Rate 50 mL/min (>60); Est Glom Filt Rate - Afr Amer 61 mL/min (>60); Glucose 81 mg/dL (74-106); Potassium 4.8 mmol/L (3.5-5.1); Sodium Level 139 mmol/L (136-145)
== END ==
PROVIDERS: Family Provider Family Medicine; PCP Family Medicine; Referring Provider Family Medicine; Visit Provider Family Medicine
DX: R94.4 Abnormal results of kidney function studies (principal)
CPT/HCPCS: 36415; 80048

== ENCOUNTER → 2019-07-11 15:31 | Outpatient (CLI) | payer MEDICARE, SELFPAY ==
[2019-05-31 18:07] VITALS: BMI 26.0
[2019-07-11 17:55] LABS: Anion Gap 6 (5-15); BUN 12 mg/dL (7-18); BUN/Creat Ratio 9.8 RATIO (10-20); Calcium,Total 8.6 mg/dL (8.5-10.1); Chloride 106 mmol/L (98-107); Creatinine, Serum 1.22 mg/dL (0.55-1.02); EST Glomerular Filtration Rate 46 mL/min (>60); Est Glom Filt Rate - Afr Amer 56 mL/min (>60); Glucose 100 mg/dL (74-106); Potassium 4.5 mmol/L (3.5-5.1); Sodium Level 139 mmol/L (136-145)
== END ==
PROVIDERS: PCP Family Medicine; Visit Provider Family Medicine
DX: R94.4 Abnormal results of kidney function studies (principal)
CPT/HCPCS: 36415; 80048

== ENCOUNTER → 2019-08-24 13:54 | Outpatient (CLI) | payer MEDICARE, MEDICAID, SELFPAY ==
[2019-05-31 18:07] VITALS: BMI 26.0
[2019-08-24 15:17] LABS: PTHIN 48.5 pg/mL (18.4-80.1)
[2019-08-24 15:21] LABS: Vitamin D,25 Hydroxy 59.9 ng/mL
[2019-08-24 15:32] LABS: ALB/GLOB Ratio 0.9 RATIO (0.9-2.4); AST(SGOT) 36 U/L (15-37); Alanine Aminotransfer ALT/SGPT 30 U/L (13-56); Albumin, Serum 3.1 g/dL (3.2-5.0); Alkaline Phosphatase 125 U/L (45-117); Anion Gap 8 (5-15); BUN 12 mg/dL (7-18); BUN/Creat Ratio 10.3 RATIO (10-20); Calcium,Total 8.2 mg/dL (8.5-10.1); Chloride 101 mmol/L (98-107); Cholesterol 157 mg/dL (200); Creatinine, Serum 1.16 mg/dL (0.55-1.02); EST Glomerular Filtration Rate 49 mL/min (>60); Est Glom Filt Rate - Afr Amer 59 mL/min (>60); Globulin 3.6 g/dL (2.2-4.2); Glucose 77 mg/dL (74-106); High Density Lipoprotein 85 mg/dL; Magnesium 2.1 mg/dL (1.6-2.6); Phosphorus 3.6 mg/dL (2.5-4.9); Potassium 4.3 mmol/L (3.5-5.1); Protein, Total 6.7 g/dL (6.4-8.2); Sodium Level 133 mmol/L (136-145); T4 Free Direct 1.08 ng/dL (0.76-1.46); Thyroid Stim Hormone (TSH) 1.35 uIU/mL (0.358-3.74); Triglycerides 87 mg/dL; Very Low Density Lipoprotein 17 mg/dL (5-40)
== END ==
PROVIDERS: PCP Family Medicine; Referring Provider Family Medicine; Visit Provider Family Medicine
DX: M81.0 Age-related osteoporosis without current pathological fracture (principal); E03.9 Hypothyroidism, unspecified; Z98.890 Other specified postprocedural states; E78.5 Hyperlipidemia, unspecified; I48.0 Paroxysmal atrial fibrillation
CPT/HCPCS: 36415; 80053; 80061; 82306; 83735; 83970; 84100; 84439; 84443

== ENCOUNTER → 2019-10-05 15:02 | Outpatient (CLI) | payer MEDICARE, MEDICAID, SELFPAY ==
[2019-05-31 18:07] VITALS: BMI 26.0
--- NOTE | 2019-10-05 15:06 | RAD_ITS ---
STUDY: X-RAY - FACIAL BONES REASON FOR STUDY: Female, 74 years old. Fell in June, right side face and jaw pain TECHNIQUE: 3 view(s) of the facial bones. COMPARISON: None. FINDINGS: Normal bilateral frontozygomatic and zygomatic-temporal arches. Normal bilateral medial and inferior orbital aguilar. Normal bilateral orbits. Normal visualized nasal bones. Normal anterior nasal spine. The remaining visualized osseous structures are normal. Normal visualized paranasal sinuses. RAD/Facial Bones min 3 Views IMPRESSION: Normal x-ray examination of the facial bones. Electronically Signed: Fco Eric, at 15:42 EDT , Service support ,
[2019-10-05 18:24] LABS: Erythrocyte Sedimentation Rate 27 mm/hr (0-30)
== END ==
PROVIDERS: PCP Family Medicine; Referring Provider Family Medicine; Visit Provider Family Medicine
DX: R68.84 Jaw pain (principal)
CPT/HCPCS: 36415; 70150; 85652

== ENCOUNTER → 2019-10-18 14:55 | Outpatient (CLI) | payer MEDICARE, MEDICAID, SELFPAY ==
[2019-05-31 18:07] VITALS: BMI 26.0
--- NOTE | 2019-10-18 15:03 | CT_ITS ---
STUDY: CT FACIAL BONES WITHOUT CONTRAST REASON FOR EXAM: Female, 74 years old. FACIAL TRAUMA, FALL JUN 2019, RT SIDE JAW AREA RADIATION DOSAGE (If Supplied By Facility): CTDIvol = ( 29.38 ) mGy, DLP = ( 547.46 ) mGycm TECHNIQUE: The patient was scanned in a multi detector CT scanner. Sagittal and coronal images were reconstructed. Individualized dose optimization techniques were used for this CT. COMPARISON: None. FINDINGS: There are peripheral calcifications of the carotid bulb consistent with atherosclerosis. Normal orbital aguilar and orbital contents. Normal nasal bones and anterior nasal spine. Normal facial bones. There is no demonstrated fracture. There is mild opacification of the ethmoid and maxillary sinuses. There are degenerative changes of the visualized cervical spine. CT/Sinus/Facial Bone IMPRESSION: No osseous injuries. Mild opacification of the ethmoid and maxillary sinuses consistent with a history of sinusitis. Atherosclerosis. Degenerative changes of the visualized cervical spine. Electronically Signed: Ginny Montes De Oca MD at 15:33 EDT Tel , Service support ,
== END ==
PROVIDERS: PCP Family Medicine; Referring Provider Family Medicine; Visit Provider Family Medicine
DX: S09.93XA Unspecified injury of face, initial encounter (principal)
CPT/HCPCS: 70486

== ENCOUNTER → 2020-02-21 | Outpatient (CLI) | payer MEDICARE, SELFPAY ==
[2019-05-31 18:07] VITALS: BMI 26.0
[2020-02-21 17:37] LABS: Absolute Lymphocyte Count 1.34 X10^3/uL (0.83-4.51); Absolute Neutrophil Count 6.2 X10^3/uL (2.0-7.7); Basophil# 0.09 X10^3/uL; Eosinophil# 0.41 X10^3/uL; Eosinophils% 4.6 % (0-5); Hematocrit 40.3 % (37-47); Hemoglobin 12.3 g/dL (12.0-15.0); Lymphocyte # 1.34 X10^3/ul (4.0); Lymphocyte % 15.1 % (19-41); Mean Corp Hgb Conc 30.5 g/dL (32-36); Mean Corpuscular Hgb 29.7 pg (27.0-32.0); Mean Corpuscular Volume 97.3 fL (81-99); Mean Platelet Vol. 10.1 fl (6.2-12.0); Monocyte# 0.83 X10^3/uL; Monocyte% 9.4 % (0-10); NRBC Flagged by Analyzer 0 % (0-5); Neutrophil # 6.17 X10^3/uL (2.7-7.7); Neutrophil % 69.6 % (47-70); Platelet Count 248 K/mm3 (150-450); RBC Distribution Width CV 16.4 % (11.6-14.6); RBC Distribution Width SD 58.4 fl (35.1-43.9); Red Blood Count 4.14 M/mm3 (4.2-5.4); White Blood Count 8.9 K/mm3 (4.4-11.0)
[2020-02-21 17:48] LABS: Vitamin D,25 Hydroxy 63.4 ng/mL
[2020-02-21 18:08] LABS: ALB/GLOB Ratio 0.9 RATIO (0.9-2.4); AST(SGOT) 22 U/L (15-37); Alanine Aminotransfer ALT/SGPT 18 U/L (13-56); Albumin, Serum 3.3 g/dL (3.2-5.0); Alkaline Phosphatase 114 U/L (45-117); Anion Gap 6 (5-15); BUN 15 mg/dL (7-18); BUN/Creat Ratio 12.8 RATIO (10-20); Calcium,Total 8.4 mg/dL (8.5-10.1); Chloride 109 mmol/L (98-107); Cholesterol 141 mg/dL (200); Creatinine, Serum 1.17 mg/dL (0.55-1.02); EST Glomerular Filtration Rate 48 mL/min (>60); Est Glom Filt Rate - Afr Amer 58 mL/min (>60); Globulin 3.7 g/dL (2.2-4.2); Glucose 94 mg/dL (74-106); High Density Lipoprotein 64 mg/dL; Magnesium 2.1 mg/dL (1.6-2.6); Potassium 3.9 mmol/L (3.5-5.1); Sodium Level 140 mmol/L (136-145); T4 Free Direct 0.93 ng/dL (0.76-1.46); Thyroid Stim Hormone (TSH) 2.39 uIU/mL (0.358-3.74); Triglycerides 116 mg/dL; Very Low Density Lipoprotein 23 mg/dL (5-40)
== END | disposition home or self-care (01) ==
LOC: MFPLAB 16:06
PROVIDERS: PCP Family Medicine; Referring Provider Family Medicine; Visit Provider Family Medicine
DX: I48.0 Paroxysmal atrial fibrillation (principal); E78.5 Hyperlipidemia, unspecified; E03.9 Hypothyroidism, unspecified; E55.9 Vitamin D deficiency, unspecified
CPT/HCPCS: 36415; 80053; 80061; 82306; 83735; 84439; 84443; 85025

== ENCOUNTER → 2020-02-29 08:41 | Outpatient (CLI) | payer MEDICARE, MEDICAID, SELFPAY ==
[2019-05-31 18:07] VITALS: BMI 26.0
--- NOTE | 2020-02-29 08:44 | US_ITS ---
HISTORY: NODULES COMPARISON: 05/19/2019 TECHNIQUE: Grayscale and color Doppler sonography of the thyroid gland. FINDINGS: RIGHT LOBE: 3.9 x 1.1 x 1.7 cm LEFT LOBE: 3.3 x 1.0 x 1.2 cm ISTHMUS: 3.3 mm Diffusely heterogeneous thyroid. Vascularity appears normal. Multiple thyroid nodules as follows: Nodule in the right mid thyroid lobe measuring 1.5 x 0.7 x 1.4 cm (previously 0.9 x 0.7 x 0.8 cm) is solid, hypoechoic, smooth margins, wider than tall with no calcification. TIRADS 4. Nodule in the right mid thyroid lobe measuring 0.5 x 0.2 x 0.4 cm there is solid, hypoechoic, smoothly marginated, wider than tall with no calcification. TIRADS 4. This is not definitely seen previously. Nodule in the left thyroid lobe measuring 1.1 x 0.5 x 0.9 cm is solid, hypoechoic, smoothly marginated, wider than tall without calcification. TIRADS 4. 3 mm left thyroid lobe cyst. US/Thyroid IMPRESSION: Solid bilateral thyroid nodules, as described. The largest nodule on the right has increased in size. FNA suggested. at 0606 Reported and signed by: Janna Reynolds MD Electronically Signed: Janna Reynolds MD at 6:06 EDT Tel , Service support ,
== END ==
PROVIDERS: PCP Family Medicine; Referring Provider Family Medicine; Visit Provider Family Medicine
DX: E04.2 Nontoxic multinodular goiter (principal)
CPT/HCPCS: 76536

== ENCOUNTER → 2020-03-20 13:15 | Outpatient (CLI) | payer MEDICARE, MEDICAID, SELFPAY ==
--- NOTE | 2020-03-20 13:15 | ASPS_PTH ---
PATIENT: PAULINO LOPEZ LOC: [facility] U#:[id number] AGE/SX: 79/F ROOM: RE03/20/[address]: Dr. Francisco Leigh MD : 1945 BED: DIS: SPEC #: [id number] RECD: 03/21/20 06:49 STATUS: CAM REConstantine #: [id number] KEARA: 03/20/20 13:[address]: Francisco Leigh DEPT: CYTOLOGY RECD BY: Johnathan Webb ENTERED: 03/21/20 11:00 SP TYPE: ASPIRATION OTHR DR: Dr. Marino Williamson MD Tissues: A - Thyroid gland, NOS B - Thyroid gland, NOS Procedures: Special Stain Group II Cytology Other HEADER OPERATION: Bilateral thyroid FNA PRE-OP DIAGNOSIS: Bilateral thyroid nodules TISSUE SUBMITTED: A - Right thyroid nodules 4 slides, B - Left thyroid nodules 6 slides DIAGNOSIS CYTOLOGY A. Right thyroid nodule, FNA (smears): Consistent with benign follicular nodule. Adequate for evaluation. See comment. B. Left thyroid nodule, FNA (smears): Nondiagnostic specimen due to lack of adequate number of follicular cells. See comment. SJ:rg 03/21/20 COMMENT A. The specimen is paucicellular, however, meets the minimal criteria for adequacy. Fragments of fibrous and skeletal muscle tissue are also noted. B. A few fragments of fibrous tissue are noted. Correlation with clinical, radiologic findings and appropriate follow up are necessary. CYTOLOGY STUDY Slides are reviewed. CYTOLOGY GROSS A - Received are four smears labeled with the patient's name and designated per the requisition as right thyroid nodules. Submitted for staining. B - Received are six smears labeled with the patient's name and designated per the requisition as left thyroid nodules. Submitted for staining. / leandro 03/21/20 TC:5 CPT: 33467 x2
[2020-03-20 13:20] VITALS: BMI 27.0
== END ==
PROVIDERS: PCP Family Medicine; Visit Provider Surgery
DX: E04.2 Nontoxic multinodular goiter (principal)
CPT/HCPCS: 88161; 88313

== ENCOUNTER → 2020-03-21 10:48 | Outpatient (CLI) | payer MEDICARE, MEDICAID, SELFPAY ==
[2020-03-20 13:20] VITALS: BMI 27.0
== END ==
PROVIDERS: PCP Family Medicine; Visit Provider Surgery
DX: E04.1 Nontoxic single thyroid nodule (principal)

== ENCOUNTER → 2020-06-13 15:47 | Outpatient (CLI) | payer MEDICARE, MEDICAID, SELFPAY ==
[2020-03-20 13:20] VITALS: BMI 27.0
[2020-06-13 15:52] LABS: Bacteria 0 SEEN /hpf (None Seen); Mucous, Urine 0 SEEN /hpf (<or=2+); Red Blood Cells-Urine 0 SEEN /hpf (0-5)
[2020-06-13 17:29] LABS: Color, Urine Yellow (Yellow); Glucose, Dipstick Normal (Normal); Ketone-Dipstick 5 mg/dl (Negative); Leukocyte Esterase-Dipstick 25 /ul (Negative); Nitrite-Dipstick Negative (Negative); Occult Blood-Urine Negative /ul (Negative); Protein-Dipstick 15 mg/dl (Negative); Specific Gravity, Urine 1.015 (1.002-1.030); Urine Bilirubin Dipstick Negative (Negative); Urine Clarity Clear (Clear); Urine Urobilinogen Normal (Normal)
[2020-06-13 17:31] LABS: Absolute Lymphocyte Count 1.14 X10^3/uL (0.83-4.51); Absolute Neutrophil Count 6.9 X10^3/uL (2.0-7.7); Basophil# 0.12 X10^3/uL; Basophil% 1.3 % (0-1); Eosinophil# 0.46 X10^3/uL; Eosinophils% 4.9 % (0-5); Hematocrit 39.9 % (37-47); Lymphocyte # 1.14 X10^3/ul (4.0); Lymphocyte % 12.2 % (19-41); Mean Corp Hgb Conc 30.1 g/dL (32-36); Mean Corpuscular Hgb 28.8 pg (27.0-32.0); Mean Corpuscular Volume 95.9 fL (81-99); Mean Platelet Vol. 10.9 fl (6.2-12.0); Monocyte# 0.75 X10^3/uL; NRBC Flagged by Analyzer 0 % (0-5); Neutrophil # 6.87 X10^3/uL (2.7-7.7); Neutrophil % 73.2 % (47-70); Platelet Count 205 K/mm3 (150-450); RBC Distribution Width CV 16.2 % (11.6-14.6); RBC Distribution Width SD 56.8 fl (35.1-43.9); Red Blood Count 4.16 M/mm3 (4.2-5.4); White Blood Count 9.4 K/mm3 (4.4-11.0)
[2020-06-13 17:43] LABS: Squamous Epithelial Cells - UA 0-5 SEEN /hpf (5-10); White Blood Cells 0-5 SEEN /hpf (0-5)
[2020-06-13 17:45] LABS: Protein, Urine (Random) 32.7 mg/dL (<11.9); Protein:Creat Ratio 229 mg/g CRE (0-200)
[2020-06-13 18:13] LABS: Vitamin D,25 Hydroxy 41.5 ng/mL
[2020-06-13 18:29] LABS: ALB/GLOB Ratio 0.9 RATIO (0.9-2.4); AST(SGOT) 29 U/L (15-37); Alanine Aminotransfer ALT/SGPT 32 U/L (13-56); Albumin, Serum 3.3 g/dL (3.2-5.0); Alkaline Phosphatase 116 U/L (45-117); Anion Gap 3 (5-15); BUN 24 mg/dL (7-18); BUN/Creat Ratio 21.2 RATIO (10-20); Calcium,Total 8.1 mg/dL (8.5-10.1); Chloride 113 mmol/L (98-107); Cholesterol 156 mg/dL (200); Creatinine, Serum 1.13 mg/dL (0.55-1.02); EST Glomerular Filtration Rate 50 mL/min (>60); Est Glom Filt Rate - Afr Amer 61 mL/min (>60); Globulin 3.7 g/dL (2.2-4.2); Glucose 71 mg/dL (74-106); High Density Lipoprotein 68 mg/dL; Magnesium 2.4 mg/dL (1.6-2.6); Phosphorus 2.8 mg/dL (2.5-4.9); Potassium 4.4 mmol/L (3.5-5.1); Sodium Level 140 mmol/L (136-145); T4 Free Direct 1.07 ng/dL (0.76-1.46); Thyroid Stim Hormone (TSH) 2.02 uIU/mL (0.358-3.74); Triglycerides 144 mg/dL; Very Low Density Lipoprotein 29 mg/dL (5-40)
[2020-06-14 08:08] LABS: PTHIN 60.5 pg/mL (18.4-80.1)
== END ==
PROVIDERS: PCP Family Medicine; Referring Provider Family Medicine; Visit Provider Family Medicine
DX: E03.9 Hypothyroidism, unspecified (principal); N18.30 Chronic kidney disease, stage 3 unspecified; E55.9 Vitamin D deficiency, unspecified; E78.5 Hyperlipidemia, unspecified; I48.0 Paroxysmal atrial fibrillation
CPT/HCPCS: 36415; 80053; 80061; 81001; 82306; 82570; 83735; 83970; 84100; 84156; 84439; 84443; 85025

== ENCOUNTER → 2020-06-28 13:53 | Outpatient (CLI) | payer MEDICARE, SELFPAY ==
[2020-03-20 13:20] VITALS: BMI 27.0
--- NOTE | 2020-06-28 14:00 | US_ITS ---
HISTORY: Nodules. Most recent comparison study is March 20, 2020. That study was perhaps for an FNA. Study with images before that is from February 29, 2020. 60 images. Findings: The thyroid gland is not enlarged. The right lobe of the thyroid gland measures 10 x 33 x 12 mm. The left lobe of the thyroid gland is slightly heterogeneous. Within the superior pole of the right lobe of the thyroid gland there is a lesion. This lesion measures 14 x 8 x 9 mm. The lesion is mixed cystic and solid. The lesion is hypoechoic relative to adjacent thyroid gland. It is taller than wide. It has smooth margins. There are no associated calcifications. This lesion scores a TI-Rads score of TR 4. Moderately suspicious. At this size, less than 1.5 cm in maximal dimension, follow-up is suggested. This lesion was present within the previous study. It is the same in appearance. It has not grown. An additional comparison is made from May 19, 2019, this lesion was present on the previous study of 2018 and April. It may be slightly larger, but is very similar in appearance. The left lobe of the thyroid gland measures 13 x 34 x 12 mm. Within the left lobe of the thyroid gland there is the nodule that was imaged on March 20, likely for FNA. It measures 10 x 6 x 10 mm. It is the same in appearance as on that March 20, 2020 study. Recommend correlation to cytology. It was also present on the May 19, 2019 study and is similar compared to that study as well. US/Thyroid IMPRESSION: 2 dominant thyroid lesions as discussed. The lesion within the left lobe was perhaps FNA on March 20, 2020. Recommend correlation to cytological evaluation from an FNA. The other lesion was also present on the previous studies from February 29, 2020 and May 19, 2019 and is similar to those studies. Further follow-up may be warranted. at 0648 Reported and signed by: Jorge Pineda MD Electronically Signed: Jorge Pineda MD at 6:47 EST Tel , Service support ,
== END ==
PROVIDERS: PCP Family Medicine; Referring Provider Surgery; Visit Provider Surgery
DX: E04.2 Nontoxic multinodular goiter (principal)
CPT/HCPCS: 76536

== ENCOUNTER 2020-08-15 08:43 | Day surgery (SDC) | payer MEDICARE, MEDICAID, SELFPAY ==
[2020-03-20 13:20] VITALS: BMI 27.0
[2020-08-15 08:58] VITALS: BP 139/75; PULSE 68; RESP 14; TEMP 37.1; O2SAT 98
[2020-08-15] MEDS: Lidocaine Jelly 2% 20 ML Syringe (URO-JET) 20 APPLIC (08:58)
== END 2020-08-15 09:15 | disposition home or self-care (01) ==
LOC: EN 08:45
PROVIDERS: PCP Family Medicine; Referring Provider Family Medicine; Visit Provider Surgery
PROC: F00ZJWZ Instrumental Swallowing and Oral Function Assessment using Swallowing Equipment (ICD-10-PCS; CPT 43235; principal; 2020-08-15 08:55)
DX: Z20.828 Contact with and (suspected) exposure to other viral communicable diseases (principal); K21.9 Gastro-esophageal reflux disease without esophagitis
CPT/HCPCS: 91010; 87426; C9803

== ENCOUNTER 2020-09-15 00:34 | Emergency (ER) | payer MEDICARE, MEDICAID, SELFPAY ==
[2020-03-20 13:20] VITALS: BMI 27.0
[2020-09-15 00:34] VITALS: BP 175/67; PULSE 67; RESP 18; TEMP 36.3; O2SAT 96; BMI 29.4
--- NOTE | 2020-09-15 00:37 | CT_ITS ---
STUDY: CT ABDOMEN AND PELVIS WITH CONTRAST REASON FOR EXAM: Female, 75 years old. epigastric ruq pain RADIATION DOSAGE (If Supplied By Facility): CTDIvol = ( 21.97 ) mGy, DLP = ( 1202.53 ) mGycm TECHNIQUE: Transaxial images were obtained from the dome of the diaphragm to the symphysis pubis without oral contrast. IV 100mL Isovue-300 was administered. Sagittal and coronal images were reconstructed. Individualized dose optimization techniques were used for this CT. COMPARISON: None. FINDINGS: The visualized lung bases are unremarkable. The visualized portions of the heart are within normal limits. Normal liver. Normal gallbladder and extrahepatic biliary system. Normal spleen. Normal pancreas. There is a small, circumscribed, smooth, low attenuation left adrenal mass, consistent with an adrenal adenoma. Normal right adrenal gland. Bilateral kidney stones are noted, the largest measures 5 mm. there is no hydronephrosis. Normal visualized stomach. Normal small intestine. There are multiple colonic diverticula consistent with diverticulosis. There is non-visualization of the appendix. Normal abdominal aorta. Normal inferior vena cava. Normal retroperitoneum. Normal urinary bladder. Normal abdominal wall. Normal osseous structures. CT/Abdomen/Pelvis W IV Cont ONLY IMPRESSION: Colon diverticulosis. Bilateral kidney stones are noted, the largest measures 5 mm. there is no hydronephrosis. Electronically Signed: Marques Sherwood MD at 4:11 EDT Tel , Service support ,
--- NOTE | 2020-09-15 00:37 | EKG12_ITS ---
Test Reason : CP Blood Pressure : / mmHG Vent. Rate : 065 BPM Atrial Rate : 065 BPM P-R Int : 152 ms QRS Dur : 080 ms QT Int : 454 ms P-R-T Axes : 082 -29 041 degrees QTc Int : 472 ms Normal sinus rhythm with sinus arrhythmia Left axis deviation Septal SD, age undetermined Confirmed by HEMAL MCMILLAN, ALEJO ([id number]), editorial cartoonist WILNER GAN ([id number]) on 09/18/2020 8:47:24 AM Referred By: ELVIS Confirmed By:ALEJO RECIO MD
--- NOTE | 2020-09-15 00:38 | ED.VIS.GEN ---
History of Present Illness Chief Complaint: Chest Pain Informant: Patient Onset: Today Context: Gradual Onset Timing: Continuous Current Severity: Moderate Maximum Severity: Moderate Narrative: Patient is a 75-year-old female with history of paroxysmal atrial fibrillation, coronary vascular disease, thyroid disease, who presents to the emergency department midepigastric pain into her right upper quadrant. Patient states that she has been having some pain off and on for a few days. States today, the pain got constant. She states she is been persistently nauseated. She states that about 5 PM, she had a [place] sausage and peppers. About an hour later, the pain came on. She denies any fevers or chills. She states she just felt like she cannot get comfortable. She is otherwise been in her normal state of health. She denies any rukhsana chest pain. She states mostly in the epigastric area. She denies being short of breath. She is not on anticoagulants. She has been compliant with her medications. Prior similar symptoms: No Recent Illness/Hospitalization: No Past Medical History - Allergies and Home Meds Allergies/Adverse Reactions: Allergies hydrocodone bitartrate [From Vicodin] Allergy (Verified 09/15/20 00:39) Rash Penicillins Allergy (Verified 09/15/20 00:39) Rash diltiazem Adverse Reaction (Severe, Verified 09/15/20 00:39) Hypotension sulfamethoxazole [From Bactrim] Adverse Reaction (Intermediate, Verified 09/15/20 00:39) nausea and vomiting trimethoprim [From Bactrim] Adverse Reaction (Intermediate, Verified 09/15/20 00:39) nausea and vomiting clindamycin Adverse Reaction (Verified 09/15/20 00:39) Other tizanidine HCl [From Zanaflex] Adverse Reaction (Verified 09/15/20 00:39) Other Primary Care Physician: Fritz Hart MD [STAFF PHYSICIAN] - Prior records reviewed: Yes Past Medical History: - - Hypertension, hyperlipidemia, smoking history, coronary vascular disease, paroxysmal atrial fibrillation Surgical History: hysterectomy Review of Systems General: Denies: Chills, Fever, Sweats Eyes: Denies: Visual changes - bilaterally, Diplopia ENT: Denies: Rhinorrhea, Sore throat Cardiovascular: Reports: Chest pain. Denies: Palpitations Respiratory: Denies: Dyspnea, Cough, Dyspnea on exertion Gastrointestinal: Reports: Abdominal pain, Nausea. Denies: Vomiting, Diarrhea, Melena, Hematochezia Genitourinary: Denies: Dysuria, Hematuria, Frequency Musculoskeletal: Denies: Back pain, Extremity Pain Skin: Denies: Rash, Wounds Neurological: Denies: Headache, Weakness, Numbness Physical Exam Vital Signs/Narrative: Vital Signs Temp Pulse Resp BP Pulse Ox 09/15/20 00:34 97.3 F L 67 18 175/67 H 96 Inital Vital Signs reviewed: Yes General: Well nourished, Well developed, No Acute Distress Head: Normocephalic, Atraumatic Eyes: Perrl, EOMI ENT: Moist mucous membranes, No rhinorrhea Neck: Supple, Nontender Cardiovascular: Regular rate, Regular rhythm, No murmurs Respiratory: No distress, CTA bilaterally, Chest nontender Abdomen: Soft, Nondistended, Normal bowel sounds, Tender. Negative for: Guarding Back: Nontender, Normal Inspection Extremities: Nontender, No edema Skin: Normal color, No rash Neurological: Alert, Oriented x3, Cranial nerves II-XII grossly intact, Normal Strength, Normal Sensation Psychological: Normal affect, Normal Mood Diagnostic/Tx/Re-eval Chest X-Ray - ED: 1 View, Read by ED Physician, Normal, Heart, Lungs, Mediastinum Clinical Impression(s) from Imaging Studies Abdomen/Pelvis CT 09/15/20 00:37 IMPRESSION: Colon diverticulosis. Bilateral kidney stones are noted, the largest measures 5 mm. there is no hydronephrosis. Electronically Signed: Marques Sherwood MD at 4:11 EDT Tel , Service support , Chest X-Ray 09/15/20 00:44 IMPRESSION: Degenerative changes, as described above. No demonstrated acute cardiopulmonary process. Electronically Signed: Marques Sherwood MD at 1:34 EDT Tel , Service support , Abnormal Lab Results 09/15/20 09/15/20 09/15/20 01:00 01:24 01:24 WBC 9.9 RBC 4.24 Hgb 12.1 Hct 38.5 MCV 90.8 MCH 28.5 MCHC 31.4 L RDW Std Deviation 57.1 H RDW Coeff of Perla 17.2 H Plt Count 232 MPV 9.4 Immature Gran % (Auto) 0.400 Neut % (Auto) 64.0 Lymph % (Auto) 18.4 L Cuming % (Auto) 11.5 H Eos % (Auto) 4.7 Baso % (Auto) 1.0 Absolute Neuts (auto) 6.3 Absolute Lymphs (auto) 1.83 Nucleated RBC % 0 Sodium 135 L Potassium 4.6 Chloride 106 Carbon Dioxide 23.0 Anion Gap 6 BUN 21 H Creatinine 1.19 H Estim Creat Clear Calc 31.30 Est GFR (MDRD) Af Amer 57 L Est GFR (MDRD) Non-Af 47 L BUN/Creatinine Ratio 17.6 Glucose 116 H Calcium 8.5 Total Bilirubin 0.30 Direct Bilirubin 0.08 AST 31 ALT 31 Alkaline Phosphatase 115 Troponin I < 0.015 Total Protein 6.8 Albumin 3.2 Globulin 3.6 Lipase 149 Urine Color Yellow Urine Clarity Clear Urine pH 7.0 Ur Specific [place] 1.010 Urine Protein Negative Urine Glucose (UA) Normal Urine Ketones Negative Urine Occult Blood Negative Urine Nitrite Negative Urine Bilirubin Negative Urine Urobilinogen Normal Ur Leukocyte Esterase Negative Urine RBC 0 SEEN Urine WBC 0 SEEN Ur Squamous Epith Cells 0 SEEN Urine Bacteria 0 SEEN Urine Mucus 0 SEEN - Rhythm Strip Rhythm Strip: Sinus Rhythm Rate: 80 Ectopy: None - Medical Decision Making Patient presents with midepigastric pain in the right upper quadrant. Started after eating sausage. Her pain does not seem consistent with cardiac chest pain, however given her age and risk factors work-up was obtained. EKG was obtained which was sinus rhythm without evidence of acute ischemia. Patient was kept on a monitor and had no dysrhythmia. With Zofran and analgesics her pain had totally resolved. Screening labs were unremarkable. Cardiac enzymes were negative. Liver functions were normal. I did obtain CT. The gallbladder appears normal. There is no pericholecystic fluid or edema. On reevaluation, she has no tenderness in her abdomen and her right upper quadrant. She has had no further chest pain. My suspicion is that this might be underlying biliary colic. Review the records the patient is had this before. At this point, I am going to place her on Pepcid and Zofran. She has seen Dr. Hart in the past and will follow up. She is discharged home. Impression 1. Biliary colic ED Disposition - Plan for ED Patient: Instructions: ED Gallstones with Biliary Colic Prescriptions: Famotidine [Pepcid] 20 mg PO BID #28 tab Prescription Printed Ondansetron [Zofran Odt] 4 mg PO Q8H PRN PRN #10 tablet PRN Reason: Nausea Prescription Printed Referrals: Fritz Hart MD [STAFF PHYSICIAN] -
[2020-09-15] MEDS: Morphine 4 MG/ML Syringe IV (00:44)
[2020-09-15] MEDS: Ondansetron 4 MG/2 ML Vial IV (00:44)
--- NOTE | 2020-09-15 00:44 | RAD_ITS ---
STUDY: X-RAY CHEST REASON FOR EXAM: Female, 75 years old. chest pain TECHNIQUE: Single AP portable view of the chest. COMPARISON: None. FINDINGS: The lungs are clear and expanded. There is no demonstrated pleural abnormality. Normal size heart. Normal mediastinum and neeraj. Normal visualized pulmonary arteries. Normal visualized aortic arch and descending thoracic aorta. Normal visualized thoracic spine. There is degenerative osteoarthritis of the bilateral shoulders. There is no demonstrated abnormality of the visualized soft tissue structures of the upper abdomen. RAD/Chest 1 View (Portable) IMPRESSION: Degenerative changes, as described above. No demonstrated acute cardiopulmonary process. Electronically Signed: Marques Sherwood MD at 1:34 EDT Tel , Service support ,
[2020-09-15] MEDS: 0.9% Normal Saline 1,000 ML 125 ML IV (00:45)
[2020-09-15 01:27] LABS: Absolute Lymphocyte Count 1.83 X10^3/uL (0.83-4.51); Absolute Neutrophil Count 6.3 X10^3/uL (2.0-7.7); Eosinophil# 0.47 X10^3/uL; Eosinophils% 4.7 % (0-5); Hematocrit 38.5 % (37-47); Hemoglobin 12.1 g/dL (12.0-15.0); Lymphocyte # 1.83 X10^3/ul (0.83-4.51); Lymphocyte % 18.4 % (19-41); Mean Corp Hgb Conc 31.4 g/dL (32-36); Mean Corpuscular Hgb 28.5 pg (27.0-32.0); Mean Corpuscular Volume 90.8 fL (81-99); Mean Platelet Vol. 9.4 fl (6.2-12.0); Monocyte# 1.14 X10^3/uL; Monocyte% 11.5 % (0-10); NRBC Flagged by Analyzer 0 % (0-5); Neutrophil # 6.34 X10^3/uL (2.7-7.7); Platelet Count 232 K/mm3 (150-450); RBC Distribution Width CV 17.2 % (11.6-14.6); RBC Distribution Width SD 57.1 fl (35.1-43.9); Red Blood Count 4.24 M/mm3 (4.2-5.4); White Blood Count 9.9 K/mm3 (4.4-11.0)
[2020-09-15 01:27] LABS: Bacteria 0 SEEN /hpf (None Seen); Mucous, Urine 0 SEEN /hpf (<or=2+); Red Blood Cells-Urine 0 SEEN /hpf (0-5); Squamous Epithelial Cells - UA 0 SEEN /hpf (5-10); White Blood Cells 0 SEEN /hpf (0-5)
[2020-09-15 01:30] LABS: Color, Urine Yellow (Yellow); Glucose, Dipstick Normal (Normal); Ketone-Dipstick Negative (Negative); Leukocyte Esterase-Dipstick Negative /ul (Negative); Nitrite-Dipstick Negative (Negative); Occult Blood-Urine Negative /ul (Negative); Protein-Dipstick Negative (Negative); Urine Bilirubin Dipstick Negative (Negative); Urine Clarity Clear (Clear); Urine Urobilinogen Normal (Normal)
[2020-09-15 01:50] LABS: AST(SGOT) 31 U/L (15-37); Alanine Aminotransfer ALT/SGPT 31 U/L (13-56); Albumin, Serum 3.2 g/dL (3.2-5.0); Alkaline Phosphatase 115 U/L (45-117); Anion Gap 6 (5-15); BUN 21 mg/dL (7-18); BUN/Creat Ratio 17.6 RATIO (10-20); Bilirubin, Direct 0.08 mg/dL (0.00-0.30); Calcium,Total 8.5 mg/dL (8.5-10.1); Chloride 106 mmol/L (98-107); Creatinine, Serum 1.19 mg/dL (0.55-1.02); EST Glomerular Filtration Rate 47 mL/min (>60); Est Glom Filt Rate - Afr Amer 57 mL/min (>60); Globulin 3.6 g/dL (2.2-4.2); Glucose 116 mg/dL (74-106); Lipase 149 U/L (73-393); Potassium 4.6 mmol/L (3.5-5.1); Protein, Total 6.8 g/dL (6.4-8.2); Sodium Level 135 mmol/L (136-145)
[2020-09-15 02:31] VITALS: BP 159/75; PULSE 69; RESP 18; O2SAT 95
[2020-09-15 03:00] VITALS: BP 117/65; PULSE 65; RESP 14; O2SAT 93
[2020-09-15 04:21] VITALS: BP 123/64; PULSE 61; RESP 18; O2SAT 95
== END 2020-09-15 04:55 | disposition home or self-care (01) ==
PROVIDERS: Emergency Provider Emergency Medicine; PCP Family Medicine
DX: K80.50 Calculus of bile duct without cholangitis or cholecystitis without obstruction (principal); N20.0 Calculus of kidney; K57.30 Diverticulosis of large intestine without perforation or abscess without bleeding; I10 Essential (primary) hypertension; E78.5 Hyperlipidemia, unspecified; I48.0 Paroxysmal atrial fibrillation; I99.9 Unspecified disorder of circulatory system; Z88.0 Allergy status to penicillin; Z88.1 Allergy status to other antibiotic agents; Z88.2 Allergy status to sulfonamides; Z88.5 Allergy status to narcotic agent; Z90.710 Acquired absence of both cervix and uterus; Z87.891 Personal history of nicotine dependence
CPT/HCPCS: 71045; 74177; 80048; 80076; 81001; 83690; 84484; 85025; 93005; 96361; 96374; 96375; 99285; J7030; Q9967; A4216; J2405

== ENCOUNTER → 2020-10-09 15:44 | Outpatient (CLI) | payer MEDICARE, MEDICAID, SELFPAY ==
[2020-09-15 00:34] VITALS: BMI 29.4
[2020-10-09 17:49] LABS: Absolute Lymphocyte Count 1.21 X10^3/uL (0.83-4.51); Absolute Neutrophil Count 5.9 X10^3/uL (2.0-7.7); Basophil% 1.2 % (0-1); Eosinophil# 0.52 X10^3/uL; Hemoglobin 12.3 g/dL (12.0-15.0); Lymphocyte # 1.21 X10^3/ul (0.83-4.51); Lymphocyte % 13.9 % (19-41); Mean Corp Hgb Conc 30.8 g/dL (32-36); Mean Corpuscular Hgb 28.1 pg (27.0-32.0); Mean Corpuscular Volume 91.3 fL (81-99); Mean Platelet Vol. 10.1 fl (6.2-12.0); Monocyte# 0.91 X10^3/uL; Monocyte% 10.5 % (0-10); NRBC Flagged by Analyzer 0 % (0-5); Neutrophil # 5.91 X10^3/uL (2.7-7.7); Neutrophil % 67.9 % (47-70); Platelet Count 241 K/mm3 (150-450); RBC Distribution Width CV 17.2 % (11.6-14.6); RBC Distribution Width SD 58.3 fl (35.1-43.9); Red Blood Count 4.38 M/mm3 (4.2-5.4); White Blood Count 8.7 K/mm3 (4.4-11.0)
[2020-10-09 18:25] LABS: Vitamin D,25 Hydroxy 54.9 ng/mL
[2020-10-09 18:29] LABS: ALB/GLOB Ratio 1.1 RATIO (0.9-2.4); AST(SGOT) 37 U/L (15-37); Alanine Aminotransfer ALT/SGPT 37 U/L (13-56); Albumin, Serum 3.5 g/dL (3.2-5.0); Alkaline Phosphatase 119 U/L (45-117); Anion Gap 8 (5-15); BUN 13 mg/dL (7-18); BUN/Creat Ratio 11.8 RATIO (10-20); Calcium,Total 8.4 mg/dL (8.5-10.1); Chloride 106 mmol/L (98-107); Cholesterol 163 mg/dL (200); EST Glomerular Filtration Rate 52 mL/min (>60); Est Glom Filt Rate - Afr Amer 62 mL/min (>60); Globulin 3.2 g/dL (2.2-4.2); Glucose 85 mg/dL (74-106); High Density Lipoprotein 85 mg/dL; Magnesium 2.4 mg/dL (1.6-2.6); Phosphorus 3.9 mg/dL (2.5-4.9); Potassium 4.9 mmol/L (3.5-5.1); Protein, Total 6.7 g/dL (6.4-8.2); Sodium Level 138 mmol/L (136-145); Thyroid Stim Hormone (TSH) 1.31 uIU/mL (0.358-3.74); Triglycerides 97 mg/dL; Very Low Density Lipoprotein 19 mg/dL (5-40)
[2020-10-10 08:46] LABS: PTHIN 35.1 pg/mL (18.4-80.1)
== END ==
PROVIDERS: PCP Family Medicine; Referring Provider Family Medicine; Visit Provider Family Medicine
DX: E03.9 Hypothyroidism, unspecified (principal); E78.5 Hyperlipidemia, unspecified; N18.30 Chronic kidney disease, stage 3 unspecified; I12.9 Hypertensive chronic kidney disease with stage 1 through stage 4 chronic kidney disease, or unspecified chronic kidney disease; E55.9 Vitamin D deficiency, unspecified; I48.0 Paroxysmal atrial fibrillation
CPT/HCPCS: 36415; 80053; 80061; 82306; 83735; 83970; 84100; 84439; 84443; 85025

== ENCOUNTER 2020-10-18 12:14 | Day surgery (SDC) | payer MEDICARE, MEDICAID, SELFPAY ==
[2020-10-14 15:09] VITALS: BMI 29.4
[2020-10-18] VITALS (9 sets, daily range): BP systolic 114–157; BP diastolic 57–88; PULSE 65–73; RESP 16; TEMP 36.3–36.8; O2SAT 16–100; BMI 28.0
[2020-10-18] MEDS: Lactated Ringers 1,000 ML 100 ML IV ×2 (13:08→15:12)
[2020-10-18] MEDS: Ciprofloxacin 400 MG/200 ML BAG 200 MG IV (14:07)
--- NOTE | 2020-10-18 14:26 | PCM.OPRPT ---
Problems Associated Problem List Diagnoses (1) Biliary dyskinesia: (2) Nausea: (3) Recurrent right upper quadrant abdominal pain: Report of Operation Date of Procedure: 10/18/20 Pre-Operative Diagnosis: 1. Biliary dyskinesia, right upper quadrant abdominal pain, nausea Post-Operative Diagnosis: Same Surgery/Procedure Performed:: Laparoscopic cholecystectomy Surgeon: Fritz Hart Type of Anesthesia: General Anesthesiologist: Evan Morelos Specimen's removed: Gallbladder Drains: None Estimated Blood Loss (mL): < 25 cc Description of Procedure: Patient brought in the rating room. Placed in the supine position. Under excellent general endotracheal ovation the abdomen was sterilely prepped and draped in usual fashion. Local was injected above the umbilicus incision was made and dissection was carried down to the fascia the fascia grasped with a [place] varies needle was placed inside the abdomen the abdomen was insufflated to 15 torr. A 10/12 trocar was placed without difficulty. Subxiphoid #5 trochars placed, inferior to this another #5 trocar was placed, laterally #5 trocar was placed. All of these under direct visualization without injury to underlying structures. Fundus of the gallbladder was grasped retracted in the cephalad direction patient was placed in the head up and rotated to the left position. I dissected out the cystic duct placing hemoclips proximally and distally and ligated the duct identified the cystic artery placed hemoclips proximally and distally and ligated the duct posterior branch of the cystic artery was identified it too was clipped with a hemolock clip. I deliver the gallbladder from the gallbladder bed with use of electrocautery. I had no spillage of bile. I had excellent hemostasis. I placed the specimen in a specimen bag and delivered through the umbilical port. I reinflated the abdomen inspected the liver bed good admit stasis was noted. I removed the trochars under direct visualization good with stasis was noted. Fascia the umbilical port was closed with a [id number] stitch of 0 Vicryl skin incisions were closed with subcuticular stitches of 4-0 Monocryl Steri-Strips were applied sterile dressings were applied and the patient tolerated the procedure well. Admit VTE Documentation VTE Present on Admission: No VTE Mechan Device Prophylaxis: SCD's VTE Pharm Prophylaxis ordered?: No Reason prophylaxis not ordered:: Treatment Not Indicated
--- NOTE | 2020-10-18 14:30 | GALL_PTH ---
PATIENT: PAULINO LOPEZ LOC: [facility] U#:[id number] AGE/SX: 75/F ROOM: RE10/18/[address]: Dr. Fritz Hart MD : 1945 BED: DIS: 10/18/2020 SPEC #: [id number] RECD: 10/18/20 15:10 STATUS: CAM REConstantine #: [id number] KEARA: 10/18/20 14:[address]: Fritz Hart DEPT: SURGICAL PATHOLOGY RECD BY: Baljeet Valera ENTERED: 10/19/20 20:41 SP TYPE: MANJIT COMBS DR: Dr. Marino Williamson MD Tissues: Gallbladder, NOS Procedures: Surgery Specimen Level III HEADER OPERATION: Laparoscopic cholecystectomy PRE-OP DIAGNOSIS: Biliary colic, right upper quadrant pain TISSUE SUBMITTED: Gallbladder MICROSCOPIC DIAGNOSIS Gallbladder, cholecystectomy: Chronic cholecystitis and cholelithiasis. AM:leandro 10/23/2020 MICROSCOPIC DESCRIPTION Slides are reviewed. GROSS DESCRIPTION Received is one container labeled with the patient's name and designated gallbladder. The specimen consists of a gallbladder measuring 8.5 cm in length and up to 3.5 cm in diameter. The external surface is pink-hall, smooth and glistening for the most part. Focally it is granular, hemorrhagic and contains cautery artifact. The gallbladder contains greenish mucoid bile. No gallbladder contains a few brownish stone fragments measuring <0.1 to 0.1 cm in greatest dimension and in aggregate 0.3 x 0.3 x 0.1 cm. One black irregular stone is also noted measuring 0.3 x 0.3 x 0.2 cm. The mucosa is bile-stained and without any mass lesions. The gallbladder wall measures up to 0.5 cm in thickness. A piece of subserosal fat is also noted. [employer] sections from the gallbladder and the cystic duct are submitted in one cassette. / JESUS:leandro 10/22/20 TC:3 CPT: 65655
--- NOTE | 2020-10-18 14:32 | EX.PCM.DISCH ---
Discharge Instructions Procedure Gallbladder Diet Discharge Diet: Light diet - advance as tolerated Activity Discharge Activity: May Not Drive (for 2-3 days or while taking narcotic pain medications.) and - (Do not drive, work heavy equipment or sign legal documents for 24 hours.) May shower in (days): 1 (with the bandage in place.) Additional Activity Instructions:: Pain medication may cause nausea. You should typically eat light foods as you take your pain medications. Pain medication may also cause constipation. If this is a problem for you, please discuss with your doctor. Dressing / Incision Call your doctor if your incision/area has: Continuous Slow Oozing, Sudden Increased Bleeding, Increased Pain/ Swelling, Increased Redness and Foul Smelling Discharge Call your doctor if you observe: Fever of 101 or Higher Suture Line Care: Avoid Pulling/Pushing and Avoid Pinching/Bending Additional Dressing/Incision Instructions:: Leave operative bandaids on for 2 days. When you remove dressing, leave Steri-Strips on until your follow-up appointment, or until the Steri-Strips fall off on their own. Follow Up Care Please Follow Up With: Kyara Aguirre PA-C When: Call office to schedule an appointment to be seen in 7 days after surgery. Test Results: Test results from this visit will be discussed in further detail at your follow-up appointment, if applicable. Discharge Plan Admission Attending Provider: Fritz Hart Primary Care Provider: Marino Williamson Discharge Orders/Prescriptions Prescriptions: New oxycodone-acetaminophen [Endocet] 5-325 mg tablet 1 tab PO Q6H PRN (Reason: pain) 5 Days Qty: 20 RF: 0 Continued atorvastatin 40 mg tablet 40 mg PO DAILY RF: 0 ascorbate calcium (vitamin C) 500 mg tablet 500 mg PO DAILY RF: 0 cholecalciferol (vitamin D3) 5,000 unit capsule 5,000 unit PO DAILY RF: 0 magnesium oxide 400 mg (241.3 mg magnesium) tablet 400 mg PO DAILY RF: 0 levothyroxine 50 mcg tablet 50 mcg PO DAILY RF: 0 aspirin [Adult Aspirin Regimen] 81 mg tablet,delayed release (DR/EC) 81 mg PO DAILY RF: 0 cetirizine 10 mg tablet 5 mg PO DAILY RF: 0 potassium chloride 10 mEq capsule, extended release 10 meq PO BID RF: 0 compound medications suppository 1 supp RC QPM Qty: 15 RF: 0 meloxicam [Mobic] 7.5 mg tablet 7.5 mg PO DAILY RF: 0 Spiriva Respimat 2.5 mcg/actuation mist 2 inh INHALATION QAM RF: 0 sucralfate [Carafate] 1 gram tablet 1 g PO QACHS RF: 0 amiodarone 200 mg tablet 200 mg PO DAILY Qty: 90 RF: 3 budesonide-formoterol 1 INHALER inhaler 2 puff INHALATION BID RF: 0 albuterol sulfate 1 INHALER inhaler 1 - 2 puff inhalation Q4H PRN PRN (Reason: Sob &/Or Wheezing) RF: 0 famotidine 20 MG tablet 20 mg PO BID Qty: 28 RF: 0 ondansetron 4 MG tablet 4 mg PO Q8H PRN PRN (Reason: Nausea) Qty: 10 RF: 0 sertraline 100 mg Tablet 200 mg PO DAILY RF: 0 Referrals / Follow Up: Marino Williamson MD [Primary Care Provider] -
[2020-10-18] MEDS: Bupivacaine Mpf 0.5% 30 ML VIAL (14:36)
[2020-10-18] MEDS: Acetaminophen 325 MG Tablet PO (16:47)
[2020-10-18] MEDS: oxyCODONE 5 MG Tablet PO (16:47)
== END 2020-10-18 17:26 ==
LOC: SDC 12:15 → AC 12:16
PROVIDERS: PCP Family Medicine; Referring Provider Surgery; Visit Provider Surgery
PROC: (CPT 47562; principal; 2020-10-18 14:10)
DX: K80.10 Calculus of gallbladder with chronic cholecystitis without obstruction (principal); K82.8 Other specified diseases of gallbladder; R10.11 Right upper quadrant pain; R11.0 Nausea; I10 Essential (primary) hypertension; K21.9 Gastro-esophageal reflux disease without esophagitis; J44.9 Chronic obstructive pulmonary disease, unspecified; F17.210 Nicotine dependence, cigarettes, uncomplicated
CPT/HCPCS: 00790; 47562; 88304; J7120; J0744; J2405

== ENCOUNTER → 2020-12-09 12:36 | Outpatient (CLI) | payer MEDICARE, MEDICAID, SELFPAY ==
[2020-10-18 13:08] VITALS: BMI 28.0
--- NOTE | 2020-12-09 12:44 | CDU_ITS ---
Reason For Study: CAROTID STENOSIS Rt. Velocities/BP Lt. Velocities/BP Prox CCA 84.2/16.4 cm/sec. Prox CCA 80.8/13.8 cm/sec. Mid CCA 84.2/13.8 cm/sec. Mid CCA 89.6/13.8 cm/sec. Dist CCA 67.7/18.2 cm/sec. Dist CCA 74.2/14.9 cm/sec. Prox ICA 117.4/13.0 cm/sec. Prox ICA 67.4/10.9 cm/sec. Mid ICA 84.3/17.9 cm/sec. Mid ICA 78.5/15.8 cm/sec. Dist ICA 84.3/21.6 cm/sec. Dist ICA 94.4/28.1 cm/sec. Rt. ICA/CCA = 117.4/84.2=1.4. Lt. ICA/CCA = 94.1/89.6=1.1. Prox ECA 95.1/11.6 cm/sec. Prox ECA 121.7/10.2 cm/sec. Rt. Vert. 50.1/12.7 cm/sec. Lt. Vert. 46.5/9.7 cm/sec. Right Extracranial There is heterogeneous, smooth atherosclerotic plaque noted in the right common carotid artery. There is heterogeneous, smooth atherosclerotic plaque noted in the right internal carotid artery. There is heterogeneous, irregular atherosclerotic plaque noted in the right external carotid artery. Antegrade flow is noted in the right vertebral artery. There is heterogeneous, irregular atherosclerotic plaque noted in the right bulb. Left Extracranial There is heterogeneous, irregular atherosclerotic plaque noted in the left common carotid artery. There is heterogeneous, smooth atherosclerotic plaque noted in the left internal carotid artery. The left internal carotid artery is very tortuous. There is no significant atherosclerotic plaque noted in the left external carotid artery. Antegrade flow is noted in the left vertebral artery. There is heterogeneous, smooth atherosclerotic plaque noted in the left bulb. Procedure Carotid Duplex 54896. This is a Carotid Duplex examination using B-mode, color flow and specral Doppler. Exam performed in department. VL/Carotid Duplex Ultrasound Interpretation Summary Mild (<50%) stenosis right extracranial internal carotid. Mild (<50%) stenosis left extracranial internal carotid. Flow within the vertebral arteries is antegrade bilaterally. Ordering Physician: Maximiliano Simeon Referring Physician: Marino Williamson Performed By: Britney Salcedo, ZHANG, RVT
== END ==
PROVIDERS: PCP Family Medicine; Referring Provider Surgery Vascular Surgery; Visit Provider Surgery Vascular Surgery
DX: I77.1 Stricture of artery (principal); I70.213 Atherosclerosis of native arteries of extremities with intermittent claudication, bilateral legs; I65.23 Occlusion and stenosis of bilateral carotid arteries
CPT/HCPCS: 93880; 93922; 93925

== ENCOUNTER → 2021-01-07 15:23 | Outpatient (CLI) | payer MEDICARE, MEDICAID, SELFPAY ==
[2020-10-18 13:08] VITALS: BMI 28.0
--- NOTE | 2021-01-07 15:26 | RAD_ITS ---
STUDY: X-RAY - THORACIC SPINE REASON FOR EXAM: Female, 75 years old. BACK PAIN TECHNIQUE: 3 view(s) of the thoracic spine were obtained. COMPARISON: 04/19/2018 FINDINGS: T8-T10 posterior instrumented fusion with T9 compression deformity and vertebroplasty feeding tube is saturated kyphosis of the thoracic spine redemonstrated. Partially demonstrated lumbar posterior estimated fusion and vertebroplasty. Mild S-shaped thoracic scoliosis redemonstrated. No new thoracic spine compression deformity, though sensitivity is reduced by bone demineralization. Normal disc space heights. Right lung base calcified granuloma redemonstrated. RAD/Thoracic Spine 3 Views IMPRESSION: No acute abnormal finding. Electronically Signed: Tam Topete MD at 3:04 EDT Tel , Service support ,
== END ==
PROVIDERS: PCP Family Medicine; Referring Provider Family Medicine; Visit Provider Family Medicine
DX: M54.6 Pain in thoracic spine (principal)
CPT/HCPCS: 72072

== ENCOUNTER → 2021-01-17 15:17 | Outpatient (CLI) | payer MEDICARE, MEDICAID, SELFPAY ==
[2021-01-17 15:20] LABS: Bacteria 0 SEEN /hpf (None Seen); Mucous, Urine 0 SEEN /hpf (<or=2+)
[2021-01-17 18:10] LABS: Color, Urine Yellow (Yellow); Glucose, Dipstick Normal (Normal); Ketone-Dipstick 5 mg/dl (Negative); Leukocyte Esterase-Dipstick 25 /ul (Negative); Nitrite-Dipstick Negative (Negative); Occult Blood-Urine 25 /ul (Negative); Protein-Dipstick 30 mg/dl (Negative); Urine Clarity Clear (Clear); Urine Urobilinogen 1 mg/dl (Normal)
[2021-01-17 18:12] LABS: Absolute Neutrophil Count 7.6 X10^3/uL (2.0-7.7); Basophil# 0.11 X10^3/uL; Eosinophil# 0.68 X10^3/uL; Eosinophils% 6.3 % (0-5); Hematocrit 37.3 % (37-47); Hemoglobin 11.4 g/dL (12.0-15.0); Lymphocyte % 12.1 % (19-41); Mean Corp Hgb Conc 30.6 g/dL (32-36); Mean Corpuscular Hgb 28.2 pg (27.0-32.0); Mean Corpuscular Volume 92.3 fL (81-99); Mean Platelet Vol. 10.1 fl (6.2-12.0); Monocyte# 1.05 X10^3/uL; Monocyte% 9.7 % (0-10); NRBC Flagged by Analyzer 0 % (0-5); Neutrophil # 7.59 X10^3/uL (2.7-7.7); Neutrophil % 70.4 % (47-70); Platelet Count 282 K/mm3 (150-450); RBC Distribution Width SD 60.3 fl (35.1-43.9); Red Blood Count 4.04 M/mm3 (4.2-5.4); White Blood Count 10.8 K/mm3 (4.4-11.0)
[2021-01-17 18:16] LABS: Urine Bilirubin Dipstick 1 mg/dL (Negative)
[2021-01-17 18:20] LABS: Red Blood Cells-Urine 0-5 SEEN /hpf (0-5); White Blood Cells 0-5 SEEN /hpf (0-5)
[2021-01-17 18:21] LABS: Hyaline Cast 10-25 SEEN /lpf (0-5); Squamous Epithelial Cells - UA 0-5 SEEN /hpf (5-10)
[2021-01-17 18:29] LABS: Vitamin D,25 Hydroxy 55.9 ng/mL
[2021-01-17 18:40] LABS: Protein, Urine (Random) 38.7 mg/dL (<11.9); Protein:Creat Ratio 174 mg/g CRE (0-200)
[2021-01-17 18:48] LABS: ALB/GLOB Ratio 0.8 RATIO (0.9-2.4); AST(SGOT) 47 U/L (15-37); Alanine Aminotransfer ALT/SGPT 39 U/L (13-56); Alkaline Phosphatase 143 U/L (45-117); Anion Gap 6 (5-15); BUN 13 mg/dL (7-18); BUN/Creat Ratio 9.9 RATIO (10-20); Calcium,Total 7.7 mg/dL (8.5-10.1); Chloride 106 mmol/L (98-107); Cholesterol 132 mg/dL (200); Creatinine, Serum 1.31 mg/dL (0.55-1.02); EST Glomerular Filtration Rate 42 mL/min (>60); Est Glom Filt Rate - Afr Amer 51 mL/min (>60); Globulin 3.9 g/dL (2.2-4.2); Glucose 130 mg/dL (74-106); High Density Lipoprotein 65 mg/dL; Phosphorus 3.8 mg/dL (2.5-4.9); Potassium 4.5 mmol/L (3.5-5.1); Protein, Total 6.9 g/dL (6.4-8.2); Sodium Level 137 mmol/L (136-145); T4 Free Direct 1.06 ng/dL (0.76-1.46); Thyroid Stim Hormone (TSH) 1.71 uIU/mL (0.358-3.74); Triglycerides 100 mg/dL; Very Low Density Lipoprotein 20 mg/dL (5-40)
[2021-01-20 09:35] LABS: PTHIN 42.7 pg/mL (18.4-80.1)
[2021-01-20 12:20] LABS: Ferritin 31 ng/mL (8-252); Iron 42 ug/dL (50-170); Iron Binding Capacity,Total 349 ug/dL (250-450)
== END ==
PROVIDERS: PCP Family Medicine; Visit Provider Family Medicine
DX: D64.9 Anemia, unspecified (principal); N18.30 Chronic kidney disease, stage 3 unspecified; J44.9 Chronic obstructive pulmonary disease, unspecified; E78.5 Hyperlipidemia, unspecified; E55.9 Vitamin D deficiency, unspecified; E03.8 Other specified hypothyroidism
CPT/HCPCS: 36415; 80053; 80061; 81001; 82306; 82570; 82728; 83540; 83550; 83735; 83970; 84100; 84156; 84439; 84443; 85025

== ENCOUNTER 2021-02-18 18:01 | Inpatient (IN) | payer MEDICARE, MEDICAID, SELFPAY ==
[2021-02-18] VITALS (8 sets, daily range): BP systolic 97–128; BP diastolic 73–76; PULSE 53–115; RESP 18–22; TEMP 36.1–37.2; O2SAT 88–99; BMI 28.1; BMI 12.9
--- NOTE | 2021-02-18 19:51 | EDS_ITS ---
HPI History of Present Illness Chief Complaint: Shortness of Breath Detail of Chief Complaint: Hypoxia Informant: patient and PCP Onset/Context/Timing Onset: Weeks (Respiratory symptoms shortness of breath started 2 to 3 weeks ago.) and - (Unknown) Context: Sudden Onset Timing: Continuous and Waxes and wanes Quality: Respiratory and back pain Location: Respiratory Current Severity: Moderate Maximum Severity: Severe Worsened by: Dyspnea on exertion Relieved by: Nothing Associated Symptoms Associated Symptoms: Pulse ox 85% on room air Narrative Narrative: Patient is an elderly woman with history of COPD/asthma, coronary disease, paroxysmal atrial fibrillation, T7 compression fracture, GERD, primary hyperparathyroidism who presents from primary care office because of low pulse ox. Reason for visit was back pain and she is scheduled to see Dr. Matute. X- ray on February 05 revealed a compression fracture of T7. Patient has been vaccinated for Covid. She is had no known exposure. She denies fever or chills. She denies rhinorrhea, congestion or postnasal drainage. Denies sore throat. Denies loss of taste or smell. She does have shortness of breath of the past 2 to 3 weeks. She denies history of VTE. She denies leg pain, swelling discoloration. She denies nausea, vomiting or diarrhea. She denies dysuria, frequency, urgency or hematuria. She is a smoker of 1/4 to 1/2 pack/day. She does have a cough which is occasionally productive. She denies hematemesis, melena or hematochezia Prior similar symptoms: No Recent Illness/Hospitalization: No PFSH PFSH Medical History Adrenal mass Adrenal nodule Alcohol use Anxiety Arthritis Atherosclerotic heart disease of [place] coronary artery without angina pectoris Bleeding hemorrhoids Cardiology follow-up encounter Chest pain Chronic diarrhea Chronic GERD COPD (chronic obstructive pulmonary disease) Depression Diarrhea Easy bruising Essential hypertension Gastric reflux Hemorrhoids High cholesterol History of atrial fibrillation History of diverticulitis History of pain when walking History of renal stone History of stress incontinence History of stress test History of ulceration Hx of echocardiogram Hypercalcemia Hyperlipidemia Hypokalemia Injury of head and neck Left atrial enlargement Leg cramps Loss of consciousness Multiple thyroid nodules Nonrheumatic aortic (valve) insufficiency Obstructive sleep apnea Osteoporosis Paroxysmal atrial fibrillation Pre-syncope Primary hyperparathyroidism Rectal bleeding Restless legs Shortness of breath on exertion Shoulder pain Smoker Thyroid disease Vitamin D deficiency Walker as ambulation aid Wears dentures Wears glasses Home Medications atorvastatin 40 mg tablet 40 mg PO DAILY 06/03/17 [History Last Taken 09/21/18 12:00] cholecalciferol (vitamin D3) 125 mcg (5,000 unit) capsule 5,000 unit PO DAILY 09/28/18 [History Last Taken Unknown] aspirin 81 mg tablet,delayed release 81 mg PO DAILY 05/18/19 [History Last Taken Unknown] levothyroxine 50 mcg tablet 50 mcg PO DAILY 05/18/19 [History Last Taken Unknown] potassium chloride 10 mEq capsule,extended release 10 meq PO BID 05/18/19 [History Last Taken Unknown] meloxicam 7.5 mg tablet 7.5 mg PO DAILY 03/20/20 [History Last Taken Unknown] tiotropium bromide 2.5 mcg/actuation mist for inhalation 2 inh INHALATION QAM 03/20/20 [History Last Taken Unknown] sucralfate 1 gram tablet 1 g PO QACHS 07/02/20 [History Last Taken Unknown] ondansetron 4 mg PO Q8H PRN PRN #10 tablet 09/15/20 [Rx Last Taken Unknown] sertraline 200 mg PO DAILY 10/11/20 [History Last Taken Unknown] oxycodone-acetaminophen [Endocet] 1 tab PO Q6H PRN 5 Days #20 tab 10/18/20 [Rx Last Taken Unknown] amiodarone 200 mg tablet 200 mg PO DAILY #90 tab 12/20/20 [Rx Last Taken Unknow n] albuterol sulfate 90 mcg/actuation aerosol inhaler 2 inh INHALATION Q4H PRN g 02/05/21 [History Last Taken Unknown] ascorbate calcium (vitamin C) 500 mg tablet 500 mg PO DAILY 02/05/21 [History La st Taken Unknown] ferrous fumarate 325 mg (106 mg iron) tablet 325 mg PO DAILY 02/05/21 [History Last Taken Unknown] lidocaine 5 % topical patch 1 patch TOPICAL BID ea 02/05/21 [History Last Taken Unknown] polyethylene glycol 3350 17 gram/dose oral powder 17 g PO DAILY 02/05/21 [History Last Taken Unknown] Allergy/AdvReac Type Severity Reaction Status Date / Time hydrocodone bitartrate Allergy Rash Verified 02/18/21 18:02 [From Vicodin] Penicillins Allergy Rash Verified 02/18/21 18:02 diltiazem AdvReac Severe Hypotension Verified 02/18/21 18:02 sulfamethoxazole AdvReac Intermediate nausea and Verified 02/18/21 18:02 [From Bactrim] vomiting trimethoprim [From Bactrim] AdvReac Intermediate nausea and Verified 02/18/21 18:02 vomiting clindamycin AdvReac Other Verified 02/18/21 18:02 tizanidine HCl AdvReac Other Verified 02/18/21 18:02 [From Zanaflex] Family History Mother Arthritis Hypertension Heart disease Osteoporosis CVA (cerebral vascular accident) Father Arthritis Lung cancer Brother Asthma Lung cancer Kidney disease Sister Arthritis Autoimmune disease Daughter Breast cancer Surgical History H/O cataract removal with insertion of prosthetic lens History of adrenal surgery History of back surgery History of bone marrow biopsy History of colonoscopy (~10/2018) History of esophagogastroduodenoscopy (EGD) (~10/2018) History of extraction of renal calculus History of hip surgery History of left heart catheterization (04/03/14) History of lumpectomy of both breasts Hx of appendectomy Hx of section Hx of cholecystectomy Hx of kyphoplasty Hx of lithotripsy S/P fine needle aspiration S/P hysterectomy S/P ovarian cystectomy S/P parathyroidectomy Social History household members: none housing: house Smoking Status: Current every day smoker tobacco type: cigarettes alcohol intake: current alcohol intake frequency: a few times a week substance use type: does not use caffeine: No what type of physical activity do you participate in: none frequency: does not exercise seatbelt use: always do you feel safe at home: Yes additional social history: takes aspirin no ibuprofen ROS ROS ED Constitutional Constitutional ED: Denies chills, fever(s), subjective or sweats Eyes Eyes: Denies blurry vision, change in vision or diplopia ENT ENT ED: Denies ear pain, rhinorrhea or sore throat Cardiovascular Cardiovascular: Denies chest pain, orthopnea, palpitations, paroxysmal nocturnal dyspnea or racing heartbeat Respiratory/Chest Respiratory/Chest: Reports cough and dyspnea; Denies dyspnea on exertion, orthopnea, paroxysmal nocturnal dyspnea or sputum Gastrointestinal Gastrointestinal: Denies abdominal pain, diarrhea, nausea or vomiting Genitourinary Genitourinary ED: Denies dysuria, hematuria or urinary frequency Musculoskeletal Musculoskeletal: Reports back pain; Denies arthralgias, myalgias or neck pain Integumentary Denies abscess, Abrasions or rash Neurologic Neurologic: Denies headache(s) or weakness Endocrine Endocrinology: Denies polydipsia, polyphagia or polyuria EXAM Physical Exam Const Vital Signs: 02/18/21 18:02 02/18/21 18:12 02/18/21 20:03 Temperature 97.6 F L Temperature Source Temporal Pulse Rate 86 87 Respiratory Rate 20 H 22 H Respiratory Effort Short of Breath Labored Respiratory Depth Shallow Respiratory Pattern Tachypnea Blood Pressure 103/73 Blood Pressure Mean 83 Pulse Ox 88 92 98 Oxygen Delivery Method Room Air Room Air Nasal Cannula Oxygen Flow Rate (L/min) 4 02/18/21 20:34 02/18/21 21:15 Temperature 98.9 F Temperature Source Temporal Pulse Rate 115 H Respiratory Rate 21 H Respiratory Effort Short of Breath Labored Accessory Muscle Use Respiratory Depth Respiratory Pattern Tachypnea Blood Pressure 97/74 Blood Pressure Mean 81 Pulse Ox 99 Oxygen Delivery Method Nasal Cannula Oxygen Flow Rate (L/min) 4 Positive well nourished and well developed General Appearance ED: well developed and other Patient is tachypneic. Oxygenation is marginal on oxygen. She is not normally on oxygen. Oxygen was increased ; Negative for cyanotic or diaphoretic HEENT Reports TM's clear and moist mucous membranes HEENT Narrative: Ears normal. Head atraumatic normocephalic. Tympanic Membrane ED: Yes TM's clear Eyes PERRL and EOMs intact bilaterally General Eye ED: Negative for pale conjunctiva or scleral icterus Neck no lymphadenopathy, supple and no JVD Chest Wall palpation of chest normal Resp No normal respiratory effort and No clear to auscultation bilaterally Auscultation: wheezes expiratory wheezes and throughout and diminished lung sounds Cardio regular rate, regular rhythm, S1 normal heart sound, S2 normal heart sound and no murmurs GI normal to inspection, nondistended, normoactive bowel sounds, non-tender and non-distended; Negative for hepatosplenomegaly GI Narrative: There is no palpable pulsatile mass. There is no abdominal bruit. Palpation: soft Back/Spine no CVA tenderness Cervical Spine: Negative for cervical spine tenderness Thoracic Spine / Upper Back: Negative for thoracic spinal tenderness or paraspinal muscle tenderness Lumbar Spine / Lower Back: Negative for lumbar spinal tenderness Extremity normal to inspection General Extremety ED: Negative for edema or tenderness General Extremity: Negative for edema Neuro oriented x3 and CN's II-XII intact bilaterally Sensorium / Orientation: alert Motor Exam: strength 5/5 throughout Psych mental status grossly normal Skin no rashes or lesions noted and no wounds MDM MDM MDM Narrative Medical decision making narrative: Differential dog be pneumonia, exacerbate COPD, Covid, pulmonary embolus. Since patient is wheezing she was treated with DuoNeb, albuterol and Solu-Medrol. Chest x-ray and appropriate blood work was ob tained as white count, rule out anemia as cause of her dyspnea. Also electrolytes were obtained to assess renal function and anion gap. Patient was informed that since her pulse ox was low she will require admission. Patient meets criteria for sepsis. She does not have severe sepsis with acute organ dysfunction or septic shock. Patient was treated with Rocephin azithromycin. Covid test was negative Lab Data Attestation: I reviewed the patient's lab results. Labs: Laboratory Results - last 24 hr 02/18/21 02/18/21 02/18/21 20:30 20:30 20:30 WBC 18.6 H RBC 4.17 L Hgb 11.8 L Hct 37.7 MCV 90.4 MCH 28.3 MCHC 31.3 L RDW Std Deviation 59.7 H RDW Coeff of Perla 18.2 H Plt Count 348 MPV 10.0 Immature Gran % (Auto) 0.900 Neut % (Auto) 84.1 H Lymph % (Auto) 7.7 L Tripp % (Auto) 5.8 Eos % (Auto) 1.0 Baso % (Auto) 0.5 Absolute Neuts (auto) 15.7 H Absolute Lymphs (auto) 1.44 Nucleated RBC % 0 Sodium 142 Potassium 3.1 L Chloride 106 Carbon Dioxide 27.0 Anion Gap 9 BUN 15 Creatinine 0.90 Estim Creat Clear Calc 39.39 Est GFR (MDRD) Af Amer 78 Est GFR (MDRD) Non-Af 65 BUN/Creatinine Ratio 16.6 Glucose 123 H Lactic Acid 1.6 Calcium 8.6 Total Bilirubin 0.40 AST 47 H ALT 24 Alkaline Phosphatase 156 H Total Protein 7.6 Albumin 2.2 L Globulin 5.4 H Albumin/Globulin Ratio 0.4 L COVID-19 (LUIS ARMANDO) 02/18/21 20:42 WBC RBC Hgb Hct MCV MCH MCHC RDW Std Deviation RDW Coeff of Perla Plt Count MPV Immature Gran % (Auto) Neut % (Auto) Lymph % (Auto) Tripp % (Auto) Eos % (Auto) Baso % (Auto) Absolute Neuts (auto) Absolute Lymphs (auto) Nucleated RBC % Sodium Potassium Chloride Carbon Dioxide Anion Gap BUN Creatinine Estim Creat Clear Calc Est GFR (MDRD) Af Amer Est GFR (MDRD) Non-Af BUN/Creatinine Ratio Glucose Lactic Acid Calcium Total Bilirubin AST ALT Alkaline Phosphatase Total Protein Albumin Globulin Albumin/Globulin Ratio COVID-19 (LUIS ARMANDO) Negative ABG Data ABG results: ABG 02/18/21 20:28 Specimen Type ART Sample Site L Radial pH 7.44 Bicarbonate Actual 23.2 Total CO2 24 Base Excess -1 O2 Saturation 98 ABG pCO2 34.2 L ABG pO2 93 [place] Test Positive O2 Delivery Device Cannula Liter Flow 4.0 Radiography Chest X-Ray - ED: 1 View, Read by ED Physician (Peripheral interstitial infiltrates concerning for Covid.), Heart and Mediastinum Diagnostic Testing: Radiology Impression Chest X-Ray 02/18/21 20:42 IMPRESSION: Patchy bibasilar infiltrates suggesting developing pneumonia. Electronically Signed: Wilfrido Hagen DO at 21:11 EDT Tel [phone], Service support , Discharge Plan Triage Chief Complaint: Shortness of Breath ED Provider: Crispin Thornton Dx/Rx/DC Orders Clinical Impression: Bilateral pneumonia, Acute respiratory failure with hypoxia Prescriptions: No Action atorvastatin 40 mg tablet 40 mg PO DAILY RF: 0 cholecalciferol (vitamin D3) 5,000 unit capsule 5,000 unit PO DAILY RF: 0 levothyroxine 50 mcg tablet 50 mcg PO DAILY RF: 0 aspirin [Adult Aspirin Regimen] 81 mg tablet,delayed release (DR/EC) 81 mg PO DAILY RF: 0 potassium chloride 10 mEq capsule, extended release 10 meq PO BID RF: 0 meloxicam [Mobic] 7.5 mg tablet 7.5 mg PO DAILY RF: 0 Spiriva Respimat 2.5 mcg/actuation mist 2 inh INHALATION QAM RF: 0 sucralfate [Carafate] 1 gram tablet 1 g PO QACHS RF: 0 polyethylene glycol 3350 [Miralax] 17 gram/dose powder 17 g PO DAILY RF: 0 lidocaine [Lidoderm] 5 % adhesive patch,medicated 1 patch topical BID RF: 0 ascorbate calcium (vitamin C) 500 mg tablet 500 mg PO DAILY RF: 0 ferrous fumarate 325 mg (106 mg iron) tablet 325 mg PO DAILY RF: 0 albuterol sulfate [Ventolin HFA] 90 mcg/actuation HFA aerosol inhaler 2 inh inhalation Q4H PRNRF: 0 ondansetron 4 MG tablet 4 mg PO Q8H PRN PRN (Reason: Nausea) Qty: 10 RF: 0 sertraline 100 mg Tablet 200 mg PO DAILY RF: 0 oxycodone-acetaminophen [Endocet] 5-325 mg tablet 1 tab PO Q6H PRN (Reason: pain) 5 Days Qty: 20 RF: 0 amiodarone 200 mg tablet 200 mg PO DAILY Qty: 90 RF: 3 Primary Care Provider: Marino Williamson Referrals: Marino Williamson MD [Primary Care Provider] - Disposition Disposition: Acute Care Hospital [facility]
[2021-02-18] MEDS: Ipratropium/Albuterol Sulfate 3 ML AMPUL.NEB INHALATION (20:03)
[2021-02-18] MEDS: Albuterol 2.5 MG/3 ML VIAL.NEB. INHALATION ×3 (20:03→20:21)
[2021-02-18] MEDS: MethylPREDNISolone 125 MG/2 ML Vial IV (20:31)
[2021-02-18 20:36] LABS: Allen Test Positive; Base Excess -1 mmol/L (-2 to +2); Bicarbonate 23.2 mmol/L (22-26); Blood Gas Specimen Type ART; O2 Delivery Device Cannula; PO2 93 mmHG (75-100); SITE L Radial; SO2 98 % (95-99); Total Carbon Dioxide 24 mmol/L; pCO2 34.2 mmHg (35-45); pH 7.44 (7.35-7.45)
--- NOTE | 2021-02-18 20:42 | RAD_ITS ---
STUDY: X-RAY CHEST REASON FOR EXAM: Female, 75 years old. Cough. Increasing shortness of breath with movement for a week. TECHNIQUE: Single AP portable view of the chest. COMPARISON: 09/15/2020. FINDINGS: There is vague patchy infiltrates in both lung bases not previously seen. There is no demonstrated pleural abnormality. Normal size heart. Normal mediastinum and neeraj. Normal visualized pulmonary arteries. There is atherosclerotic calcification of the aortic arch with tortuosity. Stable surgical changes of the thoracic and lumbar spine. Normal visualized ribs, clavicles, and shoulders. There is no demonstrated abnormality of the visualized soft tissue structures of the upper abdomen. RAD/Chest 1 View (Portable) IMPRESSION: Patchy bibasilar infiltrates suggesting developing pneumonia. Electronically Signed: Wilfrido Hagen DO at 21:11 EDT Tel [phone], Service support ,
[2021-02-18 20:46] LABS: Absolute Lymphocyte Count 1.44 X10^3/uL (0.83-4.51); Absolute Neutrophil Count 15.7 X10^3/uL (2.0-7.7); Basophil# 0.09 X10^3/uL; Basophil% 0.5 % (0-1); Eosinophil# 0.19 X10^3/uL; Hematocrit 37.7 % (37-47); Hemoglobin 11.8 g/dL (12.0-15.0); Lymphocyte # 1.44 X10^3/ul (0.83-4.51); Lymphocyte % 7.7 % (19-41); Mean Corp Hgb Conc 31.3 g/dL (32-36); Mean Corpuscular Hgb 28.3 pg (27.0-32.0); Mean Corpuscular Volume 90.4 fL (81-99); Monocyte# 1.08 X10^3/uL; Monocyte% 5.8 % (0-10); NRBC Flagged by Analyzer 0 % (0-5); Neutrophil # 15.66 X10^3/uL (2.7-7.7); Neutrophil % 84.1 % (47-70); Platelet Count 348 K/mm3 (150-450); RBC Distribution Width CV 18.2 % (11.6-14.6); RBC Distribution Width SD 59.7 fl (35.1-43.9); Red Blood Count 4.17 M/mm3 (4.2-5.4); White Blood Count 18.6 K/mm3 (4.4-11.0)
--- NOTE | 2021-02-18 20:48 | CPS ---
x3 Albuterol given to pt. in ER as well
[2021-02-18 21:13] LABS: ALB/GLOB Ratio 0.4 RATIO (0.9-2.4); AST(SGOT) 47 U/L (15-37); Alanine Aminotransfer ALT/SGPT 24 U/L (13-56); Albumin, Serum 2.2 g/dL (3.2-5.0); Alkaline Phosphatase 156 U/L (45-117); Anion Gap 9 (5-15); BUN 15 mg/dL (7-18); BUN/Creat Ratio 16.6 RATIO (10-20); Calcium,Total 8.6 mg/dL (8.5-10.1); Chloride 106 mmol/L (98-107); EST Glomerular Filtration Rate 65 mL/min (>60); Est Glom Filt Rate - Afr Amer 78 mL/min (>60); Estimated Creatinine Clearance 39.39 ml/min; Globulin 5.4 g/dL (2.2-4.2); Glucose 123 mg/dL (74-106); Potassium 3.1 mmol/L (3.5-5.1); Protein, Total 7.6 g/dL (6.4-8.2); Sodium Level 142 mmol/L (136-145)
[2021-02-18 21:14] LABS: Lactic Acid 1.6 mmol/L (0.4-1.9)
[2021-02-18 21:48] LABS: Probe Check PASS; Specimen Processing Control PASS
--- NOTE | 2021-02-18 22:21 | HP.PCM.HOS_ITS ---
[facility] - General General Date of Admission: 02/18/21 Date of Service: 02/18/21 Chief Complaint: Shortness of breath HPI Narrative PAULINO LOPEZ, is a 75 F with a significant history of tobacco abuse; and COPD who presents with a 2 to 3 weeks of progressively worsening shortness of breath. Her shortness of breath is at rest and it increases markedly with mild exertion. Associated with symptom is wheezes. She denies coughing. On the day of presentation she went to her PCPs office to follow-up with medication management. At the PCPs office it was noticed that she was severely short of breath and hypoxic. She was instructed to come to the emergency department. Of note patient has a compression fracture and is scheduled to see Dr. Kulkarni, pain management on 02/19/2021. [facility] Medical History Adrenal mass Adrenal nodule Alcohol use Anxiety Arthritis Atherosclerotic heart disease of [place] coronary artery without angina pectoris Bleeding hemorrhoids Cardiology follow-up encounter Chest pain Chronic diarrhea Chronic GERD COPD (chronic obstructive pulmonary disease) Depression Diarrhea Easy bruising Essential hypertension Gastric reflux Hemorrhoids High cholesterol History of atrial fibrillation History of diverticulitis History of pain when walking History of renal stone History of stress incontinence History of stress test History of ulceration Hx of echocardiogram Hypercalcemia Hyperlipidemia Hypokalemia Injury of head and neck Left atrial enlargement Leg cramps Loss of consciousness Multiple thyroid nodules Nonrheumatic aortic (valve) insufficiency Obstructive sleep apnea Osteoporosis Paroxysmal atrial fibrillation Pre-syncope Primary hyperparathyroidism Rectal bleeding Restless legs Shortness of breath on exertion Shoulder pain Smoker Thyroid disease Vitamin D deficiency Walker as ambulation aid Wears dentures Wears glasses Home Medications atorvastatin 40 mg tablet 40 mg PO DAILY 06/03/17 [History Last Taken 09/21/18 12:00] cholecalciferol (vitamin D3) 125 mcg (5,000 unit) capsule 2,000 unit PO DAILY 09/28/18 [History Last Taken Unknown] levothyroxine 50 mcg tablet 50 mcg PO DAILY 05/18/19 [History Last Taken Unknown] tiotropium bromide 2.5 mcg/actuation mist for inhalation 2 inh INHALATION QAM 03/20/20 [History Last Taken Unknown] sucralfate 1 gram tablet 1 g PO QACHS 07/02/20 [History Last Taken Unknown] ondansetron 4 mg PO Q8H PRN PRN #10 tablet 09/15/20 [Rx Last Taken Unknown] sertraline 200 mg PO DAILY 10/11/20 [History Last Taken Unknown] oxycodone-acetaminophen [Endocet] 1 tab PO Q6H PRN 5 Days #20 tab 10/18/20 [Rx Last Taken Unknown] albuterol sulfate 90 mcg/actuation aerosol inhaler 2 inh INHALATION Q4H PRN g 02/05/21 [History Last Taken Unknown] ascorbate calcium (vitamin C) 500 mg tablet 500 mg PO DAILY 02/05/21 [History Last Taken Unknown] ferrous fumarate 325 mg (106 mg iron) tablet 325 mg PO DAILY 02/05/21 [History Last Taken Unknown] lidocaine 5 % topical patch 1 patch TOPICAL BID ea 02/05/21 [History Last Taken Unknown] polyethylene glycol 3350 17 gram/dose oral powder 17 g PO DAILY 02/05/21 [History Last Taken Unknown] amiodarone 200 mg PO DAILY 02/19/21 [History Last Taken Unknown] Allergy/AdvReac Type Severity Reaction Status Date / Time hydrocodone bitartrate Allergy Rash Verified 02/18/21 18:02 [From Vicodin] Penicillins Allergy Rash Verified 02/18/21 18:02 diltiazem AdvReac Severe Hypotension Verified 02/18/21 18:02 sulfamethoxazole AdvReac Intermediate nausea and Verified 02/18/21 18:02 [From Bactrim] vomiting trimethoprim [From Bactrim] AdvReac Intermediate nausea and Verified 02/18/21 18:02 vomiting clindamycin AdvReac Other Verified 02/18/21 18:02 tizanidine HCl AdvReac Other Verified 02/18/21 18:02 [From Zanaflex] Family History Mother Arthritis Hypertension Heart disease Osteoporosis CVA (cerebral vascular accident) Father Arthritis Lung cancer Brother Asthma Lung cancer Kidney disease Sister Arthritis Autoimmune disease Daughter Breast cancer Surgical History H/O cataract removal with insertion of prosthetic lens History of adrenal surgery History of back surgery History of bone marrow biopsy History of colonoscopy (~10/2018) History of esophagogastroduodenoscopy (EGD) (~10/2018) History of extraction of renal calculus History of hip surgery History of left heart catheterization (04/03/14) History of lumpectomy of both breasts Hx of appendectomy Hx of section Hx of cholecystectomy Hx of kyphoplasty Hx of lithotripsy S/P fine needle aspiration S/P hysterectomy S/P ovarian cystectomy S/P parathyroidectomy Social History household members: none housing: house Smoking Status: Current every day smoker tobacco type: cigarettes alcohol intake: current alcohol intake frequency: a few times a week substance use type: does not use caffeine: No what type of physical activity do you participate in: none frequency: does not exercise seatbelt use: always do you feel safe at home: Yes additional social history: takes aspirin no ibuprofen ROS ROS Narrative Constitutional: Patient reports fatigue and anorexia. Denies fever or chills. Eyes: Denies blurry vision, change in eye color, change in vision, discharge from eye(s), double vision, erythema, eye pain, loss of vision or other HEENT: Denies abnormal hearing, dysphagia, ear pain, epistaxis, headache(s), hearing loss, nasal congestion, nasal discharge, post nasal drip, sinus pressure, sore throat or other Cardiovascular: Denies chest pain or palpitations. Reports dyspnea on exertion. Respiratory/Chest: Reports SOB. Denies cough. Reports wheezing Gastrointestinal: Denies abdominal pain, coffee ground emesis, constipation, diarrhea, dyspepsia, hematemesis, hematochezia, loose stools, melena, nausea, v omiting or other Genitourinary: Denies burning urination, difficulty urinating, dysuria, hematuria, nocturia, urinary frequency, urinary hesitancy, urinary incontinence, urinary urgency or other Musculoskeletal: Reports back pain. Denies neck pain or other Neurologic: Denies abnormal gait, abnormal speech, confusion, disequilibrium, dizziness, focal weakness, headache(s), numbness, paresthesias, seizure-like activity, seizures, syncope, tingling, tremor(s) or other Psychiatric: Denies anxiety, depression, homicidal ideation, suicidal ideation or other Endocrinology: Denies change in body appearance, cold intolerance, excessive sweating, heat intolerance, polydipsia, polyuria or other Hematologic/Lymphatic: Denies anemia, easy bleeding, easy bruising, lymphadenopathy or other Integumentary: Denies rashes Allergic/Immunologic: Denies rhinitis, hives, eczema, asthma or other Vital Signs Vital Signs Vital Signs: 02/18/21 18:02 02/18/21 18:12 02/18/21 20:03 Temperature 97.6 F L Temperature Source Temporal Pulse Rate 86 87 Respiratory Rate 20 H 22 H Respiratory Effort Short of Breath Labored Respiratory Depth Shallow Respiratory Pattern Tachypnea Blood Pressure 103/73 Blood Pressure Mean 83 Pulse Ox 88 92 98 Oxygen Delivery Method Room Air Room Air Nasal Cannula Oxygen Flow Rate (L/min) 4 02/18/21 20:34 02/18/21 21:15 Temperature 98.9 F Temperature Source Temporal Pulse Rate 115 H Respiratory Rate 21 H Respiratory Effort Short of Breath Labored Accessory Muscle Use Respiratory Depth Respiratory Pattern Tachypnea Blood Pressure 97/74 Blood Pressure Mean 81 Pulse Ox 99 Oxygen Delivery Method Nasal Cannula Oxygen Flow Rate (L/min) 4 Weight Weight: 65.317 kg Body Mass Index (BMI) 28.1 Physical Exam Narrative Physical exam: General: Well-nourished, well-developed. Head: Normocephalic, atraumatic, no tenderness Eyes: PERRLA, EOMI ENT, no trauma, moist mucous membranes, no rhinorrhea Neck: Nontender, full range of motion. CVS: Tachycardia. S1-S2 present. No murmur, gallop or rub. Respiratory : Tachypnea; using accessory muscles of respiration; scattered rales; and wheezes. Abdomen: Soft, nontender, nondistended, normal bowel sounds, no masses : Deferred Back: Kyphosis; nontender. Extremities: Nontender full range of motion, no trauma Skin: Normal color, no trauma, abrasions Neuro: Alert, oriented, cranial nerves II through XII grossly intact. Psychiatry: Normal mood. Normal affect. Not depressed. Not anxious. Results Lab / Micro Data Result Diagrams: 02/18/21 20:30 02/18/21 20:30 Labs: Laboratory Results - last 24 hr 02/18/21 20:30: WBC 18.6 H, RBC 4.17 L, Hgb 11.8 L, Hct 37.7, MCV 90.4, MCH 28.3, MCHC 31.3 L, RDW Std Deviation 59.7 H, RDW Coeff of Perla 18.2 H, Plt Count 348, MPV 10.0, Immature Gran % (Auto) 0.900, Neut % (Auto) 84.1 H, Lymph % (Auto) 7.7 L, [place] % (Auto) 5.8, Eos % (Auto) 1.0, Baso % (Auto) 0.5, Absolute Neuts (auto) 15.7 H, Absolute Lymphs (auto) 1.44, Nucleated RBC % 0 02/18/21 20:30: Sodium 142, Potassium 3.1 L, Chloride 106, Carbon Dioxide 27.0, Anion Gap 9, BUN 15, Creatinine 0.90, Estim Creat Clear Calc 39.39, Est GFR (MDRD) Af Amer 78, Est GFR (MDRD) Non-Af 65, BUN/Creatinine Ratio 16.6, Glucose 123 H, Calcium 8.6, Total Bilirubin 0.40, AST 47 H, ALT 24, Alkaline Phosphatase 156 H, Total Protein 7.6, Albumin 2.2 L, Globulin 5.4 H, Albumin/Globulin Ratio 0.4 L 02/18/21 20:30: Lactic Acid 1.6 02/18/21 20:42: COVID-19 (LUIS ARMANDO) Negative ABG Data ABG results: ABG 02/18/21 20:28 Specimen Type ART Sample Site L Radial pH 7.44 Bicarbonate Actual 23.2 Total CO2 24 Base Excess -1 O2 Saturation 98 ABG pCO2 34.2 L ABG pO2 93 Torrey Test Positive O2 Delivery Device Cannula Liter Flow 4.0 Radiology Impression Chest X-Ray 02/18/21 20:42 IMPRESSION: Patchy bibasilar infiltrates suggesting developing pneumonia. Electronically Signed: Wilfrido Hagen DO at 21:11 EDT Tel [phone], Service support , Assessment & Plan Assessment/Plan (1) Sepsis: QUALIFIERS: Acute respiratory failure type: with hypoxia Sepsis acute organ dysfunction status: with acute organ dysfunction Sepsis type: sepsis due to unspecified organism Severe sepsis acute organ dysfunction type: acute respiratory failure Severe sepsis shock status: without septic shock Qualified Code(s): A41.9 - Sepsis, unspecified organism; R65.20 - Severe sepsis without septic shock; J96.01 - Acute respiratory failure with hypoxia (2) Bilateral pneumonia: QUALIFIERS: Lung location: unspecified part of lung Pneumonia type: due to unspecified organism Qualified Code(s): J18.9 - Pneumonia, unspecified organism (3) Acute respiratory failure with hypoxia: (4) COPD exacerbation: PLAN: Acute hypoxemic respiratory failure secondary to sepsis from bilateral pneumonia and COPD exacerbation Gram-positive; or gram-negative Patient has been vaccinated against COVID-19. She received 2 shots of COVID-19 in October 2020. Review of labs show that Covid PCR at the emergency department was negative. White count of 18.6 with neutrophilia and lymphopenia Oxygen saturation of 88% on room air with use of accessory muscles of respirations and required a breathing treatment at emergency department. Respiratory rate of 22; heart rate of 115. qSOFA score of 1. End organ damage of respiratory failure. Blood culture ?2 is pending Lactic acid 1.2 Chest x-ray: Interpreted by radiologist as bilateral patchy infiltrates. Actual chest x-ray image was independently interpreted and agree radiologist interpretation. DuoNeb scheduled. Albuterol as needed Received [facility] emergency department. Prednisone ordered. Legionella antigen screen and Strep antigen ordered Comprehensive respiratory pathogen panel ordered. Received ceftriaxone and azithromycin in the emergency department and continued. Tobacco abuse Counselled Nicotine patch prescribed Compression fracture Continue home Percocet. Lidocaine continued Nursing communication to aid patient to call Dr. Kulkarni's office and cancel/reschedule appointment for pain management scheduled for 02/19/2021. GERD Sucralfate continued Hypothyroidism Synthroid continued History of paroxysmal A. fib Amiodarone continued DVT prophylaxis Subcutaneous Lovenox ordered. Charges/Coding Visit Charges Inpatient E&M: 79171 Init Hosp L3
--- NOTE | 2021-02-18 23:44 | PCS.PANDOC ---
PANDEMIC DOCUMENTATION INITIATED: Date: 02/18/21 Time: 8913
[2021-02-19] VITALS (12 sets, daily range): BP systolic 116–142; BP diastolic 68–93; PULSE 73–99; RESP 18–24; TEMP 36–36.8; O2SAT 83–98
[2021-02-19] MEDS: oxyCODONE 5 MG Tablet PO ×2 (01:08→11:45)
[2021-02-19] MEDS: Acetaminophen 325 MG Tablet 650 MG PO ×2 (01:08→11:45)
[2021-02-19] MEDS: Ipratropium/Albuterol Sulfate 3 ML AMPUL.NEB INHALATION ×4 (01:10→15:30)
--- NOTE | 2021-02-19 02:13 | PCS.PANDOC ---
PANDEMIC DOCUMENTATION INITIATED: Date: 01/06/2021 Time: 190
[2021-02-19 06:26] LABS: Absolute Lymphocyte Count 0.31 X10^3/uL (0.83-4.51); Absolute Neutrophil Count 15.9 X10^3/uL (2.0-7.7); Basophil# 0.03 X10^3/uL; Basophil% 0.2 % (0-1); Hematocrit 33.1 % (37-47); Hemoglobin 10.5 g/dL (12.0-15.0); Lymphocyte # 0.31 X10^3/ul (0.83-4.51); Lymphocyte % 1.8 % (19-41); Mean Corp Hgb Conc 31.7 g/dL (32-36); Mean Corpuscular Hgb 28.4 pg (27.0-32.0); Mean Corpuscular Volume 89.5 fL (81-99); Mean Platelet Vol. 10.1 fl (6.2-12.0); Monocyte# 0.33 X10^3/uL; NRBC Flagged by Analyzer 0 % (0-5); Neutrophil # 15.93 X10^3/uL (2.7-7.7); POSITIVE DIFFERENTIAL YES; Platelet Count 288 K/mm3 (150-450); RBC Distribution Width CV 18.1 % (11.6-14.6); RBC Distribution Width SD 58.8 fl (35.1-43.9); White Blood Count 16.8 K/mm3 (4.4-11.0)
[2021-02-19] MEDS: Sucralfate 1 GM Tablet PO ×4 (06:29→21:41)
[2021-02-19 06:49] LABS: Differential Indicated SCAN CRITERIA MET
[2021-02-19 06:50] LABS: Differential Comment SCANNED
[2021-02-19 06:56] LABS: Anion Gap 9 (5-15); BUN 17 mg/dL (7-18); Calcium,Total 7.7 mg/dL (8.5-10.1); Chloride 107 mmol/L (98-107); Creatinine, Serum 0.95 mg/dL (0.55-1.02); EST Glomerular Filtration Rate 61 mL/min (>60); Est Glom Filt Rate - Afr Amer 74 mL/min (>60); Glucose 166 mg/dL (74-106); Potassium 3.5 mmol/L (3.5-5.1); Sodium Level 142 mmol/L (136-145)
[2021-02-19] MEDS: Lidocaine 5% Patch 1 PATCH TOPICAL (08:01)
[2021-02-19] MEDS: Amiodarone 200 MG Tablet PO (08:01)
[2021-02-19] MEDS: predniSONE 20 MG Tablet 40 MG PO (08:01)
[2021-02-19] MEDS: Ferrous Sulfate 325 MG Tablet PO (08:01)
[2021-02-19] MEDS: Polyethylene Glycol 3350 17 GM PACKET PO (08:02)
[2021-02-19] MEDS: Enoxaparin 40 MG/0.4 ML Syringe SC (08:02)
[2021-02-19] MEDS: Ascorbic Acid 500 MG Tablet PO (08:03)
[2021-02-19] MEDS: Sertraline 100 MG Tablet 200 MG PO (08:03)
[2021-02-19] MEDS: Cholecalciferol (VIT D3) 25 MCG TABLET (1,000 UNITS) 50 MCG PO (08:03)
--- NOTE | 2021-02-19 09:55 | PCM.PN.HOSP ---
Documented by User: Bertha Mendez TECHNICAL TRAINER, TECHNICAL TRAINER-C 02/19/21 10:36 Subjective Subjective Patient seen and examined. Reports improvement in breathing. Complains of a nonproductive cough. Denies fever, chills. Objective Data Objective Data Vital Signs: Vital Signs Temp Pulse Resp BP Pulse Ox 96.8 F L 73 18 142/83 H 97 02/19/21 06:03 02/19/21 06:58 02/19/21 06:58 02/19/21 06:03 02/19/21 06:58 Oxygen Flow Rate (L/min) 4.5 Oxygen Delivery Method Nasal Cannula Weight: 66 lb 6.4 oz Body Mass Index (BMI) 12.9 Intake & Output: Intake and Output for Last 24 Hours 02/17/21 02/18/21 02/19/21 23:59 23:59 23:59 Intake Total 545 / 545 300 / 300 Balance 545 / 545 300 / 300 Lab / Micro Data Result Diagrams: 02/19/21 06:00 02/19/21 06:00 Labs: Laboratory Results - last 24 hr 02/18/21 20:30: WBC 18.6 H, RBC 4.17 L, Hgb 11.8 L, Hct 37.7, MCV 90.4, MCH 28.3, MCHC 31.3 L, RDW Std Deviation 59.7 H, RDW Coeff of Perla 18.2 H, Plt Count 348, MPV 10.0, Immature Gran % (Auto) 0.900, Neut % (Auto) 84.1 H, Lymph % (Auto) 7.7 L, [place] % (Auto) 5.8, Eos % (Auto) 1.0, Baso % (Auto) 0.5, Absolute Neuts (auto) 15.7 H, Absolute Lymphs (auto) 1.44, Nucleated RBC % 0 02/18/21 20:30: Sodium 142, Potassium 3.1 L, Chloride 106, Carbon Dioxide 27.0, Anion Gap 9, BUN 15, Creatinine 0.90, Estim Creat Clear Calc 39.39, Est GFR (MDRD) Af Amer 78, Est GFR (MDRD) Non-Af 65, BUN/Creatinine Ratio 16.6, Glucose 123 H, Calcium 8.6, Total Bilirubin 0.40, AST 47 H, ALT 24, Alkaline Phosphatase 156 H, Total Protein 7.6, Albumin 2.2 L, Globulin 5.4 H, Albumin/Globulin Ratio 0.4 L 02/18/21 20:30: Lactic Acid 1.6 02/18/21 20:42: COVID-19 (LUIS ARMANDO) Negative 02/19/21 06:00: WBC 16.8 H, RBC 3.70 L, Hgb 10.5 L, Hct 33.1 L, MCV 89.5, MCH 28.4, MCHC 31.7 L, RDW Std Deviation 58.8 H, RDW Coeff of Perla 18.1 H, Plt Count 288, MPV 10.1, Immature Gran % (Auto) 1.000 H, Neut % (Auto) 95.0 H, Lymph % (Auto) 1.8 L, [place] % (Auto) 2.0, Eos % (Auto) 0.0, Baso % (Auto) 0.2, Absolute Neuts (auto) 15.9 H, Absolute Lymphs (auto) 0.31 L, Nucleated RBC % 0, Differential Comment SCANNED 02/19/21 06:00: Sodium 142, Potassium 3.5, Chloride 107, Carbon Dioxide 26.0, Anion Gap 9, BUN 17, Creatinine 0.95, Estim Creat Clear Calc 24.70, Est GFR (MDRD) Af Amer 74, Est GFR (MDRD) Non-Af 61, BUN/Creatinine Ratio 18.0, Glucose 166 H, Calcium 7.7 L Micro: Microbiology 02/19/21 06:15 Urine, Clean Catch Legionella Antigen - Final 02/19/21 06:15 Urine, Clean Catch Streptococcus pneumoniae Antigen (M - Final 02/18/21 22:54 Mucosa - Nose Respiratory Panel (PCR) - Final ABG Data ABG results: ABG 02/18/21 20:28 Specimen Type ART Sample Site L Radial pH 7.44 Bicarbonate Actual 23.2 Total CO2 24 Base Excess -1 O2 Saturation 98 ABG pCO2 34.2 L ABG pO2 93 Torrey Test Positive O2 Delivery Device Cannula Liter Flow 4.0 Radiography Diagnostic Testing: Radiology Impression Chest X-Ray 02/18/21 20:42 IMPRESSION: Patchy bibasilar infiltrates suggesting developing pneumonia. Electronically Signed: Wilfrido Hagen DO at 21:11 EDT Tel [phone], Service support , Physical Exam Const alert, oriented x3 and no apparent distress Orientation / Consciousness: awake, oriented to person, oriented to place and oriented to time HEENT normocephalic and moist oral mucous membranes Eyes PERRL, EOMs intact bilaterally and conjunctivae normal Neck no lymphadenopathy Resp clear to auscultation bilaterally Auscultation: diminished lung sounds Cardio regular rate, regular rhythm and no murmurs Peripheral Pulses: pulses 2+ throughout GI normal to inspection, nondistended, normoactive bowel sounds, non-tender and non-distended Extremity normal to inspection Skin no rashes or lesions noted Lesions: no lesions Rashes: no rashes Trauma: no lacerations or abrasions Neuro CN's II-XII intact bilaterally, no focal motor deficits, no sensory deficits noted and deep tendon reflexes 2+ bilaterally Psych mental status grossly normal and affect normal Assessment & Plan Assessment/Plan (1) Sepsis: QUALIFIERS: Acute respiratory failure type: with hypoxia Sepsis acute organ dysfunction status: with acute organ dysfunction Sepsis type: sepsis due to unspecified organism Severe sepsis acute organ dysfunction type: acute respiratory failure Severe sepsis shock status: without septic shock Qualified Code(s): A41.9 - Sepsis, unspecified organism; R65.20 - Severe sepsis without septic shock; J96.01 - Acute respiratory failure with hypoxia (2) COPD exacerbation: (3) Bilateral pneumonia: QUALIFIERS: Lung location: unspecified part of lung Pneumonia type: due to unspecified organism Qualified Code(s): J18.9 - Pneumonia, unspecified organism (4) Acute respiratory failure with hypoxia: PLAN: 1. Acute hypoxic respiratory failure secondary to exacerbation of COPD and community-acquired pneumonia-respiratory panel and Covid negative. Continue supplement oxygen to maintain O2 at above 90%. 2. Sepsis secondary to bilateral community-acquired pneumonia-qSOFA score 2 secondary to respiratory rate greater than 22 and systolic blood pressure less than 100 on admission. Patient also noted to have leukocytosis with white count 18.6 and evidence of infection with pneumonia as well as organ dysfunction with acute hypoxic respiratory failure. Blood cultures pending. IV azithromycin and IV Rocephin. Albuterol and DuoNeb aerosols. Urine for strep and Legionella negative. 3. COPD exacerbation-initially placed on IV Solu-Medrol, transition to prednisone. Albuterol and DuoNeb aerosols. Will need walking pulse ox prior to discharge. 4. Recent compression fracture T7-following with spine surgery and pain management. Was scheduled to see pain management as outpatient 02/19/2021. Continue as needed pain regimen. 5. Hypothyroidism-continue Synthroid regimen. 6. Hyperlipidemia-continue statin. 7. Paroxysmal atrial fibrillation-on amiodarone. Not on anticoagulation. 8. GERD-continue Carafate. 9. Tobacco dependence-encouraged cessation. DVT prophylaxis- Lovenox sc This patient was seen by BETHEL Cardenas under the supervision of Dr. Sellers. Documented by User: Dr. Dann Sellers MD 02/19/21 11:32 Objective Data Lab / Micro Data Result Diagrams: 02/19/21 06:00 02/19/21 06:00 Charges/Coding Addendum Addendum: Dr. Sellers: I personally reviewed the chart and examined the patient, and agree with the above findings. 75-year-old female with a history of COPD presents with 2 to 3 weeks of progressively worsening shortness of breath. She presented to her PCPs office where she noticed that she was severely short of breath and recommended that she come to the emergency department secondary to hypoxia. She was found to have acute hypoxic respiratory failure secondary to her bilateral pneumonia and a possible COPD exacerbation. PCR for Covid was negative and she has been vaccinated against Covid. We will continue with antibiotics as well Solu-Medrol and obtain a Legionella and strep antigen. She states that she is feeling better today than she was when she came in though she is still requiring oxygen to maintain her saturations in a normal level. We will continue to monitor, and anticipate a little bit of a longer course to recovery given her underlying respiratory issues. Visit Charges Inpatient E&M: 09632 Subs Hosp L2
--- NOTE | 2021-02-19 14:00 | CASEMGMT ---
RN CM Assessment Introduced role of RN CM to patient. Patient is alert, oriented and able to participate in RN CM Assessment. Care providers, pharmacy, and demographics verified. Admit Dx: B/l PNA Re-Admit: No Barriers/Issues: None. Patient sister will come stay with patient during recovery period. Sister lives 2 doors down. Dtr Tracy lives in [place]. PCP: Marino Williamson Specialists: Cardio- Moodisjhonathanw (has not seen yet, has an appointment, used to have William). Pain- Basali [facility]acy: [facility] Insurance: [facility] Rx Benefit: Yes LNOK: Dtr Tracy Thrfahad LW/HPOA: None- Patient would like to complete, Tiffanie with SW made aware. Living Arrangements: Lives alone in a [facility] with elevator. ADL?s: Ambulates with rollator, Had an Aide with [place] through [employer] 2hrs/day x2days/week. States recently quit and her worker- Padmini Valdez with [employer] is trying to find her another Aide. Aide assisted with laundry, house cleaning, and bathing. Patient sister Zoie assisted with meals and transportation. Transportation: Sister Zoie and same on DC DME: [facility], [facility], [place], [place] HHC: Past at [facility] SN[facility]: Past in [place] Goal: Home with sister Zoie's assistance. Denies any issues, concerns, or needs with DC planning or going home. DC PLAN: Home with possible Home O2. Per in network list: Patient preference 1. [employer] [facility] 4. [facility]
--- NOTE | 2021-02-19 16:21 | CASEMGMT ---
Social Work Note CAMERON received message from pt's [employer] Padmini Valdez requesting call back with update. CAMERON placed a call to pt's CM Padmini Valdez and provided update. Padmini states pt is not getting aide services at this time due to no staffing. Pt stopped her Meal delivery. Pt does have an emergency response button. Padmini states she spoke with pt about Padmini's concerns with pt being at home. Padmini states pt has a crushed vertebrae that she is not able to have surgery on and pt needs assistance in the home but due to no staffing, pt has no aide services. CAMERON informed Padmini that pt's SW is Tiffanie, will relay message to her. Clarisse Clay PARBOILER, BAG BUNDLER
[2021-02-19] MEDS: Albuterol 2.5 MG/3 ML VIAL.NEB. INHALATION ×2 (17:15→22:09)
[2021-02-19] MEDS: Atorvastatin Calcium 40 MG Tablet PO (21:41)
[2021-02-19] MEDS: 0.9% Saline Lock 10 ML Syringe IV (23:20)
[2021-02-19] MEDS: Ondansetron 4 MG/2 ML Vial IV (23:20)
[2021-02-19] MEDS: MELATONIN 3 MG TABLET PO (23:24)
[2021-02-20] VITALS (15 sets, daily range): BP systolic 107–133; BP diastolic 65–82; PULSE 85–104; RESP 18–24; TEMP 36.4–37.1; O2SAT 78–95; BMI 28.6
[2021-02-20] MEDS: Sucralfate 1 GM Tablet PO ×3 (06:14→22:29)
[2021-02-20 06:20] LABS: Absolute Lymphocyte Count 0.76 X10^3/uL (0.83-4.51); Absolute Neutrophil Count 18.1 X10^3/uL (2.0-7.7); Basophil# 0.04 X10^3/uL; Basophil% 0.2 % (0-1); Eosinophil# 0.03 X10^3/uL; Eosinophils% 0.1 % (0-5); Hematocrit 31.9 % (37-47); Hemoglobin 10.3 g/dL (12.0-15.0); Lymphocyte # 0.76 X10^3/ul (0.83-4.51); Lymphocyte % 3.8 % (19-41); Mean Corp Hgb Conc 32.3 g/dL (32-36); Mean Corpuscular Hgb 28.8 pg (27.0-32.0); Mean Corpuscular Volume 89.1 fL (81-99); Mean Platelet Vol. 10.2 fl (6.2-12.0); Monocyte# 1.02 X10^3/uL; Monocyte% 5.1 % (0-10); NRBC Flagged by Analyzer 0 % (0-5); Neutrophil # 18.08 X10^3/uL (2.7-7.7); Neutrophil % 89.6 % (47-70); Platelet Count 320 K/mm3 (150-450); RBC Distribution Width SD 58.8 fl (35.1-43.9); Red Blood Count 3.58 M/mm3 (4.2-5.4); White Blood Count 20.2 K/mm3 (4.4-11.0)
[2021-02-20] MEDS: oxyCODONE 5 MG Tablet PO ×2 (06:23→15:31)
[2021-02-20] MEDS: Ipratropium/Albuterol Sulfate 3 ML AMPUL.NEB INHALATION ×4 (07:10→18:59)
[2021-02-20] MEDS: predniSONE 20 MG Tablet 40 MG PO (09:00)
[2021-02-20] MEDS: Ferrous Sulfate 325 MG Tablet PO (09:00)
[2021-02-20] MEDS: Amiodarone 200 MG Tablet PO (09:01)
[2021-02-20] MEDS: Lidocaine 5% Patch 1 PATCH TOPICAL (09:01)
[2021-02-20] MEDS: Enoxaparin 40 MG/0.4 ML Syringe SC (09:02)
[2021-02-20] MEDS: Polyethylene Glycol 3350 17 GM PACKET PO (09:02)
[2021-02-20] MEDS: Cholecalciferol (VIT D3) 25 MCG TABLET (1,000 UNITS) 50 MCG PO (09:03)
[2021-02-20] MEDS: Sertraline 100 MG Tablet 200 MG PO (09:03)
[2021-02-20] MEDS: Ascorbic Acid 500 MG Tablet PO (09:03)
[2021-02-20] MEDS: Senna/Docusate Sodium 1 Tablet 2 TABLET PO (09:16)
[2021-02-20] MEDS: 0.9% Saline Lock 10 ML Syringe IV ×2 (09:44→16:20)
[2021-02-20] MEDS: Ondansetron 4 MG/2 ML Vial IV (09:44)
--- NOTE | 2021-02-20 11:25 | NURSING ---
PT AMBULATING TO BR WITH THERAPY
--- NOTE | 2021-02-20 11:26 | NURSING ---
PT AMBULATING WITH THERAPY
--- NOTE | 2021-02-20 11:57 | PCM.PN.HOSP ---
Documented by User: Marino TYLER 02/20/21 12:15 Subjective Subjective Patient is a 75-year-old female comfortably resting in bed, alert and oriented x3. Patient still endorses cough with improving yellow sputum production. Denies fever, chills, N/V/D. Objective Data Objective Data Vital Signs: Vital Signs Temp Pulse Resp BP Pulse Ox 98.7 F 104 H 24 H 130/72 H 85 02/20/21 09:24 02/20/21 10:04 02/20/21 10:04 02/20/21 09:24 02/20/21 11:26 Oxygen Flow Rate (L/min) 10 Oxygen Delivery Method Nasal Cannula Weight: 146 lb 9.718 oz Body Mass Index (BMI) 28.6 Intake & Output: Intake and Output for Last 24 Hours 02/18/21 02/19/21 02/20/21 23:59 23:59 23:59 Intake Total 545 / 545 350 / 350 280.75 / 280.75 Output Total 550 / 550 Balance 545 / 545 350 / 0 -269.25 / -269.25 Lab / Micro Data Result Diagrams: 02/20/21 06:00 02/19/21 06:00 Labs: Laboratory Results - last 24 hr 02/20/21 06:00: WBC 20.2 H, RBC 3.58 L, Hgb 10.3 L, Hct 31.9 L, MCV 89.1, MCH 28.8, MCHC 32.3, RDW Std Deviation 58.8 H, RDW Coeff of Perla 18.0 H, Plt Count 320, MPV 10.2, Immature Gran % (Auto) 1.200 H, Neut % (Auto) 89.6 H, Lymph % (Auto) 3.8 L, [place] % (Auto) 5.1, Eos % (Auto) 0.1, Baso % (Auto) 0.2, Absolute Neuts (auto) 18.1 H, Absolute Lymphs (auto) 0.76 L, Nucleated RBC % 0 Micro: Microbiology 02/19/21 06:15 Urine, Clean Catch Legionella Antigen - Final 02/19/21 06:15 Urine, Clean Catch Streptococcus pneumoniae Antigen (M - Final 02/18/21 22:54 Mucosa - Nose Respiratory Panel (PCR) - Final Physical Exam Const alert, oriented x3 and no apparent distress HEENT head/scalp atraumatic, moist oral mucous membranes and oropharynx normal Head and Scalp: normocephalic Eyes PERRL, EOMs intact bilaterally and conjunctivae normal Neck no lymphadenopathy, supple and no JVD Resp normal respiratory effort, no retractions and no use of accessory muscles Cardio regular rate, regular rhythm, no murmurs and no JVD GI normal to inspection, nondistended, normoactive bowel sounds, soft to palpation and non-distended Extremity normal to inspection, full ROM and no clubbing, cyanosis or edema Skin no rashes or lesions noted, no wounds, skin turgor normal and no jaundice Neuro CN's II-XII intact bilaterally Psych affect normal Assessment & Plan Assessment/Plan (1) Acute respiratory failure with hypoxia: (2) Sepsis: QUALIFIERS: Acute respiratory failure type: with hypoxia Sepsis acute organ dysfunction status: with acute organ dysfunction Sepsis type: sepsis due to unspecified organism Severe sepsis acute organ dysfunction type: acute respiratory failure Severe sepsis shock status: without septic shock Qualified Code(s): A41.9 - Sepsis, unspecified organism; R65.20 - Severe sepsis without septic shock; J96.01 - Acute respiratory failure with hypoxia (3) COPD exacerbation: (4) Bilateral pneumonia: QUALIFIERS: Lung location: unspecified part of lung Pneumonia type: due to unspecified organism Qualified Code(s): J18.9 - Pneumonia, unspecified organism PLAN: Day 2 Discharge planning: Current plan is for patient to discharge home, PT/OT eval ordered, case management following. 1) Sepsis secondary to bilateral community-acquired pneumonia qSOFA score 2 due to respiratory rate greater than 22 and systolic blood pressure less than 100 on admission. Patient was also noted to have leukocytosis, that is on going, and evidence of infection with pneumonia as well as organ dysfunction with acute hypoxic respiratory failure. Urine for strep and Legionella negative. Respiratory panel negative. Blood cultures pending. Plan; continue IV azithromycin and IV Rocephin, continue albuterol and DuoNeb aerosols, incentive spirometry encouraged. 2) Acute hypoxic respiratory failure of mixed etiology Currently requiring 8 L of oxygen to sat at 95%. Condition is exacerbated by community-acquired pneumonia and COPD. Plan; continue oxygen supplementation, as above. 3) COPD exacerbation initially placed on IV Solu-Medrol, transitioned to prednisone. Continue albuterol and DuoNeb aerosols. 4) Hypothyroidism Continue Synthroid regimen. 5) Hyperlipidemia Continue statin. 6) Paroxysmal atrial fibrillation On amiodarone. Not on anticoagulation. 7) GERD continue Carafate. 8) Tobacco dependence Cessation encouraged. DVT prophylaxis - Lovenox Patient seen by Marino Kauffman PA-C, under the supervision of Dr. Sellers. Documented by User: Dr. Dann Sellers MD 02/20/21 15:34 Objective Data Lab / Micro Data Result Diagrams: 02/20/21 06:00 02/19/21 06:00 Charges/Coding Addendum Addendum: Dr. Sellers: I personally reviewed the chart and examined the patient, and agree with the above findings. 75-year-old female with a history of COPD presents with 2 to 3 weeks of progressively worsening shortness of breath. She presented to her PCPs office where she noticed that she was severely short of breath and recommended that she come to the emergency department secondary to hypoxia. She was found to have acute hypoxic respiratory failure secondary to her bilateral pneumonia and a possible COPD exacerbation. PCR for Covid was negative and she has been vaccinated against Covid. We will continue with antibiotics as well Solu-Medrol and obtain a Legionella and strep antigen. She states that she is feeling better today than she was when she came in though she is still requiring oxygen to maintain her saturations in a normal level. We will continue to monitor, and anticipate a little bit of a longer course to recovery given her underlying respiratory issues. 02/20/2021: Has an increased oxygen requirement today unsure as its etiology, will obtain a chest x-ray as well as an ABG to evaluate for possible retention given her history of COPD. May need to be placed on BiPAP. We will continue with duo nebs and antibiotics. She continues to have rhonchorous breath sounds bilaterally throughout. From fluid status, she is about a liter positive. Visit Charges Inpatient E&M: 48124 Subs Hosp L2
--- NOTE | 2021-02-20 12:09 | CASEMGMT ---
Social Work Sw met with pt and introduced self and role of SW. Pt would like to complete advance directives at this time. SW assisted pt with completing a Living Will and a health care POA in which pt appointed her dgt Tracy Brito. Copy placed on pt chart and orginal given to pt. MICHAEL Washington
[2021-02-20] MEDS: Acetaminophen 325 MG Tablet 650 MG PO (15:31)
[2021-02-20 15:35] LABS: Allen Test Positive; Base Excess 1 mmol/L (-2 to +2); Bicarbonate 25.6 mmol/L (22-26); Blood Gas Specimen Type ART; O2 Delivery Device Cannula; PO2 78 mmHG (75-100); SITE R Radial; SO2 95 % (95-99); Total Carbon Dioxide 27 mmol/L; pCO2 42.6 mmHg (35-45); pH 7.39 (7.35-7.45)
--- NOTE | 2021-02-20 15:45 | RAD_ITS ---
STUDY: X-RAY CHEST REASON FOR EXAM: Female, 75 years old. CHEST PAIN Increased O2 requirement TECHNIQUE: XR Chest 1 View COMPARISON: Two days ago. FINDINGS: There are bilateral pleural effusions. There are bilateral infiltrates. Normal size heart. Normal mediastinum and neeraj. Normal visualized pulmonary arteries. There is atherosclerotic calcification of the aortic arch with tortuosity. There are diffuse degenerative changes of the visualized thoracic spine. There is degenerative osteoarthritis of the bilateral shoulders. Lumbar thoracic spinal fixation hardware. Vertebral plasty changes in the midthoracic spine. There is no demonstrated abnormality of the visualized soft tissue structures of the upper abdomen. RAD/Chest 1 View (Portable) IMPRESSION: Pulmonary findings appear improved. Electronically Signed: Darnell Upton MD at 16:07 EDT , Service support ,
[2021-02-20] MEDS: Furosemide 20 MG/2 ML VIAL IV (16:20)
[2021-02-20] MEDS: Atorvastatin Calcium 40 MG Tablet PO (22:30)
[2021-02-20] MEDS: MELATONIN 3 MG TABLET PO (22:45)
[2021-02-21] VITALS (15 sets, daily range): BP systolic 108–120; BP diastolic 64–69; PULSE 79–95; RESP 18–24; TEMP 36.3–36.7; O2SAT 86–96
[2021-02-21] MEDS: Albuterol 2.5 MG/3 ML VIAL.NEB. INHALATION (02:39)
[2021-02-21] MEDS: 0.9% Saline Lock 10 ML Syringe IV ×3 (02:40→14:58)
[2021-02-21] MEDS: Sucralfate 1 GM Tablet PO (06:06)
[2021-02-21] MEDS: Ipratropium/Albuterol Sulfate 3 ML AMPUL.NEB INHALATION ×4 (07:05→18:55)
[2021-02-21 07:16] LABS: Absolute Lymphocyte Count 0.79 X10^3/uL (0.83-4.51); Absolute Neutrophil Count 13.6 X10^3/uL (2.0-7.7); Basophil# 0.02 X10^3/uL; Basophil% 0.1 % (0-1); Eosinophil# 0.08 X10^3/uL; Eosinophils% 0.5 % (0-5); Hematocrit 30.8 % (37-47); Hemoglobin 9.9 g/dL (12.0-15.0); Lymphocyte # 0.79 X10^3/ul (0.83-4.51); Lymphocyte % 5.2 % (19-41); Mean Corp Hgb Conc 32.1 g/dL (32-36); Mean Corpuscular Hgb 28.1 pg (27.0-32.0); Mean Corpuscular Volume 87.5 fL (81-99); Mean Platelet Vol. 9.7 fl (6.2-12.0); Monocyte# 0.63 X10^3/uL; Monocyte% 4.1 % (0-10); NRBC Flagged by Analyzer 0 % (0-5); Neutrophil # 13.61 X10^3/uL (2.7-7.7); Neutrophil % 89.1 % (47-70); Platelet Count 308 K/mm3 (150-450); RBC Distribution Width CV 18.3 % (11.6-14.6); RBC Distribution Width SD 58.6 fl (35.1-43.9); Red Blood Count 3.52 M/mm3 (4.2-5.4); White Blood Count 15.3 K/mm3 (4.4-11.0)
[2021-02-21 07:38] LABS: Anion Gap 8 (5-15); BUN 19 mg/dL (7-18); BUN/Creat Ratio 24.6 RATIO (10-20); Calcium,Total 8.1 mg/dL (8.5-10.1); Chloride 107 mmol/L (98-107); Creatinine, Serum 0.77 mg/dL (0.55-1.02); EST Glomerular Filtration Rate 78 mL/min (>60); Est Glom Filt Rate - Afr Amer 94 mL/min (>60); Estimated Creatinine Clearance 35.45 ml/min; Glucose 122 mg/dL (74-106); Potassium 2.8 mmol/L (3.5-5.1); Sodium Level 143 mmol/L (136-145)
[2021-02-21 07:58] LABS: Magnesium 2.1 mg/dL (1.6-2.6); Phosphorus 2.6 mg/dL (2.5-4.9)
[2021-02-21] MEDS: Acetaminophen 325 MG Tablet 650 MG PO ×2 (09:28→20:06)
[2021-02-21] MEDS: oxyCODONE 5 MG Tablet PO ×2 (09:29→20:07)
[2021-02-21] MEDS: Potassium Chloride Oral Tablet 20 MEQ 60 MEQ PO (09:29)
[2021-02-21] MEDS: Cholecalciferol (VIT D3) 25 MCG TABLET (1,000 UNITS) 50 MCG PO (09:29)
[2021-02-21] MEDS: Sertraline 100 MG Tablet 200 MG PO (09:29)
[2021-02-21] MEDS: Ferrous Sulfate 325 MG Tablet PO (09:30)
[2021-02-21] MEDS: Furosemide 40 MG/4 ML Vial IV (09:30)
[2021-02-21] MEDS: Polyethylene Glycol 3350 17 GM PACKET PO (09:30)
[2021-02-21] MEDS: predniSONE 20 MG Tablet 40 MG PO (09:30)
[2021-02-21] MEDS: Ascorbic Acid 500 MG Tablet PO (09:30)
[2021-02-21] MEDS: Enoxaparin 40 MG/0.4 ML Syringe SC (09:31)
[2021-02-21] MEDS: Lidocaine 5% Patch 1 PATCH TOPICAL (09:31)
[2021-02-21] MEDS: Amiodarone 200 MG Tablet PO (09:31)
[2021-02-21] MEDS: Senna/Docusate Sodium 1 Tablet 2 TABLET PO (09:51)
--- NOTE | 2021-02-21 11:27 | PCM.PN.HOSP ---
Documented by User: Marino TYLER 02/21/21 11:38 Subjective Subjective Patient is a 75-year-old female comfortably resting in a chair, alert and orient x3. Patient denies any new symptoms in the past 24 hours and reports improvement of her shortness of breath relative to admission. Denies chest pain, palpitations, hemoptysis, fever, chills, N/V/D. Objective Data Objective Data Vital Signs: Vital Signs Temp Pulse Resp BP Pulse Ox 98.0 F 91 24 H 108/64 93 02/21/21 08:00 02/21/21 08:00 02/21/21 08:00 02/21/21 08:00 02/21/21 08:39 Oxygen Flow Rate (L/min) 7 Oxygen Delivery Method Nasal Cannula Weight: 146 lb 9.718 oz Body Mass Index (BMI) 28.6 Intake & Output: Intake and Output for Last 24 Hours 02/19/21 02/20/21 02/21/21 23:59 23:59 23:59 Intake Total 350 / 350 630.75 / 630.75 255 / 255 Output Total 550 / 850 600 / 600 Balance 350 / 0 80.75 / -219.25 -345 / -345 Lab / Micro Data Result Diagrams: 02/21/21 07:10 02/21/21 07:10 Labs: Laboratory Results - last 24 hr 02/21/21 07:10: WBC 15.3 H, RBC 3.52 L, Hgb 9.9 L, Hct 30.8 L, MCV 87.5, MCH 28.1, MCHC 32.1, RDW Std Deviation 58.6 H, RDW Coeff of Perla 18.3 H, Plt Count 308, MPV 9.7, Immature Gran % (Auto) 1.000 H, Neut % (Auto) 89.1 H, Lymph % (Auto) 5.2 L, [place] % (Auto) 4.1, Eos % (Auto) 0.5, Baso % (Auto) 0.1, Absolute Neuts (auto) 13.6 H, Absolute Lymphs (auto) 0.79 L, Nucleated RBC % 0 02/21/21 07:10: Sodium 143, Potassium 2.8 L, Chloride 107, Carbon Dioxide 28.0, Anion Gap 8, BUN 19 H, Creatinine 0.77, Estim Creat Clear Calc 35.45, Est GFR (MDRD) Af Amer 94, Est GFR (MDRD) Non-Af 78, BUN/Creatinine Ratio 24.6 H, Glucose 122 H, Calcium 8.1 L 02/21/21 07:10: Phosphorus 2.6, Magnesium 2.1 Micro: Microbiology 02/19/21 06:15 Urine, Clean Catch Legionella Antigen - Final 02/19/21 06:15 Urine, Clean Catch Streptococcus pneumoniae Antigen (M - Final 02/18/21 22:54 Mucosa - Nose Respiratory Panel (PCR) - Final ABG Data ABG results: ABG 02/20/21 15:33 Specimen Type ART Sample Site R Radial pH 7.39 Bicarbonate Actual 25.6 Total CO2 27 Base Excess 1 O2 Saturation 95 ABG pCO2 42.6 ABG pO2 78 [place] Test Positive O2 Delivery Device Cannula Liter Flow 8.0 Radiography Diagnostic Testing: Radiology Impression Chest X-Ray 02/20/21 15:45 IMPRESSION: Pulmonary findings appear improved. Electronically Signed: Darnell Upton MD at 16:07 EDT , Service support , Physical Exam Const alert, oriented x3 and no apparent distress HEENT head/scalp atraumatic, moist oral mucous membranes and oropharynx normal Head and Scalp: normocephalic Eyes PERRL, EOMs intact bilaterally and conjunctivae normal Neck no lymphadenopathy, supple and no JVD Resp Resp Narrative: Currently satting 93% on 7 liters via NC. Elevated respirations at 24 breaths per minute. Effort and Inspection: abnormal respiratory pattern and labored Auscultation: wheezes and diminished lung sounds Cardio regular rate, regular rhythm, no murmurs and no JVD GI normal to inspection, nondistended, normoactive bowel sounds, soft to palpation and non-tender Extremity normal to inspection, full ROM and no clubbing, cyanosis or edema Skin no rashes or lesions noted, no wounds and skin turgor normal Neuro CN's II-XII intact bilaterally Psych affect normal Assessment & Plan Assessment/Plan (1) Sepsis: QUALIFIERS: Acute respiratory failure type: with hypoxia Sepsis acute organ dysfunction status: with acute organ dysfunction Sepsis type: sepsis due to unspecified organism Severe sepsis acute organ dysfunction type: acute respiratory failure Severe sepsis shock status: without septic shock Qualified Code(s): A41.9 - Sepsis, unspecified organism; R65.20 - Severe sepsis without septic shock; J96.01 - Acute respiratory failure with hypoxia (2) COPD exacerbation: (3) Bilateral pneumonia: QUALIFIERS: Lung location: unspecified part of lung Pneumonia type: due to unspecified organism Qualified Code(s): J18.9 - Pneumonia, unspecified organism (4) Acute respiratory failure with hypoxia: PLAN: Day 3 Discharge planning: Current plan is for patient to discharge home, PT/OT eval ordered, case management following. 1) Sepsis secondary to bilateral community-acquired pneumonia Patient reports improvement in shortness of breath from admission, but admits still not being back to baseline. Currently satting 93% on 7 L via nasal cannula. qSOFA score 2 due to respiratory rate greater than 22 and systolic blood pressure less than 100 on admission. Patient was also noted to have leukocytosis, that is on going, and evidence of infection with pneumonia as well as organ dysfunction with acute hypoxic respiratory failure. Urine for strep and Legionella negative. Respiratory panel negative. Rapid COVID is negative. Blood cultures pending. Plan; continue IV azithromycin and IV Rocephin, continue albuterol and DuoNeb aerosols, incentive spirometry encouraged, 1 dose of lasix given to improve pulmonary congestion. 2) Acute hypoxic respiratory failure of mixed etiology Currently satting 93% on 7 L via nasal cannula. Condition is exacerbated by community-acquired pneumonia and COPD. Plan; continue oxygen supplementation, as above. 3) COPD exacerbation initially placed on IV Solu-Medrol, transitioned to prednisone. Continue albuterol and DuoNeb aerosols. 4) Hypothyroidism Continue Synthroid regimen. 5) Hyperlipidemia Continue statin. 6) Paroxysmal atrial fibrillation On amiodarone. Not on anticoagulation. 7) GERD continue Carafate. 8) Tobacco dependence Cessation encouraged. DVT prophylaxis - Lovenox Patient seen by Marino Kauffman PA-C, under the supervision of Dr. Sellers. Documented by User: Dr. Dann Sellers MD 02/21/21 13:37 Objective Data Lab / Micro Data Result Diagrams: 02/21/21 07:10 02/21/21 07:10 Charges/Coding Addendum Addendum: Dr. Sellers: I personally reviewed the chart and examined the patient, and agree with the above findings. 75-year-old female with a history of COPD presents with 2 to 3 weeks of progressively worsening shortness of breath. She presented to her PCPs office where she noticed that she was severely short of breath and recommended that she come to the emergency department secondary to hypoxia. She was found to have acute hypoxic respiratory failure secondary to her bilateral pneumonia and a possible COPD exacerbation. PCR for Covid was negative and she has been vaccinated against Covid. We will continue with antibiotics as well Solu-Medrol and obtain a Legionella and strep antigen. She states that she is feeling better today than she was when she came in though she is still requiring oxygen to maintain her saturations in a normal level. We will continue to monitor, and anticipate a little bit of a longer course to recovery given her underlying respiratory issues. 02/20/2021: Has an increased oxygen requirement today unsure as its etiology, will obtain a chest x-ray as well as an ABG to evaluate for possible retention given her history of COPD. May need to be placed on BiPAP. We will continue with duo nebs and antibiotics. She continues to have rhonchorous breath sounds bilaterally throughout. From fluid status, she is about a liter positive. 02/21/2021: Continues to have little bit of an increased oxygen requirement of 5 to 7 L depending on whether or not she is active. 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 We will transition her prednisone to Solu-Medrol. Also obtain a sputum culture today. ABG yesterday was unremarkable. Visit Charges Inpatient E&M: 51622 Subs Hosp L2
[2021-02-21] MEDS: Potassium Chloride Oral Tablet 20 MEQ 40 MEQ PO (11:45)
--- NOTE | 2021-02-21 15:20 | CASEMGMT ---
Social Work SW met with pt to discuss discharge plan. Pt is continuing to hope she can return home at discharge with assistance from her sister. SW spoke with pt regarding possible need for SNF. Pt expresses understanding but is hesitant to commit to this. SW provided pt with list of area SNF's including quality and resource use data and consistent with the patient's preferred geographic region, medical needs and insurance network. SW encouraged pt to consider SNF placement as a plan B if she cannot return home. Pt states she will review list and will speak with her sister who may have opinions on area SNFs. SW will follow to assist with discharge planning. MICHAEL Washington
--- NOTE | 2021-02-21 15:22 | EX.PCM.CONCC ---
Assessment & Plan Assessment/Plan (1) Acute respiratory failure with hypoxia: (2) Compression fracture of T7 vertebra: QUALIFIERS: Encounter type: sequela Qualified Code(s): S22.060S - Wedge compression fracture of T7-T8 vertebra, sequela (3) COPD (chronic obstructive pulmonary disease): (4) Obstructive sleep apnea: (5) History of back surgery: (6) Osteoporosis: QUALIFIERS: Encounter type: sequela Osteoporosis type: age-related Presence of current pathological fracture: with current pathological fracture Qualified Code(s): M80.00XS - Age-related osteoporosis with current pathological fracture, unspecified site, sequela PLAN: RECOMMENDATIONS: 1. Obtain echocardiogram and BNP 2. Diurese as tolerated 3. Agree with liberalizing Solu-Medrol 4. Encourage incentive spirometer and out of bed as tolerated 5. Wean oxygen as tolerated 6. Consider inpatient pain consult IMPRESSIONS: 1. Acute hypoxic respiratory failure Patient does have COPD and asthma at baseline with moderately severe defect. This is likely contributing, but is unclear at this hospitalization represents a COPD exacerbation. Patient does have a back fracture and may have an element of atelectasis but will compound apical emphysematous changes. Patient appears to have some cephalization and has responded to diuretic therapy indicating cor pulmonale versus CHF. Patient has had mild luminal defect in 2014 of the LAD. Will order an echocardiogram and BNP. Attempt to diurese as tolerated. Could consider pain evaluation to see if atelectasis from splinting can be controlled better. Narcotics could be dangerous given underlying lung disease. Continue with combined bronchodilators. 2. Hypothyroidism/osteoporosis with spinal fracture/hyperlipidemia/GERD/advanced age/paroxysmal A. fib Complicates care, management, recovery and prognosis. Consider pain consultation. Okay to continue with baseline medications. Patient appears to be in sinus rhythm. HPI Consult Data Date of Consult: 02/21/21 HPI Narrative HPI Narrative: PAULINO LOPEZ is a 75 F, with past medical history listed below, who presents to [facility] on 02/18/2021 secondary to shortness of breath. Patient reportedly had gone to see her primary care physician and was concerned about her respiratory effort, so she was referred to the ER for evaluation. Patient reported that she has been vaccinated for COVID-19. Patient had not had any constitutional symptoms, but but had increasing shortness of breath over the last 2 to 3 weeks. Patient does have a long history of COPD and asthma and uses Symbicort and Spiriva. Patient denies any bleeding complications such as hematemesis, melena or hematochezia. In the ER, patient was afebrile and saturating only 88% on room air. Patient did not use supplemental oxygen at baseline. Laboratory work-up shows a white blood cell count of 18.6, hemoglobin 11.8, potassium 3.1 and slightly elevated alkaline phosphatase. ABG showed adequate ventilation with increased AA gradient. Chest x-ray showed patchy bilateral infiltrates. Patient was given DuoNeb, Solu-Medrol, Rocephin and azithromycin and moved to the floor for further evaluation. Patient did relatively well over the course of her hospitalization, but 24 hours ago started to have significant worsening in hypoxia. Patient was up to 10 L/min to maintain saturations, so pulmonary consult was obtained. Patient did receive 40 mg of Lasix by the time of my consult was back down to 7 L. Patient reports she feels subjectively improved compared to yesterday. Patient has had a cough with intermittent production. Patient has a long history of asthma and COPD treated with triple therapy. Patient thought she was of her usual health until she had a spontaneous fracture of her back in December. Patient states she was seen by Dr. Thomas and stated that surgical options were extremely limited. She also stated that he had stated that it was progressing. Patient was supposed to see Dr. Connolly on February 19, but missed the appointment secondary to being hospitalized. Patient reports she has significant back pain and it does limit her ability to move around and take deep breaths. Patient is denying other pleuritic chest pain. Patient is unaware of any previous cardiac history per her report and she believes her biggest problem is my bones are too brittle to hold together. Review of systems otherwise negative from a constitutional, HEENT, respiratory, cardiovascular, GI, genitourinary, musculoskeletal, skin, neurologic, psychiatric and hematologic system unless stated above. 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 Bleeding hemorrhoids Cardiology follow-up encounter Chest pain Chronic diarrhea Chronic GERD COPD (chronic obstructive pulmonary disease) Depression Diarrhea Easy bruising Essential hypertension Gastric reflux Hemorrhoids High cholesterol History of atrial fibrillation History of diverticulitis History of pain when walking History of renal stone History of stress incontinence History of stress test History of ulceration Hx of echocardiogram Hypercalcemia Hyperlipidemia Hypokalemia Injury of head and neck Left atrial enlargement Leg cramps Loss of consciousness Multiple thyroid nodules Nonrheumatic aortic (valve) insufficiency Obstructive sleep apnea Osteoporosis Paroxysmal atrial fibrillation Pre-syncope Primary hyperparathyroidism Rectal bleeding Restless legs Shortness of breath on exertion Shoulder pain Smoker Thyroid disease Vitamin D deficiency Walker as ambulation aid Wears dentures Wears glasses Home Medications atorvastatin 40 mg tablet 40 mg PO DAILY 06/03/17 [History Last Taken 09/21/18 12:00] cholecalciferol (vitamin D3) 125 mcg (5,000 unit) capsule 2,000 unit PO DAILY 09/28/18 [History Last Taken Unknown] levothyroxine 50 mcg tablet 50 mcg PO DAILY 05/18/19 [History Last Taken Unknown] tiotropium bromide 2.5 mcg/actuation mist for inhalation 2 inh INHALATION QAM 03/20/20 [History Last Taken Unknown] sucralfate 1 gram tablet 1 g PO QACHS 07/02/20 [History Last Taken Unknown] ondansetron 4 mg PO Q8H PRN PRN #10 tablet 09/15/20 [Rx Last Taken Unknown] sertraline 200 mg PO DAILY 10/11/20 [History Last Taken Unknown] oxycodone-acetaminophen [Endocet] 1 tab PO Q6H PRN 5 Days #20 tab 10/18/20 [Rx Last Taken Unknown] albuterol sulfate 90 mcg/actuation aerosol inhaler 2 inh INHALATION Q4H PRN g 02/05/21 [History Last Taken Unknown] ascorbate calcium (vitamin C) 500 mg tablet 500 mg PO DAILY 02/05/21 [History Last Taken Unknown] ferrous fumarate 325 mg (106 mg iron) tablet 325 mg PO DAILY 02/05/21 [History Last Taken Unknown] lidocaine 5 % topical patch 1 patch TOPICAL BID ea 02/05/21 [History Last Taken Unknown] polyethylene glycol 3350 17 gram/dose oral powder 17 g PO DAILY 02/05/21 [History Last Taken Unknown] amiodarone 200 mg PO DAILY 02/19/21 [History Last Taken Unknown] Allergy/AdvReac Type Severity Reaction Status Date / Time hydrocodone bitartrate Allergy Rash Verified 02/18/21 18:02 [From Vicodin] Penicillins Allergy Rash Verified 02/18/21 18:02 diltiazem AdvReac Severe Hypotension Verified 02/18/21 18:02 sulfamethoxazole AdvReac Intermediate nausea and Verified 02/18/21 18:02 [From Bactrim] vomiting trimethoprim [From Bactrim] AdvReac Intermediate nausea and Verified 02/18/21 18:02 vomiting clindamycin AdvReac Other Verified 02/18/21 18:02 tizanidine HCl AdvReac Other Verified 02/18/21 18:02 [From Zanaflex] Family History Mother Arthritis Hypertension Heart disease Osteoporosis CVA (cerebral vascular accident) Father Arthritis Lung cancer Brother Asthma Lung cancer Kidney disease Sister Arthritis Autoimmune disease Daughter Breast cancer Surgical History H/O cataract removal with insertion of prosthetic lens History of adrenal surgery History of back surgery History of bone marrow biopsy History of colonoscopy (~10/2018) History of esophagogastroduodenoscopy (EGD) (~10/2018) History of extraction of renal calculus History of hip surgery History of left heart catheterization (04/03/14) History of lumpectomy of both breasts Hx of appendectomy Hx of section Hx of cholecystectomy Hx of kyphoplasty Hx of lithotripsy S/P fine needle aspiration S/P hysterectomy S/P ovarian cystectomy S/P parathyroidectomy Social History household members: none housing: house Smoking Status: Current every day smoker tobacco type: cigarettes alcohol intake: current alcohol intake frequency: a few times a week substance use type: does not use caffeine: No what type of physical activity do you participate in: none frequency: does not exercise seatbelt use: always do you feel safe at home: Yes additional social history: takes aspirin no ibuprofen ROS ROS Narrative See HPI Physical Exam Const alert and oriented x3 Constitutional Narrative: Mild conversational dyspnea HEENT head/scalp atraumatic, moist oral mucous membranes and oropharynx normal Head and Scalp: normocephalic Eyes PERRL, EOMs intact bilaterally and conjunctivae normal Neck no lymphadenopathy, supple and no JVD Chest inspection of chest normal Chest: symmetrical chest wall rise; Negative for crepitus Resp Effort and Inspection: tachypneic and audible wheezes; Negative for uses accessory muscles Auscultation: wheezes and diminished lung sounds; Negative for rales or rhonchi Cardio regular rate, regular rhythm, no murmurs and no JVD GI normal to inspection, nondistended, normoactive bowel sounds, soft to palpation and non-distended Extremity normal to inspection, full ROM and no clubbing, cyanosis or edema Skin no rashes or lesions noted, no wounds, skin turgor normal and no jaundice Neuro CN's II-XII intact bilaterally Psych affect normal Lab / Micro Data Result Diagrams: 02/21/21 07:10 02/21/21 07:10 Labs: Laboratory Results - last 24 hr 02/21/21 07:10: WBC 15.3 H, RBC 3.52 L, Hgb 9.9 L, Hct 30.8 L, MCV 87.5, MCH 28.1, MCHC 32.1, RDW Std Deviation 58.6 H, RDW Coeff of Perla 18.3 H, Plt Count 308, MPV 9.7, Immature Gran % (Auto) 1.000 H, Neut % (Auto) 89.1 H, Lymph % (Auto) 5.2 L, [place] % (Auto) 4.1, Eos % (Auto) 0.5, Baso % (Auto) 0.1, Absolute Neuts (auto) 13.6 H, Absolute Lymphs (auto) 0.79 L, Nucleated RBC % 0 02/21/21 07:10: Sodium 143, Potassium 2.8 L, Chloride 107, Carbon Dioxide 28.0, Anion Gap 8, BUN 19 H, Creatinine 0.77, Estim Creat Clear Calc 35.45, Est GFR (MDRD) Af Amer 94, Est GFR (MDRD) Non-Af 78, BUN/Creatinine Ratio 24.6 H, Glucose 122 H, Calcium 8.1 L 02/21/21 07:10: Phosphorus 2.6, Magnesium 2.1 Micro: Microbiology 02/18/21 20:09 Blood Culture (Wb) - Anticubital Right Blood Culture - Preliminary No growth in 48 hours. 02/18/21 20:30 Blood Culture (Wb) - No Site/Description Given Blood Culture - Preliminary No growth in 48 hours. ABG Data ABG results: ABG 02/20/21 15:33 Specimen Type ART Sample Site R Radial pH 7.39 Bicarbonate Actual 25.6 Total CO2 27 Base Excess 1 O2 Saturation 95 ABG pCO2 42.6 ABG pO2 78 [place]rey Test Positive O2 Delivery Device Cannula Liter Flow 8.0 Radiology Impression Chest X-Ray 02/20/21 15:45 IMPRESSION: Pulmonary findings appear improved. Electronically Signed: Darnell Upton MD at 16:07 EDT , Service support , Complete PFT (06/03/2017):Partially reversible moderately severe large airways obstructive ventilatory defect with symmetric reduction diffusing capacity consistent with COPD/asthma overlap syndrome. (FEV1 59%, TLC 115%, DLCO 63%) Charges/Coding Visit Charges Inpatient E&M: 03860 Init Hosp L3
--- NOTE | 2021-02-21 15:35 | ECHOD_ITS ---
Reason For Study: Dyspnea/SOB Procedure This was a 2D Doppler, Color Flow transthoracic echocardiogram. Exam performed portable in patient room. Left Ventricle Normal left ventricle. The estimated ejection fraction is EF 55-60 %. Right Ventricle Normal right ventricle. Normal systolic function. Atria The left atrium is mildly enlarged. Normal right atrium. Mitral Valve There is mild mitral annular calcification. Trivial mitral valve insufficiency. Tricuspid Valve The tricuspid valve is not well visualized. Mild eccentric tricuspid valve insufficiency. Aortic Valve Aortic sclerosis, no stenosis. Mild (1+) aortic valve insufficiency. Pulmonic Valve The pulmonic valve is not well visualized. Great Vessels Normal aortic root. Pericardium/Pleural No pericardial effusion. MMode/2D Measurements & Calculations LVIDd: 5.0 cm IVSd: 0.95 cm Ao root diam: 3.6 cm LVIDs: 2.8 cm LVPWd: 1.1 cm RVDd: 3.9 cm FS: 44.5 % LAV(MOD-bp): 66.3 ml LVAd ap4: 22.8 cm2 SV(MOD-sp4): 35.5 ml LAV(MOD-bp) Indexed: 40.6 ml/m2 LVLd ap4: 7.2 cm LAV(MOD-sp2): 66.8 ml EDV(MOD-sp4): 59.3 ml LAV(MOD-sp4): 58.6 ml EDV(sp4-el): 61.4 ml LVAs ap4: 13.2 cm2 LVLs ap4: 6.4 cm ESV(MOD-sp4): 23.8 ml ESV(sp4-el): 23.2 ml EF(MOD-sp4): 59.9 % EF(sp4-el): 62.2 % SV(sp4-el): 38.2 ml LA A4 area: 21.7 cm2 LA dimension(2D): 4.6 cm RA A4 area: 14.4 cm2 Doppler Measurements & Calculations MV E max geoff: 86.8 cm/sec Lat Peak E' Geoff: 8.7 cm/sec Med Peak E' Geoff: 5.0 cm/sec MV A max geoff: 102.7 cm/sec E/E' lat: 10.0 E/E' med: 17.2 MV E/A: 0.85 Ao V2 max: 141.9 cm/sec AI max geoff: 464.7 cm/sec LV V1 max: 113.6 cm/sec Ao max P.1 mmHg AI max P.4 mmHg LV V1 max P.2 mmHg Ao V2 mean: 87.1 cm/sec Ao mean P.5 mmHg AI dec slope: 295.4 cm/sec2 Ao V2 VTI: 25.1 cm AI P1/2t: 460.7 msec PA V2 max: 97.4 cm/sec TR max geoff: 339.9 cm/sec TR max P.2 mmHg ECHO/Echo Complete Interpretation Summary The estimated ejection fraction is EF 55-60 %. Normal LV systolic function Grade # I Diastolic dysfunction Mild AR Moderate pulmonary hypertension RVSP calculated 56.2 mmhg Ordering Physician: Kemar Lara Referring Physician: Marino Williamson Performed By: Laura Begum, ZHANG, RVT
[2021-02-21] MEDS: Atorvastatin Calcium 40 MG Tablet PO (21:45)
[2021-02-21] MEDS: MELATONIN 3 MG TABLET PO (22:40)
[2021-02-22] VITALS (10 sets, daily range): BP systolic 112–137; BP diastolic 61–73; PULSE 77–96; RESP 18–26; TEMP 36.6–37.1; O2SAT 90–95
[2021-02-22] MEDS: oxyCODONE 5 MG Tablet PO ×2 (05:31→21:31)
[2021-02-22] MEDS: Acetaminophen 325 MG Tablet 650 MG PO ×2 (05:31→20:05)
[2021-02-22] MEDS: 0.9% Saline Lock 10 ML Syringe IV ×2 (05:32→20:05)
[2021-02-22 06:33] LABS: Absolute Lymphocyte Count 0.36 X10^3/uL (0.83-4.51); Absolute Neutrophil Count 17.8 X10^3/uL (2.0-7.7); Basophil# 0.03 X10^3/uL; Basophil% 0.2 % (0-1); Hematocrit 30.9 % (37-47); Hemoglobin 9.9 g/dL (12.0-15.0); Lymphocyte # 0.36 X10^3/ul (0.83-4.51); Lymphocyte % 1.9 % (19-41); Mean Corpuscular Hgb 28.1 pg (27.0-32.0); Mean Corpuscular Volume 87.8 fL (81-99); Mean Platelet Vol. 10.1 fl (6.2-12.0); Monocyte# 0.54 X10^3/uL; Monocyte% 2.9 % (0-10); NRBC Flagged by Analyzer 0 % (0-5); Neutrophil # 17.78 X10^3/uL (2.7-7.7); Neutrophil % 94.1 % (47-70); POSITIVE DIFFERENTIAL YES; Platelet Count 339 K/mm3 (150-450); RBC Distribution Width CV 18.5 % (11.6-14.6); RBC Distribution Width SD 58.4 fl (35.1-43.9); Red Blood Count 3.52 M/mm3 (4.2-5.4); White Blood Count 18.9 K/mm3 (4.4-11.0)
[2021-02-22 06:39] LABS: Differential Indicated SCAN CRITERIA MET
[2021-02-22 06:57] LABS: Differential Comment SCANNED; Hypochromasia RARE
[2021-02-22 07:07] LABS: Anion Gap 3 (5-15); BUN 23 mg/dL (7-18); BUN/Creat Ratio 28.9 RATIO (10-20); Calcium,Total 8.3 mg/dL (8.5-10.1); Chloride 108 mmol/L (98-107); EST Glomerular Filtration Rate 75 mL/min (>60); Est Glom Filt Rate - Afr Amer 90 mL/min (>60); Estimated Creatinine Clearance 44.32 ml/min; Glucose 155 mg/dL (74-106); Magnesium 2.1 mg/dL (1.6-2.6); Phosphorus 2.8 mg/dL (2.5-4.9); Potassium 4.5 mmol/L (3.5-5.1); Sodium Level 141 mmol/L (136-145)
--- NOTE | 2021-02-22 07:39 | PN.CC_ITS ---
Assessment & Plan Assessment/Plan (1) Acute respiratory failure with hypoxia: (2) Compression fracture of T7 vertebra: QUALIFIERS: Encounter type: sequela Qualified Code(s): S22.060S - Wedge compression fracture of T7-T8 vertebra, sequela (3) COPD (chronic obstructive pulmonary disease): (4) Obstructive sleep apnea: (5) History of back surgery: (6) Osteoporosis: QUALIFIERS: Osteoporosis type: age-related Presence of current pathological fracture: with current pathological fracture Encounter type: sequela Qualified Code(s): M80.00XS - Age-related osteoporosis with current pathological fracture, unspecified site, sequela PLAN: RECOMMENDATIONS: 1. Await echocardiogram 2. Diurese as tolerated 3. Agree with liberalizing Solu-Medrol 4. Encourage incentive spirometer and out of bed as tolerated 5. Wean oxygen as tolerated 6. Consider inpatient pain consult IMPRESSIONS: 1. Acute hypoxic respiratory failure Patient does have COPD and asthma at baseline with moderately severe defect. This is likely contributing, but is unclear at this hospitalization represents a COPD exacerbation. Patient does have a back fracture and may have an element of atelectasis but will compound apical emphysematous changes. Patient appears to have some cephalization and has responded to diuretic therapy indicating cor pulmonale versus CHF. Patient has had mild luminal defect in 2013 of the LAD. Will await echocardiogram. Attempt to diurese as tolerated. Could consider pain evaluation to see if atelectasis from splinting can be controlled better. Narcotics could be dangerous given underlying lung disease. Continue with combined bronchodilators. Will add nasal saline as patient is at risk for development of epistaxis given high flow nasal cannula 2. Hypothyroidism/osteoporosis with spinal fracture/hyperlipidemia/GERD/advanced age/paroxysmal A. fib Complicates care, management, recovery and prognosis. Consider pain consultation. Okay to continue with baseline medications. Patient appears to be in sinus rhythm. Subjective Subjective Patient did okay overnight. Patient felt a heaviness overnight that woke her up from sleep. Patient is not having a significant cough unless she uses her incentive spirometer. Patient is reporting minimal production with Acapella. Objective Data Objective Data Vital Signs: Vital Signs Temp Pulse Resp BP Pulse Ox 36.7 C 78 22 H 121/67 H 92 02/22/21 03:39 02/22/21 03:39 02/22/21 03:39 02/22/21 03:39 02/22/21 03:46 Oxygen Flow Rate (L/min) 7 Oxygen Delivery Method Nasal Cannula Weight: 66.5 kg Body Mass Index (BMI) 28.6 Intake & Output: Intake and Output for Last 24 Hours 02/20/21 02/21/21 02/22/21 23:59 23:59 23:59 Intake Total 630.75 / 630.75 875 / 875 375 / 375 Output Total 550 / 850 1100 / 1100 50 / 50 Balance 80.75 / -219.25 -225 / -225 325 / 325 Lab / Micro Data Result Diagrams: 02/22/21 06:20 02/22/21 06:20 Labs: Laboratory Results - last 24 hr 02/21/21 07:10: Phosphorus 2.6, Magnesium 2.1 02/22/21 06:20: Sodium 141, Potassium 4.5, Chloride 108 H, Carbon Dioxide 30.0, Anion Gap 3 L, BUN 23 H, Creatinine 0.80, Estim Creat Clear Calc 44.32, Est GFR (MDRD) Af Amer 90, Est GFR (MDRD) Non-Af 75, BUN/Creatinine Ratio 28.9 H, Glucose 155 H, Calcium 8.3 L, Phosphorus 2.8, Magnesium 2.1 02/22/21 06:20: B-Natriuretic Peptide 206.0 H 02/22/21 06:20: WBC 18.9 H, RBC 3.52 L, Hgb 9.9 L, Hct 30.9 L, MCV 87.8, MCH 28.1, MCHC 32.0, RDW Std Deviation 58.4 H, RDW Coeff of Perla 18.5 H, Plt Count 339, MPV 10.1, Immature Gran % (Auto) 0.900, Neut % (Auto) 94.1 H, Lymph % (Auto) 1.9 L, [place] % (Auto) 2.9, Eos % (Auto) 0.0, Baso % (Auto) 0.2, Absolute Neuts (auto) 17.8 H, Absolute Lymphs (auto) 0.36 L, Nucleated RBC % 0, Differential Comment SCANNED, Hypochromasia RARE Micro: Microbiology 02/18/21 20:09 Blood Culture (Wb) - Anticubital Right Blood Culture - Preliminary No growth in 48 hours. 02/18/21 20:30 Blood Culture (Wb) - No Site/Description Given Blood Culture - Preliminary No growth in 48 hours. 02/19/21 06:15 Urine, Clean Catch Legionella Antigen - Final 02/19/21 06:15 Urine, Clean Catch Streptococcus pneumoniae Antigen (M - Final 02/18/21 22:54 Mucosa - Nose Respiratory Panel (PCR) - Final Physical Exam Const alert and oriented x3 Constitutional Narrative: Mild conversational dyspnea HEENT head/scalp atraumatic, moist oral mucous membranes and oropharynx normal Head and Scalp: normocephalic Eyes PERRL, EOMs intact bilaterally and conjunctivae normal Neck no lymphadenopathy, supple and no JVD Chest inspection of chest normal Chest: symmetrical chest wall rise; Negative for crepitus Resp Effort and Inspection: tachypneic and audible wheezes; Negative for uses accessory muscles Auscultation: wheezes and diminished lung sounds; Negative for rales or rhonchi Cardio regular rate, regular rhythm, no murmurs and no JVD GI normal to inspection, nondistended, normoactive bowel sounds, soft to palpation and non-distended Extremity normal to inspection, full ROM and no clubbing, cyanosis or edema Skin no rashes or lesions noted, no wounds, skin turgor normal and no jaundice Neuro CN's II-XII intact bilaterally Psych affect normal Charges/Coding Visit Charges Inpatient E&M: 39077 Subs Hosp L3
[2021-02-22] MEDS: Ipratropium/Albuterol Sulfate 3 ML AMPUL.NEB INHALATION ×3 (07:44→21:45)
[2021-02-22] MEDS: Potassium Chloride Oral Tablet 20 MEQ 40 MEQ PO (08:41)
[2021-02-22] MEDS: Ferrous Sulfate 325 MG Tablet PO (08:41)
[2021-02-22] MEDS: Polyethylene Glycol 3350 17 GM PACKET PO (08:42)
[2021-02-22] MEDS: Amiodarone 200 MG Tablet PO (08:42)
[2021-02-22] MEDS: Cholecalciferol (VIT D3) 25 MCG TABLET (1,000 UNITS) 50 MCG PO (08:43)
[2021-02-22] MEDS: Lidocaine 5% Patch 1 PATCH TOPICAL (08:43)
[2021-02-22] MEDS: Enoxaparin 40 MG/0.4 ML Syringe SC (08:43)
[2021-02-22] MEDS: Sertraline 100 MG Tablet 200 MG PO (08:44)
[2021-02-22] MEDS: Ascorbic Acid 500 MG Tablet PO (08:45)
[2021-02-22] MEDS: Furosemide 40 MG Tablet PO ×2 (08:48→16:37)
--- NOTE | 2021-02-22 12:40 | PCM.PN.HOSP ---
Documented by User: Marino TYLER 02/22/21 12:54 Subjective Subjective Patient is a 75-year-old female resting in bed receiving a breathing treatment, alert and orient x3. Patient does not report any improvement from yesterday and reports still feeling short of breath. Objective Data Objective Data Vital Signs: Vital Signs Temp Pulse Resp BP Pulse Ox 97.8 F 86 26 H 137/64 H 90 02/22/21 08:34 02/22/21 11:45 02/22/21 11:45 02/22/21 08:34 02/22/21 08:37 Oxygen Flow Rate (L/min) 8 Oxygen Delivery Method Nasal Cannula Weight: 146 lb 9.718 oz Body Mass Index (BMI) 28.6 Intake & Output: Intake and Output for Last 24 Hours 02/20/21 02/21/21 02/22/21 23:59 23:59 23:59 Intake Total 630.75 / 630.75 875 / 875 375 / 375 Output Total 550 / 850 1100 / 1100 150 / 150 Balance 80.75 / -219.25 -225 / -225 225 / 225 Lab / Micro Data Result Diagrams: 02/22/21 06:20 02/22/21 06:20 Labs: Laboratory Results - last 24 hr 02/22/21 06:20: Sodium 141, Potassium 4.5, Chloride 108 H, Carbon Dioxide 30.0, Anion Gap 3 L, BUN 23 H, Creatinine 0.80, Estim Creat Clear Calc 44.32, Est GFR (MDRD) Af Amer 90, Est GFR (MDRD) Non-Af 75, BUN/Creatinine Ratio 28.9 H, Glucose 155 H, Calcium 8.3 L, Phosphorus 2.8, Magnesium 2.1 02/22/21 06:20: B-Natriuretic Peptide 206.0 H 02/22/21 06:20: WBC 18.9 H, RBC 3.52 L, Hgb 9.9 L, Hct 30.9 L, MCV 87.8, MCH 28.1, MCHC 32.0, RDW Std Deviation 58.4 H, RDW Coeff of Perla 18.5 H, Plt Count 339, MPV 10.1, Immature Gran % (Auto) 0.900, Neut % (Auto) 94.1 H, Lymph % (Auto) 1.9 L, [place] % (Auto) 2.9, Eos % (Auto) 0.0, Baso % (Auto) 0.2, Absolute Neuts (auto) 17.8 H, Absolute Lymphs (auto) 0.36 L, Nucleated RBC % 0, Differential Comment SCANNED, Hypochromasia RARE Micro: Microbiology 02/21/21 20:54 Sputum, Expectorated/Coughed Respiratory Culture - Preliminary Staphylococcus aureus 02/18/21 20:09 Blood Culture (Wb) - Anticubital Right Blood Culture - Preliminary No growth in 48 hours. 02/18/21 20:30 Blood Culture (Wb) - No Site/Description Given Blood Culture - Preliminary No growth in 48 hours. 02/19/21 06:15 Urine, Clean Catch Legionella Antigen - Final 02/19/21 06:15 Urine, Clean Catch Streptococcus pneumoniae Antigen (M - Final 02/18/21 22:54 Mucosa - Nose Respiratory Panel (PCR) - Final Radiography Diagnostic Testing: Radiology Impression Echocardiogram 02/21/21 15:35 Interpretation Summary The estimated ejection fraction is EF 55-60 %. Normal LV systolic function Grade # I Diastolic dysfunction Mild AR Moderate pulmonary hypertension RVSP calculated 56.2 mmhg Ordering Physician: Kemar Lara Referring Physician: Marino Williamson Performed By: Laura Begum, ZHANG, RVT Physical Exam Const alert and oriented x3 HEENT head/scalp atraumatic and moist oral mucous membranes Head and Scalp: normocephalic Eyes PERRL, EOMs intact bilaterally and conjunctivae normal Neck no lymphadenopathy, supple and no JVD Resp Effort and Inspection: abnormal respiratory pattern and labored Auscultation: rhonchi and diminished lung sounds Cardio regular rate, regular rhythm, no murmurs and no JVD GI normal to inspection, nondistended, normoactive bowel sounds, soft to palpation and non-tender Extremity normal to inspection, full ROM and no clubbing, cyanosis or edema Skin no rashes or lesions noted, no wounds and skin turgor normal Neuro CN's II-XII intact bilaterally Psych affect normal Assessment & Plan Assessment/Plan (1) COPD exacerbation: (2) Sepsis: QUALIFIERS: Acute respiratory failure type: with hypoxia Sepsis acute organ dysfunction status: with acute organ dysfunction Sepsis type: sepsis due to unspecified organism Severe sepsis acute organ dysfunction type: acute respiratory failure Severe sepsis shock status: without septic shock Qualified Code(s): A41.9 - Sepsis, unspecified organism; R65.20 - Severe sepsis without septic shock; J96.01 - Acute respiratory failure with hypoxia (3) Bilateral pneumonia: QUALIFIERS: Lung location: unspecified part of lung Pneumonia type: due to unspecified organism Qualified Code(s): J18.9 - Pneumonia, unspecified organism PLAN: Day 4 Discharge planning: Current plan is for patient to discharge home, PT/OT eval ordered, case management following. 1) Sepsis secondary to bilateral community-acquired pneumonia Patient reports no change in shortness of breath from yesterday, feels like she may be getting slightly worse. Currently satting 90% on 9 L via nasal cannula. qSOFA score 2 due to respiratory rate greater than 22 and systolic blood pressure less than 100 on admission. Patient was also noted to have leukocytosis, that is on going, and evidence of infection with pneumonia as well as organ dysfunction with acute hypoxic respiratory failure. Sputum cultures initially show S. Aureus. Urine for strep and Legionella negative. Respiratory panel negative. Rapid COVID is negative. Blood cultures demonstrate no growth. Plan; continue IV azithromycin and IV Rocephin, continue albuterol and DuoNeb aerosols, incentive spirometry encouraged, 1 dose of lasix given to improve pulmonary congestion. 2) Acute hypoxic respiratory failure of mixed etiology Currently satting 90% on 7 L via nasal cannula. Echocardiogram obtained on 02/21 demonstrated an EF of 55 to 60%, normal LV systolic function, grade 1 diastolic dysfunction, moderate pulmonary hypertension with an RVSP at 56.2. Pulmonary following. Condition is exacerbated by community-acquired pneumonia and COPD. Plan; Lasix 40 mg IV twice daily initiated per pulmonary medicine, continue oxygen supplementation, as above. 3) COPD exacerbation initially placed on IV Solu-Medrol, transitioned to prednisone. Continue albuterol and DuoNeb aerosols. 4) Hypothyroidism Continue Synthroid regimen. 5) Hyperlipidemia Continue statin. 6) Paroxysmal atrial fibrillation On amiodarone. Not on anticoagulation. 7) GERD continue Carafate. 8) Tobacco dependence Cessation encouraged. DVT prophylaxis - Lovenox Patient seen by Marino Kauffman PA-C, under the supervision of Dr. Sellers. Documented by User: Dr. Dann Sellers MD 02/22/21 14:49 Objective Data Lab / Micro Data Result Diagrams: 02/22/21 06:20 02/22/21 06:20 Charges/Coding Addendum Addendum: Dr. Sellers: I personally reviewed the chart and examined the patient, and agree with the above findings. 75-year-old female with a history of COPD presents with 2 to 3 weeks of progressively worsening shortness of breath. She presented to her PCPs office where she noticed that she was severely short of breath and recommended that she come to the emergency department secondary to hypoxia. She was found to have acute hypoxic respiratory failure secondary to her bilateral pneumonia and a possible COPD exacerbation. PCR for Covid was negative and she has been vaccinated against Covid. We will continue with antibiotics as well Solu-Medrol and obtain a Legionella and strep antigen. She states that she is feeling better today than she was when she came in though she is still requiring oxygen to maintain her saturations in a normal level. We will continue to monitor, and anticipate a little bit of a longer course to recovery given her underlying respiratory issues. 02/20/2021: Has an increased oxygen requirement today unsure as its etiology, will obtain a chest x-ray as well as an ABG to evaluate for possible retention given her history of COPD. May need to be placed on BiPAP. We will continue with duo nebs and antibiotics. She continues to have rhonchorous breath sounds bilaterally throughout. From fluid status, she is about a liter positive. 02/21/2021: Continues to have little bit of an increased oxygen requirement of 5 to 7 L depending on whether or not she is active. 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 We will transition her prednisone to Solu-Medrol. Also obtain a sputum culture today. ABG yesterday was unremarkable. 02/22/2021: Doing well, still maintaining her oxygen sats around 7 L. Appreciate pulmonology's assistance. Will repeat Lasix dose today, echo is pending. Will await results from sputum culture, may need to initiate antibiotic therapy if she does not improve. Visit Charges Inpatient E&M: 71370 Subs Hosp L2
--- NOTE | 2021-02-22 13:20 | CM.ED ---
CAMERON Note: Referral Source: SW MS2 Referral Reason: Possible SNF placement SW met with patient to discuss her choice of SNF if needed. Patient's first choice is [facility] (of note their is currently no beds) and second choice is [facility]. CAMERON sent email to Alisha in TCU/Rehab regarding patients desire to go to [facility] at discharge. Plan: To be determined Corinne TALLEY
[2021-02-22] MEDS: MELATONIN 3 MG TABLET PO (20:05)
[2021-02-22] MEDS: Atorvastatin Calcium 40 MG Tablet PO (20:05)
[2021-02-22] MEDS: Sodium Chloride 0.65% 1 SPRAY SPRAY.BTL 2 SPRAY NASAL (20:22)
[2021-02-23] VITALS (14 sets, daily range): BP systolic 115–140; BP diastolic 72–79; PULSE 70–89; RESP 18–24; TEMP 36.5–36.8; O2SAT 85–97
[2021-02-23] MEDS: Oxymetazoline 0.05% 1 SPRAY SPRAY.BTL NASAL ×2 (05:22→20:34)
[2021-02-23 05:40] LABS: Absolute Lymphocyte Count 0.51 X10^3/uL (0.83-4.51); Absolute Neutrophil Count 17.9 X10^3/uL (2.0-7.7); Basophil# 0.03 X10^3/uL; Basophil% 0.2 % (0-1); Hematocrit 31.4 % (37-47); Hemoglobin 10.3 g/dL (12.0-15.0); Lymphocyte # 0.51 X10^3/ul (0.83-4.51); Lymphocyte % 2.7 % (19-41); Mean Corp Hgb Conc 32.8 g/dL (32-36); Mean Corpuscular Hgb 28.3 pg (27.0-32.0); Mean Corpuscular Volume 86.3 fL (81-99); Monocyte# 0.62 X10^3/uL; Monocyte% 3.2 % (0-10); NRBC Flagged by Analyzer 0 % (0-5); Neutrophil # 17.89 X10^3/uL (2.7-7.7); POSITIVE DIFFERENTIAL YES; Platelet Count 377 K/mm3 (150-450); RBC Distribution Width CV 18.5 % (11.6-14.6); Red Blood Count 3.64 M/mm3 (4.2-5.4); White Blood Count 19.2 K/mm3 (4.4-11.0)
[2021-02-23 05:43] LABS: Differential Indicated SCAN CRITERIA MET
[2021-02-23 06:26] LABS: Anion Gap 6 (5-15); BUN 29 mg/dL (7-18); Calcium,Total 8.3 mg/dL (8.5-10.1); Chloride 105 mmol/L (98-107); Creatinine, Serum 0.94 mg/dL (0.55-1.02); EST Glomerular Filtration Rate 62 mL/min (>60); Est Glom Filt Rate - Afr Amer 75 mL/min (>60); Estimated Creatinine Clearance 37.71 ml/min; Glucose 155 mg/dL (74-106); Potassium 4.2 mmol/L (3.5-5.1); Sodium Level 141 mmol/L (136-145)
[2021-02-23 06:36] LABS: Differential Comment SCANNED; Hypochromasia RARE
[2021-02-23] MEDS: Lidocaine 5% Patch 1 PATCH TOPICAL (07:56)
[2021-02-23] MEDS: Amiodarone 200 MG Tablet PO (07:56)
[2021-02-23] MEDS: Potassium Chloride Oral Tablet 20 MEQ 40 MEQ PO (07:56)
[2021-02-23] MEDS: Sertraline 100 MG Tablet 200 MG PO (07:57)
[2021-02-23] MEDS: Enoxaparin 40 MG/0.4 ML Syringe SC (07:58)
[2021-02-23] MEDS: Cholecalciferol (VIT D3) 25 MCG TABLET (1,000 UNITS) 50 MCG PO (07:58)
[2021-02-23] MEDS: Ferrous Sulfate 325 MG Tablet PO (07:59)
[2021-02-23] MEDS: Ascorbic Acid 500 MG Tablet PO (07:59)
[2021-02-23] MEDS: 0.9% Saline Lock 10 ML Syringe IV ×5 (08:02→21:21)
[2021-02-23] MEDS: Furosemide 40 MG/4 ML Vial IV (08:02)
--- NOTE | 2021-02-23 08:14 | EKG12_ITS ---
Test Reason : CP Blood Pressure : / mmHG Vent. Rate : 088 BPM Atrial Rate : 088 BPM P-R Int : 146 ms QRS Dur : 074 ms QT Int : 378 ms P-R-T Axes : 062 -32 024 degrees QTc Int : 457 ms Sinus rhythm with Premature atrial complexes Left axis deviation Abnormal ECG When compared with ECG of 15-SEP-2020 00:41, Premature atrial complexes are now Present Confirmed by JOVITA MCMILLAN, SHELBI ([id number]), publication editor WILNER GAN ([id number]) on 03/04/2021 10:22:46 AM Referred By: Confirmed By:SHELBI HUSSEIN MD
[2021-02-23] MEDS: Acetaminophen 325 MG Tablet 650 MG PO ×2 (08:17→20:33)
--- NOTE | 2021-02-23 08:21 | PN.CC_ITS ---
Assessment & Plan Assessment/Plan (1) Acute respiratory failure with hypoxia: (2) Compression fracture of T7 vertebra: QUALIFIERS: Encounter type: sequela Qualified Code(s): S22.060S - Wedge compression fracture of T7-T8 vertebra, sequela (3) COPD (chronic obstructive pulmonary disease): (4) Obstructive sleep apnea: (5) History of back surgery: (6) Osteoporosis: QUALIFIERS: Encounter type: sequela Osteoporosis type: age- related Presence of current pathological fracture: with current pathological fracture Qualified Code(s): M80.00XS - Age-related osteoporosis with current pathological fracture, unspecified site, sequela PLAN: RECOMMENDATIONS: 1. Start vancomycin today given MRSA identified in sputum. 2. Continue to wean supplemental oxygen to maintain saturations at or above 90%. 3. Continue scheduled bronchodilator therapy and IV steroids. 4. Diuretic therapy as tolerated by hemodynamics and renal function. 5. Encourage incentive spirometer use and mobilize patient as tolerated. 6. Obtain CTA chest. IMPRESSIONS: 1. 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 The patient does not currently follow with a dental assistant medical assistant. Chest imaging demonstrated findings concerning for bilateral infiltrates. Echocardiogram did reveal stage I diastolic dysfunction and pulmonary hypertension. Sputum culture was subsequently positive for MRSA. Therefore, the patient will be started on vancomycin. In the interim, she will be continued on scheduled bronchodilator therapy along with IV steroids. IV diuretics can be utilized as tolerated by hemodynamics and renal function. Continue to wean oxygen for saturations greater than 90%. Encourage incentive spirometer use and mobilize patient as tolerated. If no improvement in oxygenation status over the next 24 to 48 hours, may need to consider CTA chest. 2. Hypothyroidism/osteoporosis with spinal fracture/hyperlipidemia/GERD/advanced age/paroxysmal A. fib Complicates care, management, recovery and prognosis. Consider pain consu ltation. Okay to continue with baseline medications. This note was generated with [employer] dictation software. It may contain incorrect words, spelling, and punctuation that were not noted in checking the note before signing. Subjective Subjective The patient was seen and examined at the bedside this morning. Events from the last 24 hours have been reviewed. The patient is currently afebrile, hemodynamically stable and maintaining appropriate oxygen saturations on 7 L/min via nasal cannula. The patient readily desaturates with any amount of physical exertion. She is currently documented to be overall net +600 mL for the hospital admission. The patient remains on antimicrobials, scheduled bronchodilator therapy and IV steroids. She has also been receiving IV Lasix therapy. Creatinine is stable. The patient denies a history of venous thromboembolic disease. She does not utilize supplemental oxygen at her baseline. She does report the presence of a headache but denies any loss of taste or smell. Objective Data Objective Data The patient's most recent lab work, culture data and imaging studies have all been personally reviewed. Surface echocardiogram revealed an ejection fraction of 55 to 60%. Grade 1 diastolic dysfunction was noted. RVSP was estimated to be 56 mmHg. Sputum culture dated February 21 appears to be MRSA. Strep and urine Legionella antigens were negative. Respiratory viral panel was negative. Vital Signs: Vital Signs Temp Pulse Resp BP Pulse Ox 97.7 F L 70 24 H 121/75 H 90 02/23/21 05:10 02/23/21 07:30 02/23/21 07:30 02/23/21 05:10 02/23/21 07:49 Oxygen Flow Rate (L/min) 9 Oxygen Delivery Method Nasal Cannula Weight: 66.5 kg Body Mass Index (BMI) 28.6 Intake & Output: Intake and Output for Last 24 Hours 02/21/21 02/22/21 02/23/21 23:59 23:59 23:59 Intake Total 875 / 875 687.75 / 687.75 Output Total 1100 / 1100 450 / 450 400 / 400 Balance -225 / -225 237.75 / 237.75 -400 / -400 Lab / Micro Data Attestation: I reviewed the patient's lab results. Result Diagrams: 02/23/21 05:10 02/23/21 05:10 Labs: Laboratory Results - last 24 hr 02/23/21 05:10: WBC 19.2 H, RBC 3.64 L, Hgb 10.3 L, Hct 31.4 L, MCV 86.3, MCH 28.3, MCHC 32.8, RDW Std Deviation 58.0 H, RDW Coeff of Perla 18.5 H, Plt Count 377, MPV 10.0, Immature Gran % (Auto) 0.900, Neut % (Auto) 93.0 H, Lymph % (Auto) 2.7 L, [place] % (Auto) 3.2, Eos % (Auto) 0.0, Baso % (Auto) 0.2, Absolute Neuts (auto) 17.9 H, Absolute Lymphs (auto) 0.51 L, Nucleated RBC % 0, Differential Comment SCANNED, Hypochromasia RARE 02/23/21 05:10: Sodium 141, Potassium 4.2, Chloride 105, Carbon Dioxide 30.0, Anion Gap 6, BUN 29 H, Creatinine 0.94, Estim Creat Clear Calc 37.71, Est GFR (MDRD) Af Amer 75, Est GFR (MDRD) Non-Af 62, BUN/Creatinine Ratio 31.0 H, Glucose 155 H, Calcium 8.3 L Micro: Microbiology 02/21/21 20:54 Sputum, Expectorated/Coughed Gram Stain - Final 02/21/21 20:54 Sputum, Expectorated/Coughed Respiratory Culture - Final Meth. resistant Staph. aureus 02/18/21 20:09 Blood Culture (Wb) - Anticubital Right Blood Culture - Preliminary No growth in 48 hours. 02/18/21 20:30 Blood Culture (Wb) - No Site/Description Given Blood Culture - Preliminary No growth in 48 hours. 02/19/21 06:15 Urine, Clean Catch Legionella Antigen - Final 02/19/21 06:15 Urine, Clean Catch Streptococcus pneumoniae Antigen (M - Final 02/18/21 22:54 Mucosa - Nose Respiratory Panel (PCR) - Final Radiography Diagnostic Testing: Radiology Impression Echocardiogram 02/21/21 15:35 Interpretation Summary The estimated ejection fraction is EF 55-60 %. Normal LV systolic function Grade # I Diastolic dysfunction Mild AR Moderate pulmonary hypertension RVSP calculated 56.2 mmhg Ordering Physician: Kemar Lara Referring Physician: Marino Williamson Performed By: Laura Begum, ZHANG, RVT Physical Exam Const alert and oriented x3 General Appearance: cooperative HEENT normocephalic, head/scalp atraumatic and moist oral mucous membranes Eyes PERRL, EOMs intact bilaterally and conjunctivae normal Neck supple General: trachea midline Chest inspection of chest normal Resp Effort and Inspection: tachypneic Auscultation: wheezes and diminished lung sounds; Negative for rales or rhonchi Cardio regular rate and regular rhythm GI normal to inspection, nondistended, normoactive bowel sounds Extremity no clubbing, cyanosis or edema Skin no rashes or lesions noted Neuro CN's II-XII intact bilaterally, moves all extremities and no focal motor deficits Psych cooperative and affect normal Charges/Coding Visit Charges Inpatient E&M: 85877 Subs Hosp L3
[2021-02-23 08:46] LABS: Troponin-I HS 27 pg/mL (3.0-54.0)
--- NOTE | 2021-02-23 09:09 | CT_ITS ---
STUDY: CTA CHEST REASON FOR EXAM: Female, 75 years old. Hypoxemic Respiratory Failure RADIATION DOSAGE (If Supplied By Facility): CTDIvol = ( 12.01 ) mGy, DLP = ( 418.41 ) mGycm TECHNIQUE: The examination was performed with the intravenous administration of IV 100mL Isovue-370. Post-processing of the angiographic images was performed, with multiplanar reformation and 3D reconstruction. Individualized dose optimization techniques were used for this CT. COMPARISON: 05/19/2019 FINDINGS: Normal enhancement of the main pulmonary artery and right and left pulmonary arteries. Normal enhancement of the bilateral peripheral pulmonary arteries. There is no demonstrated pulmonary embolism. Normal thoracic aorta and visualized great vessels. There is no demonstrated aortic dissection. There is a small pericardial effusion. Normal mediastinum. Normal hilar regions. Normal visualized trachea and bronchi. The lungs are well expanded. Mild emphysema. Bilateral diffuse groundglass opacities consistent with subsegmental atelectasis or pneumonitis. Small bilateral pleural effusions with bibasilar atelectasis. Normal chest wall structures. Status post vertebroplasty and transpedicular fixation in the lower thoracic spine. Other chronic compression fractures of the thoracic spine with kyphotic deformity. Healed fracture the sternum. Normal visualized upper abdomen. CT/CTA Chest W/WO Contrast IMPRESSION: 1. No CT evidence of pulmonary embolism. 2. Diffuse bilateral subsegmental atelectasis or pneumonitis. Imaging features can be seen with Covid 19 pneumonia, though are nonspecific and can occur with a variety of infectious and noninfectious processes. Electronically Signed: Pablito Guzman MD at 10:12 EDT Tel , Service support ,
[2021-02-23] MEDS: Ipratropium/Albuterol Sulfate 3 ML AMPUL.NEB INHALATION ×3 (10:13→19:13)
--- NOTE | 2021-02-23 10:13 | PCM.RX.CS ---
Consult Pharmacy has been consulted to manage selected antiobiotic: Vancomycin Type of Consult: New start Prior Doses of Antibiotics Received/Current Regimen: Medications Vancomycin HCl 1,750 mg/ (Sodium Chloride) 535 mls @ 250 mls/hr IV X1 ONE Stop: 02/23/21 11:38 Last Admin: 02/23/21 09:55 Dose: 250 mls/hr Documented by: Labs: Sodium 141 mmol/L (136-145) 02/23/21 05:10 Potassium 4.2 mmol/L (3.5-5.1) 02/23/21 05:10 Chloride 105 mmol/L (98-107) 02/23/21 05:10 Carbon Dioxide 30.0 mmol/L (21.0-32.0) 02/23/21 05:10 Anion Gap 6 (5-15) 02/23/21 05:10 BUN 29 mg/dL (7-18) H 02/23/21 05:10 Creatinine 0.94 mg/dL (0.55-1.02) 02/23/21 05:10 Est GFR (MDRD) Af Amer 75 mL/min (>60) 02/23/21 05:10 Est GFR (MDRD) Non-Af 62 mL/min (>60) 02/23/21 05:10 BUN/Creatinine Ratio 31.0 RATIO (10-20) H 02/23/21 05:10 Glucose 155 mg/dL (74-106) H 02/23/21 05:10 Microbiology: Microbiology 02/21/21 20:54 Sputum, Expectorated/Coughed Gram Stain - Final 02/21/21 20:54 Sputum, Expectorated/Coughed Respiratory Culture - Final Meth. resistant Staph. aureus 02/18/21 20:09 Blood Culture (Wb) - Anticubital Right Blood Culture - Preliminary No growth in 48 hours. 02/18/21 20:30 Blood Culture (Wb) - No Site/Description Given Blood Culture - Preliminary No growth in 48 hours. 02/19/21 06:15 Urine, Clean Catch Legionella Antigen - Final 02/19/21 06:15 Urine, Clean Catch Streptococcus pneumoniae Antigen (M - Final 02/18/21 22:54 Mucosa - Nose Respiratory Panel (PCR) - Final Weight used for dosin kg Estimated Creatinine Clearance: 38 Goal Trough: 15-20 mcg/mL Pharmacy Plan for Drug Dosing: Vanc 1750mg IV x1 followed by 1000mg IV q24h and trough prior to 3rd dose per policy. Pharmacy Service will continue to monitor and adjust dosing as required. Follow-Up Labs: Trough Vancomycin
--- NOTE | 2021-02-23 10:39 | PN.HOSP_ITS ---
Documented by User: Marino TYLER 02/23/21 10:47 Subjective Subjective Patient is a 75-year-old female resting in bed, alert and orient x3. Patient reports no improvement of her shortness of breath from yesterday, still feels ill and does not have much of an appetite. Patient did develop some intermitte nt chest pain overnight which has currently resolved. Objective Data Objective Data Vital Signs: Vital Signs Temp Pulse Resp BP Pulse Ox 98.0 F 86 20 H 140/79 H 95 02/23/21 10:17 02/23/21 10:17 02/23/21 10:17 02/23/21 10:17 02/23/21 10:17 Oxygen Flow Rate (L/min) 9 Oxygen Delivery Method Nasal Cannula Weight: 146 lb 9.718 oz Body Mass Index (BMI) 28.6 Intake & Output: Intake and Output for Last 24 Hours 02/21/21 02/22/21 02/23/21 23:59 23:59 23:59 Intake Total 875 / 875 687.75 / 687.75 Output Total 1100 / 1100 450 / 450 400 / 400 Balance -225 / -225 237.75 / 237.75 -400 / -400 Lab / Micro Data Result Diagrams: 02/23/21 05:10 02/23/21 05:10 Labs: Laboratory Results - last 24 hr 02/23/21 05:10: WBC 19.2 H, RBC 3.64 L, Hgb 10.3 L, Hct 31.4 L, MCV 86.3, MCH 28.3, MCHC 32.8, RDW Std Deviation 58.0 H, RDW Coeff of Perla 18.5 H, Plt Count 377, MPV 10.0, Immature Gran % (Auto) 0.900, Neut % (Auto) 93.0 H, Lymph % (Auto) 2.7 L, [place] % (Auto) 3.2, Eos % (Auto) 0.0, Baso % (Auto) 0.2, Absolute Neuts (auto) 17.9 H, Absolute Lymphs (auto) 0.51 L, Nucleated RBC % 0, Differential Comment SCANNED, Hypochromasia RARE 02/23/21 05:10: Sodium 141, Potassium 4.2, Chloride 105, Carbon Dioxide 30.0, Anion Gap 6, BUN 29 H, Creatinine 0.94, Estim Creat Clear Calc 37.71, Est GFR (MDRD) Af Amer 75, Est GFR (MDRD) Non-Af 62, BUN/Creatinine Ratio 31.0 H, Glucose 155 H, Calcium 8.3 L 02/23/21 05:10: Troponin I High Sens 27 Micro: Microbiology 02/21/21 20:54 Sputum, Expectorated/Coughed Gram Stain - Final 02/21/21 20:54 Sputum, Expectorated/Coughed Respiratory Culture - Final Meth. resistant Staph. aureus 02/18/21 20:09 Blood Culture (Wb) - Anticubital Right Blood Culture - Preliminary No growth in 48 hours. 02/18/21 20:30 Blood Culture (Wb) - No Site/Description Given Blood Culture - Preliminary No growth in 48 hours. 02/19/21 06:15 Urine, Clean Catch Legionella Antigen - Final 02/19/21 06:15 Urine, Clean Catch Streptococcus pneumoniae Antigen (M - Final 02/18/21 22:54 Mucosa - Nose Respiratory Panel (PCR) - Final Radiography Diagnostic Testing: Radiology Impression Echocardiogram 02/21/21 15:35 Interpretation Summary The estimated ejection fraction is EF 55-60 %. Normal LV systolic function Grade # I Diastolic dysfunction Mild AR Moderate pulmonary hypertension RVSP calculated 56.2 mmhg Ordering Physician: Kemar Lara Referring Physician: Marino Williamson Performed By: Laura Begum, RDCS, RVT Chest CTA 02/23/21 09:[address]: 1[address] No [address] evidence of pulmonary embolism. 2. Diffuse bilateral subsegmental atelectasis or pneumonitis. Imaging features can be seen with Covid 19 pneumonia, though are nonspecific and can occur with a variety of infectious and noninfectious processes. Electronically Signed: Pablito Guzman MD at 10:12 EDT Tel , Service support , Physical Exam Const alert, oriented x3 and no apparent distress HEENT head/scalp atraumatic and moist oral mucous membranes Head and Scalp: normocephalic Eyes PERRL, EOMs intact bilaterally and conjunctivae normal Neck no lymphadenopathy, supple and no JVD Resp Effort and Inspection: abnormal respiratory pattern, tachypneic, respiratory distress and labored Auscultation: wheezes and diminished lung sounds Cardio regular rate, regular rhythm, no murmurs and no JVD GI normal to inspection, nondistended, normoactive bowel sounds, soft to palpation and non-tender Extremity normal to inspection, full ROM and no clubbing, cyanosis or edema Skin no rashes or lesions noted, no wounds, skin turgor normal and no jaundice Neuro CN's II-XII intact bilaterally Psych affect normal Assessment & Plan Assessment/Plan (1) COPD exacerbation: (2) Sepsis: QUALIFIERS: Acute respiratory failure type: with hypoxia Sepsis acute organ dysfunction status: with acute organ dysfunction Sepsis type: sepsis due to unspecified organism Severe sepsis acute organ dysfunction type: acute respiratory failure Severe sepsis shock status: without septic shock Qualified Code(s): A41.9 - Sepsis, unspecified organism; R65.20 - Severe sepsis without septic shock; J96.01 - Acute respiratory failure with hypoxia (3) Bilateral pneumonia: QUALIFIERS: Lung location: unspecified part of lung Pneumonia type: due to unspecified organism Qualified Code(s): J18.9 - Pneumonia, unspecified organism (4) Acute respiratory failure with hypoxia: PLAN: Day 5 Discharge planning: Current plan is for patient to discharge home, PT/OT eval ordered, case management following. 1) Sepsis secondary to bilateral community-acquired pneumonia Patient reports no change in shortness of breath from yesterday, feels like she may be getting slightly worse. Currently satting 95% on 9 L via nasal cannula. Sputum cultures came back positive for MRSA. qSOFA score 2 due to respiratory rate greater than 22 and systolic blood pressure less than 100 on admission. Patient was also noted to have leukocytosis, that is on going, and evidence of infection with pneumonia as well as organ dysfunction with acute hypoxic respiratory failure. Urine for strep and Legionella negative. Respiratory panel negative. Rapid COVID is negative. Blood cultures demonstrate no growth. Plan; vancomycin initiated due to positive MRSA culture, continue Rocephin, continue albuterol and DuoNeb aerosols, incentive spirometry encouraged. 2) Acute hypoxic respiratory failure of mixed etiology Currently satting 95% on 9 L via nasal cannula. P.o. Lasix order has been completed. Echocardiogram obtained on 02/21 demonstrated an EF of 55 to 60%, normal LV systolic function, grade 1 diastolic dysfunction, moderate pulmonary hypertension with an RVSP at 56.2. Pulmonary following. Condition is exacerbated by community-acquired pneumonia and COPD. Plan; continue oxygen supplementation, as above. 3) COPD exacerbation initially placed on IV Solu-Medrol, transitioned to prednisone. Continue albuterol and DuoNeb aerosols. 4) Hypothyroidism Continue Synthroid regimen. 5) Hyperlipidemia Continue statin. 6) Paroxysmal atrial fibrillation On amiodarone. Not on anticoagulation. 7) GERD continue Carafate. 8) Tobacco dependence Cessation encouraged. DVT prophylaxis - Lovenox Patient seen by Marino Kauffman PA-C, under the supervision of Dr. Sellers. Documented by User: Dr. Dann Sellers MD 02/23/21 11:17 Objective Data Lab / Micro Data Result Diagrams: 02/23/21 05:10 02/23/21 05:10 Charges/Coding Addendum Addendum: Dr. Sellers: I personally reviewed the chart and examined the patient, and agree with the above findings. 75-year-old female with a history of COPD presents with 2 to 3 weeks of progressively worsening shortness of breath. She presented to her PCPs office where she noticed that she was severely short of breath and recommended that she come to the emergency department secondary to hypoxia. She was found to have acute hypoxic respiratory failure secondary to her bilateral pneumonia and a possible COPD exacerbation. PCR for Covid was negative and she has been vaccinated against Covid. We will continue with antibiotics as well Solu-Medrol and obtain a Legionella and strep antigen. She states that she is feeling better today than she was when she came in though she is still requiring oxygen to maintain her saturations in a normal level. We will continue to monitor, and anticipate a little bit of a longer course to recovery given her underlying respiratory issues. 02/20/2021: Has an increased oxygen requirement today unsure as its etiology, will obtain a chest x-ray as well as an ABG to evaluate for possible retention given her history of COPD. May need to be placed on BiPAP. We will continue with duo nebs and antibiotics. She continues to have rhonchorous breath sounds bilaterally throughout. From fluid status, she is about a liter positive. 02/21/2021: Continues to have little bit of an increased oxygen requirement of 5 to 7 L depending on whether or not she is active. We will continue with her current inhalers and will consult pulmonology as she does not have her own transformation specialist. We will transition her prednisone to Solu-Medrol. Also obtain a sputum culture today. ABG yesterday was unremarkable. 02/22/2021: Doing well, still maintaining her oxygen sats around 7 L. Appreciate pulmonology's assistance. Will repeat Lasix dose today, echo is pending. Will await results from sputum culture, may need to initiate antibiotic therapy if she does not improve. 02/23/2021: Doing well, remains unchanged. Had some chest pain today and EKG was unremarkable. Troponin is pending. Her sputum culture did come back positive with MRSA therefore she will be transitioned from the Rocephin azithromycin to vancomycin. Continue with as needed Lasix to be evaluated daily as well as steroids. Visit Charges Inpatient E&M: 82744 Subs Hosp L2
[2021-02-23] MEDS: Sodium Chloride 0.65% 1 SPRAY SPRAY.BTL 2 SPRAY NASAL (18:45)
[2021-02-23] MEDS: MELATONIN 3 MG TABLET PO (20:33)
[2021-02-23] MEDS: Atorvastatin Calcium 40 MG Tablet PO (20:33)
[2021-02-23] MEDS: oxyCODONE 5 MG Tablet PO (20:33)
[2021-02-24] VITALS (14 sets, daily range): BP systolic 111–125; BP diastolic 63–68; PULSE 65–89; RESP 16–22; TEMP 36.4–37.1; O2SAT 89–96
[2021-02-24 06:02] LABS: Absolute Lymphocyte Count 0.52 X10^3/uL (0.83-4.51); Absolute Neutrophil Count 15.3 X10^3/uL (2.0-7.7); Basophil# 0.02 X10^3/uL; Basophil% 0.1 % (0-1); Hemoglobin 9.8 g/dL (12.0-15.0); Lymphocyte # 0.52 X10^3/ul (0.83-4.51); Lymphocyte % 3.1 % (19-41); Mean Corp Hgb Conc 32.7 g/dL (32-36); Mean Corpuscular Hgb 28.2 pg (27.0-32.0); Mean Corpuscular Volume 86.2 fL (81-99); Mean Platelet Vol. 9.8 fl (6.2-12.0); Monocyte# 0.57 X10^3/uL; Monocyte% 3.4 % (0-10); NRBC Flagged by Analyzer 0 % (0-5); Neutrophil # 15.26 X10^3/uL (2.7-7.7); Neutrophil % 92.3 % (47-70); POSITIVE DIFFERENTIAL YES; Platelet Count 374 K/mm3 (150-450); RBC Distribution Width CV 17.8 % (11.6-14.6); RBC Distribution Width SD 55.4 fl (35.1-43.9); Red Blood Count 3.48 M/mm3 (4.2-5.4); White Blood Count 16.6 K/mm3 (4.4-11.0)
[2021-02-24 06:13] LABS: Differential Indicated SCAN CRITERIA MET
[2021-02-24 06:45] LABS: Anion Gap 6 (5-15); BUN 28 mg/dL (7-18); BUN/Creat Ratio 35.9 RATIO (10-20); Calcium,Total 8.3 mg/dL (8.5-10.1); Chloride 106 mmol/L (98-107); Creatinine, Serum 0.78 mg/dL (0.55-1.02); EST Glomerular Filtration Rate 77 mL/min (>60); Est Glom Filt Rate - Afr Amer 93 mL/min (>60); Estimated Creatinine Clearance 35.45 ml/min; Glucose 164 mg/dL (74-106); Potassium 4.2 mmol/L (3.5-5.1); Sodium Level 143 mmol/L (136-145)
[2021-02-24 07:07] LABS: Target Cells 2+
[2021-02-24] MEDS: Ipratropium/Albuterol Sulfate 3 ML AMPUL.NEB INHALATION ×3 (07:11→18:48)
[2021-02-24] MEDS: Amiodarone 200 MG Tablet PO (08:21)
[2021-02-24] MEDS: Potassium Chloride Oral Tablet 20 MEQ 40 MEQ PO (08:22)
[2021-02-24] MEDS: Cholecalciferol (VIT D3) 25 MCG TABLET (1,000 UNITS) 50 MCG PO (08:22)
[2021-02-24] MEDS: Ascorbic Acid 500 MG Tablet PO (08:22)
[2021-02-24] MEDS: Enoxaparin 40 MG/0.4 ML Syringe SC (08:22)
[2021-02-24] MEDS: Acetaminophen 325 MG Tablet 650 MG PO ×3 (08:22→20:16)
[2021-02-24] MEDS: Ferrous Sulfate 325 MG Tablet PO (08:22)
[2021-02-24] MEDS: Sertraline 100 MG Tablet 200 MG PO (08:22)
[2021-02-24] MEDS: Lidocaine 5% Patch 1 PATCH TOPICAL (08:23)
[2021-02-24] MEDS: Oxymetazoline 0.05% 1 SPRAY SPRAY.BTL NASAL ×2 (08:23→21:49)
--- NOTE | 2021-02-24 10:14 | CASEMGMT ---
SW spoke w/Alisha in TCU, they would have a bed for pt when she is ready. SW spoke w/pt to let her know, pt agreeable at this time, though states if starts doing better she may go home. Pt is not on home O2, and at present she is on 7L O2. Pt agreeable to continue to plan for TCU, though if she makes big improvements would prefer to go home. SW will continue to follow. MONICA Canseco
[2021-02-24] MEDS: 0.9% Saline Lock 10 ML Syringe IV ×3 (10:36→21:45)
[2021-02-24] MEDS: Vancomycin IV 1,000 MG/200 ML BAG 200 MG IV (10:36)
--- NOTE | 2021-02-24 10:56 | PCM.PN.HOSP ---
Documented by User: Marino TYLER 02/24/21 11:06 Subjective Subjective Patient is a 75-year-old female comfortably resting in a chair, alert and orient x3. Patient does notice a significant provement in her shortness of breath relative to the past few days. Patient reports that this is the first day she has felt a significant improvement. Denies development of any new symptoms overnight. Objective Data Objective Data Vital Signs: Vital Signs Temp Pulse Resp BP Pulse Ox 98.2 F 82 20 H 111/67 93 02/24/21 08:10 02/24/21 08:10 02/24/21 08:10 02/24/21 08:10 02/24/21 08:10 Oxygen Flow Rate (L/min) 7 Oxygen Delivery Method Nasal Cannula Weight: 146 lb 9.718 oz Body Mass Index (BMI) 28.6 Intake & Output: Intake and Output for Last 24 Hours 02/22/21 02/23/21 02/24/21 23:59 23:59 23:59 Intake Total 687.75 / 687.75 585.75 / 585.75 Output Total 450 / 450 1725 / 1725 150 / 150 Balance 237.75 / 237.75 -1139.25 / -1139.25 -150 / -150 Lab / Micro Data Result Diagrams: 02/24/21 05:37 02/24/21 05:37 Labs: Laboratory Results - last 24 hr 02/24/21 05:37: WBC 16.6 H, RBC 3.48 L, Hgb 9.8 L, Hct 30.0 L, MCV 86.2, MCH 28.2, MCHC 32.7, RDW Std Deviation 55.4 H, RDW Coeff of Perla 17.8 H, Plt Count 374, MPV 9.8, Immature Gran % (Auto) 1.100 H, Neut % (Auto) 92.3 H, Lymph % (Auto) 3.1 L, [place] % (Auto) 3.4, Eos % (Auto) 0.0, Baso % (Auto) 0.1, Absolute Neuts (auto) 15.3 H, Absolute Lymphs (auto) 0.52 L, Nucleated RBC % 0, Target Cells 2+ 02/24/21 05:37: Sodium 143, Potassium 4.2, Chloride 106, Carbon Dioxide 31.0, Anion Gap 6, BUN 28 H, Creatinine 0.78, Estim Creat Clear Calc 35.45, Est GFR (MDRD) Af Amer 93, Est GFR (MDRD) Non-Af 77, BUN/Creatinine Ratio 35.9 H, Glucose 164 H, Calcium 8.3 L Micro: Microbiology 02/18/21 20:30 Blood Culture (Wb) - No Site/Description Given Blood Culture - Final No growth in 5 days. 02/18/21 20:09 Blood Culture (Wb) - Anticubital Right Blood Culture - Final No growth in 5 days. 02/21/21 20:54 Sputum, Expectorated/Coughed Gram Stain - Final 02/21/21 20:54 Sputum, Expectorated/Coughed Respiratory Culture - Final Meth. resistant Staph. aureus 02/19/21 06:15 Urine, Clean Catch Legionella Antigen - Final 02/19/21 06:15 Urine, Clean Catch Streptococcus pneumoniae Antigen (M - Final 02/18/21 22:54 Mucosa - Nose Respiratory Panel (PCR) - Final Physical Exam Const alert, oriented x3 and no apparent distress HEENT head/scalp atraumatic and moist oral mucous membranes Head and Scalp: normocephalic Eyes PERRL, EOMs intact bilaterally and conjunctivae normal Neck no lymphadenopathy, supple and no JVD Resp Effort and Inspection: abnormal respiratory pattern and labored Auscultation: diminished lung sounds Cardio regular rate, regular rhythm, no murmurs and no JVD GI normal to inspection, nondistended, normoactive bowel sounds, soft to palpation and non-tender Extremity normal to inspection, full ROM and no clubbing, cyanosis or edema Skin no rashes or lesions noted, no wounds, skin turgor normal and no jaundice Neuro CN's II-XII intact bilaterally Psych affect normal Assessment & Plan Assessment/Plan (1) Sepsis: QUALIFIERS: Acute respiratory failure type: with hypoxia Sepsis acute organ dysfunction status: with acute organ dysfunction Sepsis type: sepsis due to unspecified organism Severe sepsis acute organ dysfunction type: acute respiratory failure Severe sepsis shock status: without septic shock Qualified Code(s): A41.9 - Sepsis, unspecified organism; R65.20 - Severe sepsis without septic shock; J96.01 - Acute respiratory failure with hypoxia (2) COPD exacerbation: (3) Bilateral pneumonia: QUALIFIERS: Lung location: unspecified part of lung Pneumonia type: due to unspecified organism Qualified Code(s): J18.9 - Pneumonia, unspecified organism (4) Acute respiratory failure with hypoxia: PLAN: Day 6 Discharge planning: Patient is agreeable for discharge to TCU, although would like to go home if she displays significant improvement. 1) Sepsis secondary to bilateral community-acquired pneumonia Patient reports no change in shortness of breath from yesterday, feels like she may be getting slightly worse. Currently satting 93% on 7 L via nasal cannula. Sputum cultures came back positive for MRSA. qSOFA score 2 due to respiratory rate greater than 22 and systolic blood pressure less than 100 on admission. Patient was also noted to have leukocytosis, that is on going, and evidence of infection with pneumonia as well as organ dysfunction with acute hypoxic respiratory failure. Urine for strep and Legionella negative. Respiratory panel negative. Rapid COVID is negative. Blood cultures demonstrate no growth. Plan; vancomycin initiated due to positive MRSA culture, continue Rocephin, continue albuterol and DuoNeb aerosols, incentive spirometry encouraged. 2) Acute hypoxic respiratory failure of mixed etiology Currently satting 93% on 7 L via nasal cannula. P.o. Lasix order has been completed. Echocardiogram obtained on 02/21 demonstrated an EF of 55 to 60%, normal LV systolic function, grade 1 diastolic dysfunction, moderate pulmonary hypertension with an RVSP at 56.2. Pulmonary following. Condition is exacerbated by community-acquired pneumonia and COPD. Plan; continue oxygen supplementation, as above. 3) COPD exacerbation initially placed on IV Solu-Medrol, transitioned to prednisone. Continue albuterol and DuoNeb aerosols. 4) Hypothyroidism Continue Synthroid regimen. 5) Hyperlipidemia Continue statin. 6) Paroxysmal atrial fibrillation On amiodarone. Not on anticoagulation. 7) GERD continue Carafate. 8) Tobacco dependence Cessation encouraged. DVT prophylaxis - Lovenox Patient seen by Marino Kauffman PA-C, under the supervision of Dr. Lundy. Documented by User: Dr. Tiffanie Lundy MD 02/24/21 15:42 Objective Data Lab / Micro Data Result Diagrams: 02/24/21 05:37 02/24/21 05:37 Charges/Coding Addendum Addendum: Patient seen by Marino Kauffman PA-C under my supervision Patient seen and examined. She feels like her shortness of breath is improving. She has no other complaints and review of stents otherwise negative. O/E: Const alert, oriented x3 and no apparent distress HEENT head/scalp atraumatic and moist oral mucous membranes Head and Scalp: normocephalic Eyes PERRL, EOMs intact bilaterally and conjunctivae normal Neck no lymphadenopathy, supple and no JVD Resp diminished breath sounds bibasally, no wheezes or crackles. On 7L of oxygen Cardio regular rate, regular rhythm, no murmurs and no JVD GI normal to inspection, nondistended, normoactive bowel sounds, soft to palpation and non-tender Extremity normal to inspection, full ROM and no clubbing, cyanosis or edema Skin no rashes or lesions noted, no wounds, skin turgor normal and no jaundice Neuro CN's II-XII intact bilaterally Psych affect normal Plan is to continue management for acute hypoxic respiratory failure due to community-acquired pneumonia. Patient currently on IV vancomycin as sputum culture was positive for MRSA. Continue on IV steroids and breathing treatments with bronchodilators. Titrate oxygen to maintain saturation above 90%. CTA of the chest was negative for PE. Rapid Covid test was negative. Also on Synthroid for hypothyroidism and statin for hyperlipidemia. Lovenox for DVT prophylaxis. Rest as per Marino Kauffman PA-C's notes which have reviewed and endorsed. Visit Charges Inpatient E&M: 23241 Subs Hosp L3
--- NOTE | 2021-02-24 11:03 | PN.CC_ITS ---
Assessment & Plan Assessment/Plan (1) Acute respiratory failure with hypoxia: (2) Compression fracture of T7 vertebra: QUALIFIERS: Encounter type: sequela Qualified Code(s): S22.060S - Wedge compression fracture of T7-T8 vertebra, sequela (3) COPD (chronic obstructive pulmonary disease): (4) Obstructive sleep apnea: (5) History of back surgery: (6) Osteoporosis: QUALIFIERS: Osteoporosis type: age-related Presence of current pathological fracture: with current pathological fracture Encounter type: sequela Qualified Code(s): M80.00XS - Age-related osteoporosis with current pathological fracture, unspecified site, sequela PLAN: RECOMMENDATIONS: 1. Continue antimicrobials as ordered. 2. Continue to wean supplemental oxygen to maintain saturations at or above 90 %. 3. Continue scheduled bronchodilator therapy and IV steroids. 4. Diuretic therapy as tolerated by hemodynamics and renal function. 5. Encourage incentive spirometer use and mobilize patient as tolerated. 6. Obtain Covid antibody profile. IMPRESSIONS: 1. 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 The patient does not currently follow with a ux information architect. Chest imaging demonstrated findings concerning for bilateral infiltrates. Echocardiogram did reveal stage I diastolic dysfunction and pulmonary hypertension. Sputum culture was subsequently positive for MRSA. Therefore, the patient will be continued on vancomycin. In the interim, she will be continued on scheduled bronchodilator therapy along with IV steroids. IV diuretics can be utilized as tolerated by hemodynamics and renal function. Continue to wean oxygen for saturations greater than 90%. Encourage incentive spirometer use and mobilize patient as tolerated. CTA chest showed no evidence for PE, but did reveal groundglass changes bilaterally. Coronavirus PCR was negative. Will obtain Covid antibody profile. 2. Hypothyroidism/osteoporosis with spinal fracture/hyperlipidemia/GERD/advanced age/paroxysmal A. fib Complicates care, management, recovery and prognosis. Consider pain consultation. Okay to continue with baseline medications. This note was generated with [employer] dictation software. It may contain incorrect words, spelling, and punctuation that were not noted in checking the note before signing. Subjective Subjective The patient was seen and examined at the bedside this morning. Events from the last 24 hours have been reviewed. The patient is currently afebrile, hemodynamically stable and maintaining appropriate oxygen saturations on 7 L/min via nasal cannula. She is currently documented to be overall net negative 300mL for the hospital admission. The patient remains on antimicrobials, scheduled bronchodilator therapy and IV steroids. She has also been receiving IV Lasix therapy. Creatinine is stable. Objective Data Objective Data The patient's most recent lab work, culture data and imaging studies have all been personally reviewed. Surface echocardiogram revealed an ejection fraction of 55 to 60%. Grade 1 diastolic dysfunction was noted. RVSP was estimated to be 56 mmHg. Sputum culture dated February 21 appears to be MRSA. Strep and urine Legionella antigens were negative. Respiratory viral panel was negative. Vital Signs: Vital Signs Temp Pulse Resp BP Pulse Ox 98.2 F 82 20 H 111/67 93 02/24/21 08:10 02/24/21 08:10 02/24/21 08:10 02/24/21 08:10 02/24/21 08:10 Oxygen Flow Rate (L/min) 7 Oxygen Delivery Method Nasal Cannula Weight: 66.5 kg Body Mass Index (BMI) 28.6 Intake & Output: Intake and Output for Last 24 Hours 02/22/21 02/23/21 02/24/21 23:59 23:59 23:59 Intake Total 687.75 / 687.75 585.75 / 585.75 Output Total 450 / 450 1725 / 1725 150 / 150 Balance 237.75 / 237.75 -1139.25 / -1139.25 -150 / -150 Lab / Micro Data Attestation: I reviewed the patient's lab results. Result Diagrams: 02/24/21 05:37 02/24/21 05:37 Labs: Laboratory Results - last 24 hr 02/24/21 05:37: WBC 16.6 H, RBC 3.48 L, Hgb 9.8 L, Hct 30.0 L, MCV 86.2, MCH 28.2, MCHC 32.7, RDW Std Deviation 55.4 H, RDW Coeff of Perla 17.8 H, Plt Count 374, MPV 9.8, Immature Gran % (Auto) 1.100 H, Neut % (Auto) 92.3 H, Lymph % (Auto) 3.1 L, [place] % (Auto) 3.4, Eos % (Auto) 0.0, Baso % (Auto) 0.1, Absolute Neuts (auto) 15.3 H, Absolute Lymphs (auto) 0.52 L, Nucleated RBC % 0, Target Cells 2+ 02/24/21 05:37: Sodium 143, Potassium 4.2, Chloride 106, Carbon Dioxide 31.0, Anion Gap 6, BUN 28 H, Creatinine 0.78, Estim Creat Clear Calc 35.45, Est GFR (MDRD) Af Amer 93, Est GFR (MDRD) Non-Af 77, BUN/Creatinine Ratio 35.9 H, Glucose 164 H, Calcium 8.3 L Micro: Microbiology 02/18/21 20:30 Blood Culture (Wb) - No Site/Description Given Blood Culture - Final No growth in 5 days. 02/18/21 20:09 Blood Culture (Wb) - Anticubital Right Blood Culture - Final No growth in 5 days. 02/21/21 20:54 Sputum, Expectorated/Coughed Gram Stain - Final 02/21/21 20:54 Sputum, Expectorated/Coughed Respiratory Culture - Final Meth. resistant Staph. aureus 02/19/21 06:15 Urine, Clean Catch Legionella Antigen - Final 02/19/21 06:15 Urine, Clean Catch Streptococcus pneumoniae Antigen (M - Final 02/18/21 22:54 Mucosa - Nose Respiratory Panel (PCR) - Final Physical Exam Const alert and oriented x3 General Appearance: cooperative HEENT normocephalic, head/scalp atraumatic and moist oral mucous membranes Eyes PERRL, EOMs intact bilaterally and conjunctivae normal Neck supple General: trachea midline Chest inspection of chest normal Resp Auscultation: diminished lung sounds; Negative for rales, rhonchi or wheezes Cardio regular rate and regular rhythm GI normal to inspection, nondistended, normoactive bowel sounds Extremity no clubbing, cyanosis or edema Skin no rashes or lesions noted Neuro CN's II-XII intact bilaterally, moves all extremities and no focal motor deficits Psych cooperative and affect normal Charges/Coding Visit Charges Inpatient E&M: 14796 Subs Hosp L2
[2021-02-24] MEDS: Furosemide 40 MG/4 ML Vial IV (18:13)
[2021-02-24] MEDS: oxyCODONE 5 MG Tablet PO (20:16)
[2021-02-24] MEDS: Atorvastatin Calcium 40 MG Tablet PO (21:51)
[2021-02-24] MEDS: MELATONIN 3 MG TABLET PO (21:51)
[2021-02-25] VITALS (21 sets, daily range): BP systolic 117–147; BP diastolic 68–84; PULSE 68–99; RESP 16–22; TEMP 36.6–37; O2SAT 84–98
[2021-02-25] MEDS: oxyCODONE 5 MG Tablet PO ×2 (05:15→22:13)
[2021-02-25] MEDS: 0.9% Saline Lock 10 ML Syringe IV ×4 (05:15→17:34)
[2021-02-25 05:51] LABS: Absolute Lymphocyte Count 0.54 X10^3/uL (0.83-4.51); Absolute Neutrophil Count 13.8 X10^3/uL (2.0-7.7); Basophil# 0.02 X10^3/uL; Basophil% 0.1 % (0-1); Hematocrit 31.2 % (37-47); Hemoglobin 10.4 g/dL (12.0-15.0); Lymphocyte # 0.54 X10^3/ul (0.83-4.51); Lymphocyte % 3.6 % (19-41); Mean Corp Hgb Conc 33.3 g/dL (32-36); Mean Corpuscular Hgb 28.3 pg (27.0-32.0); Mean Corpuscular Volume 84.8 fL (81-99); Mean Platelet Vol. 10.4 fl (6.2-12.0); Monocyte# 0.57 X10^3/uL; Monocyte% 3.8 % (0-10); NRBC Flagged by Analyzer 0 % (0-5); Neutrophil # 13.77 X10^3/uL (2.7-7.7); Neutrophil % 91.4 % (47-70); POSITIVE DIFFERENTIAL YES; Platelet Count 339 K/mm3 (150-450); RBC Distribution Width CV 17.8 % (11.6-14.6); RBC Distribution Width SD 54.4 fl (35.1-43.9); Red Blood Count 3.68 M/mm3 (4.2-5.4); White Blood Count 15.1 K/mm3 (4.4-11.0)
[2021-02-25 06:11] LABS: Differential Indicated SCAN CRITERIA MET
[2021-02-25 06:20] LABS: Anion Gap 6 (5-15); BUN 26 mg/dL (7-18); BUN/Creat Ratio 30.4 RATIO (10-20); Calcium,Total 7.9 mg/dL (8.5-10.1); Chloride 104 mmol/L (98-107); Creatinine, Serum 0.86 mg/dL (0.55-1.02); EST Glomerular Filtration Rate 69 mL/min (>60); Est Glom Filt Rate - Afr Amer 83 mL/min (>60); Estimated Creatinine Clearance 41.22 ml/min; Glucose 161 mg/dL (74-106); Sodium Level 141 mmol/L (136-145)
[2021-02-25 06:33] LABS: Differential Comment SCANNED
--- NOTE | 2021-02-25 06:39 | PN.CC_ITS ---
Assessment & Plan Assessment/Plan (1) Acute respiratory failure with hypoxia: (2) Compression fracture of T7 vertebra: QUALIFIERS: Encounter type: sequela Qualified Code(s): S22.060S - Wedge compression fracture of T7-T8 vertebra, sequela (3) COPD (chronic obstructive pulmonary disease): (4) Obstructive sleep apnea: (5) History of back surgery: (6) Osteoporosis: QUALIFIERS: Encounter type: sequela Osteoporosis type: age- related Presence of current pathological fracture: with current pathological fracture Qualified Code(s): M80.00XS - Age-related osteoporosis with current pathological fracture, unspecified site, sequela PLAN: RECOMMENDATIONS: 1. Transition to p.o. antibiotic regimen based upon sensitivities. Complete 7 days of therapy. 2. Continue to wean supplemental oxygen to maintain saturations at or above 90%. 3. Continue scheduled bronchodilator therapy and steroids. Okay to transition to prednisone 40 mg daily. 4. At discharge, please send patient with prednisone 40 mg daily x5 days. 5. Continue diuretic therapy as ordered. 6. Encourage incentive spirometer use and mobilize patient as tolerated. 7. Perform walking oximetry study prior to consideration for discharge home. 8. Ideally, the patient should follow-up in the pulmonary medicine clinic within 2 weeks of discharge. IMPRESSIONS: 1. 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 The patient does not currently follow with a lithopone charger. Chest imaging demonstrated findings concerning for bilateral infiltrates. Echocardiogram did reveal stage I diastolic dysfunction and pulmonary hypertension. Sputum culture was subsequently positive for MRSA. Therefore, the patient will be continued on antimicrobials to complete a 7-day treatment course. She will be continued on scheduled bronchodilator therapy along with steroids. The patient has responded favorably to the use of IV diuretics. Continue to wean oxygen for saturations greater than 90%. Encourage incentive spirometer use and mobilize patient as tolerated. CTA chest showed no evidence for PE, but did reveal groundglass changes bilaterally. Coronavirus PCR was negative. My suspicion is that her respiratory failure was likely multifactorial with underlying infection and volume status contributing. 2. Hypothyroidism/osteoporosis with spinal fract ure/hyperlipidemia/GERD/advanced age/paroxysmal A. fib Complicates care, management, recovery and prognosis. Consider pain consultation. Okay to continue with baseline medications. This note was generated with [employer] software. It may contain incorrect words, spelling, and punctuation that were not noted in checking the note before signing. Subjective Subjective The patient was seen and examined at the bedside this morning. Events from the last 24 hours have been reviewed. The patient is currently afebrile, hemodynamically stable and maintaining appropriate oxygen saturations on 3 L/min via nasal cannula. She is currently documented to be overall net negative 1.5L for the hospital admission. The patient remains on antimicrobials, scheduled bronchodilator therapy and IV steroids. Creatinine remains stable. I placed the patient yesterday on twice daily scheduled IV Lasix. This morning, she does report overall interval improvement in her breathing quality. Objective Data Objective Data The patient's most recent lab work, culture data and imaging studies have all been personally reviewed. Surface echocardiogram revealed an ejection fraction of 55 to 60%. Grade 1 diastolic dysfunction was noted. RVSP was estimated to be 56 mmHg. Sputum culture dated February 21 appears to be MRSA. Strep and urine Legionella antigens were negative. Respiratory viral panel was negative. Vital Signs: Vital Signs Temp Pulse Resp BP Pulse Ox 97.8 F 68 18 124/72 H 94 02/25/21 05:13 02/25/21 05:13 02/25/21 05:13 02/25/21 05:13 02/25/21 05:13 Oxygen Flow Rate (L/min) 3 Oxygen Delivery Method Nasal Cannula Weight: 66.5 kg Body Mass Index (BMI) 28.6 Intake & Output: Intake and Output for Last 24 Hours 02/23/21 02/24/21 02/25/21 23:59 23:59 23:59 Intake Total 585.75 / 585.75 450 / 450 Output Total 1725 / 1725 1350 / 1850 500 / 500 Balance -1139.25 / -1139.25 -900 / -1400 -500 / -500 Lab / Micro Data Attestation: I reviewed the patient's lab results. Result Diagrams: 02/25/21 05:35 02/25/21 05:35 Labs: Laboratory Results - last 24 hr 02/24/21 05:37: Target Cells 2+ 02/24/21 05:37: Sodium 143, Potassium 4.2, Chloride 106, Carbon Dioxide 31.0, Anion Gap 6, BUN 28 H, Creatinine 0.78, Estim Creat Clear Calc 35.45, Est GFR (MDRD) Af Amer 93, Est GFR (MDRD) Non-Af 77, BUN/Creatinine Ratio 35.9 H, Glucose 164 H, Calcium 8.3 L 02/24/21 11:38: SARS-CoV-2 IgG Ab 0.92 02/25/21 05:35: WBC 15.1 H, RBC 3.68 L, Hgb 10.4 L, Hct 31.2 L, MCV 84.8, MCH 28.3, MCHC 33.3, RDW Std Deviation 54.4 H, RDW Coeff of Perla 17.8 H, Plt Count 339, MPV 10.4, Immature Gran % (Auto) 1.100 H, Neut % (Auto) 91.4 H, Lymph % (Auto) 3.6 L, [place] % (Auto) 3.8, Eos % (Auto) 0.0, Baso % (Auto) 0.1, Absolute Neuts (auto) 13.8 H, Absolute Lymphs (auto) 0.54 L, Nucleated RBC % 0, Differential Comment SCANNED 02/25/21 05:35: Sodium 141, Potassium 5.0, Chloride 104, Carbon Dioxide 31.0, Anion Gap 6, BUN 26 H, Creatinine 0.86, Estim Creat Clear Calc 41.22, Est GFR (MDRD) Af Amer 83, Est GFR (MDRD) Non-Af 69, BUN/Creatinine Ratio 30.4 H, Glucose 161 H, Calcium 7.9 L Micro: Microbiology 02/18/21 20:30 Blood Culture (Wb) - No Site/Description Given Blood Culture - Final No growth in 5 days. 02/18/21 20:09 Blood Culture (Wb) - Anticubital Right Blood Culture - Final No growth in 5 days. 02/21/21 20:54 Sputum, Expectorated/Coughed Gram Stain - Final 02/21/21 20:54 Sputum, Expectorated/Coughed Respiratory Culture - Final Meth. resistant Staph. aureus 02/19/21 06:15 Urine, Clean Catch Legionella Antigen - Final 02/19/21 06:15 Urine, Clean Catch Streptococcus pneumoniae Antigen (M - Final 02/18/21 22:54 Mucosa - Nose Respiratory Panel (PCR) - Final Physical Exam Const alert and oriented x3 General Appearance: cooperative HEENT normocephalic, head/scalp atraumatic and moist oral mucous membranes Eyes PERRL, EOMs intact bilaterally and conjunctivae normal Neck supple General: trachea midline Chest inspection of chest normal Resp Auscultation: diminished lung sounds; Negative for rales, rhonchi or wheezes Cardio regular rate and regular rhythm GI normal to inspection, nondistended, normoactive bowel sounds Extremity no clubbing, cyanosis or edema Skin no rashes or lesions noted Neuro CN's II-XII intact bilaterally, moves all extremities and no focal motor deficits Psych cooperative and affect normal Charges/Coding Visit Charges Inpatient E&M: 79306 Subs Hosp L2
[2021-02-25] MEDS: Ipratropium/Albuterol Sulfate 3 ML AMPUL.NEB INHALATION ×4 (07:05→18:52)
[2021-02-25] MEDS: Ascorbic Acid 500 MG Tablet PO (08:15)
[2021-02-25] MEDS: Cholecalciferol (VIT D3) 25 MCG TABLET (1,000 UNITS) 50 MCG PO (08:15)
[2021-02-25] MEDS: Ferrous Sulfate 325 MG Tablet PO (08:15)
[2021-02-25] MEDS: Potassium Chloride Oral Tablet 20 MEQ 40 MEQ PO (08:16)
[2021-02-25] MEDS: Sertraline 100 MG Tablet 200 MG PO (08:16)
[2021-02-25] MEDS: Enoxaparin 40 MG/0.4 ML Syringe SC (08:16)
[2021-02-25] MEDS: Amiodarone 200 MG Tablet PO (08:17)
[2021-02-25] MEDS: Oxymetazoline 0.05% 1 SPRAY SPRAY.BTL NASAL ×2 (08:17→22:11)
[2021-02-25] MEDS: Lidocaine 5% Patch 1 PATCH TOPICAL (08:17)
[2021-02-25] MEDS: Furosemide 40 MG/4 ML Vial IV ×2 (09:49→17:34)
[2021-02-25] MEDS: Vancomycin IV 1,000 MG/200 ML BAG 200 MG IV (09:49)
[2021-02-25 10:13] LABS: Vancomycin, Trough Level 11.1 ug/mL (5.0-15.0)
--- NOTE | 2021-02-25 11:03 | PCM.RX.CS ---
Consult Pharmacy has been consulted to manage selected antiobiotic: Vancomycin Type of Consult: Follow-up Prior Doses of Antibiotics Received/Current Regimen: currently on vanc 1000mg IV q24h Labs: Sodium 141 mmol/L (136-145) 02/25/21 05:35 Potassium 5.0 mmol/L (3.5-5.1) 02/25/21 05:35 Chloride 104 mmol/L (98-107) 02/25/21 05:35 Carbon Dioxide 31.0 mmol/L (21.0-32.0) 02/25/21 05:35 Anion Gap 6 (5-15) 02/25/21 05:35 BUN 26 mg/dL (7-18) H 02/25/21 05:35 Creatinine 0.86 mg/dL (0.55-1.02) 02/25/21 05:35 Est GFR (MDRD) Af Amer 83 mL/min (>60) 02/25/21 05:35 Est GFR (MDRD) Non-Af 69 mL/min (>60) 02/25/21 05:35 BUN/Creatinine Ratio 30.4 RATIO (10-20) H 02/25/21 05:35 Glucose 161 mg/dL (74-106) H 02/25/21 05:35 Vancomycin Trough 11.1 ug/mL (5.0-15.0) 02/25/21 09:30 Microbiology: Microbiology 02/18/21 20:30 Blood Culture (Wb) - No Site/Description Given Blood Culture - Final No growth in 5 days. 02/18/21 20:09 Blood Culture (Wb) - Anticubital Right Blood Culture - Final No growth in 5 days. 02/21/21 20:54 Sputum, Expectorated/Coughed Gram Stain - Final 02/21/21 20:54 Sputum, Expectorated/Coughed Respiratory Culture - Final Meth. resistant Staph. aureus 02/19/21 06:15 Urine, Clean Catch Legionella Antigen - Final 02/19/21 06:15 Urine, Clean Catch Streptococcus pneumoniae Antigen (M - Final 02/18/21 22:54 Mucosa - Nose Respiratory Panel (PCR) - Final Weight used for dosin.5 kg Estimated Creatinine Clearance: 48.8ml/min Goal Trough: 15-20 mcg/mL Pharmacy Plan for Drug Dosing: The vanc trough level drawn at 0930 this morning came back at 11.1 (drawn 23 hours after the previous dose). This is below goal range so will increase next dose to 1250mg IV q24h. Today's dose of 1000mg has already been hung so will start the 1250mg dose a couple hours earlier tomorrow morning. The patient's CrCl of 48.8ml/min was calculated using an adjusted body weight of 53.9kg. Pharmacy Service will continue to monitor and adjust dosing as required. Follow-Up Labs: Trough Vancomycin Labs to be done on [date and time ordered]: 02/28/21 07:30
--- NOTE | 2021-02-25 11:36 | PN.HOSP_ITS ---
Documented by User: Marino TYLER 02/25/21 11:55 Subjective Subjective Patient is a 75-year-old female comfortably resting in a chair, alert and orient x3. Patient reports continued improvement of her shortness of breath. Denies development of any new symptoms overnight. Denies chest pain, palpitations, hemoptysis, sputum production, fever, chills, N/V/D. Objective Data Objective Data Vital Signs: Vital Signs Temp Pulse Resp BP Pulse Ox 97.9 F 90 18 147/84 H 94 02/25/21 08:15 02/25/21 08:15 02/25/21 08:15 02/25/21 08:15 02/25/21 09:25 Oxygen Flow Rate (L/min) [ 6 AMBULATING with Oxygen #2] Oxygen Flow Rate (L/min) [ 4 AMBULATING with Oxygen #1] Oxygen Flow Rate (L/min) [At 4 REST with Oxygen] Oxygen Flow Rate (L/min) 4 Oxygen Delivery Method Nasal Cannula Weight: 146 lb 9.718 oz Body Mass Index (BMI) 28.6 Intake & Output: Intake and Output for Last 24 Hours 02/23/21 02/24/21 02/25/21 23:59 23:59 23:59 Intake Total 585.75 / 585.75 450 / 450 334.5 / 334.5 Output Total 1725 / 1725 1350 / 1850 500 / 500 Balance -1139.25 / -1139.25 -900 / -1400 -165.5 / -165.5 Lab / Micro Data Result Diagrams: 02/25/21 05:35 02/25/21 05:35 Labs: Laboratory Results - last 24 hr 02/24/21 11:38: SARS-CoV-2 IgG Ab 0.92 02/25/21 05:35: WBC 15.1 H, RBC 3.68 L, Hgb 10.4 L, Hct 31.2 L, MCV 84.8, MCH 28.3, MCHC 33.3, RDW Std Deviation 54.4 H, RDW Coeff of Perla 17.8 H, Plt Count 339, MPV 10.4, Immature Gran % (Auto) 1.100 H, Neut % (Auto) 91.4 H, Lymph % (Auto) 3.6 L, [place] % (Auto) 3.8, Eos % (Auto) 0.0, Baso % (Auto) 0.1, Absolute Neuts (auto) 13.8 H, Absolute Lymphs (auto) 0.54 L, Nucleated RBC % 0, Differential Comment SCANNED 02/25/21 05:35: Sodium 141, Potassium 5.0, Chloride 104, Carbon Dioxide 31.0, Anion Gap 6, BUN 26 H, Creatinine 0.86, Estim Creat Clear Calc 41.22, Est GFR (MDRD) Af Amer 83, Est GFR (MDRD) Non-Af 69, BUN/Creatinine Ratio 30.4 H, Glucose 161 H, Calcium 7.9 L 02/25/21 09:30: Vancomycin Trough 11.1 Micro: Microbiology 02/18/21 20:30 Blood Culture (Wb) - No Site/Description Given Blood Culture - Final No growth in 5 days. 02/18/21 20:09 Blood Culture (Wb) - Anticubital Right Blood Culture - Final No growth in 5 days. 02/21/21 20:54 Sputum, Expectorated/Coughed Gram Stain - Final 02/21/21 20:54 Sputum, Expectorated/Coughed Respiratory Culture - Final Meth. resistant Staph. aureus 02/19/21 06:15 Urine, Clean Catch Legionella Antigen - Final 02/19/21 06:15 Urine, Clean Catch Streptococcus pneumoniae Antigen (M - Final 02/18/21 22:54 Mucosa - Nose Respiratory Panel (PCR) - Final Physical Exam Const alert, oriented x3 and no apparent distress HEENT head/scalp atraumatic and moist oral mucous membranes Head and Scalp: normocephalic Eyes PERRL, EOMs intact bilaterally and conjunctivae normal Neck no lymphadenopathy, supple and no JVD Resp normal respiratory effort, no retractions and no use of accessory muscles Resp Narrative: Variably satting between 88 and 94% on 3 to 4 L via nasal cannu la. Auscultation: diminished lung sounds Cardio regular rate, regular rhythm, no murmurs and no JVD GI normal to inspection, nondistended, normoactive bowel sounds, soft to palpation and non-tender Extremity normal to inspection, full ROM and no clubbing, cyanosis or edema Peripheral Pulses: Yes pulses 2+ throughout Skin no rashes or lesions noted, no wounds and skin turgor normal Neuro CN's II-XII intact bilaterally Psych affect normal Assessment & Plan Assessment/Plan (1) Sepsis: QUALIFIERS: Acute respiratory failure type: with hypoxia Sepsis acute organ dysfunction status: with acute organ dysfunction Sepsis type: sepsis due to unspecified organism Severe sepsis acute organ dysfunction type: acute respiratory failure Severe sepsis shock status: without septic shock Qualified Code(s): A41.9 - Sepsis, unspecified organism; R65.20 - Severe sepsis without septic shock; J96.01 - Acute respiratory failure with hypoxia (2) COPD exacerbation: (3) Bilateral pneumonia: QUALIFIERS: Lung location: unspecified part of lung Pneumonia typ e: due to unspecified organism Qualified Code(s): J18.9 - Pneumonia, unspecified organism (4) Acute respiratory failure with hypoxia: PLAN: Day 7 Discharge planning: Patient is agreeable for discharge to TCU, although would like to go home if she displays significant improvement. Case management following. 1) Sepsis secondary to bilateral community-acquired pneumonia Patient reports significant improvement in her shortness of breath. Currently satting between 88 and 95% 3-4 L via nasal cannula. Sputum cultures came back p ositive for MRSA. qSOFA score 2 due to respiratory rate greater than 22 and systolic blood pressure less than 100 on admission. Patient was also noted to have leukocytosis, that is on going, and evidence of infection with pneumonia as well as organ dysfunction with acute hypoxic respiratory failure. Urine for strep and Legionella negative. Respiratory panel negative. Rapid COVID is negative. Blood cultures demonstrate no growth. Plan; doxycycline initiated based off of sensitivities, to complete 5 more days, discontinue vancomycin, discontinue ceftriaxone, continue bronchodilators. 2) Acute hypoxic respiratory failure of mixed etiology As above. 3) COPD exacerbation initially placed on IV Solu-Medrol, transitioned to prednisone. Continue albuterol and DuoNeb aerosols. 4) Hypothyroidism Continue Synthroid regimen. 5) Hyperlipidemia Continue statin. 6) Paroxysmal atrial fibrillation On amiodarone. Not on anticoagulation. 7) GERD continue Carafate. 8) Tobacco dependence Cessation encouraged. DVT prophylaxis - Lovenox Patient seen by Marino Kauffman PA-C, under the supervision of Dr. Lundy. Documented by User: Dr. Tiffanie Lundy MD 02/25/21 16:27 Objective Data Lab / Micro Data Result Diagrams: 02/25/21 05:35 02/25/21 05:35 Charges/Coding Addendum Addendum: Patient seen by Marino Kauffman PA-c under my supervision Patient seen and examined. She feels much better; she feels her shortness of breath has improved significantly. Review of systems otherwise negative. O/E: Const alert, oriented x3 and no apparent distress HEENT head/scalp atraumatic and moist oral mucous membranes Head and Scalp: normocephalic Eyes PERRL, EOMs intact bilaterally and conjunctivae normal Neck no lymphadenopathy, supple and no JVD Resp diminished breath sounds bibasally, no wheezes or crackles. On 2L of oxygen Cardio regular rate, regular rhythm, no murmurs and no JVD GI normal to inspection, nondistended, normoactive bowel sounds, soft to palpation and non-tender Extremity normal to inspection, full ROM and no clubbing, cyanosis or edema Skin no rashes or lesions noted, no wounds, skin turgor normal and no jaundice Neuro CN's II-XII intact bilaterally Psych affect normal Plan is to continue management for acute hypoxic respiratory failure due to community-acquired pneumonia. Patient currently on IV vancomycin as sputum culture was positive for MRSA. Continue on IV steroids and breathing treatments with bronchodilators. Titrate oxygen to maintain saturation above 90%. CTA of the chest was negative for PE. Rapid Covid test was negative. Also on Synthroid for hypothyroidism and statin for hyperlipidemia. Lovenox for DVT prophylaxis. For likely DC to TCU tomorrow. Rest as per Marino Kauffman PA-C's notes which I have reviewed and endorsed. Visit Charges Inpatient E&M: 41248 Subs Hosp L2
--- NOTE | 2021-02-25 12:02 | CASEMGMT ---
Social Work Note SW updated that pt will likely discharge to TCU tomorrow. SW in to speak with pt. SW introduced self and role at [facility]. Pt still agreeable to TCU. Pt had questions regarding TCU and SW answered questions. Pt denied additional needs or concerns at this time. CAMERON placed a call to Alisah with TCU and left message updating her on likely discharge tomorrow. SW placed green sheet on the chart. Plan: TCU Clarisse Clay CLINICAL ADMISSIONS MANAGER, INFORMATICS SPECIALIST
[2021-02-25] MEDS: Doxycycline 100 MG CAPSULE PO (22:12)
[2021-02-25] MEDS: Acetaminophen 325 MG Tablet 650 MG PO (22:13)
[2021-02-25] MEDS: MELATONIN 3 MG TABLET PO (22:13)
[2021-02-25] MEDS: Atorvastatin Calcium 40 MG Tablet PO (22:19)
[2021-02-26] VITALS (8 sets, daily range): BP systolic 116–137; BP diastolic 68–86; PULSE 66–92; RESP 16–22; TEMP 36.7–36.8; O2SAT 85–97
--- NOTE | 2021-02-26 02:20 | EKG12_ITS ---
Test Reason : CP Blood Pressure : / mmHG Vent. Rate : 082 BPM Atrial Rate : 082 BPM P-R Int : 152 ms QRS Dur : 076 ms QT Int : 426 ms P-R-T Axes : 047 -39 024 degrees QTc Int : 497 ms Sinus rhythm with marked sinus arrhythmia Left axis deviation Prolonged QT Abnormal ECG When compared with ECG of 23-FEB-2021 07:42, MANUAL COMPARISON REQUIRED, DATA IS UNCONFIRMED Confirmed by JOVITA MCMILLAN, SHELBI ([id number]), editor managing director WILNER GAN ([id number]) on 03/04/2021 10:22:12 AM Referred By: TUCKER Confirmed By:SHELBI HUSSEIN MD
[2021-02-26 03:25] LABS: Troponin-I HS 25 pg/mL (3.0-54.0)
[2021-02-26] MEDS: 0.9% Saline Lock 10 ML Syringe IV ×2 (06:35→09:16)
[2021-02-26] MEDS: Ipratropium/Albuterol Sulfate 3 ML AMPUL.NEB INHALATION ×2 (06:57→10:24)
--- NOTE | 2021-02-26 08:18 | PCM.PN.INT ---
Assessment & Plan Assessment/Plan (1) Acute respiratory failure with hypoxia: (2) Compression fracture of T7 vertebra: QUALIFIERS: Encounter type: sequela Qualified Code(s): S22.060S - Wedge compression fracture of T7-T8 vertebra, sequela (3) COPD (chronic obstructive pulmonary disease): (4) Obstructive sleep apnea: (5) History of back surgery: (6) Osteoporosis: QUALIFIERS: Osteoporosis type: age-related Presence of current pathological fracture: with current pathological fracture Encounter type: sequela Qualified Code(s): M80.00XS - Age-related osteoporosis with current pathological fracture, unspecified site, sequela PLAN: RECOMMENDATIONS: 1. Continue antibiotic regimen based upon sensitivities. Complete 7 days of therapy. 2. Continue to wean supplemental oxygen to maintain saturations at or above 90%. 3. Continue scheduled bronchodilator therapy and steroids. Okay to transition to prednisone 40 mg daily. 4. At discharge, please send patient with prednisone 40 mg daily x5 days. 5. Continue diuretic therapy as tolerated by hemodynamics and renal function. 6. Encourage incentive spirometer use and mobilize patient as tolerated. 7. Perform walking oximetry study prior to consideration for discharge home. 8. Ideally, the patient should follow-up in the pulmonary medicine clinic within 2 weeks of discharge. 9. Will sign off at this time. Please call with any additional questions. IMPRESSIONS: 1. 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 The patient does not currently follow with a termite exterminator. Chest imaging demonstrated findings concerning for bilateral infiltrates. Echocardiogram did reveal stage I diastolic dysfunction and pulmonary hypertension. Sputum culture was subsequently positive for MRSA. Therefore, the patient will be continued on antimicrobials to complete a 7-day treatment course. She will be continued on scheduled bronchodilator therapy along with steroids. The patient has responded favorably to the use of IV diuretics. Continue to wean oxygen for saturations greater than 90%. Encourage incentive spirometer use and mobilize patient as tolerated. CTA chest showed no evidence for PE, but did reveal groundglass changes bilaterally. Coronavirus PCR was negative. My suspicion is that her respiratory failure was likely multifactorial with underlying infection and volume status contributing. 2. Hypothyroidism/osteoporosis with spinal fracture/hyperlipidemia/GERD/advanced age/paroxysmal A. fib Complicates care, management, recovery and prognosis. Consider pain consultation. Okay to continue with baseline medications. This note was generated with [employer] dictation software. It may contain incorrect words, spelling, and punctuation that were not noted in checking the note before signing. Subjective Subjective The patient was seen and examined at the bedside this morning. Events from the last 24 hours have been reviewed. The patient is currently afebrile, hemodynamically stable and maintaining appropriate oxygen saturations on 2 L/min via nasal cannula. She is currently documented to be overall net negative 1.6L for the hospital admission. The patient remains on antimicrobials, scheduled bronchodilator therapy and IV steroids. Objective Data Objective Data The patient's most recent lab work, culture data and imaging studies have all been personally reviewed. Surface echocardiogram revealed an ejection fraction of 55 to 60%. Grade 1 diastolic dysfunction was noted. RVSP was estimated to be 56 mmHg. Sputum culture dated February 21 appears to be MRSA. Strep and urine Legionella antigens were negative. Respiratory viral panel was negative. Vital Signs: Vital Signs Temp Pulse Resp BP Pulse Ox 98.1 F 92 16 137/83 H 93 02/26/21 02:17 02/26/21 06:57 02/26/21 06:57 02/26/21 02:17 02/26/21 06:57 Oxygen Flow Rate (L/min) [ 6 AMBULATING with Oxygen #2] Oxygen Flow Rate (L/min) [ 4 AMBULATING with Oxygen #1] Oxygen Flow Rate (L/min) [At 4 REST with Oxygen] Oxygen Flow Rate (L/min) 2 Oxygen Delivery Method Nasal Cannula Weight: 66.5 kg Body Mass Index (BMI) 28.6 Intake & Output: Intake and Output for Last 24 Hours 02/24/21 02/25/21 02/26/21 23:59 23:59 23:59 Intake Total 450 / 450 804.5 / 1004.5 200 / 200 Output Total 1350 / 1850 1450 / 1450 175 / 175 Balance -900 / -1400 -645.5 / -445.5 Lab / Micro Data Attestation: I reviewed the patient's lab results. Result Diagrams: 02/25/21 05:35 02/25/21 05:35 Labs: Laboratory Results - last 24 hr 02/25/21 09:30: Vancomycin Trough 11.1 02/26/21 03:00: Troponin I High Sens 25 Micro: Microbiology 02/18/21 20:30 Blood Culture (Wb) - No Site/Description Given Blood Culture - Final No growth in 5 days. 02/18/21 20:09 Blood Culture (Wb) - Anticubital Right Blood Culture - Final No growth in 5 days. 02/21/21 20:54 Sputum, Expectorated/Coughed Gram Stain - Final 02/21/21 20:54 Sputum, Expectorated/Coughed Respiratory Culture - Final Meth. resistant Staph. aureus 02/19/21 06:15 Urine, Clean Catch Legionella Antigen - Final 02/19/21 06:15 Urine, Clean Catch Streptococcus pneumoniae Antigen (M - Final 02/18/21 22:54 Mucosa - Nose Respiratory Panel (PCR) - Final Physical Exam Const alert and oriented x3 General Appearance: cooperative HEENT normocephalic, head/scalp atraumatic and moist oral mucous membranes Eyes PERRL, EOMs intact bilaterally and conjunctivae normal Neck supple General: trachea midline Chest inspection of chest normal Resp Auscultation: diminished lung sounds; Negative for rales, rhonchi or wheezes Cardio regular rate and regular rhythm GI normal to inspection, nondistended, normoactive bowel sounds Extremity no clubbing, cyanosis or edema Skin no rashes or lesions noted Neuro CN's II-XII intact bilaterally, moves all extremities and no focal motor deficits Psych cooperative and affect normal Charges/Coding Visit Charges Inpatient E&M: 49349 Subs Hosp L2
[2021-02-26] MEDS: Lidocaine 5% Patch 1 PATCH TOPICAL (09:11)
[2021-02-26] MEDS: Oxymetazoline 0.05% 1 SPRAY SPRAY.BTL NASAL (09:12)
[2021-02-26] MEDS: Ferrous Sulfate 325 MG Tablet PO (09:12)
[2021-02-26] MEDS: Potassium Chloride Oral Tablet 20 MEQ 40 MEQ PO (09:12)
[2021-02-26] MEDS: Cholecalciferol (VIT D3) 25 MCG TABLET (1,000 UNITS) 50 MCG PO (09:12)
[2021-02-26] MEDS: Ascorbic Acid 500 MG Tablet PO (09:13)
[2021-02-26] MEDS: Enoxaparin 40 MG/0.4 ML Syringe SC (09:13)
[2021-02-26] MEDS: Sertraline 100 MG Tablet 200 MG PO (09:13)
[2021-02-26] MEDS: Furosemide 40 MG/4 ML Vial IV (09:14)
[2021-02-26] MEDS: Amiodarone 200 MG Tablet PO (09:14)
[2021-02-26] MEDS: Doxycycline 100 MG CAPSULE PO (09:14)
--- NOTE | 2021-02-26 10:38 | PCM.TXEXTCAR ---
Documented by User: Marino TYLER 02/26/21 10:44 Diet 02/19/21 16:28 Diet: Cardiac - Heart Healthy Food consistency:: Regular Liquid Consistency:: Regular/Thin Type of Dietary Supplement:: Magic Cup Dessert Diet Comments: Stokes magic cup w/ lunch and dinner Routine Orders/Code Status O2 Liters per Minute: 2 O2 Frequency: Continuous Therapies Weight Bearing: Weight bearing as tolerated Physical Therapy: Eval and Treat Occupational Therapy: Eval and Treat Problem/Diagnosis (1) Sepsis: Status: Acute (2) COPD exacerbation: Status: Chronic (3) Bilateral pneumonia: Status: Acute (4) Acute respiratory failure with hypoxia: Status: Acute Allergies/Procedures Done in Hospital Allergies hydrocodone bitartrate [From Vicodin] Allergy (Verified 02/18/21 18:02) Rash Penicillins Allergy (Verified 02/18/21 18:02) Rash diltiazem Adverse Reaction (Severe, Verified 02/18/21 18:02) Hypotension sulfamethoxazole [From Bactrim] Adverse Reaction (Intermediate, Verified 02/18/21 18:02) nausea and vomiting trimethoprim [From Bactrim] Adverse Reaction (Intermediate, Verified 02/18/21 18:02) nausea and vomiting clindamycin Adverse Reaction (Verified 02/18/21 18:02) Other tizanidine HCl [From Zanaflex] Adverse Reaction (Verified 02/18/21 18:02) Other Type of Care/Length of Stay Estimated LOS: Convalescent Care Less Than 30 days Type of Care Needed: Skilled Rehab Potential: Good Prognosis: Good Additional Orders/Day of Discharge Day of Discharge: 02/26/21 Dietary and Speech Recommendations Dietitian Recommendations/Changes: Continue Cardiac diet and stokes magic cup BID w/ lunch/dinner. Discharge Plan Admission Admit Date/Time: 02/18/21 22:11 Primary Reason for Your Visit: Shortness of breath Attending Provider: Tiffanie Lundy Primary Care Provider: Marino Williamson Consulting Providers: Kemar Lara ; Mak Dotson ; Lorna Rothman [employer]ATION BUSINESS [employer]NER Discharge Orders/Prescriptions Prescriptions: New doxycycline monohydrate 100 mg capsule 100 mg PO BID Qty: 8 RF: 0 prednisone 20 mg tablet 40 mg PO DAILY Qty: 10 RF: 0 Continued atorvastatin 40 mg tablet 40 mg PO DAILY RF: 0 cholecalciferol (vitamin D3) 5,000 unit capsule 2,000 unit PO DAILY RF: 0 levothyroxine 50 mcg tablet 50 mcg PO DAILY RF: 0 Spiriva Respimat 2.5 mcg/actuation mist 2 inh INHALATION QAM RF: 0 sucralfate [Carafate] 1 gram tablet 1 g PO QACHS RF: 0 polyethylene glycol 3350 [Miralax] 17 gram/dose powder 17 g PO DAILY RF: 0 lidocaine [Lidoderm] 5 % adhesive patch,medicated 1 patch topical BID RF: 0 ascorbate calcium (vitamin C) 500 mg tablet 500 mg PO DAILY RF: 0 ferrous fumarate 325 mg (106 mg iron) tablet 325 mg PO DAILY RF: 0 albuterol sulfate [Ventolin HFA] 90 mcg/actuation HFA aerosol inhaler 2 inh inhalation Q4H PRN (Reason: Wheezing) RF: 0 ondansetron 4 MG tablet 4 mg PO Q8H PRN PRN (Reason: Nausea) Qty: 10 RF: 0 sertraline 100 mg Tablet 200 mg PO DAILY RF: 0 oxycodone-acetaminophen [Endocet] 5-325 mg tablet 1 tab PO Q6H PRN (Reason: pain) 5 Days Qty: 20 RF: 0 amiodarone 200 mg tablet 200 mg PO DAILY RF: 0 Referrals / Follow Up: Mak Dotson DO [STAFF PHYSICIAN] - Within 2 Weeks Marino Williamson MD [Primary Care Provider] - Within 2 Weeks Disposition Disposition (needs filled in before D/C Order can be placed): [facility] Documented by User: Dr. Tiffanie Lundy MD 02/26/21 11:55 Allergies/Procedures Done in Hospital Allergies hydrocodone bitartrate [From Vicodin] Allergy (Verified 02/18/21 18:02) Rash Penicillins Allergy (Verified 02/18/21 18:02) Rash diltiazem Adverse Reaction (Severe, Verified 02/18/21 18:02) Hypotension sulfamethoxazole [From Bactrim] Adverse Reaction (Intermediate, Verified 02/18/21 18:02) nausea and vomiting trimethoprim [From Bactrim] Adverse Reaction (Intermediate, Verified 02/18/21 18:02) nausea and vomiting clindamycin Adverse Reaction (Verified 02/18/21 18:02) Other tizanidine HCl [From Zanaflex] Adverse Reaction (Verified 02/18/21 18:02) Other Discharge Plan Admission Admit Date/Time: 02/18/21 22:11 Primary Reason for Your Visit: Shortness of breath Attending Provider: Tiffanie Lundy Primary Care Provider: Marino Williamson Consulting Providers: Kemar Lara ; Mak Dotson ; Lorna Rothman [employer]NER Discharge Orders/Prescriptions Prescriptions: New doxycycline monohydrate 100 mg capsule 100 mg PO BID Qty: 8 RF: 0 prednisone 20 mg tablet 40 mg PO DAILY Qty: 10 RF: 0 Continued atorvastatin 40 mg tablet 40 mg PO DAILY RF: 0 cholecalciferol (vitamin D3) 5,000 unit capsule 2,000 unit PO DAILY RF: 0 levothyroxine 50 mcg tablet 50 mcg PO DAILY RF: 0 Spiriva Respimat 2.5 mcg/actuation mist 2 inh INHALATION QAM RF: 0 sucralfate [Carafate] 1 gram tablet 1 g PO QACHS RF: 0 polyethylene glycol 3350 [Miralax] 17 gram/dose powder 17 g PO DAILY RF: 0 lidocaine [Lidoderm] 5 % adhesive patch,medicated 1 patch topical BID RF: 0 ascorbate calcium (vitamin C) 500 mg tablet 500 mg PO DAILY RF: 0 ferrous fumarate 325 mg (106 mg iron) tablet 325 mg PO DAILY RF: 0 albuterol sulfate [Ventolin HFA] 90 mcg/actuation HFA aerosol inhaler 2 inh inhalation Q4H PRN (Reason: Wheezing) RF: 0 ondansetron 4 MG tablet 4 mg PO Q8H PRN PRN (Reason: Nausea) Qty: 10 RF: 0 sertraline 100 mg Tablet 200 mg PO DAILY RF: 0 oxycodone-acetaminophen [Endocet] 5-325 mg tablet 1 tab PO Q6H PRN (Reason: pain) 5 Days Qty: 20 RF: 0 amiodarone 200 mg tablet 200 mg PO DAILY RF: 0 Referrals / Follow Up: Mak Dotson DO [STAFF PHYSICIAN] - Within 2 Weeks Marino Williamson MD [Primary Care Provider] - Within 2 Weeks Disposition Disposition (needs filled in before D/C Order can be placed): [facility]
--- NOTE | 2021-02-26 13:04 | NURSING ---
report called to TCU for discharge. report given to PATRICIA Saravia.
--- NOTE | 2021-02-26 13:19 | DS.PCM_ITS ---
Documented by User: Marino TYLER 02/26/21 13:24 Providers Date of Admission: 02/18/21 Primary Care Physician: Dr. Marino Williamson MD Consultations 02/21/21 07:42 Consult: Reclamation Engineer / Pulmonary Medicine Routine Consulting Provider: Pulmonary Medicine mannie [place] Reason for Consult: COPD exacerbation EMERGENT Consult: No MD Notified: Yes Date Notified: 02/21/21 Time Notified: 08:06 Method of Notification: Text Reason For Visit: BILATERAL PNEUMONIA Diagnosis Discharge Diagnosis (1) Acute respiratory failure with hypoxia: Status: Acute Code(s): J96.01 - Acute respiratory failure with hypoxia (2) Compression fracture of T7 vertebra: Status: Acute Code(s): S22.060A - Wedge compression fracture of T7-T8 vertebra, initial encounter for closed fracture Qualifiers: Encounter type: sequela Qualified Code(s): S22.060S - Wedge compression fracture of T7-T8 vertebra, sequela (3) COPD (chronic obstructive pulmonary disease): Status: Chronic Code(s): J44.9 - Chronic obstructive pulmonary disease, unspecified (4) Obstructive sleep apnea: Status: Chronic Code(s): G47.33 - Obstructive sleep apnea (adult) (pediatric) (5) History of back surgery: Status: Chronic Code(s): Z98.890 - Other specified postprocedural states (6) Osteoporosis: Status: Chronic Code(s): M81.0 - Age-related osteoporosis without current pathological fracture Qualifiers: Encounter type: sequela Osteoporosis type: age-related Presence of current pathological fracture: with current pathological fracture Qualified Code(s): M80.00XS - Age-related osteoporosis with current pathological fracture, unspecified site, sequela Medications at Discharge Home Medications atorvastatin 40 mg tablet 40 mg PO DAILY 06/03/17 cholecalciferol (vitamin D3) 125 mcg (5,000 unit) capsule 2,000 unit PO DAILY 09/28/18 levothyroxine 50 mcg tablet 50 mcg PO DAILY 05/18/19 tiotropium bromide 2.5 mcg/actuation mist for inhalation 2 inh INHALATION QAM 03/20/20 sucralfate 1 gram tablet 1 g PO QACHS 07/02/20 ondansetron 4 mg PO Q8H PRN PRN #10 tablet 09/15/20 sertraline 200 mg PO DAILY 10/11/20 oxycodone-acetaminophen [Endocet] 1 tab PO Q6H PRN 5 Days #20 tab 10/18/20 albuterol sulfate 90 mcg/actuation aerosol inhaler 2 inh INHALATION Q4H PRN g 02/05/21 ascorbate calcium (vitamin C) 500 mg tablet 500 mg PO DAILY 02/05/21 ferrous fumarate 325 mg (106 mg iron) tablet 325 mg PO DAILY 02/05/21 lidocaine 5 % topical patch 1 patch TOPICAL BID ea 02/05/21 polyethylene glycol 3350 17 gram/dose oral powder 17 g PO DAILY 02/05/21 amiodarone 200 mg PO DAILY 02/19/21 doxycycline monohydrate 100 mg PO BID 02/26/21 prednisone 40 mg PO DAILY 02/26/21 Hospital Course Summary of Care Provided Minutes Spent on Discharge: 35 Hospital Course: Disposition: Patient to discharge to TCU today. 1) Sepsis secondary to bilateral community-acquired pneumonia Patient reports significant improvement in her shortness of breath. Patient currently satting 90 1300 on 2 L via nasal cannula at rest. Ambulatory pulse ox on room air dropped to 86%, and therefore patient qualifies for continued oxygen use on discharge. Sputum cultures came back positive for MRSA. qSOFA score 2 due to respiratory rate greater than 22 and systolic blood pressure less than 100 on admission. Patient was also noted to have leukocytosis, that is on going, and evidence of infection with pneumonia as well as organ dysfunction with acute hypoxic respiratory failure. Urine for strep and Legionella negative. Respiratory panel negative. Rapid COVID is negative. Blood cultures demonstrate no growth. Plan; transition over to TCU for following therapy and care, continue oxygen supplementation, doxycycline initiated based off of sensitivities, continue bronchodilators, prednisone initiated x5 days, patient is to follow-up with primary care provider and pulmonology within the next 2 weeks. 2) Acute hypoxic respiratory failure of mixed etiology As above. 3) COPD exacerbation As above. 4) Hypothyroidism Continue Synthroid regimen. 5) Hyperlipidemia Continue statin. 6) Paroxysmal atrial fibrillation On amiodarone. Not on anticoagulation. 7) GERD continue Carafate. 8) Tobacco dependence Cessation encouraged. Patient seen by Marino Kauffman PA-C, under the supervision of Dr. Lundy. Physical Exam Narrative Patient is a 75-year-old female comfortably resting in bed, alert and orient x3. Patient reports resolution of her shortness of breath and continued improvement from admission. Denies development of any new symptoms overnight. Does not appear to be in acute distress. Const alert, oriented x3 and no apparent distress HEENT normocephalic, head/scalp atraumatic and hearing grossly normal bilaterally Eyes PERRL, EOMs intact bilaterally and conjunctivae normal Neck no lymphadenopathy, supple and no JVD Resp normal respiratory effort, no retractions and no use of accessory muscles Resp Narrative: Currently satting 93% on 2 L via nasal cannula. Auscultation: diminished lung sounds Cardio regular rate, regular rhythm, no murmurs and no JVD GI normal to inspection, nondistended, normoactive bowel sounds, soft to palpation and non-tender Extremity normal to inspection, full ROM and no clubbing, cyanosis or edema Skin no rashes or lesions noted, no wounds and skin turgor normal Neuro CN's II-XII intact bilaterally Psych affect normal Weight / BMI Weight Weight: 146 lb 9.718 oz Body Mass Index (BMI) 28.6 ABG / Lab / Microbiology Data Result Diagrams: 02/25/21 05:35 02/25/21 05:35 Laboratory: Laboratory Results - last 24 hr 02/26/21 03:00: Troponin I High Sens 25 Microbiology: Microbiology 02/18/21 20:30 Blood Culture (Wb) - No Site/Description Given Blood Culture - Final No growth in 5 days. 02/18/21 20:09 Blood Culture (Wb) - Anticubital Right Blood Culture - Final No growth in 5 days. 02/21/21 20:54 Sputum, Expectorated/Coughed Gram Stain - Final 02/21/21 20:54 Sputum, Expectorated/Coughed Respiratory Culture - Final Meth. resistant Staph. aureus 02/19/21 06:15 Urine, Clean Catch Legionella Antigen - Final 02/19/21 06:15 Urine, Clean Catch Streptococcus pneumoniae Antigen (M - Final 02/18/21 22:54 Mucosa - Nose Respiratory Panel (PCR) - Final Meaningful Use Info Meaningful Use Diagnoses (Choose all that apply): None applicable Discharge Plan Admission Admit Date/Time: 02/18/21 22:11 Primary Reason for Your Visit: Shortness of breath Attending Provider: Tiffanie Lundy Primary Care Provider: Schinner,Marino E Consulting Providers: Kemar Lara ; Mak Dotson ; Lorna Rothman NEWSPAPER JOURNALIST Discharge Orders/Prescriptions Prescriptions: Continued atorvastatin 40 mg tablet 40 mg PO DAILY RF: 0 cholecalciferol (vitamin D3) 5,000 unit capsule 2,000 unit PO DAILY RF: 0 levothyroxine 50 mcg tablet 50 mcg PO DAILY RF: 0 Spiriva Respimat 2.5 mcg/actuation mist 2 inh INHALATION QAM RF: 0 sucralfate [Carafate] 1 gram tablet 1 g PO QACHS RF: 0 polyethylene glycol 3350 [Miralax] 17 gram/dose powder 17 g PO DAILY RF: 0 lidocaine [Lidoderm] 5 % adhesive patch,medicated 1 patch topical BID RF: 0 ascorbate calcium (vitamin C) 500 mg tablet 500 mg PO DAILY RF: 0 ferrous fumarate 325 mg (106 mg iron) tablet 325 mg PO DAILY RF: 0 albuterol sulfate [Ventolin HFA] 90 mcg/actuation HFA aerosol inhaler 2 inh inhalation Q4H PRN (Reason: Wheezing) RF: 0 ondansetron 4 MG tablet 4 mg PO Q8H PRN PRN (Reason: Nausea) Qty: 10 RF: 0 sertraline 100 mg Tablet 200 mg PO DAILY RF: 0 oxycodone-acetaminophen [Endocet] 5-325 mg tablet 1 tab PO Q6H PRN (Reason: pain) 5 Days Qty: 20 RF: 0 amiodarone 200 mg tablet 200 mg PO DAILY RF: 0 No Action prednisone 20 mg tablet 40 mg PO DAILY RF: 0 doxycycline monohydrate 100 mg capsule 100 mg PO BID RF: 0 Referrals / Follow Up: Mak Dotson DO [STAFF PHYSICIAN] - Within 2 Weeks Marino Williamson MD [Primary Care Provider] - Within 2 Weeks Disposition Disposition (needs filled in before D/C Order can be placed): Residential Facility Documented by User: Dr. Tiffanie Lundy MD 02/26/21 17:15 Providers Date of Admission: 02/18/21 Reason For Visit: BILATERAL PNEUMONIA Medications at Discharge Home Medications atorvastatin 40 mg tablet 40 mg PO DAILY 06/03/17 cholecalciferol (vitamin D3) 125 mcg (5,000 unit) capsule 2,000 unit PO DAILY 09/28/18 levothyroxine 50 mcg tablet 50 mcg PO DAILY 05/18/19 tiotropium bromide 2.5 mcg/actuation mist for inhalation 2 inh INHALATION QAM 03/20/20 sucralfate 1 gram tablet 1 g PO QACHS 07/02/20 ondansetron 4 mg PO Q8H PRN PRN #10 tablet 09/15/20 sertraline 200 mg PO DAILY 10/11/20 oxycodone-acetaminophen [Endocet] 1 tab PO Q6H PRN 5 Days #20 tab 10/18/20 albuterol sulfate 90 mcg/actuation aerosol inhaler 2 inh INHALATION Q4H PRN g 02/05/21 ascorbate calcium (vitamin C) 500 mg tablet 500 mg PO DAILY 02/05/21 ferrous fumarate 325 mg (106 mg iron) tablet 325 mg PO DAILY 02/05/21 lidocaine 5 % topical patch 1 patch TOPICAL BID ea 02/05/21 polyethylene glycol 3350 17 gram/dose oral powder 17 g PO DAILY 02/05/21 amiodarone 200 mg PO DAILY 02/19/21 doxycycline monohydrate 100 mg PO BID 02/26/21 prednisone 40 mg PO DAILY 02/26/21 ABG / Lab / Microbiology Data Result Diagrams: 02/25/21 05:35 02/25/21 05:35 Discharge Plan Admission Admit Date/Time: 02/18/21 22:11 Primary Reason for Your Visit: Shortness of breath Attending Provider: Tiffanie Lundy Primary Care Provider: Marino Williamson Consulting Providers: Kemar Lara ; Mak Dotson ; Lorna Rothman NEWSPAPER JOURNALIST Discharge Orders/Prescriptions Prescriptions: Continued atorvastatin 40 mg tablet 40 mg PO DAILY RF: 0 cholecalciferol (vitamin D3) 5,000 unit capsule 2,000 unit PO DAILY RF: 0 levothyroxine 50 mcg tablet 50 mcg PO DAILY RF: 0 Spiriva Respimat 2.5 mcg/actuation mist 2 inh INHALATION QAM RF: 0 sucralfate [Carafate] 1 gram tablet 1 g PO QACHS RF: 0 polyethylene glycol 3350 [Miralax] 17 gram/dose powder 17 g PO DAILY RF: 0 lidocaine [Lidoderm] 5 % adhesive patch,medicated 1 patch topical BID RF: 0 ascorbate calcium (vitamin C) 500 mg tablet 500 mg PO DAILY RF: 0 ferrous fumarate 325 mg (106 mg iron) tablet 325 mg PO DAILY RF: 0 albuterol sulfate [Ventolin HFA] 90 mcg/actuation HFA aerosol inhaler 2 inh inhalation Q4H PRN (Reason: Wheezing) RF: 0 ondansetron 4 MG tablet 4 mg PO Q8H PRN PRN (Reason: Nausea) Qty: 10 RF: 0 sertraline 100 mg Tablet 200 mg PO DAILY RF: 0 oxycodone-acetaminophen [Endocet] 5-325 mg tablet 1 tab PO Q6H PRN (Reason: pain) 5 Days Qty: 20 RF: 0 amiodarone 200 mg tablet 200 mg PO DAILY RF: 0 No Action prednisone 20 mg tablet 40 mg PO DAILY RF: 0 doxycycline monohydrate 100 mg capsule 100 mg PO BID RF: 0 Referrals / Follow Up: Mak Dotson DO [STAFF PHYSICIAN] - Within 2 Weeks Marino Williamson MD [Primary Care Provider] - Within 2 Weeks Disposition Disposition (needs filled in before D/C Order can be placed): Residential Facility Charges/Coding Addendum Addendum: Patient seen by Marino Kauffman PA-C under my supervision Patient is a 75-year-old female with a past medical history as outlined including COPD and nicotine dependence was admitted through the ED on 02/18/2021 with a complaint of worsening shortness of breath for 2 to 3 weeks prior to admission which was present at rest but worsened with mild exertion. She went to her PCPs office and was sent in on account of hypoxia and shortness of breath. Imaging done showed bilateral patchy infiltrates. Covid test done was negative. She also had elevated white cell count. She was admitted and managed for acute hypoxic respiratory failure and sepsis due to bilateral pneumonia and COPD exacerbation. She was started on IV ceftriaxone and azithromycin and put on breathing treatments of bronchodilators. Pulmonology was consulted. 2D echo showed EF of 55 to 60% with normal ventricular diastolic dysfunction and grade 1 diastolic dysfunction as well as mild aortic regurgitation and moderate pulmonary hypertension. Shortness of breath gradually improved and she felt better. She was also put on IV Solu-Medrol and given diuretics as needed for shortness of breath. Urine for strep and Legionella were negative and blood cultures were negative. Sputum cultures came back positive for MRSA. Patient was transitioned to oral doxycycline. Of note, she was also on IV vancomycin during admission. She was also transitioned to oral prednisone. She remained stable and was discharged to the transitional care unit on 02/26/2021. She is follow-up with her primary care doctor and is also to follow-up with pulmonology. Patient was seen and examined prior to discharge. She had no complaints and felt much better. Review of systems otherwise negative. Labs and vitals reviewed. Home medication reviewed and reconciled. O/E: O/E: Const alert, oriented x3 and no apparent distress HEENT head/scalp atraumatic and moist oral mucous membranes Head and Scalp: normocephalic Eyes PERRL, EOMs intact bilaterally and conjunctivae normal Neck no lymphadenopathy, supple and no JVD Resp diminished breath sounds bibasally, no wheezes or crackles. On 2L of oxygen Cardio regular rate, regular rhythm, no murmurs and no JVD GI normal to inspection, nondistended, normoactive bowel sounds, soft to palpation and non-tender Extremity normal to inspection, full ROM and no clubbing, cyanosis or edema Skin no rashes or lesions noted, no wounds, skin turgor normal and no jaundice Neuro CN's II-XII intact bilaterally Psych affect normal Plan is for discharge to the transitional care unit today. Rest as per Marino Kauffman PA-C's note which I reviewed and endorsed. Visit Charges Inpatient E&M: 72785 Disch Hosp
--- NOTE | 2021-02-26 13:33 | CASEMGMT ---
Social Work Per physician pt is ready for discharge today and TCU is able to accept. Pt notified and agreeable to transfer to TCU. SW offered to call dgt to update and pt refused stating she has already told her the plan and dgt is in work meetings today. Orders faxed to TCU. Plan: TCU, skilled level of care under convalescent stay [facility] [place]
[2021-02-26 16:49] LABS: SAR-COV-2 IGM ANTIBODY Negative (Negative)
== END 2021-02-26 13:37 | disposition skilled nursing facility (03) | DRG 871 ==
LOC: ED 22:08 → MS2 22:55
PROVIDERS: Family Medicine; Internal Medicine Critical Care Medicine; Nurse Practitioner Family; Physician Assistant; Admitting Provider Hospitalist; Emergency Provider Emergency Medicine; PCP Family Medicine; Visit Provider Student in an Organized Health Care Education/Training Program
DX: A41.9 Sepsis, unspecified organism (principal); J96.01 Acute respiratory failure with hypoxia; J18.9 Pneumonia, unspecified organism; J44.1 Chronic obstructive pulmonary disease with (acute) exacerbation; J44.0 Chronic obstructive pulmonary disease with (acute) lower respiratory infection; E03.9 Hypothyroidism, unspecified; E78.5 Hyperlipidemia, unspecified; I48.0 Paroxysmal atrial fibrillation; K21.9 Gastro-esophageal reflux disease without esophagitis; I27.20 Pulmonary hypertension, unspecified; R65.20 Severe sepsis without septic shock; E21.0 Primary hyperparathyroidism; F41.9 Anxiety disorder, unspecified; F32.9 Major depressive disorder, single episode, unspecified; E87.6 Hypokalemia; G47.33 Obstructive sleep apnea (adult) (pediatric); F17.210 Nicotine dependence, cigarettes, uncomplicated; M80.00XS Age-related osteoporosis with current pathological fracture, unspecified site, sequela; S22.060S Wedge compression fracture of T7-T8 vertebra, sequela; Z79.82 Long term (current) use of aspirin; Z79.890 Hormone replacement therapy; Z80.3 Family history of malignant neoplasm of breast; Z82.5 Family history of asthma and other chronic lower respiratory diseases; Z85.118 Personal history of other malignant neoplasm of bronchus and lung; Z86.73 Personal history of transient ischemic attack (TIA), and cerebral infarction without residual deficits; Z87.442 Personal history of urinary calculi; Z90.49 Acquired absence of other specified parts of digestive tract; Z88.0 Allergy status to penicillin; Z90.710 Acquired absence of both cervix and uterus
CPT/HCPCS: 36415; 36600; 71045; 71275; 80048; 80053; 80202; 82803; 83605; 83735; 83880; 84100; 84484; 85025; 86769; 87040; 87070; 87077; 87186; 87205; 87449; 87633; 87635; 93005; 93306; 94640; 94667; 94668; 94762; 97110; 97162; 97166; 97530; 97535; 97802; 99251; 99285; 99406; G0008; J7040; J7050; Q9957; Q9967; U0005; 90686; A4216; G0463; J0696; J1940; J2405; U0003

== ENCOUNTER 2021-02-26 13:47 | Inpatient (IN) | payer MEDICARE, MEDICAID, SELFPAY ==
[2021-02-26 14:09] VITALS: BP 134/79; PULSE 60; RESP 16; TEMP 36.3; O2SAT 95
[2021-02-26 14:15] VITALS: O2SAT 94
[2021-02-26 15:53] VITALS: BMI 25.9
[2021-02-26] MEDS: Doxycycline 100 MG CAPSULE PO (16:34)
--- NOTE | 2021-02-26 20:01 | HP.PCM_ITS ---
HPI - General General Date of Admission: 02/26/21 HPI Narrative 02/18/2021 PAULINO LOPEZ, is a 75 Female who presents to [facility] Emergency Department with shortness of breath. Hypoxic, fully vaccinated for covid19. Short of breath x 2-3 weeks, productive cough. Duoneb, Albuterol, Solu-medrol given for wheezing. covid19 negative, Chest X-ray showed bilateral infiltrates. WBC 18.6. Rocephin, Azithromycin IV given for sepsis, pneumonia. 02/18/2021 Admit to Hospital. Panculture. Rocephin, Azithromycin IV for pneumonia. Prednisone for copd exacerbation. 02/19/2021 Breathing improved. Urine antigen strep negative, legionella negative. 02/20/2021 Cough with yellow sputum. Oxygen requirement increased. 02/21/2021 Respiratory panel negative. Rocephin, Azithromycin continued. Lasix given for pulmonary congestion. Pulsox 95% on 7 liters oxygen per nasal cannula. 02/21/2021 Echo EF 55-60%. Normal LV systolic function. Grade 1 diastolic dysfunction. Moderate pulmonary hypertension. RVSP 56mm HG. Shortness of breath improved. Blood cultures negative. Lasix 40mg IV twice daily for acute on chronic diastolic congestive heart failure. 02/23/2021 Still ill. CTA chest negative pulmonary embolism. Sputum growing MRSA. Vancomycin, Rocephin for MRSA pneumonia. 02/24/2021 Improved. 02/25/2021 Shortness of breath improved. Change antibiotics to Doxycycline for 5 more days to finish course. 02/26/2021 Admit to TCU with debility, here for rehabilitation, strengthening, prior to discharge home alone. Resident has T7 compression fracture, causing significant pain, consult Dr. Kulkarni. [facility] Medical History Adrenal mass Adrenal nodule Alcohol use Anxiety Arthritis Atherosclerotic heart disease of [place] coronary artery without angina pectoris Bleeding hemorrhoids Cardiology follow-up encounter Chest pain Chronic diarrhea Chronic GERD COPD (chronic obstructive pulmonary disease) Depression Diarrhea Easy bruising Essential hypertension Gastric reflux Hemorrhoids High cholesterol History of atrial fibrillation History of diverticulitis History of pain when walking History of renal stone History of stress incontinence History of stress test History of ulceration Hx of echocardiogram Hypercalcemia Hyperlipidemia Hypokalemia Injury of head and neck Left atrial enlargement Leg cramps Loss of consciousness Multiple thyroid nodules Nonrheumatic aortic (valve) insufficiency Obstructive sleep apnea Osteoporosis Paroxysmal atrial fibrillation Pre-syncope Primary hyperparathyroidism Rectal bleeding Restless legs Shortness of breath on exertion Shoulder pain Smoker Thyroid disease Vitamin D deficiency Walker as ambulation aid Wears dentures Wears glasses Home Medications atorvastatin 40 mg tablet 40 mg PO DAILY 06/03/17 [History Last Taken 09/21/18 12:00] cholecalciferol (vitamin D3) 125 mcg (5,000 unit) capsule 2,000 unit PO DAILY 09/28/18 [History Last Taken Unknown] levothyroxine 50 mcg tablet 50 mcg PO DAILY 05/18/19 [History Last Taken Unknown] tiotropium bromide 2.5 mcg/actuation mist for inhalation 2 inh INHALATION QAM 03/20/20 [History Last Taken Unknown] sucralfate 1 gram tablet 1 g PO QACHS 07/02/20 [History Last Taken Unknown] ondansetron 4 mg PO Q8H PRN PRN #10 tablet 09/15/20 [Rx Last Taken Unknown] sertraline 200 mg PO DAILY 10/11/20 [History Last Taken Unknown] oxycodone-acetaminophen [Endocet] 1 tab PO Q6H PRN 5 Days #20 tab 10/18/20 [Rx Last Taken Unknown] albuterol sulfate 90 mcg/actuation aerosol inhaler 2 inh INHALATION Q4H PRN g 02/05/21 [History Last Taken Unknown] ascorbate calcium (vitamin C) 500 mg tablet 500 mg PO DAILY 02/05/21 [History Last Taken Unknown] ferrous fumarate 325 mg (106 mg iron) tablet 325 mg PO DAILY 02/05/21 [History Last Taken Unknown] lidocaine 5 % topical patch 1 patch TOPICAL BID ea 02/05/21 [History Last Taken Unknown] polyethylene glycol 3350 17 gram/dose oral powder 17 g PO DAILY 02/05/21 [History Last Taken Unknown] amiodarone 200 mg PO DAILY 02/19/21 [History Last Taken Unknown] doxycycline monohydrate 100 mg PO BID 02/26/21 [History Last Taken Unknown] prednisone 40 mg PO DAILY 02/26/21 [History Last Taken Unknown] Allergy/AdvReac Type Severity Reaction Status Date / Time hydrocodone bitartrate Allergy Rash Verified 02/18/21 18:02 [From Vicodin] Penicillins Allergy Rash Verified 02/18/21 18:02 diltiazem AdvReac Severe Hypotension Verified 02/18/21 18:02 sulfamethoxazole AdvReac Intermediate nausea and Verified 02/18/21 18:02 [From Bactrim] vomiting trimethoprim [From Bactrim] AdvReac Intermediate nausea and Verified 02/18/21 18:02 vomiting clindamycin AdvReac Other Verified 02/18/21 18:02 tizanidine HCl AdvReac Other Verified 02/18/21 18:02 [From Zanaflex] Family History Mother Arthritis Hypertension Heart disease Osteoporosis CVA (cerebral vascular accident) Father Arthritis Lung cancer Brother Asthma Lung cancer Kidney disease Sister Arthritis Autoimmune disease Daughter Breast cancer Surgical History H/O cataract removal with insertion of prosthetic lens History of adrenal surgery History of back surgery History of bone marrow biopsy History of colonoscopy (~10/2018) History of esophagogastroduodenoscopy (EGD) (~10/2018) History of extraction of renal calculus History of hip surgery History of left heart catheterization (04/03/14) History of lumpectomy of both breasts Hx of appendectomy Hx of section Hx of cholecystectomy Hx of kyphoplasty Hx of lithotripsy S/P fine needle aspiration S/P hysterectomy S/P ovarian cystectomy S/P parathyroidectomy Social History household members: none housing: house Smoking Status: Current every day smoker tobacco type: cigarettes alcohol intake: current alcohol intake frequency: a few times a week substance use type: does not use caffeine: No what type of physical activity do you participate in: none frequency: does not exercise seatbelt use: always do you feel safe at home: Yes additional social history: takes aspirin no ibuprofen ROS Constitutional Constitutional: Denies chills, fever(s) or weight gain ENT HEENT: Denies headache(s), nasal congestion or nasal discharge Cardiovascular Cardiovascular: Denies chest pain or palpitations Respiratory/Chest Respiratory/Chest: Denies cough, excessive phlegm production or shortness of breath with exertion Gastrointestinal Gastrointestinal: Denies abdominal pain, nausea or vomiting Genitourinary Genitourinary: Denies dysuria Musculoskeletal Musculoskeletal: Denies joint pain or joint swelling Integumentary Integumentary: Denies rash or wounds Neurologic Neurologic: Denies focal weakness, numbness or tingling Psychiatric Psychiatric: Reports auditory hallucinations; Denies anxiety, depression, homicidal ideation or suicidal ideation Vital Signs Vital Signs Vital Signs: 02/26/21 14:09 02/26/21 14:15 02/26/21 18:10 Temperature 97.3 F L Temperature Source Temporal Pulse Rate 60 Pulse Rhythm Regular Respiratory Rate 16 Respiratory Effort Normal Respiratory Depth Normal Respiratory Pattern Normal Blood Pressure 134/79 H Blood Pressure Mean 97 Blood Pressure Source Monitor Blood Pressure Position Sitting Blood Pressure Location Left Arm Pulse Ox 95 94 Oxygen Delivery Method Room Air Room Air Nasal Cannula Oxygen Flow Rate (L/min) 2 Weight Weight: 60.101 kg Body Mass Index (BMI) 25.9 Physical Exam Const alert and oriented x3 General Appearance: cooperative HEENT normocephalic Eyes PERRL and EOMs intact bilaterally Neck supple, no JVD and no carotid bruits Resp normal respiratory effort, normal air movement and clear to auscultation bilaterally Cardio regular rate and regular rhythm GI normal to inspection, nondistended, normoactive bowel sounds, non-tender and non-distended Extremity normal capillary refill General Extremity: Negative for edema Skin no rashes or lesions noted General Skin Exam: no breakdown Psych affect normal Appearance: appropriate Assessment & Plan Assessment/Plan (1) Debility: (2) Sepsis: QUALIFIERS: Acute respiratory failure type: with hypoxia Sepsis acute organ dysfunction status: with acute organ dysfunction Sepsis type: sepsis due to unspecified organism Severe sepsis acute organ dysfunction type: acute respiratory failure Severe sepsis shock status: without septic shock Qualified Code(s): A41.9 - Sepsis, unspecified organism; R65.20 - Severe sepsis without septic shock; J96.01 - Acute respiratory failure with hypoxia (3) COPD exacerbation: (4) Bilateral pneumonia: QUALIFIERS: Lung location: unspecified part of lung Pneumonia type: due to unspecified organism Qualified Code(s): J18.9 - Pneumonia, unspecified organism (5) Acute respiratory failure with hypoxia: (6) MRSA pneumonia: (7) Asthma: (8) Atrial fibrillation: (9) Compression fracture of T7 vertebra: (10) Gastroesophageal reflux disease: (11) Hyperparathyroidism: (12) Hyperlipidemia: (13) Vitamin D deficiency: (14) Hypokalemia: (15) Osteoarthritis: (16) Chronic nausea: (17) Depression: PLAN: 75 year old female with below past medical history hospitalized for sepsis, acute respiratory failure with hypoxia secondary to MRSA pneumonia, complicated by copd exacerbation, acute on chronic diastolic congestive heart failure, admitted to TCU with debility, here for rehabilitation, strengthening, prior to discharge home alone. * Debility - PT/OT. * Pain - Tylenol 1000mg Q6H prn pain (1-5), Oxycodone 5mg Q6H prn pain (6-10), Lidoderm patch 1 patch daily. * Bowel - Miralax 17gm daily, Senna/colace 2 tablets twice daily, Dulcolax 10mg daily prn. * Adult immunization - Administer prevnar 13, pneumovax 23, fluzone, covid19 vaccine as appropriate. * DVT prophylaxis - Hold, easy bruising, bleeding. * COPD - Incruse 1 puff daily, Albuterol 2 puffs Q4H PRN, Prednisone taper. * Atrial Fibrillation - Amiodarone 200mg daily, no anticoagulation due to easy bruising/bleeding. * Vitamin C deficiency - Vitamin C 500mg daily. * Hyperlipidemia - Atorvastatin 40mg QHS. * Vitamin D deficiency - D3 50mcg daily. * MRSA pneumonia - Doxycycline 100mg bid thru 03/02/2021. * Iron deficiency anemia - Ferrous sulfate 325mg daliy. * Hypothyroidism - Levothyroxine 50mcg daily. * Chronic nausea - Zofran odt 4mg Q8H PRN. 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
[2021-02-26] MEDS: Atorvastatin Calcium 40 MG Tablet PO (21:00)
[2021-02-26] MEDS: oxyCODONE 5 MG Tablet PO (21:53)
[2021-02-27 04:58] LABS: Absolute Lymphocyte Count 0.72 X10^3/uL (0.83-4.51); Absolute Neutrophil Count 10.5 X10^3/uL (2.0-7.7); Basophil# 0.02 X10^3/uL; Basophil% 0.2 % (0-1); Eosinophil# 0.35 X10^3/uL; Eosinophils% 2.8 % (0-5); Hematocrit 34.6 % (37-47); Hemoglobin 11.3 g/dL (12.0-15.0); Lymphocyte # 0.72 X10^3/ul (0.83-4.51); Lymphocyte % 5.8 % (19-41); Mean Corp Hgb Conc 32.7 g/dL (32-36); Mean Corpuscular Hgb 28.3 pg (27.0-32.0); Mean Corpuscular Volume 86.7 fL (81-99); Monocyte# 0.65 X10^3/uL; Monocyte% 5.2 % (0-10); NRBC Flagged by Analyzer 0 % (0-5); Neutrophil # 10.47 X10^3/uL (2.7-7.7); Neutrophil % 84.5 % (47-70); Platelet Count 382 K/mm3 (150-450); RBC Distribution Width SD 56.7 fl (35.1-43.9); Red Blood Count 3.99 M/mm3 (4.2-5.4); White Blood Count 12.4 K/mm3 (4.4-11.0)
[2021-02-27 05:42] LABS: Anion Gap 3 (5-15); BUN 35 mg/dL (7-18); BUN/Creat Ratio 36.4 RATIO (10-20); Chloride 103 mmol/L (98-107); Creatinine, Serum 0.96 mg/dL (0.55-1.02); EST Glomerular Filtration Rate 60 mL/min (>60); Est Glom Filt Rate - Afr Amer 73 mL/min (>60); Estimated Creatinine Clearance 36.93 ml/min; Glucose 116 mg/dL (74-106); Potassium 6.5 mmol/L (3.5-5.1); Sodium Level 137 mmol/L (136-145)
--- NOTE | 2021-02-27 06:30 | NURSING ---
Addendum entered by Logan Morrison 02/27/21 06:31: order repeated back Original Note: contacted via telephone regarding critical lab value potassium 6.5, new orders recived for Kayexalate 30GM pox1 and repeat BMP on 02/28/21
[2021-02-27] MEDS: Sodium Polystyrene Sulfonate 15 GM/60 ML UDC 30 GM PO (06:52)
[2021-02-27] MEDS: oxyCODONE 5 MG Tablet PO ×3 (07:00→21:53)
--- NOTE | 2021-02-27 07:04 | NURSING ---
Kayexalate administered per order. Pt. requests PRN Oxy for 8/10 back pain at this time. Pharmacy consulted via telephone regarding recommendation to hold all other oral medications after kayexalate x3 hours. Per pharmacy ok to administer Oxycodone. All other oral medications held at this time per Kayexalate order recommendations.
[2021-02-27 07:13] VITALS: BP 157/73; PULSE 77; RESP 18
[2021-02-27 07:15] VITALS: O2SAT 96
[2021-02-27] MEDS: predniSONE 20 MG Tablet 40 MG PO (10:43)
[2021-02-27] MEDS: Ferrous Sulfate 325 MG Tablet PO (10:43)
[2021-02-27] MEDS: Lidocaine 5% Patch 1 PATCH TOPICAL (10:45)
[2021-02-27] MEDS: Doxycycline 100 MG CAPSULE PO ×2 (10:45→17:11)
[2021-02-27] MEDS: Cholecalciferol (VIT D3) 25 MCG TABLET (1,000 UNITS) 50 MCG PO (10:46)
[2021-02-27] MEDS: Amiodarone 200 MG Tablet PO (10:46)
[2021-02-27] MEDS: Ascorbic Acid 500 MG Tablet PO (10:46)
[2021-02-27] MEDS: Levothyroxine 50 MCG Tablet PO (10:46)
[2021-02-27] MEDS: Sertraline 100 MG Tablet 200 MG PO (10:46)
[2021-02-27] MEDS: Umeclidinium Bromide Inhaler 1 PUFF INHALATION (10:47)
--- NOTE | 2021-02-27 10:54 | NURSING ---
MORNING MEDS GIVEN AT THIS TIME. LATE D/T ADMINISTRATION OF KAYEXELATE.
--- NOTE | 2021-02-27 11:30 | CASEMGMT ---
Social Work Met with patient for initial assessment. Discussed code status. Pt confirmed full code. MOLST form completed, communication to , placed in chart. Discussed Palliative Care with pt r/t chronic pain and change in medical symptoms - pt agreed to consult. Referral made to [facility]. Pt opened up about the losses she experienced in her life - became emotional, but wanted to be strong and not cry. Provided emotional support. Pt on antidepressant/anxiety med that reports to be effective - denies counseling resources. Pt states being home is her comfort zone and will be fine when goes back home. Encouraged to notify SW if need ongoing support throughout stay or if feelings get triggered for SW to assist with. Pt appreciative. Explained [facility] insurance with [employer] 02/28 and continued stay is not guaranteed. Pt is new on O2 and a smoker at home. Goal is for O2 to be D/C'd by discharge. Pt will return home alone. Sister lives in same apartment complex and can minimally assist. Dtr lives in [place]. Pt is active with Mike, Padmini Valdez is CM. Pt is approved 2 hrs twice a week of aides, but they recently quit, and CM is struggling to restaff - search remains on going. Pt has h/o of bad surgeries and struggles to bend for LE care that aides assist with, along with cleaning her home. Pt uses [facility] to ambulate. SW to continue to follow for discharge planning and support. Theresa Farrell, KAYKAY NON LINEAR EDITOR
[2021-02-27] MEDS: Tuberculin,Purif.prot.deriv. 50 TU/ML Vial 0.1 ML ID (12:08)
[2021-02-27 12:41] VITALS: BP 143/63; PULSE 95; RESP 18; TEMP 35.9; O2SAT 97
[2021-02-27 13:37] LABS: Anion Gap 10 (5-15); BUN 34 mg/dL (7-18); BUN/Creat Ratio 27.9 RATIO (10-20); Calcium,Total 8.2 mg/dL (8.5-10.1); Chloride 102 mmol/L (98-107); Creatinine, Serum 1.22 mg/dL (0.55-1.02); EST Glomerular Filtration Rate 46 mL/min (>60); Est Glom Filt Rate - Afr Amer 55 mL/min (>60); Estimated Creatinine Clearance 29.06 ml/min; Glucose 240 mg/dL (74-106); Potassium 3.4 mmol/L (3.5-5.1); Sodium Level 141 mmol/L (136-145)
--- NOTE | 2021-02-27 13:57 | PHA.CONS_ITS ---
Progress Note - Pharmacy Subjective: TCU ADMISSION Objective: Allergies hydrocodone bitartrate [From Vicodin] Allergy (Verified 02/18/21 18:02) Rash Penicillins Allergy (Verified 02/18/21 18:02) Rash diltiazem Adverse Reaction (Severe, Verified 02/18/21 18:02) Hypotension sulfamethoxazole [From Bactrim] Adverse Reaction (Intermediate, Verified 02/18/21 18:02) nausea and vomiting trimethoprim [From Bactrim] Adverse Reaction (Intermediate, Verified 02/18/21 18:02) nausea and vomiting clindamycin Adverse Reaction (Verified 02/18/21 18:02) Other tizanidine HCl [From Zanaflex] Adverse Reaction (Verified 02/18/21 18:02) Other Current Medications Generic Name Dose Route Start Last Admin Trade Name Freq PRN Reason Stop Dose Admin Acetaminophen 1,000 mg 02/26/21 20:22 Acetaminophen 500 Mg Tablet PO Q6H PRN PRN Pain Score 1-5 Albuterol Sulfate 2 puff 02/26/21 14:44 Albuterol Sulfate Hfa 6.7 Gm Inhaler (200 Puffs) INHALATION Q4H PRN Wheezing Amiodarone HCl 200 mg 02/27/21 06:00 02/27/21 10:46 Amiodarone 200 Mg Tablet PO 200 mg DAILY [facility] Administration Ascorbic Acid 500 mg 02/27/21 06:00 02/27/21 10:46 Ascorbic Acid 500 Mg Tablet PO 500 mg DAILY [facility] Administration Atorvastatin Calcium 40 mg 02/26/21 22:00 02/26/21 21:00 Atorvastatin Calcium 40 Mg Tablet PO 40 mg QHS [facility] Administration Bisacodyl 10 mg 02/26/21 20:23 Bisacodyl 5 Mg Tablet PO DAILY PRN PRN Constipation Cholecalciferol 50 mcg 02/27/21 06:00 02/27/21 10:46 Cholecalciferol (Vit D3) 25 Mcg Tablet (1,000 Units) PO 50 mcg DAILY [facility] Administration Doxycycline Monohydrate 100 mg 02/26/21 18:00 02/27/21 10:45 Doxycycline 100 Mg Capsule PO 03/02/21 06:01 100 mg BID [facility] Administration Ferrous Sulfate 325 mg 02/27/21 08:00 02/27/21 10:43 Ferrous Sulfate 325 Mg Tablet PO 325 mg 0800 [facility] Administration Levothyroxine Sodium 50 mcg 02/27/21 06:00 02/27/21 10:46 Levothyroxine 50 Mcg Tablet PO 50 mcg 0600 [facility] Administration Lidocaine 1 patch 02/27/21 06:00 02/27/21 10:45 Lidocaine 5% Patch TOPICAL 1 patch DAILY [facility] Administration Protocol Melatonin 10 mg 02/27/21 22:00 Melatonin 10 Mg Tablet PO QHS [facility] Ondansetron HCl 4 mg 02/26/21 15:11 Ondansetron Odt 4 Mg Tablet PO Q8H PRN PRN Nausea Oxycodone HCl 5 mg 02/26/21 20:24 02/27/21 13:31 Oxycodone 5 Mg Tablet PO 5 mg Q4H PRN PRN Administration Pain Score 6-10 Polyethylene Glycol 17 gm 02/27/21 06:00 02/27/21 10:44 Polyethylene Glycol 3350 17 Gm Packet PO Not Given DAILY [facility] Prednisone 40 mg 02/27/21 08:00 02/27/21 10:43 Prednisone 20 Mg Tablet PO 03/08/21 08:01 40 mg 0800 [facility] Administration Senna/Docusate Sodium 2 tablet 02/26/21 20:30 02/27/21 10:44 Senna/Docusate Sodium 1 Tablet PO Not Given BID [facility] Sertraline HCl 200 mg 02/27/21 06:00 02/27/21 10:46 Sertraline 100 Mg Tablet PO 200 mg DAILY [facility] Administration Tuberculin PPD 0.1 ml 03/06/21 10:00 Tuberculin,Purif.Prot.Deriv. 50 Tu/Ml Vial ID 03/06/21 10:01 X1 ONE Umeclidinium [place] 1 puff 02/27/21 06:00 02/27/21 10:47 Umeclidinium [place] Inhaler INHALATION 1 puff DAILY [facility] Administration Problem List (Last Reviewed 02/26/21 @ 20:[address] Jerry Modi MD) Depression (Acute) Chronic nausea (Chronic) Osteoarthritis (Acute) Hypokalemia (Acute) Vitamin D deficiency (Acute) Hyperlipidemia (Acute) Hyperparathyroidism (Acute) Gastroesophageal reflux disease (Acute) Compression fracture of T7 vertebra (Acute) Atrial fibrillation (Acute) Asthma (Acute) MRSA pneumonia (Acute) Acute respiratory failure with hypoxia (Acute) Debility (Acute) Sepsis (Acute) COPD exacerbation (Chronic) Bilateral pneumonia (Acute) Vital Signs Temp Pulse Resp BP Pulse Ox 96.7 F L 95 18 143/63 H 97 02/27/21 12:41 02/27/21 12:41 02/27/21 12:41 02/27/21 12:41 02/27/21 12:41 Oxygen Flow Rate (L/min) 2 Oxygen Delivery Method Room Air Weight: 60.101 kg Body Mass Index (BMI) 25.9 Sodium 141 mmol/L (136-145) 02/27/21 13:14 Potassium 3.4 mmol/L (3.5-5.1) L 02/27/21 13:14 Chloride 102 mmol/L (98-107) 02/27/21 13:14 Carbon Dioxide 29.0 mmol/L (21.0-32.0) 02/27/21 13:14 Anion Gap 10 (5-15) 02/27/21 13:14 BUN 34 mg/dL (7-18) H 02/27/21 13:14 Creatinine 1.22 mg/dL (0.55-1.02) H 02/27/21 13:14 Est GFR (MDRD) Af Amer 55 mL/min (>60) L 02/27/21 13:14 Est GFR (MDRD) Non-Af 46 mL/min (>60) L 02/27/21 13:14 BUN/Creatinine Ratio 27.9 RATIO (10-20) H 02/27/21 13:14 Glucose 240 mg/dL (74-106) H 02/27/21 13:14 Assessment/Plan: 1. Pain: Tylenol 1000mg PO Q6h PRN 1-5, Oxycodone 5mg PO Q4h PRN Pain 6-10, Lidocaine Patch 1 patch topically Daily. Please continue to monitor for increased/decreased pain, PRN medication use, local site irritation with lidocaine patch use. 2. Atrial Fibrillation/ HLD: Amiodarone 200mg PO daily, Lipitor 40mg PO QHS. Please continue to monitor BP, HR, lipid panel annually or sooner if clinically indicated. 3. MRSA Pneumonia: Doxycycline 100mg PO BID thru 03/02/21. Please continue to monitor for resolution of infection. Be sure to separate medication from iron/vitamin supplements by 2 hours to improve doxycycline absorption. 4. Hypothyroidism: Synthroid 50mcg PO Daily. Please continue to monitor for S/S hyper/hypothyroidism, check Thyroid labs as clinically indicated. 5. COPD: Incruse 1 puff Daily, Prednisone 40mg PO Daily thru 03/08/21, Albuterol 2 puff Q4h PRN. Please continue to monitor for S/S COPD exacerbation, agitation, insomnia, PRN medication usage. 6. Chronic Nausea: Zofran 4mg PO Q8h PRN. Please continue to monitor for improvement in symptoms, need for PRN medication. 7. General Wellness: Vitamin C 500mg PO Daily, Cholecalciferol 50mcg PO Daily, Ferrous sulfate 325mg PO Daily. Please continue to monitor. NOTE: While patient on Doxycycline, be sure to separate antibiotic from iron/supplements by at least 2 hours (see above). 8. Insomnia: Melatonin 10mg PO QHS. Please continue to monitor for medication effectiveness. If ineffective, may try to give 2hrs prior to desired bedtime to increase effectiveness. Psychotropic Medications: 9. Depression: Zoloft 200mg PO Daily. Please see note in H/P regarding GDR, thank you. Unnecessary Medications: None Bowel Regimen: Miralax 17g PO Daily, Senna/Docusate 2 tab PO BID, Dulcolax 10mg PO Daily PRN. Please continue to monitor for increased/decreased constipation and/or diarrhea. Date of Note:: 02/27/21
--- NOTE | 2021-02-27 15:09 | CHAPLAIN ---
Type of Pastoral Visit _x__ Initial Visit ___ Follow-up Visit ___ On-call Visit ___ General Patient Visit ___ Spiritual Assessment ___ Family Conference ___ Bereavement ___ Rapid Response ___ Code Blue ___ Other (describe below) Pastoral Care Referral From _x__ Patient ___ Family ___ Nurse ___ Physician ___ Certified Fire Investigator ___ Desktop Analyst ___ Other (describe below) Sacrament/Intervention x Active listening ___ Anointing ___ Zoroastrian ___ Bereavement ___ Communion ___ Taylor exploration ___ _x__ Life review _x__ Prayer ___ Reconciliation ___ Sacrament of Sick ___ Supportive presence ___ Wedding ___ Other (describe below) Pastoral Comments
[2021-02-27] MEDS: Acetaminophen 500 MG Tablet 1000 MG PO (17:15)
--- NOTE | 2021-02-27 20:47 | PCA ---
did not want washed up tonight. got washed real good with therapy this morning
[2021-02-27] MEDS: MELATONIN 10 MG TABLET PO (21:48)
[2021-02-27] MEDS: Atorvastatin Calcium 40 MG Tablet PO (21:48)
[2021-02-27 23:07] VITALS: PULSE 88; RESP 14; O2SAT 98
[2021-02-28 06:19] LABS: Anion Gap 6 (5-15); BUN 38 mg/dL (7-18); BUN/Creat Ratio 41.9 RATIO (10-20); Chloride 104 mmol/L (98-107); Creatinine, Serum 0.91 mg/dL (0.55-1.02); EST Glomerular Filtration Rate 64 mL/min (>60); Est Glom Filt Rate - Afr Amer 78 mL/min (>60); Estimated Creatinine Clearance 38.96 ml/min; Glucose 123 mg/dL (74-106); Potassium 2.8 mmol/L (3.5-5.1); Sodium Level 144 mmol/L (136-145)
[2021-02-28] MEDS: Lidocaine 5% Patch 1 PATCH TOPICAL (06:36)
[2021-02-28] MEDS: Umeclidinium Bromide Inhaler 1 PUFF INHALATION (06:37)
[2021-02-28] MEDS: Levothyroxine 50 MCG Tablet PO (06:39)
[2021-02-28] MEDS: Ascorbic Acid 500 MG Tablet PO (06:40)
[2021-02-28] MEDS: Amiodarone 200 MG Tablet PO (06:40)
[2021-02-28] MEDS: Doxycycline 100 MG CAPSULE PO ×2 (06:40→17:01)
[2021-02-28] MEDS: Cholecalciferol (VIT D3) 25 MCG TABLET (1,000 UNITS) 50 MCG PO (06:40)
[2021-02-28] MEDS: Sertraline 100 MG Tablet 200 MG PO (06:40)
[2021-02-28] MEDS: oxyCODONE 5 MG Tablet PO (06:48)
[2021-02-28 07:40] VITALS: O2SAT 92
[2021-02-28] MEDS: predniSONE 20 MG Tablet 40 MG PO (08:55)
[2021-02-28] MEDS: Ferrous Sulfate 325 MG Tablet PO (08:55)
[2021-02-28] MEDS: Potassium Chloride Oral Tablet 20 MEQ PO (09:16)
[2021-02-28] MEDS: Potassium Chloride Oral Tablet 20 MEQ 40 MEQ PO (09:16)
[2021-02-28 10:00] VITALS: PULSE 93; RESP 18; O2SAT 96
[2021-02-28 15:26] VITALS: BP 164/52; PULSE 83; RESP 18; TEMP 36.3; O2SAT 97
[2021-02-28] MEDS: Acetaminophen 500 MG Tablet 1000 MG PO (15:39)
[2021-02-28] MEDS: Atorvastatin Calcium 40 MG Tablet PO (21:24)
[2021-02-28] MEDS: MELATONIN 10 MG TABLET PO (21:24)
[2021-03-01] MEDS: Sertraline 100 MG Tablet 200 MG PO (05:48)
[2021-03-01] MEDS: Levothyroxine 50 MCG Tablet PO (05:49)
[2021-03-01] MEDS: Senna/Docusate Sodium 1 Tablet 2 TABLET PO (05:49)
[2021-03-01] MEDS: Doxycycline 100 MG CAPSULE PO ×2 (05:49→17:29)
[2021-03-01] MEDS: Ascorbic Acid 500 MG Tablet PO (05:49)
[2021-03-01] MEDS: Cholecalciferol (VIT D3) 25 MCG TABLET (1,000 UNITS) 50 MCG PO (05:49)
[2021-03-01] MEDS: Amiodarone 200 MG Tablet PO (05:49)
[2021-03-01] MEDS: Lidocaine 5% Patch 1 PATCH TOPICAL (05:50)
[2021-03-01] MEDS: Umeclidinium Bromide Inhaler 1 PUFF INHALATION (05:50)
[2021-03-01] MEDS: Acetaminophen 500 MG Tablet 1000 MG PO (08:24)
[2021-03-01] MEDS: Ferrous Sulfate 325 MG Tablet PO (08:25)
[2021-03-01] MEDS: predniSONE 20 MG Tablet 40 MG PO (08:25)
[2021-03-01] MEDS: Potassium Chloride Oral Tablet 20 MEQ PO (08:25)
[2021-03-01 08:56] LABS: Anion Gap 5 (5-15); BUN 41 mg/dL (7-18); BUN/Creat Ratio 41.8 RATIO (10-20); Calcium,Total 8.4 mg/dL (8.5-10.1); Chloride 105 mmol/L (98-107); Creatinine, Serum 0.98 mg/dL (0.55-1.02); EST Glomerular Filtration Rate 59 mL/min (>60); Est Glom Filt Rate - Afr Amer 71 mL/min (>60); Estimated Creatinine Clearance 36.18 ml/min; Glucose 129 mg/dL (74-106); Potassium 3.7 mmol/L (3.5-5.1); Sodium Level 141 mmol/L (136-145)
[2021-03-01 09:02] VITALS: O2SAT 94
[2021-03-01 13:56] VITALS: BP 115/69; PULSE 79; RESP 18; TEMP 36.9; O2SAT 95
[2021-03-01] MEDS: oxyCODONE 5 MG Tablet PO ×2 (14:17→21:49)
[2021-03-01] MEDS: MELATONIN 10 MG TABLET PO (21:46)
[2021-03-01] MEDS: Atorvastatin Calcium 40 MG Tablet PO (21:46)
[2021-03-02 06:36] VITALS: O2SAT 94
[2021-03-02] MEDS: Doxycycline 100 MG CAPSULE PO (07:00)
[2021-03-02] MEDS: Sertraline 100 MG Tablet 200 MG PO (07:01)
[2021-03-02] MEDS: Levothyroxine 50 MCG Tablet PO (07:01)
[2021-03-02] MEDS: Ascorbic Acid 500 MG Tablet PO (07:01)
[2021-03-02] MEDS: Umeclidinium Bromide Inhaler 1 PUFF INHALATION (07:03)
[2021-03-02] MEDS: Amiodarone 200 MG Tablet PO (07:04)
[2021-03-02] MEDS: Cholecalciferol (VIT D3) 25 MCG TABLET (1,000 UNITS) 50 MCG PO (07:04)
[2021-03-02] MEDS: Lidocaine 5% Patch 1 PATCH TOPICAL (07:07)
[2021-03-02] MEDS: predniSONE 20 MG Tablet 40 MG PO (09:00)
[2021-03-02] MEDS: Ferrous Sulfate 325 MG Tablet PO (09:00)
[2021-03-02] MEDS: Potassium Chloride Oral Tablet 20 MEQ PO (09:00)
[2021-03-02 12:37] VITALS: BP 126/70; PULSE 84; RESP 16; TEMP 36.4; O2SAT 95
[2021-03-02] MEDS: Acetaminophen 500 MG Tablet 1000 MG PO (13:40)
[2021-03-02] MEDS: Senna/Docusate Sodium 1 Tablet 2 TABLET PO (18:05)
[2021-03-02] MEDS: MELATONIN 10 MG TABLET PO (21:22)
[2021-03-02] MEDS: Atorvastatin Calcium 40 MG Tablet PO (21:22)
[2021-03-03] MEDS: Acetaminophen 500 MG Tablet 1000 MG PO (03:23)
[2021-03-03] MEDS: Umeclidinium Bromide Inhaler 1 PUFF INHALATION (05:47)
[2021-03-03] MEDS: Sertraline 100 MG Tablet 200 MG PO (05:48)
[2021-03-03] MEDS: Lidocaine 5% Patch 1 PATCH TOPICAL (05:49)
[2021-03-03] MEDS: Amiodarone 200 MG Tablet PO (05:49)
[2021-03-03] MEDS: Ascorbic Acid 500 MG Tablet PO (05:49)
[2021-03-03] MEDS: Cholecalciferol (VIT D3) 25 MCG TABLET (1,000 UNITS) 50 MCG PO (05:49)
[2021-03-03] MEDS: Levothyroxine 50 MCG Tablet PO (05:49)
[2021-03-03 05:53] VITALS: BP 111/59; PULSE 64
[2021-03-03 07:30] VITALS: O2SAT 97
--- NOTE | 2021-03-03 08:50 | NURSING ---
Received update from Columba in Dr Verma's office. pt to have procedure at 2pm today. pt remains NPO.
[2021-03-03] MEDS: Potassium Chloride Oral Tablet 20 MEQ PO (08:53)
[2021-03-03] MEDS: Ferrous Sulfate 325 MG Tablet PO (08:53)
[2021-03-03] MEDS: predniSONE 20 MG Tablet 40 MG PO (08:53)
--- NOTE | 2021-03-03 09:12 | NURSING ---
Updated daughter on time of procedure today per pt request.
[2021-03-03] MEDS: Ondansetron ODT 4 MG Tablet PO (10:06)
--- NOTE | 2021-03-03 12:34 | NURSING ---
pt to OR at 1230
--- NOTE | 2021-03-03 14:20 | RAD_ITS ---
STUDY: X-RAY - THORACIC SPINE REASON FOR EXAM: Female, 75 years old. EPIDURAL BLOCK T7/T8 TECHNIQUE: Fluoroscopy view(s) of the thoracic spine were obtained. COMPARISON: None. FINDINGS: Intraoperative fluoroscopic images of the thoracic spinal procedure. Refer to intraoperative report for definitive details. RAD/Spine 1 View Any Level IMPRESSION: Intraoperative fluoroscopy imaging. Electronically Signed: Nu Franco MD at 20:42 EDT Tel , Service support ,
[2021-03-03 16:00] VITALS: BP 97/66; PULSE 64; RESP 17; TEMP 36.3; O2SAT 93
--- NOTE | 2021-03-03 19:23 | NURSING ---
Received call from Laura, infectious disease nurse. Per Dr. Le, pt no longer needs to be in quarantine since she has completed her antibiotic course.
[2021-03-03] MEDS: oxyCODONE 5 MG Tablet PO (20:40)
[2021-03-03] MEDS: Atorvastatin Calcium 40 MG Tablet PO (20:41)
[2021-03-03] MEDS: MELATONIN 10 MG TABLET PO (20:41)
[2021-03-03 20:45] VITALS: PULSE 74
[2021-03-04] MEDS: Lidocaine 5% Patch 1 PATCH TOPICAL (06:17)
[2021-03-04] MEDS: Senna/Docusate Sodium 1 Tablet 2 TABLET PO (06:17)
[2021-03-04] MEDS: Levothyroxine 50 MCG Tablet PO (06:18)
[2021-03-04] MEDS: Nystatin Powder 15gm Bottle 1 APPLIC TOPICAL ×2 (06:18→16:46)
[2021-03-04] MEDS: Sertraline 100 MG Tablet 200 MG PO (06:18)
[2021-03-04] MEDS: Ascorbic Acid 500 MG Tablet PO (06:18)
[2021-03-04] MEDS: Cholecalciferol (VIT D3) 25 MCG TABLET (1,000 UNITS) 50 MCG PO (06:18)
[2021-03-04] MEDS: Amiodarone 200 MG Tablet PO (06:18)
[2021-03-04] MEDS: Umeclidinium Bromide Inhaler 1 PUFF INHALATION (06:19)
[2021-03-04 07:19] VITALS: BP 122/76; PULSE 70
[2021-03-04] MEDS: predniSONE 20 MG Tablet 40 MG PO (08:15)
[2021-03-04] MEDS: Potassium Chloride Oral Tablet 20 MEQ PO (08:15)
[2021-03-04] MEDS: Ferrous Sulfate 325 MG Tablet PO (08:15)
--- NOTE | 2021-03-04 10:04 | PCM.CONS.P ---
Assessment & Plan Assessment/Plan (1) Compression fracture of T7 vertebra: (2) Asthma: (3) COPD exacerbation: (4) Bilateral pneumonia: QUALIFIERS: Lung location: unspecified part of lung Pneumonia type: due to unspecified organism Qualified Code(s): J18.9 - Pneumonia, unspecified organism (5) Debility: (6) Osteoarthritis: (7) Depression: (8) Chronic nausea: (9) Smoker: PLAN: PAULINO LOPEZ, is a 75 F who was referred to [facility] for management of chronic pain and dyspnea related to recovery of bilateral lobe pneumonia with history of COPD and long-term smoker(1/4-1/2 pack per day). She is currently finishing rehab at [facility] and is hoping for discharge home. Patient has agreed to Palliative at discharge. Plan is as follows: 1) COPD exac/Dyspnea: Education about reporting early s/s to avoid hospitalization. Encourage use of bronchodilators and Incentive spirometer and cessation of smoking. Steroids may be an option intermittently with early s/s. Encourage follow up appointments with PCP and Pulmonary. 2) Compression fx of T7: Follow up with Dr. Kulkarni for injections. If breakthrough Oxycodone will be continued at discharge, will need face to face with Dr. Carmen Martínez at initial home visit. Palliative may need to provide pain support during the winter months. 3) Depression: Will utilize [facility] for additional support and counseling. Continue Sertraline as ordered. 4) Anorexia: Will reassess after hospital discharge. May look at additional options to help with appetite/taste. Stress may be a contributor to this issue and will assess at initial home visit. Thank you for the opportunity to participate in this patient's care, please do not hesitate to contact [facility] with any further questions or concerns. Palliative direct line is [phone]. We will have liaison follow up to sign consents and paperwork. Greater than 50% of F2F visit dedicated to education and counseling of palliative care services, medications, comorbid conditions and potential assistance with management, and plan of care moving forward. Start time: 09:35 End time: 10:52 HPI Consult Data Date of Consult: 03/04/21 HPI Narrative HPI Narrative: PAULINO LOPEZ, is a 75 F who was referred to [facility] for management of chronic pain and dyspnea related to recovery of bilateral lobe pneumonia with history of COPD and long-term smoker(1/4-1/2 pack per day). Extensive past medical history listed below. She presented to the [facility] ER after PCP visit related to low pulse ox and increasing dyspnea for the past 2 weeks. She was fully vaccinated for Covid-19. She was at the visit for low back pain. She was admitted with bilateral pneumonia and sepsis. Covid-19 was negative and she was started on IV Rocephin and Azithromycin. Urine antigen strep negative, legionella negative. Echo EF 55-60%. Normal LV systolic function, Grade 1 diastolic dysfunction. Moderate pulmonary hypertension. RVSP 56mm HG. She was supplemented with O2 to keep sats above 90% and was started on IV Solu-Medrol with goal to transition to Prednisone with albuterol and Duoneb aerosols. Was having pain with recent compression fracture of T7 and missed appointment with Dr. Kulkarni. Dyspnea worsened over the next 5-6 days requiring up to 10 liters of Oxygen at times. She is followed by Dr. Lara in Pulmonary. She was continued on bronchodilators, IV diuretics and sputum culture was positive for MRSA and was started on Vancomycin IV. CTA was negative for pulmonary embolism. Encouraged use of incentive spirometer and weaning of Oxygen. Antibiotics were changed to Doxycycline for 5 days. Patient's goal is to go home without oxygen, but will require an ambulatory walking oximetry before discharge. She was then transferred to TCU on 02/26 for PT/OT. Seen today in her TCU room. Discussed Palliative care and symptom management. At this point, patient is following with Dr. Kulkarni and just had an injection yesterday which she voices relief of back pain. She also uses Oxycodone 5mg which provides good breakthrough relief. She would continue with Dr. Kulkarni but it concerned about leaving her apartment in the winter and fear of fall and risk of fractures. Oxygen is currently at 2 liters and patient appears comfortable. Would like to go home without oxygen. Verbalizes that she will be more proactive at noticing any increase in dyspnea and is thankful to be alive. Is interested in Palliative care following at discharge and will meet with liaison's to sign paperwork. Per SS note: Pt will return home alone. Sister lives in same apartment complex and can minimally assist. Dtr lives in [place]. Pt is active with [employer], Padmini Valdez is CM. Pt is approved 2 hrs twice a week of aides, but they recently quit, and CM is struggling to restaff - search remains on going. Pt has h/o of bad surgeries and struggles to bend for LE care that aides assist with, along with cleaning her home. Pt uses [facility] to ambulate. Sister also assists with transportation to appointments [facility] Medical History (Updated 03/04/21 @ 10:42 by BETHEL Santos) Adrenal mass Adrenal nodule Alcohol use Anxiety Arthritis Atherosclerotic heart disease of tangirnaq coronary artery without angina pectoris Bleeding hemorrhoids Cardiology follow-up encounter Chest pain Chronic diarrhea Chronic GERD COPD (chronic obstructive pulmonary disease) Depression Diarrhea Easy bruising Essential hypertension Gastric reflux Hemorrhoids High cholesterol History of atrial fibrillation History of diverticulitis History of pain when walking History of renal stone History of stress incontinence History of stress test History of ulceration Hx of echocardiogram Hypercalcemia Hyperlipidemia Hypokalemia Injury of head and neck Left atrial enlargement Leg cramps Loss of consciousness Multiple thyroid nodules Nonrheumatic aortic (valve) insufficiency Obstructive sleep apnea Osteoporosis Paroxysmal atrial fibrillation Pre-syncope Primary hyperparathyroidism Rectal bleeding Restless legs Shortness of breath on exertion Shoulder pain Smoker Thyroid disease Vitamin D deficiency Walker as ambulation aid Wears dentures Wears glasses Home Medications atorvastatin 40 mg tablet 40 mg PO DAILY 06/03/17 [History Last Taken 09/21/18 12:00] cholecalciferol (vitamin D3) 125 mcg (5,000 unit) capsule 2,000 unit PO DAILY 09/28/18 [History Last Taken Unknown] levothyroxine 50 mcg tablet 50 mcg PO DAILY 05/18/19 [History Last Taken Unknown] tiotropium bromide 2.5 mcg/actuation mist for inhalation 2 inh INHALATION QAM 03/20/20 [History Last Taken Unknown] sucralfate 1 gram tablet 1 g PO QACHS 07/02/20 [History Last Taken Unknown] ondansetron 4 mg PO Q8H PRN PRN #10 tablet 09/15/20 [Rx Last Taken Unknown] sertraline 200 mg PO DAILY 10/11/20 [History Last Taken Unknown] oxycodone-acetaminophen [Endocet] 1 tab PO Q6H PRN 5 Days #20 tab 10/18/20 [Rx Last Taken Unknown] albuterol sulfate 90 mcg/actuation aerosol inhaler 2 inh INHALATION Q4H PRN g 02/05/21 [History Last Taken Unknown] ascorbate calcium (vitamin C) 500 mg tablet 500 mg PO DAILY 02/05/21 [History Last Taken Unknown] ferrous fumarate 325 mg (106 mg iron) tablet 325 mg PO DAILY 02/05/21 [History Last Taken Unknown] lidocaine 5 % topical patch 1 patch TOPICAL BID ea 02/05/21 [History Last Taken Unknown] polyethylene glycol 3350 17 gram/dose oral powder 17 g PO DAILY 02/05/21 [History Last Taken Unknown] amiodarone 200 mg PO DAILY 02/19/21 [History Last Taken Unknown] doxycycline monohydrate 100 mg PO BID 02/26/21 [History Last Taken Unknown] prednisone 40 mg PO DAILY 02/26/21 [History Last Taken Unknown] Allergy/AdvReac Type Severity Reaction Status Date / Time hydrocodone bitartrate Allergy Rash Verified 03/03/21 12:46 [From Vicodin] Penicillins Allergy Rash Verified 03/03/21 12:46 diltiazem AdvReac Severe Hypotension Verified 03/03/21 12:46 sulfamethoxazole AdvReac Intermediate nausea and Verified 03/03/21 12:46 [From Bactrim] vomiting trimethoprim [From Bactrim] AdvReac Intermediate nausea and Verified 03/03/21 12:46 vomiting clindamycin AdvReac Other Verified 03/03/21 12:46 tizanidine HCl AdvReac Other Verified 03/03/21 12:46 [From Zanaflex] Family History Mother Arthritis Hypertension Heart disease Osteoporosis CVA (cerebral vascular accident) Father Arthritis Lung cancer Brother Asthma Lung cancer Kidney disease Sister Arthritis Autoimmune disease Daughter Breast cancer Surgical History H/O cataract removal with insertion of prosthetic lens History of adrenal surgery History of back surgery History of bone marrow biopsy History of colonoscopy (~10/2018) History of esophagogastroduodenoscopy (EGD) (~10/2018) History of extraction of renal calculus History of hip surgery History of left heart catheterization (04/03/14) History of lumpectomy of both breasts Hx of appendectomy Hx of section Hx of cholecystectomy Hx of kyphoplasty Hx of lithotripsy S/P fine needle aspiration S/P hysterectomy S/P ovarian cystectomy S/P parathyroidectomy Social History household members: none housing: house Smoking Status: Current every day smoker tobacco type: cigarettes alcohol intake: current alcohol intake frequency: a few times a week substance use type: does not use caffeine: No what type of physical activity do you participate in: none frequency: does not exercise seatbelt use: always do you feel safe at home: Yes additional social history: takes aspirin no ibuprofen ROS Constitutional Constitutional: Reports systems reviewed and no addt'l complaints, except as documented ENT HEENT: Denies abnormal hearing or sore throat Cardiovascular Cardiovascular: Reports dyspnea on exertion; Denies chest pain, chest pain at rest, chest pain with activity, cyanosis, dizziness, dyspnea at rest or fatigue Respiratory/Chest Respiratory/Chest: Reports dyspnea on exertion; Denies excessive phlegm production, hemoptysis or inability to speak Gastrointestinal Gastrointestinal: Reports taste impaired and other Details: lack of appetite ; Denies abdominal pain, change in bowel habits, constipation or cramping Genitourinary Genitourinary: Reports none Musculoskeletal Musculoskeletal: Reports back pain; Denies extremity pain Physical Exam Const alert, oriented x3 and no apparent distress General Appearance: cooperative, comfortable, well kempt and well developed HEENT normocephalic, head/scalp atraumatic and hearing grossly normal bilaterally Eyes General Eye: normal appearance of both eyes Visual Acuity: other Other Details: wears glasses Chest Chest: symmetrical chest wall rise Resp normal respiratory effort and normal air movement Effort and Inspection: able to speak in complete sentences and symmetric chest movement Auscultation: diminished lung sounds bilateral (posterior heredia) Cardio regular rate, regular rhythm, S1 normal heart sound and S2 normal heart sound GI Auscultation: normoactive bowel sounds Palpation: soft Back/Spine Thoracic Spine / Upper Back: ROM limited, paraspinal muscle tenderness and kyphosis Extremity normal to inspection, full ROM and no clubbing, cyanosis or edema Skin no rashes or lesions noted Neuro CN's II-XII intact bilaterally Psych mental status grossly normal, thought process normal and cooperative Attitude: calm and engaged Activity / Motor Behavior: appropriate eye contact Speech: normal speech Memory / Cognition: memory grossly intact Insight: insight good Judgement: judgement good
[2021-03-04] MEDS: Ondansetron ODT 4 MG Tablet PO (11:04)
[2021-03-04 11:50] VITALS: PULSE 67; RESP 16; O2SAT 98
[2021-03-04] MEDS: oxyCODONE 5 MG Tablet PO ×2 (12:17→21:32)
[2021-03-04 13:47] VITALS: BP 158/70; PULSE 71; RESP 16; TEMP 36.3; O2SAT 97
[2021-03-04] MEDS: MELATONIN 10 MG TABLET PO (21:33)
[2021-03-04] MEDS: Atorvastatin Calcium 40 MG Tablet PO (21:34)
[2021-03-05 06:00] VITALS: BP 147/72; PULSE 69
[2021-03-05] MEDS: Lidocaine 5% Patch 1 PATCH TOPICAL (06:14)
[2021-03-05] MEDS: Sertraline 100 MG Tablet 200 MG PO (06:15)
[2021-03-05] MEDS: Ascorbic Acid 500 MG Tablet PO (06:15)
[2021-03-05] MEDS: Cholecalciferol (VIT D3) 25 MCG TABLET (1,000 UNITS) 50 MCG PO (06:15)
[2021-03-05] MEDS: Levothyroxine 50 MCG Tablet PO (06:15)
[2021-03-05] MEDS: Umeclidinium Bromide Inhaler 1 PUFF INHALATION (06:17)
[2021-03-05] MEDS: Amiodarone 200 MG Tablet PO (06:17)
[2021-03-05] MEDS: Nystatin Powder 15gm Bottle 1 APPLIC TOPICAL ×2 (06:20→17:10)
[2021-03-05 06:50] VITALS: O2SAT 94
[2021-03-05] MEDS: Ferrous Sulfate 325 MG Tablet PO (07:59)
[2021-03-05] MEDS: predniSONE 20 MG Tablet 40 MG PO (07:59)
[2021-03-05] MEDS: Potassium Chloride Oral Tablet 20 MEQ PO (07:59)
[2021-03-05 10:51] VITALS: PULSE 66; RESP 18; O2SAT 96
[2021-03-05] MEDS: Acetaminophen 500 MG Tablet 1000 MG PO (12:28)
[2021-03-05] MEDS: oxyCODONE 5 MG Tablet PO (12:28)
--- NOTE | 2021-03-05 14:05 | CASEMGMT ---
Social Work Plan of Care meeting held on this date with pt present and dgt Tracy on phone. Pt is receiving PT/OT and progressing well with therapy. Pt lives at home alone and plans to return there upon discharge. Pt made aware that next review with insurance is 03/10 with expected d/c on 03/13/21. Pt does have service through the [employer] program but no current [facility] as they have been unable to staff. Palliative medicine saw pt yesterday and will pick pt up for services once she returns home. Pt sister does live a few houses down and pt states she is hopeful sister will help out and dgt who lives out of town states she will visit on weekends to assist. VM left with Padmini Valdez CM at [facility] and updated on discharge plan and request for aid services. Will continue with treatment plan at this time. Chicho Ford LSW
[2021-03-05 14:58] VITALS: BP 112/55; PULSE 66; RESP 18; TEMP 36.8; O2SAT 94
[2021-03-05] MEDS: Senna/Docusate Sodium 1 Tablet 2 TABLET PO (17:09)
[2021-03-05] MEDS: Atorvastatin Calcium 40 MG Tablet PO (20:34)
[2021-03-05] MEDS: MELATONIN 10 MG TABLET PO (20:34)
[2021-03-06] MEDS: Amiodarone 200 MG Tablet PO (05:12)
[2021-03-06 05:15] VITALS: BP 142/79; PULSE 75
[2021-03-06] MEDS: Umeclidinium Bromide Inhaler 1 PUFF INHALATION (05:16)
[2021-03-06] MEDS: Lidocaine 5% Patch 1 PATCH TOPICAL (05:17)
[2021-03-06] MEDS: Cholecalciferol (VIT D3) 25 MCG TABLET (1,000 UNITS) 50 MCG PO (05:18)
[2021-03-06] MEDS: Sertraline 100 MG Tablet 200 MG PO (05:18)
[2021-03-06] MEDS: Levothyroxine 50 MCG Tablet PO (05:18)
[2021-03-06] MEDS: Ascorbic Acid 500 MG Tablet PO (05:18)
[2021-03-06] MEDS: Nystatin Powder 15gm Bottle 1 APPLIC TOPICAL ×2 (05:19→17:33)
[2021-03-06] MEDS: oxyCODONE 5 MG Tablet PO (05:22)
[2021-03-06 06:06] LABS: Absolute Lymphocyte Count 0.73 X10^3/uL (0.83-4.51); Absolute Neutrophil Count 12.4 X10^3/uL (2.0-7.7); Basophil# 0.02 X10^3/uL; Basophil% 0.1 % (0-1); Hematocrit 33.9 % (37-47); Hemoglobin 10.9 g/dL (12.0-15.0); Lymphocyte # 0.73 X10^3/ul (0.83-4.51); Lymphocyte % 5.2 % (19-41); Mean Corp Hgb Conc 32.2 g/dL (32-36); Mean Corpuscular Hgb 28.7 pg (27.0-32.0); Mean Corpuscular Volume 89.2 fL (81-99); Mean Platelet Vol. 10.2 fl (6.2-12.0); Monocyte# 0.81 X10^3/uL; Monocyte% 5.7 % (0-10); NRBC Flagged by Analyzer 0 % (0-5); Neutrophil # 12.35 X10^3/uL (2.7-7.7); Neutrophil % 87.6 % (47-70); Platelet Count 289 K/mm3 (150-450); RBC Distribution Width CV 18.1 % (11.6-14.6); RBC Distribution Width SD 58.9 fl (35.1-43.9); White Blood Count 14.1 K/mm3 (4.4-11.0)
[2021-03-06 06:21] LABS: Anion Gap 5 (5-15); BUN 26 mg/dL (7-18); BUN/Creat Ratio 31.5 RATIO (10-20); Calcium,Total 8.4 mg/dL (8.5-10.1); Chloride 106 mmol/L (98-107); Creatinine, Serum 0.82 mg/dL (0.55-1.02); EST Glomerular Filtration Rate 72 mL/min (>60); Est Glom Filt Rate - Afr Amer 87 mL/min (>60); Estimated Creatinine Clearance 43.23 ml/min; Glucose 208 mg/dL (74-106); Sodium Level 139 mmol/L (136-145)
[2021-03-06] MEDS: Potassium Chloride Oral Tablet 20 MEQ PO (08:03)
[2021-03-06] MEDS: predniSONE 20 MG Tablet 40 MG PO (08:03)
[2021-03-06] MEDS: Ferrous Sulfate 325 MG Tablet PO (08:03)
[2021-03-06] MEDS: Tuberculin,Purif.prot.deriv. 50 TU/ML Vial 0.1 ML ID (11:11)
[2021-03-06 15:03] VITALS: BP 126/61; PULSE 69; RESP 16; TEMP 36.5; O2SAT 99
[2021-03-06 15:18] VITALS: PULSE 69; RESP 18; O2SAT 99
[2021-03-06] MEDS: Senna/Docusate Sodium 1 Tablet 2 TABLET PO (17:31)
[2021-03-06] MEDS: MELATONIN 10 MG TABLET PO (21:05)
[2021-03-06] MEDS: Atorvastatin Calcium 40 MG Tablet PO (21:05)
[2021-03-07] MEDS: Lidocaine 5% Patch 1 PATCH TOPICAL (06:19)
[2021-03-07] MEDS: Levothyroxine 50 MCG Tablet PO (06:20)
[2021-03-07] MEDS: Umeclidinium Bromide Inhaler 1 PUFF INHALATION (06:20)
[2021-03-07] MEDS: Sertraline 100 MG Tablet 200 MG PO (06:20)
[2021-03-07] MEDS: Cholecalciferol (VIT D3) 25 MCG TABLET (1,000 UNITS) 50 MCG PO (06:20)
[2021-03-07] MEDS: Ascorbic Acid 500 MG Tablet PO (06:20)
[2021-03-07] MEDS: Amiodarone 200 MG Tablet PO (06:22)
[2021-03-07] MEDS: Nystatin Powder 15gm Bottle 1 APPLIC TOPICAL ×2 (06:22→16:23)
[2021-03-07 07:05] VITALS: BP 112/70; PULSE 68
[2021-03-07 07:38] VITALS: O2SAT 99
[2021-03-07] MEDS: predniSONE 20 MG Tablet 40 MG PO (08:18)
[2021-03-07] MEDS: Potassium Chloride Oral Tablet 20 MEQ PO (08:19)
[2021-03-07] MEDS: Ferrous Sulfate 325 MG Tablet PO (08:19)
[2021-03-07 14:09] VITALS: O2SAT 96
[2021-03-07 16:00] VITALS: BP 131/77; PULSE 80; RESP 15; TEMP 36.3; O2SAT 94
[2021-03-07] MEDS: Senna/Docusate Sodium 1 Tablet 2 TABLET PO (16:24)
[2021-03-07 21:30] VITALS: PULSE 74; RESP 16; O2SAT 96
[2021-03-07] MEDS: Atorvastatin Calcium 40 MG Tablet PO (21:31)
[2021-03-07] MEDS: MELATONIN 10 MG TABLET PO (21:31)
[2021-03-07] MEDS: Acetaminophen 500 MG Tablet 1000 MG PO (21:31)
[2021-03-08 01:25] VITALS: PULSE 71; RESP 165; O2SAT 96
[2021-03-08] MEDS: oxyCODONE 5 MG Tablet PO ×2 (01:28→14:06)
[2021-03-08] MEDS: Cholecalciferol (VIT D3) 25 MCG TABLET (1,000 UNITS) 50 MCG PO (06:51)
[2021-03-08] MEDS: Sertraline 100 MG Tablet 200 MG PO (06:51)
[2021-03-08] MEDS: Amiodarone 200 MG Tablet PO (06:51)
[2021-03-08] MEDS: Umeclidinium Bromide Inhaler 1 PUFF INHALATION (06:51)
[2021-03-08] MEDS: Levothyroxine 50 MCG Tablet PO (06:51)
[2021-03-08] MEDS: Ascorbic Acid 500 MG Tablet PO (06:51)
[2021-03-08] MEDS: Lidocaine 5% Patch 1 PATCH TOPICAL (06:52)
[2021-03-08] MEDS: Ferrous Sulfate 325 MG Tablet PO (09:31)
[2021-03-08] MEDS: predniSONE 20 MG Tablet 40 MG PO (09:31)
[2021-03-08] MEDS: Potassium Chloride Oral Tablet 20 MEQ PO (09:32)
[2021-03-08] MEDS: Acetaminophen 500 MG Tablet 1000 MG PO ×2 (14:07→21:22)
[2021-03-08 15:14] VITALS: BP 124/58; PULSE 72; RESP 16; TEMP 36.5; O2SAT 97
[2021-03-08] MEDS: Nystatin Powder 15gm Bottle 1 APPLIC TOPICAL (16:44)
[2021-03-08 19:03] VITALS: PULSE 72; RESP 16; O2SAT 97
[2021-03-08] MEDS: Atorvastatin Calcium 40 MG Tablet PO (21:15)
[2021-03-08] MEDS: MELATONIN 10 MG TABLET PO (21:16)
[2021-03-09] MEDS: oxyCODONE 5 MG Tablet PO ×2 (03:57→21:32)
[2021-03-09] MEDS: Senna/Docusate Sodium 1 Tablet 2 TABLET PO (06:16)
[2021-03-09] MEDS: Amiodarone 200 MG Tablet PO (06:16)
[2021-03-09] MEDS: Levothyroxine 50 MCG Tablet PO (06:16)
[2021-03-09] MEDS: Ascorbic Acid 500 MG Tablet PO (06:16)
[2021-03-09] MEDS: Sertraline 100 MG Tablet 200 MG PO (06:17)
[2021-03-09] MEDS: Cholecalciferol (VIT D3) 25 MCG TABLET (1,000 UNITS) 50 MCG PO (06:17)
[2021-03-09] MEDS: Nystatin Powder 15gm Bottle 1 APPLIC TOPICAL ×2 (06:17→16:29)
[2021-03-09] MEDS: Umeclidinium Bromide Inhaler 1 PUFF INHALATION (06:18)
[2021-03-09] MEDS: Lidocaine 5% Patch 1 PATCH TOPICAL (06:19)
[2021-03-09 07:35] VITALS: O2SAT 96
[2021-03-09] MEDS: Ferrous Sulfate 325 MG Tablet PO (08:43)
[2021-03-09] MEDS: Potassium Chloride Oral Tablet 20 MEQ PO (08:43)
[2021-03-09 14:13] VITALS: BP 128/79; PULSE 77; RESP 16; TEMP 36.5; O2SAT 95
[2021-03-09] MEDS: MELATONIN 10 MG TABLET PO (21:31)
[2021-03-09] MEDS: Atorvastatin Calcium 40 MG Tablet PO (21:31)
[2021-03-09] MEDS: Acetaminophen 500 MG Tablet 1000 MG PO (21:32)
[2021-03-10] MEDS: Amiodarone 200 MG Tablet PO (06:00)
[2021-03-10] MEDS: Ascorbic Acid 500 MG Tablet PO (06:00)
[2021-03-10] MEDS: Levothyroxine 50 MCG Tablet PO (06:00)
[2021-03-10] MEDS: Cholecalciferol (VIT D3) 25 MCG TABLET (1,000 UNITS) 50 MCG PO (06:00)
[2021-03-10] MEDS: Sertraline 100 MG Tablet 200 MG PO (06:01)
[2021-03-10] MEDS: Lidocaine 5% Patch 1 PATCH TOPICAL (06:02)
[2021-03-10] MEDS: Umeclidinium Bromide Inhaler 1 PUFF INHALATION (06:02)
[2021-03-10] MEDS: Nystatin Powder 15gm Bottle 1 APPLIC TOPICAL ×2 (06:12→17:08)
[2021-03-10 06:47] VITALS: O2SAT 95
[2021-03-10] MEDS: Potassium Chloride Oral Tablet 20 MEQ PO (08:05)
[2021-03-10] MEDS: Ferrous Sulfate 325 MG Tablet PO (08:05)
[2021-03-10 15:00] VITALS: BP 142/85; PULSE 100; RESP 16; TEMP 36.8; O2SAT 95
--- NOTE | 2021-03-10 16:52 | CASEMGMT ---
Addendum entered by Theresa Farrell 03/10/21 17:04: [facility] unable to accept insurance. Pt agreeable to referral to [facility]. Referral made. Original Note: Social Work Insurance issued LCD 03/12, DC 03/13. Spoke with pt and she is requesting DDC 03/13. IDT agreeable. Provided skilled [facility] lsit with quality and resource data. Pt agreeable to [facility]. Referral made for PT/OT/SN/SIDHU. Notified Padmini Valdez C.M. of [place]. Notified [facility] [place]. Pt has no DME needs. Family to transport. Plan: DC home alone 03/12 with [facility] PT/OT/SN/SIDHU, Palliative Theresa Farrell, KAYKAY RUBIOW
[2021-03-10 19:31] VITALS: PULSE 100; RESP 16; O2SAT 96
[2021-03-10] MEDS: Acetaminophen 500 MG Tablet 1000 MG PO (20:40)
[2021-03-10] MEDS: oxyCODONE 5 MG Tablet PO (20:41)
[2021-03-10] MEDS: Atorvastatin Calcium 40 MG Tablet PO (20:43)
[2021-03-10] MEDS: MELATONIN 10 MG TABLET PO (20:43)
--- NOTE | 2021-03-10 20:55 | DS.PCM_ITS ---
Providers Date of Admission: 02/26/21 Primary Care Physician: Dr. Marino Williamson MD Consultations 02/26/21 20:23 Consult: Pain Management Routine Consulting Provider: Jasbir Kulkarni Reason for Consult: T7 compression fracture, back pain. EMERGENT Consult: No MD Notified: Yes Date Notified: 02/26/21 Time Notified: 14:10 Method of Notification: Verbal 02/27/21 11:44 Consult: Hospice / Palliative Care Routine Consulting Provider: [facility] Reason for Consult: Palliative - pain, nausea EMERGENT Consult: No MD Notified: Yes Date Notified: 02/27/21 Time Notified: 11:45 Method of Notification: Text Reason For Visit: PNA/SEPSIS Diagnosis Discharge Diagnosis (1) Compression fracture of T7 vertebra: Status: Acute Code(s): S22.060A - Wedge compression fracture of T7-T8 vertebra, initial encounter for closed fracture (2) Asthma: Status: Acute Code(s): J45.909 - Unspecified asthma, uncomplicated (3) COPD exacerbation: Status: Resolved Code(s): J44.1 - Chronic obstructive pulmonary disease with (acute) exacerbation (4) Bilateral pneumonia: Code(s): J18.9 - Pneumonia, unspecified organism Qualifiers: Pneumonia type: due to unspecified organism Lung location: unspecified part of lung Qualified Code(s): J18.9 - Pneumonia, unspecified organism (5) Debility: Status: Acute Code(s): R53.81 - Other malaise (6) Osteoarthritis: Status: Acute Code(s): M19.90 - Unspecified osteoarthritis, unspecified site (7) Depression: Status: Acute Code(s): F32.A - Depression, unspecified (8) Chronic nausea: Status: Chronic Code(s): R11.0 - Nausea (9) Smoker: Status: Acute Code(s): F17.200 - Nicotine dependence, unspecified, uncomplicated Medications at Discharge Home Medications atorvastatin 40 mg tablet 40 mg PO DAILY 06/03/17 cholecalciferol (vitamin D3) 125 mcg (5,000 unit) capsule 2,000 unit PO DAILY 09/28/18 levothyroxine 50 mcg tablet 50 mcg PO DAILY 05/18/19 tiotropium bromide 2.5 mcg/actuation mist for inhalation 2 inh INHALATION QAM 03/20/20 ondansetron 4 mg PO Q8H PRN PRN #10 tablet 09/15/20 sertraline 200 mg PO DAILY 10/11/20 albuterol sulfate 90 mcg/actuation aerosol inhaler 2 inh INHALATION Q4H PRN g 02/05/21 ascorbate calcium (vitamin C) 500 mg tablet 500 mg PO DAILY 02/05/21 ferrous fumarate 325 mg (106 mg iron) tablet 325 mg PO DAILY 02/05/21 lidocaine 5 % topical patch 1 patch TOPICAL BID ea 02/05/21 polyethylene glycol 3350 17 gram/dose oral powder 17 g PO DAILY 02/05/21 amiodarone 200 mg PO DAILY 02/19/21 acetaminophen 1,000 mg PO Q6H PRN PRN #0 tab 03/10/21 melatonin 10 mg PO QHS #0 tab 03/10/21 nystatin [Nyamyc] 1 applic TOPICAL BID #0 g 03/10/21 oxycodone 5 mg PO Q4H PRN PRN 7 Days #42 tab 03/10/21 potassium chloride [Klor-Con M20] 20 meq PO DAILYCM 30 Days #30 tab 03/10/21 sennosides-docusate sodium [Stool Softener-Stimulant Laxat] 2 tab PO BID 30 Days #120 tab 03/10/21 sodium chloride [Deep Sea Nasal] 2 spray NASAL TID PRN PRN #0 ml 03/10/21 Hospital Course Operations None Procedures - (03/03/2021 T7-T8 epidural steroid injection. ) Summary of Care Provided Minutes Spent on Discharge: 35 Hospital Course: 75 year old female with below past medical history hospitalized for sepsis, acute respiratory failure with hypoxia secondary to MRSA pneumonia, complicated by copd exacerbation, acute on chronic diastolic congestive heart failure, admitted to TCU with debility, here for rehabilitation, strengthening, prior to discharge home alone. Discharge home alone 03/12/2021, [facility] PT/OT/SN/[facility] SUPERVISOR, Palliative. Physical Exam Const alert and oriented x3 General Appearance: cooperative HEENT normocephalic Eyes PERRL and EOMs intact bilaterally Neck supple, no JVD and no carotid bruits Resp normal respiratory effort, normal air movement and clear to auscultation bilaterally Cardio regular rate and regular rhythm GI normal to inspection, nondistended, normoactive bowel sounds, non-tender and non -distended Extremity normal capillary refill General Extremity: Negative for edema Skin no rashes or lesions noted General Skin Exam: no breakdown Psych affect normal Appearance: appropriate Weight / BMI Weight Weight: 61.235 kg Body Mass Index (BMI) 25.9 ABG / Lab / Microbiology Data Result Diagrams: 03/06/21 05:11 03/06/21 05:11 D/C Instructions Discharge Diet: No restrictions Discharge Activity: Return to Normal Activity, May Shower and Use Walker Weight Bearing Status: Weight bearing as tolerated Call your doctor if you observe: Fever of 101 or Higher, Inability to urinate, Inability to have a bowel movement, Shortness of breath, Dizziness, Fainting spells, Swelling in the ankles, Chest pain and Uncontrolled pain Additional Instructions: Discharge home alone 03/12/2021, [facility] PT/OT/SN/PREPRESS SUPERVISOR, Palliative. Please Follow Up With: Marino Williamson MD When: 1 week. Meaningful Use Info Meaningful Use Diagnoses (Choose all that apply): None applicable Discharge Plan Admission Admit Date/Time: 02/26/21 13:47 Primary Reason for Your Visit: Debility. Attending Provider: Jerry Modi Chi Primary Care Provider: Marino Williamson Consulting Providers: Jasbir Kulkarni ; Evita Boswell ; Roney Guevara ; Carmen Martínez ; Xi Palacios ; Luiza Sanchez ; Chantel Curtis [facility]NAGER C[facility] Instructions Additional Instructions / Restrictions: Discharge home alone 03/12/2021, [facility] PT/OT/SN/PREPRESS SUPERVISOR, Pal liative. Discharge Orders/Prescriptions Prescriptions: New sennosides-docusate sodium [Stool Softener-Stimulant Laxat] 8.6-50 mg Tablet 2 tab PO BID 30 Days Qty: 120 RF: 0 acetaminophen 500 mg Tablet 1,000 mg PO Q6H PRN PRN (Reason: Pain Score 1-5) Qty: 0 RF: 0 potassium chloride [Klor-Con M20] 20 mEq Tablet,Er Particles/Crystals 20 meq PO DAILYCM 30 Days Qty: 30 RF: 0 nystatin [Nyamyc] 100,000 unit/gram Powder 1 applic topical BID Qty: 0 RF: 0 oxycodone 5 mg Tablet 5 mg PO Q4H PRN PRN (Reason: Pain Score 6-10) 7 Days Qty: 42 RF: 0 sodium chloride [Deep Sea Nasal] 0.65 % Aerosol,[place] 2 spray NASAL TID PRN PRN (Reason: NASAL DRYNESS) Qty: 0 RF: 0 melatonin 10 mg Tablet, Sublingual 10 mg PO QHS Qty: 0 RF: 0 Continued cholecalciferol (vitamin D3) 5,000 unit capsule 2,000 unit PO DAILY RF: 0 levothyroxine 50 mcg tablet 50 mcg PO DAILY RF: 0 Spiriva Respimat 2.5 mcg/actuation mist 2 inh INHALATION QAM RF: 0 polyethylene glycol 3350 [Miralax] 17 gram/dose powder 17 g PO DAILY RF: 0 lidocaine [Lidoderm] 5 % adhesive patch,medicated 1 patch topical BID RF: 0 ascorbate calcium (vitamin C) 500 mg tablet 500 mg PO DAILY RF: 0 ferrous fumarate 325 mg (106 mg iron) tablet 325 mg PO DAILY RF: 0 albuterol sulfate [Ventolin HFA] 90 mcg/actuation HFA aerosol inhaler 2 inh inhalation Q4H PRN (Reason: Wheezing) RF: 0 ondansetron 4 MG tablet 4 mg PO Q8H PRN PRN (Reason: Nausea) Qty: 10 RF: 0 sertraline 100 mg Tablet 200 mg PO DAILY RF: 0 amiodarone 200 mg tablet 200 mg PO DAILY RF: 0 Discontinued sucralfate [Carafate] 1 gram tablet 1 g PO QACHS RF: 0 oxycodone-acetaminophen [Endocet] 5-325 mg tablet 1 tab PO Q6H PRN (Reason: pain) 5 Days Qty: 20 RF: 0 prednisone 20 mg tablet 40 mg PO DAILY RF: 0 doxycycline monohydrate 100 mg capsule 100 mg PO BID RF: 0 No Action atorvastatin 40 mg tablet 40 mg PO DAILY RF: 0 Referrals / Follow Up: Marino Williamson MD [Primary Care Provider] - Disposition Disposition (needs filled in before D/C Order can be placed): Home Health Service
[2021-03-11 06:16] VITALS: BP 108/72; PULSE 81
[2021-03-11] MEDS: Amiodarone 200 MG Tablet PO (06:17)
[2021-03-11] MEDS: Ascorbic Acid 500 MG Tablet PO (06:17)
[2021-03-11] MEDS: Cholecalciferol (VIT D3) 25 MCG TABLET (1,000 UNITS) 50 MCG PO (06:17)
[2021-03-11] MEDS: Senna/Docusate Sodium 1 Tablet 2 TABLET PO (06:17)
[2021-03-11] MEDS: Nystatin Powder 15gm Bottle 1 APPLIC TOPICAL ×2 (06:18→17:37)
[2021-03-11] MEDS: Sertraline 100 MG Tablet 200 MG PO (06:18)
[2021-03-11] MEDS: Levothyroxine 50 MCG Tablet PO (06:18)
[2021-03-11] MEDS: Umeclidinium Bromide Inhaler 1 PUFF INHALATION (06:19)
[2021-03-11] MEDS: Lidocaine 5% Patch 1 PATCH TOPICAL (06:20)
[2021-03-11] MEDS: Potassium Chloride Oral Tablet 20 MEQ PO (08:13)
[2021-03-11] MEDS: Ferrous Sulfate 325 MG Tablet PO (08:13)
[2021-03-11] MEDS: guaiFENesin 600 MG Tablet PO ×2 (08:13→17:36)
--- NOTE | 2021-03-11 09:31 | MDS.RN ---
Information for the mds was obtained from review of the clinical record, interview of resident, staff, and direct observation of resident's care.
[2021-03-11 17:12] VITALS: BP 120/76; PULSE 80; RESP 16; TEMP 37.4; O2SAT 94
[2021-03-11] MEDS: Atorvastatin Calcium 40 MG Tablet PO (22:00)
[2021-03-11] MEDS: MELATONIN 10 MG TABLET PO ×2 (22:00→22:01)
[2021-03-11] MEDS: oxyCODONE 5 MG Tablet PO (22:01)
[2021-03-11 23:38] VITALS: PULSE 76; RESP 14; O2SAT 96
[2021-03-12 04:56] VITALS: PULSE 70; RESP 12; O2SAT 97
[2021-03-12] MEDS: oxyCODONE 5 MG Tablet PO (06:44)
[2021-03-12] MEDS: Lidocaine 5% Patch 1 PATCH TOPICAL (06:44)
[2021-03-12] MEDS: Sertraline 100 MG Tablet 200 MG PO (06:45)
[2021-03-12] MEDS: Umeclidinium Bromide Inhaler 1 PUFF INHALATION (06:45)
[2021-03-12] MEDS: Cholecalciferol (VIT D3) 25 MCG TABLET (1,000 UNITS) 50 MCG PO (06:45)
[2021-03-12] MEDS: Ascorbic Acid 500 MG Tablet PO (06:45)
[2021-03-12] MEDS: guaiFENesin 600 MG Tablet PO (06:46)
[2021-03-12] MEDS: Nystatin Powder 15gm Bottle 1 APPLIC TOPICAL (06:46)
[2021-03-12] MEDS: Amiodarone 200 MG Tablet PO (06:46)
[2021-03-12] MEDS: Levothyroxine 50 MCG Tablet PO (06:46)
[2021-03-12] MEDS: Ferrous Sulfate 325 MG Tablet PO (08:21)
[2021-03-12 10:15] VITALS: BP 133/74; PULSE 82; RESP 16; TEMP 36.2; O2SAT 98
== END 2021-03-12 11:27 | disposition home health service (06) | DRG 178 ==
PROVIDERS: Admitting Provider Family Medicine Geriatric Medicine; PCP Family Medicine; Visit Provider Family Medicine Geriatric Medicine
DX: J15.212 Pneumonia due to Methicillin resistant Staphylococcus aureus (principal); I50.32 Chronic diastolic (congestive) heart failure; J44.1 Chronic obstructive pulmonary disease with (acute) exacerbation; J44.0 Chronic obstructive pulmonary disease with (acute) lower respiratory infection; I11.0 Hypertensive heart disease with heart failure; K21.9 Gastro-esophageal reflux disease without esophagitis; F32.A Depression, unspecified; E55.9 Vitamin D deficiency, unspecified; E78.5 Hyperlipidemia, unspecified; D50.9 Iron deficiency anemia, unspecified; E03.9 Hypothyroidism, unspecified; I25.10 Atherosclerotic heart disease of native coronary artery without angina pectoris; F41.9 Anxiety disorder, unspecified; N39.3 Stress incontinence (female) (male); G47.33 Obstructive sleep apnea (adult) (pediatric); M19.90 Unspecified osteoarthritis, unspecified site; M48.54XD Collapsed vertebra, not elsewhere classified, thoracic region, subsequent encounter for fracture with routine healing; I48.0 Paroxysmal atrial fibrillation; Z79.899 Other long term (current) drug therapy; Z79.52 Long term (current) use of systemic steroids; Z79.890 Hormone replacement therapy; F17.210 Nicotine dependence, cigarettes, uncomplicated
CPT/HCPCS: 36415; 64490; 72020; 80048; 85025; 97110; 97116; 97162; 97166; 97530; 97535; 97802; 99406; J7120

== ENCOUNTER 2021-03-03 12:45 | Day surgery (SDC) | payer MEDICARE, MEDICAID, SELFPAY ==
[2021-03-03 12:51] VITALS: BP 111/62; PULSE 67; RESP 18; TEMP 36.7; O2SAT 97; BMI 25.9
[2021-03-03] MEDS: Lactated Ringers 1,000 ML 100 ML IV (12:58)
[2021-03-03 14:45] VITALS: BP 111/62; BP 99/58; PULSE 59; RESP 16; TEMP 36.7; O2SAT 100
[2021-03-03 14:50] VITALS: BP 111/62; BP 88/52; PULSE 61; RESP 16; O2SAT 100
[2021-03-03 14:55] VITALS: BP 111/62; BP 117/66; PULSE 62; RESP 16; O2SAT 98
[2021-03-03 15:00] VITALS: BP 111/62; BP 91/58; PULSE 59; RESP 16; TEMP 37.4; O2SAT 100
[2021-03-03 15:17] VITALS: BP 111/62
== END 2021-03-03 15:22 | disposition home or self-care (01) ==
LOC: SDC 12:46 → AC 12:46
PROVIDERS: PCP Family Medicine; Referring Provider Anesthesiology Pain Medicine; Visit Provider Anesthesiology Pain Medicine
PROC: 3E0S3BZ Introduction of Anesthetic Agent into Epidural Space, Percutaneous Approach (ICD-10-PCS; CPT 62282; principal; 2021-03-03 13:55)
DX: M96.1 Postlaminectomy syndrome, not elsewhere classified (principal); M48.50XA Collapsed vertebra, not elsewhere classified, site unspecified, initial encounter for fracture; G89.29 Other chronic pain; I25.10 Atherosclerotic heart disease of native coronary artery without angina pectoris; K21.9 Gastro-esophageal reflux disease without esophagitis; I48.91 Unspecified atrial fibrillation; J44.9 Chronic obstructive pulmonary disease, unspecified; I10 Essential (primary) hypertension; E78.5 Hyperlipidemia, unspecified; F17.200 Nicotine dependence, unspecified, uncomplicated
CPT/HCPCS: 62321

== ENCOUNTER → 2021-03-26 17:02 | Outpatient (CLI) | payer MEDICARE, MEDICAID, SELFPAY ==
--- NOTE | 2021-03-26 17:04 | RAD_ITS ---
STUDY: X-RAY CHEST REASON FOR EXAM: Female, 75 years old. COPD TECHNIQUE: PA and lateral views of the chest. COMPARISON: February 20, 2021 chest x-ray FINDINGS: Is improved aeration of the lungs since prior study. There is a visualized calcification in the right lower lobe. There is no demonstrated pleural abnormality. Normal size heart. Normal mediastinum and neeraj. Normal visualized pulmonary arteries. Normal visualized aortic arch and descending thoracic aorta. There is severe kyphosis. There is loss of height at the level of approximately the level of T9 with a kyphoplasty with spinal fusion. There is partially visualized lumbar spine fusion. Normal visualized ribs, clavicles, and shoulders. There is no demonstrated abnormality of the visualized soft tissue structures of the upper abdomen. RAD/Chest PA and Lateral IMPRESSION: Thoracic and lumbar spine fusions. Kyphosis. No demonstrated acute cardiopulmonary process. Improved aeration of the lungs since prior study. Electronically Signed: Ashley Xiong MD at 3:18 EDT Tel , Service support ,
== END ==
PROVIDERS: PCP Family Medicine; Referring Provider Family Medicine; Visit Provider Family Medicine
DX: J44.9 Chronic obstructive pulmonary disease, unspecified (principal)
CPT/HCPCS: 71046

== ENCOUNTER → 2021-04-16 15:25 | Outpatient (CLI) | payer MEDICARE, MEDICAID, SELFPAY ==
--- NOTE | 2021-04-16 15:34 | RAD_ITS ---
INDICATION: M50.30. Chronic neck pain. EXAMINATION/TECHNIQUE: X-RAY - XR Spine Cervical 2 or 3 Views. AP and lateral views of the cervical spine. COMPARISON: No similar studies. Chest radiograph from 03/26/2021. FINDINGS: VERTEBRAE: The C6 and C7 vertebral body are limited in evaluation due to overlapping shoulder on the lateral views. Preserved vertebral body height. No fracture. No spondylolisthesis. Preservation of the normal cervical lordosis. Mild multilevel degenerative changes and facet arthropathy. Dens not well evaluated due to lack of odontoid views. DISCS: Disc spaces are maintained. NECK SOFT TISSUES: No prevertebral soft tissue widening. LUNG APICES: Clear. RAD/Cerv Spine 2 or 3 Views IMPRESSION: Mild multilevel degenerative changes and facet arthropathy with no acute findings. Electronically Signed: Ortiz Vicente MD at 9:02 EST Tel , Service support ,
[2021-04-16 16:11] LABS: Amphetamine Urine VISTA NEGATIVE (<1000 ng/mL); Barbiturate Urine VISTA NEGATIVE (< 200 ng/mL); Benzodiazepine Urine VISTA NEGATIVE (< 200 ng/mL); Cocaine Urine VISTA NEGATIVE (< 300 ng/mL); Ecstacy Urine VISTA NEGATIVE (< 500 ng/mL); Methadone Urine VISTA NEGATIVE (< 300 ng/mL); PCP Urine VISTA NEGATIVE (< 25 ng/mL); THC Urine VISTA NEGATIVE (< 50 ng/mL); Vista UDS pH Range 5
== END ==
PROVIDERS: PCP Family Medicine; Referring Provider Anesthesiology Pain Medicine; Visit Provider Anesthesiology Pain Medicine
DX: M50.30 Other cervical disc degeneration, unspecified cervical region (principal); F11.20 Opioid dependence, uncomplicated
CPT/HCPCS: 72040; 80307

== ENCOUNTER → 2021-05-07 15:52 | Outpatient (CLI) | payer MEDICARE, MEDICAID, SELFPAY ==
[2021-05-07 16:10] LABS: Bacteria 0 SEEN /hpf (None Seen); Mucous, Urine 0 SEEN /hpf (<or=2+); Red Blood Cells-Urine 0 SEEN /hpf (0-5); Squamous Epithelial Cells - UA 0 SEEN /hpf (5-10); White Blood Cells 0 SEEN /hpf (0-5)
[2021-05-07 17:59] LABS: Absolute Lymphocyte Count 2.06 X10^3/uL (0.83-4.51); Absolute Neutrophil Count 7.4 X10^3/uL (2.0-7.7); Basophil# 0.12 X10^3/uL; Basophil% 1.1 % (0-1); Eosinophils% 3.6 % (0-5); Hemoglobin 12.4 g/dL (12.0-15.0); Lymphocyte # 2.06 X10^3/ul (0.83-4.51); Lymphocyte % 18.7 % (19-41); Mean Corp Hgb Conc 29.5 g/dL (32-36); Mean Corpuscular Hgb 30.5 pg (27.0-32.0); Mean Corpuscular Volume 103.4 fL (81-99); Monocyte# 0.95 X10^3/uL; Monocyte% 8.6 % (0-10); NRBC Flagged by Analyzer 0 % (0-5); Neutrophil # 7.43 X10^3/uL (2.7-7.7); Neutrophil % 67.4 % (47-70); POSITIVE MORPHOLOGY YES; Platelet Count 166 K/mm3 (150-450); RBC Distribution Width CV 18.7 % (11.6-14.6); RBC Distribution Width SD 71.9 fl (35.1-43.9); Red Blood Count 4.06 M/mm3 (4.2-5.4)
[2021-05-07 18:00] LABS: Color, Urine Yellow (Yellow); Differential Indicated SCAN CRITERIA MET; Glucose, Dipstick Normal (Normal); Ketone-Dipstick Negative (Negative); Leukocyte Esterase-Dipstick Negative /ul (Negative); Nitrite-Dipstick Negative (Negative); Occult Blood-Urine Negative /ul (Negative); Protein-Dipstick 15 mg/dl (Negative); Urine Bilirubin Dipstick Negative (Negative); Urine Clarity Clear (Clear); Urine Urobilinogen Normal (Normal)
[2021-05-07 18:13] LABS: Protein, Urine (Random) 15.4 mg/dL (<11.9); Protein:Creat Ratio 266 mg/g CRE (0-200)
[2021-05-07 18:16] LABS: Differential Comment SCANNED
[2021-05-07 18:55] LABS: Vitamin B12 305 pg/mL (211-911); Vitamin D,25 Hydroxy 50.6 ng/mL
[2021-05-07 19:14] LABS: ALB/GLOB Ratio 1.1 RATIO (0.9-2.4); AST(SGOT) 26 U/L (15-37); Alanine Aminotransfer ALT/SGPT 29 U/L (13-56); Albumin, Serum 3.5 g/dL (3.2-5.0); Alkaline Phosphatase 116 U/L (45-117); Anion Gap 10 (5-15); BUN 13 mg/dL (7-18); BUN/Creat Ratio 14.9 RATIO (10-20); Chloride 108 mmol/L (98-107); Cholesterol 159 mg/dL (200); Creatinine, Serum 0.88 mg/dL (0.55-1.02); EST Glomerular Filtration Rate 67 mL/min (>60); Est Glom Filt Rate - Afr Amer 81 mL/min (>60); Ferritin 82 ng/mL (8-252); Globulin 3.2 g/dL (2.2-4.2); Glucose 63 mg/dL (74-106); High Density Lipoprotein 80 mg/dL; Iron 63 ug/dL (50-170); Iron Binding Capacity,Total 314 ug/dL (250-450); Potassium 4.4 mmol/L (3.5-5.1); Protein, Total 6.7 g/dL (6.4-8.2); Sodium Level 142 mmol/L (136-145); T4 Free Direct 1.38 ng/dL (0.76-1.46); Thyroid Stim Hormone (TSH) 1.64 uIU/mL (0.358-3.74); Triglycerides 63 mg/dL; Very Low Density Lipoprotein 13 mg/dL (5-40)
[2021-05-08 08:13] LABS: PTHIN 33.7 pg/mL (18.4-80.1)
== END ==
PROVIDERS: PCP Family Medicine; Referring Provider Family Medicine; Visit Provider Family Medicine
DX: E55.9 Vitamin D deficiency, unspecified (principal); E03.8 Other specified hypothyroidism; D64.9 Anemia, unspecified; N18.30 Chronic kidney disease, stage 3 unspecified
CPT/HCPCS: 36415; 80053; 80061; 81001; 82306; 82570; 82607; 82728; 82746; 83540; 83550; 83970; 84100; 84156; 84439; 84443; 85025

== ENCOUNTER → 2021-05-14 15:24 | Outpatient (CLI) | payer MEDICARE, MEDICAID, SELFPAY ==
--- NOTE | 2021-05-14 | RAD_ITS ---
INDICATION: BACK PAIN EXAMINATION/TECHNIQUE: X-RAY - XR Spine Thoracic 3 Views COMPARISON: 02/05/2021 FINDINGS: VERTEBRAE: 1. There is redemonstration of postoperative changes with pedicle screw posterior fixation from T8 to T10. There are findings consistent with prior vertebroplasty at T9 with subtotal collapse of the T9 vertebral body without change. Additional collapse of the T7 vertebral body without interval change. 2. No acute fractures noted, no evidence of loosening of fixation hardware. 3. No destructive bony process is noted. DISCS: Disc spaces are unchanged. INCLUDED CHEST/ABDOMEN: No acute abnormalities. RAD/Thoracic Spine 3 Views IMPRESSION: 1. Postoperative changes of pedicle screw posterior fixation from T8 T10. Hyperkyphotic curvature and subtotal collapse of the T9 and T7 vertebral bodies without interval change. 2. No acute fractures or hardware failure noted. No subluxation or changes in alignment Electronically Signed: Pablito Tan MD at 17:16 EST Tel , Service support ,
--- NOTE | 2021-05-14 15:32 | RAD_ITS ---
STUDY: X-RAY - LUMBAR SPINE REASON FOR EXAM: Female, 75 years old. Back pain. TECHNIQUE: 2 view(s) of the lumbar spine were obtained. COMPARISON: 04/19/2018. FINDINGS: Osteopenia. Normal lumbar lordosis. There is no substantial scoliosis. There is a normal alignment of the vertebrae. Posterior fusion from L2 to L4. Loss of height of the L3 vertebral body status post kyphoplasty, unchanged. Diffuse mild intervertebral disc space narrowing with small osteophytes, unchanged. Vascular calcification with injection granulomas unchanged. RAD/Lumbar Spine 2 or 3 Views IMPRESSION: Stable osteopenia, postsurgical changes and kyphoplasty of L3. No new finding. Electronically Signed: Chet Magaña MD at 10:05 EST , Service support ,
== END ==
PROVIDERS: PCP Family Medicine; Referring Provider Anesthesiology Pain Medicine; Visit Provider Anesthesiology Pain Medicine
DX: M54.9 Dorsalgia, unspecified (principal)
CPT/HCPCS: 72072; 72100

== ENCOUNTER 2021-05-29 06:24 | Emergency (ER) | payer MEDICARE, MEDICAID, SELFPAY ==
[2021-05-29 06:27] VITALS: BP 157/73; PULSE 80; RESP 20; TEMP 36; O2SAT 95; BMI 31.7
--- NOTE | 2021-05-29 06:40 | CT_ITS ---
STUDY: CT CHEST WITHOUT CONTRAST REASON FOR EXAM: Female, 75 years old. Injury -- include lower ribs RADIATION DOSAGE (If Supplied By Facility): CTDIvol = ( 16 ) mGy, DLP = ( 520.88 ) mGycm TECHNIQUE: Transaxial imaging was performed without the administration of intravenous contrast material. Multiplanar coronal and sagittal images were reformatted. Individualized dose optimization techniques were used for this CT. COMPARISON: Angiographic chest February 23, 2021 chest x-ray FINDINGS: There is increased AP diameter to the chest. There is diffuse emphysematous change. There is a focus of calcified granuloma in the right middle lobe. There is no demonstrated pleural abnormality. There is mild cardiac enlargement there is a small pericardial effusion. There are coronary calcifications. The calcified granuloma in the right to midline pretracheal space measuring 1.0 cm. There is calcification in subcarinal region. Normal hilar regions. Normal unenhanced pulmonary arteries. There is atherosclerotic calcification of the aortic arch with tortuosity and elongation of the aortic arch and descending thoracic aorta. There is mild aneurysmal dilatation at the hiatus measuring 4.0 x 4.0 cm. There is severe kyphosis. There is collapse of the T7 vertebral body. There is greater than 75% loss of height at the level of T10. There is a visualized spinal fusion at the level of T8-T9 and T10. The liver is slightly hyperdense which may be related to amiodarone therapy. There are stones in both kidneys without hydronephrosis. There is visualized diverticulosis without diverticulitis. CT/Chest without Contrast IMPRESSION: Increased AP diameter of the chest suggestive of chronic obstructive pulmonary disease. Mild cardiac enlargement coronary calcification Hyperdense appearance of the liver which can be associated with amiodarone therapy. Bilateral renal stones, no hydronephrosis. Diverticulosis no diverticulitis. Electronically Signed: Ashley Xiong MD at 7:49 EST Tel , Service support ,
--- NOTE | 2021-05-29 06:40 | RAD_ITS ---
STUDY: X-RAY - PELVIS REASON FOR EXAM: Female, 75 years old. Injury TECHNIQUE: One view of the pelvis was obtained. COMPARISON: None. FINDINGS: There is a non-specific bowel gas pattern. Normal visualized soft tissue structures. Normal bilateral iliac wings, sacroiliac joints and visualized sacrum. Normal visualized bilateral superior and inferior pubic rami. Normal pubic symphysis. Normal ischial tuberosities. There are osteoarthritic changes of the right femoral head with marginal osteophyte formation. Normal right acetabulum. Normal right hip joint. There is a acute and/or recent fracture of the left inferior pubic ramus. There is visualized degenerative change in the left knee joint. RAD/Pelvis 1 or 2 Views IMPRESSION: Left inferior pubic ramus fracture. Left hip open reduction internal fixation. Acute fracture of the left inferior pubic ramus. Electronically Signed: Ashley Xiong MD at 7:54 EST Tel , Service support ,
--- NOTE | 2021-05-29 06:40 | RAD_ITS ---
STUDY: X-RAY - LEFT FEMUR REASON FOR STUDY: Female, 75 years old. Injury TECHNIQUE: 5 view(s) of the femur. COMPARISON: None. FINDINGS: There is a fracture of the left inferior pubic ramus. There is soft tissue edema. There is an intramedullary deepali demonstrated the proximal femoral component transfixes the left proximal femur. Vascular calcifications. There is bony osteopenia. RAD/Femur Min 2 Views IMPRESSION: Bony osteopenia and degenerative change Incidental visualization of a left inferior pubic ramus fracture. Electronically Signed: Ashley Xiong MD at 7:56 EST Tel , Service support ,
[2021-05-29] MEDS: fentaNYL 100 MCG/2 ML Ampul 50 MCG IM (06:46)
--- NOTE | 2021-05-29 06:57 | ED.VIS.FALL ---
HPI HPI - Fall History of Present Illness Chief Complaint: Fall Informant: patient Narrative Narrative: Patient presents by EMS from home for a fall prior to arrival. Patient up all night, she was standing next to her dresser when she lost her balance falling against a magazine stand. Pain to the left lower ribs. Pain to the left hip and groin region. She states she had a deepali in her femur from 2014 from a fracture. This was performed in [place]. History of atrial fibrillation on amiodarone, no current anticoagulation medications. Patient ambulates with a walker. Patient did not try to ambulate after the fall. EMS was contacted. She denies any head injuries. No neck or back pain. Has had back surgeries in the past due to fractures. Reported by family also in 2015 had sternal fracture from the injury. Reports having urinary frequency. [facility] Medical History Adrenal mass Adrenal nodule Alcohol use Anxiety Arthritis Atherosclerotic heart disease of [place] coronary artery without angina pectoris Bilateral pneumonia Bleeding hemorrhoids Cardiology follow-up encounter Chest pain Chronic diarrhea Chronic GERD Compression fracture of T7 vertebra COPD (chronic obstructive pulmonary disease) Depression Diarrhea Easy bruising Essential hypertension Gastric reflux Hemorrhoids High cholesterol History of atrial fibrillation History of diverticulitis History of pain when walking History of renal stone History of stress incontinence History of stress test History of ulceration Hx of echocardiogram Hypercalcemia Hyperlipidemia Hypokalemia Injury of head and neck Left atrial enlargement Leg cramps Loss of consciousness Multiple thyroid nodules Nonrheumatic aortic (valve) insufficiency Obstructive sleep apnea Osteoporosis Paroxysmal atrial fibrillation Pre-syncope Primary hyperparathyroidism Rectal bleeding Restless legs Shortness of breath on exertion Shoulder pain Smoker Thyroid disease Vitamin D deficiency Walker as ambulation aid Wears dentures Wears glasses Home Medications atorvastatin 40 mg tablet 40 mg PO DAILY 06/03/17 [History Last Taken 09/21/18 12:00] cholecalciferol (vitamin D3) 125 mcg (5,000 unit) capsule 2,000 unit PO DAILY 09/28/18 [History Last Taken Unknown] levothyroxine 50 mcg tablet 50 mcg PO DAILY 05/18/19 [History Last Taken Unknown] tiotropium bromide 2.5 mcg/actuation mist for inhalation 2 inh INHALATION QAM 03/20/20 [History Last Taken Unknown] ondansetron 4 mg PO Q8H PRN PRN #10 tablet 09/15/20 [Rx Last Taken Unknown] sertraline 200 mg PO DAILY 10/11/20 [History Last Taken Unknown] albuterol sulfate 90 mcg/actuation aerosol inhaler 2 inh INHALATION Q4H PRN g 02/05/21 [History Last Taken Unknown] ascorbate calcium (vitamin C) 500 mg tablet 500 mg PO DAILY 02/05/21 [History Last Taken Unknown] ferrous fumarate 325 mg (106 mg iron) tablet 325 mg PO DAILY 02/05/21 [History Last Taken Unknown] lidocaine 5 % topical patch 1 patch TOPICAL BID ea 02/05/21 [History Last Taken Unknown] polyethylene glycol 3350 17 gram/dose oral powder 17 g PO DAILY 02/05/21 [History Last Taken Unknown] amiodarone 200 mg PO DAILY 02/19/21 [History Last Taken Unknown] acetaminophen 1,000 mg PO Q6H PRN PRN #0 tab 03/10/21 [Rx Last Taken Unknown] melatonin 10 mg PO QHS #0 tab 03/10/21 [Rx Last Taken Unknown] nystatin [Nyamyc] 1 applic TOPICAL BID #0 g 03/10/21 [Rx Last Taken Unknown] oxycodone 5 mg PO Q4H PRN PRN 7 Days #42 tab 03/10/21 [Rx Last Taken Unknown] potassium chloride [Klor-Con M20] 20 meq PO DAILYCM 30 Days #30 tab 03/10/21 [Rx Last Taken Unknown] sennosides-docusate sodium [Stool Softener-Stimulant Laxat] 2 tab PO BID 30 Days #120 tab 03/10/21 [Rx Last Taken Unknown] sodium chloride [Deep Sea Nasal] 2 spray NASAL TID PRN PRN #0 ml 03/10/21 [Rx Last Taken Unknown] Allergy/AdvReac Type Severity Reaction Status Date / Time hydrocodone bitartrate Allergy Rash Verified 05/29/21 06:26 [From Vicodin] Penicillins Allergy Rash Verified 05/29/21 06:26 diltiazem AdvReac Severe Hypotension Verified 05/29/21 06:26 sulfamethoxazole AdvReac Intermediate nausea and Verified 05/29/21 06:26 [From Bactrim] vomiting trimethoprim [From Bactrim] AdvReac Intermediate nausea and Verified 05/29/21 06:26 vomiting clindamycin AdvReac Other Verified 05/29/21 06:26 tizanidine HCl AdvReac Other Verified 05/29/21 06:26 [From Zanaflex] Family History Mother Arthritis Hypertension Heart disease Osteoporosis CVA (cerebral vascular accident) Father Arthritis Lung cancer Brother Asthma Lung cancer Kidney disease Sister Arthritis Autoimmune disease Daughter Breast cancer Surgical History H/O cataract removal with insertion of prosthetic lens History of adrenal surgery History of back surgery History of bone marrow biopsy History of colonoscopy (~10/2018) History of esophagogastroduodenoscopy (EGD) (~10/2018) History of extraction of renal calculus History of hip surgery History of left heart catheterization (04/03/14) History of lumpectomy of both breasts Hx of appendectomy Hx of section Hx of cholecystectomy Hx of kyphoplasty Hx of lithotripsy S/P fine needle aspiration S/P hysterectomy S/P ovarian cystectomy S/P parathyroidectomy Social History household members: none housing: house Smoking Status: Current every day smoker tobacco type: cigarettes alcohol intake: current alcohol intake frequency: a few times a week substance use type: does not use caffeine: No what type of physical activity do you participate in: none frequency: does not exercise seatbelt use: always do you feel safe at home: Yes additional social history: takes aspirin no ibuprofen ROS ROS ED Constitutional Constitutional ED: Denies chills, fever(s) or sweats Eyes Eyes: Denies change in vision ENT ENT ED: Denies dysphagia or sore throat Cardiovascular Cardiovascular: Reports other Details: Rib pain ; Denies chest pain, leg edema, palpitations or racing heartbeat Respiratory/Chest Respiratory/Chest: Denies cough, dyspnea or dyspnea on exertion Gastrointestinal Gastrointestinal: Denies abdominal pain, diarrhea, nausea or vomiting Genitourinary Genitourinary ED: Denies dysuria, hematuria or urinary frequency Musculoskeletal Musculoskeletal: Reports other Details: Left hip pain ; Denies back pain, extremity pain or neck pain Integumentary Denies rash or wounds Neurologic Neurologic: Denies headache(s), paresthesias or weakness EXAM Physical Exam Const Vital Signs: 05/29/21 06:27 05/29/21 06:30 Temperature 96.8 F L Temperature Source Temporal Pulse Rate 80 Respiratory Rate 20 H Respiratory Effort Normal Respiratory Depth Normal Respiratory Pattern Normal Blood Pressure 157/73 H Blood Pressure Mean 101 Pulse Ox 95 Oxygen Delivery Method Room Air Room Air Positive well nourished and well developed Constitutional Narrative: GCS 15. General Appearance ED: well developed and NAD HEENT Reports moist mucous membranes normocephalic and atraumatic Eyes PERRL, EOMs intact bilaterally and conjunctivae normal General Eye ED: Yes normal appearance of both eyes Neck no lymphadenopathy and supple General: Negative for tenderness Chest Wall Chest Narrative: Tender palpation left anterior lower ribs. No crepitus. No ecchymosis. No sternal tenderness. Chest: Negative for tenderness Resp normal respiratory effort, normal air movement and clear to auscultation bilaterally Resp Narrative: Symmetric breath sounds bilaterally. Effort and Inspection: symmetric chest movement; Negative for respiratory distress Cardio regular rate, regular rhythm and no murmurs Peripheral Pulses: pulses 2+ throughout GI normal to inspection, nondistended, normoactive bowel sounds and non-tender Palpation: Negative for guarding or rebound tenderness present Back/Spine no CVA tenderness and no thoracic nor lumbar tenderness Thoracic Spine / Upper Back: Negative for thoracic spinal tenderness Lumbar Spine / Lower Back: Negative for lumbar spinal tenderness Extremity Extremity Narrative: Upper extremities: Full range of motion. Pulses intact distally. Right lower extremity: Negative logroll, nontender. Left lower extremity: No shortening or rotation, negative logroll, there is tender palpation mid to distal femur. There is no deformities. Skin is intact. Neuro vas intact distally. General Extremety ED: Negative for edema or tenderness General Extremity: Negative for edema Neuro oriented x3 and no sensory deficits noted Sensorium / Orientation: awake and alert Skin no rashes or lesions noted and no wounds MDM MDM MDM Narrative Medical decision making narrative: Patient fall after losing her balance. No head injuries. Pain left lower anterior ribs. Pain in left hip and femur region. Reports urinary frequency. Patient given IM fentanyl for pain. Will obtain x-rays of pelvis left hip and femurs. CT scan chest also ordered for chest wall injury for further evaluation. 0745: Pending reads of image studies. Left femur reviewed by myself was negative. Pelvis films possible left inferior rami fracture, she is tender in this region. Pending read for CT chest. Pending urine results. Patient more comfortable. She does have Percocets at home. Patient does live by herself. Patient will be signed out to morning physician. We will need to attempt to ambulate prior to disposition. Radiography Diagnostic Testing: Clinical Impression(s) from Imaging Studies Chest CT 05/29/21 06:40 IMPRESSION: Increased AP diameter of the chest suggestive of chronic obstructive pulmonary disease. Mild cardiac enlargement coronary calcification Hyperdense appearance of the liver which can be associated with amiodarone therapy. Bilateral renal stones, no hydronephrosis. Diverticulosis no diverticulitis. Electronically Signed: Ashley Xiong MD at 7:49 EST Tel , Service support , Femur X-Ray 05/29/21 06:40 IMPRESSION: Bony osteopenia and degenerative change Incidental visualization of a left inferior pubic ramus fracture. Electronically Signed: Ashley Xiong MD at 7:56 EST Tel , Service support , Pelvis X-Ray 05/29/21 06:40 IMPRESSION: Left inferior pubic ramus fracture. Left hip open reduction internal fixation. Acute fracture of the left inferior pubic ramus. Electronically Signed: Ashley Xiong MD at 7:54 EST Tel , Service support , Discharge Plan Triage Chief Complaint: Fall ED Provider: Yung Calvert Dx/Rx/DC Orders Clinical Impression: Fall, Closed fracture of left inferior pubic ramus Instructions: ED Mechanical Fall, ED Pelvic Fracture Prescriptions: No Action atorvastatin 40 mg tablet 40 mg PO DAILY RF: 0 cholecalciferol (vitamin D3) 5,000 unit capsule 2,000 unit PO DAILY RF: 0 levothyroxine 50 mcg tablet 50 mcg PO DAILY RF: 0 Spiriva Respimat 2.5 mcg/actuation mist 2 inh INHALATION QAM RF: 0 polyethylene glycol 3350 [Miralax] 17 gram/dose powder 17 g PO DAILY RF: 0 lidocaine [Lidoderm] 5 % adhesive patch,medicated 1 patch topical BID RF: 0 ascorbate calcium (vitamin C) 500 mg tablet 500 mg PO DAILY RF: 0 ferrous fumarate 325 mg (106 mg iron) tablet 325 mg PO DAILY RF: 0 albuterol sulfate [Ventolin HFA] 90 mcg/actuation HFA aerosol inhaler 2 inh inhalation Q4H PRN (Reason: Wheezing) RF: 0 ondansetron 4 MG tablet 4 mg PO Q8H PRN PRN (Reason: Nausea) Qty: 10 RF: 0 sertraline 100 mg Tablet 200 mg PO DAILY RF: 0 amiodarone 200 mg tablet 200 mg PO DAILY RF: 0 sennosides-docusate sodium [Stool Softener-Stimulant Laxat] 8.6-50 mg Tablet 2 tab PO BID 30 Days Qty: 120 RF: 0 acetaminophen 500 mg Tablet 1,000 mg PO Q6H PRN PRN (Reason: Pain Score 1-5) Qty: 0 RF: 0 potassium chloride [Klor-Con M20] 20 mEq Tablet,Er Particles/Crystals 20 meq PO DAILYCM 30 Days Qty: 30 RF: 0 nystatin [Nyamyc] 100,000 unit/gram Powder 1 applic topical BID Qty: 0 RF: 0 oxycodone 5 mg Tablet 5 mg PO Q4H PRN PRN (Reason: Pain Score 6-10) 7 Days Qty: 42 RF: 0 sodium chloride [Deep Sea Nasal] 0.65 % Aerosol,[place] 2 spray NASAL TID PRN PRN (Reason: NASAL DRYNESS) Qty: 0 RF: 0 melatonin 10 mg Tablet, Sublingual 10 mg PO QHS Qty: 0 RF: 0 Primary Care Provider: Marino Williamson Referrals: Marino Williamson MD [Primary Care Provider] - 3-5 Days Disposition Disposition: Home, Self Care Discharge Date/Time: 05/29/21 09:58
[2021-05-29 08:06] LABS: Bacteria 0 SEEN /hpf (None Seen); Mucous, Urine 0 SEEN /hpf (<or=2+); Red Blood Cells-Urine 0 SEEN /hpf (0-5); White Blood Cells 0 SEEN /hpf (0-5)
[2021-05-29 08:10] LABS: Color, Urine Straw (Yellow); Glucose, Dipstick Normal (Normal); Ketone-Dipstick Negative (Negative); Leukocyte Esterase-Dipstick Negative /ul (Negative); Nitrite-Dipstick Negative (Negative); Occult Blood-Urine Negative /ul (Negative); Protein-Dipstick Negative (Negative); Urine Bilirubin Dipstick Negative (Negative); Urine Clarity Clear (Clear); Urine Urobilinogen Normal (Normal)
[2021-05-29 08:22] LABS: Squamous Epithelial Cells - UA 0-5 SEEN /hpf (5-10)
--- NOTE | 2021-05-29 08:31 | EDS_ITS ---
HPI HPI - Fall History of Present Illness Chief Complaint: Fall Detail of Chief Complaint: Loss of balance fall at home today Informant: patient Narrative Narrative: Care of patient turned over to me awaiting an ambulation trial and urinalysis results. Patient was ambulated with a walker and did well. Her urinalysis was unremarkable. Patient feels comfortable going home. She was noted on x-ray to have a an inferior pubic ramus fracture. Patient has Percocet at home for pain. Patient advised to follow-up with her primary care physician in 3 to 5 days. PFSH PFSH Medical History Adrenal mass Adrenal nodule Alcohol use Anxiety Arthritis Atherosclerotic heart disease of [place] coronary artery without angina pectoris Bilateral pneumonia Bleeding hemorrhoids Cardiology follow-up encounter Chest pain Chronic diarrhea Chronic GERD Compression fracture of T7 vertebra COPD (chronic obstructive pulmonary disease) Depression Diarrhea Easy bruising Essential hypertension Gastric reflux Hemorrhoids High cholesterol History of atrial fibrillation History of diverticulitis History of pain when walking History of renal stone History of stress incontinence History of stress test History of ulceration Hx of echocardiogram Hypercalcemia Hyperlipidemia Hypokalemia Injury of head and neck Left atrial enlargement Leg cramps Loss of consciousness Multiple thyroid nodules Nonrheumatic aortic (valve) insufficiency Obstructive sleep apnea Osteoporosis Paroxysmal atrial fibrillation Pre-syncope Primary hyperparathyroidism Rectal bleeding Restless legs Shortness of breath on exertion Shoulder pain Smoker Thyroid disease Vitamin D deficiency Walker as ambulation aid Wears dentures Wears glasses Home Medications atorvastatin 40 mg tablet 40 mg PO DAILY 06/03/17 [History Last Taken 09/21/18 12:00] cholecalciferol (vitamin D3) 125 mcg (5,000 unit) capsule 2,000 unit PO DAILY 09/28/18 [History Last Taken Unknown] levothyroxine 50 mcg tablet 50 mcg PO DAILY 05/18/19 [History Last Taken Unknown] tiotropium bromide 2.5 mcg/actuation mist for inhalation 2 inh INHALATION QAM 03/20/20 [History Last Taken Unknown] ondansetron 4 mg PO Q8H PRN PRN #10 tablet 09/15/20 [Rx Last Taken Unknown] sertraline 200 mg PO DAILY 10/11/20 [History Last Taken Unknown] albuterol sulfate 90 mcg/actuation aerosol inhaler 2 inh INHALATION Q4H PRN g 02/05/21 [History Last Taken Unknown] ascorbate calcium (vitamin C) 500 mg tablet 500 mg PO DAILY 02/05/21 [History Last Taken Unknown] ferrous fumarate 325 mg (106 mg iron) tablet 325 mg PO DAILY 02/05/21 [History Last Taken Unknown] lidocaine 5 % topical patch 1 patch TOPICAL BID ea 02/05/21 [History Last Taken Unknown] polyethylene glycol 3350 17 gram/dose oral powder 17 g PO DAILY 02/05/21 [History Last Taken Unknown] amiodarone 200 mg PO DAILY 02/19/21 [History Last Taken Unknown] acetaminophen 1,000 mg PO Q6H PRN PRN #0 tab 03/10/21 [Rx Last Taken Unknown] melatonin 10 mg PO QHS #0 tab 03/10/21 [Rx Last Taken Unknown] nystatin [Nyamyc] 1 applic TOPICAL BID #0 g 03/10/21 [Rx Last Taken Unknown] oxycodone 5 mg PO Q4H PRN PRN 7 Days #42 tab 03/10/21 [Rx Last Taken Unknown] potassium chloride [Klor-Con M20] 20 meq PO DAILYCM 30 Days #30 tab 03/10/21 [Rx Last Taken Unknown] sennosides-docusate sodium [Stool Softener-Stimulant Laxat] 2 tab PO BID 30 Days #120 tab 03/10/21 [Rx Last Taken Unknown] sodium chloride [Deep Sea Nasal] 2 spray NASAL TID PRN PRN #0 ml 03/10/21 [Rx Last Taken Unknown] Allergy/AdvReac Type Severity Reaction Status Date / Time hydrocodone bitartrate Allergy Rash Verified 05/29/21 06:26 [From Vicodin] Penicillins Allergy Rash Verified 05/29/21 06:26 diltiazem AdvReac Severe Hypotension Verified 05/29/21 06:26 sulfamethoxazole AdvReac Intermediate nausea and Verified 05/29/21 06:26 [From Bactrim] vomiting trimethoprim [From Bactrim] AdvReac Intermediate nausea and Verified 05/29/21 06:26 vomiting clindamycin AdvReac Other Verified 05/29/21 06:26 tizanidine HCl AdvReac Other Verified 05/29/21 06:26 [From Zanaflex] Family History Mother Arthritis Hypertension Heart disease Osteoporosis CVA (cerebral vascular accident) Father Arthritis Lung cancer Brother Asthma Lung cancer Kidney disease Sister Arthritis Autoimmune disease Daughter Breast cancer Surgical History H/O cataract removal with insertion of prosthetic lens History of adrenal surgery History of back surgery History of bone marrow biopsy History of colonoscopy (~10/2018) History of esophagogastroduodenoscopy (EGD) (~10/2018) History of extraction of renal calculus History of hip surgery History of left heart catheterization (04/03/14) History of lumpectomy of both breasts Hx of appendectomy Hx of section Hx of cholecystectomy Hx of kyphoplasty Hx of lithotripsy S/P fine needle aspiration S/P hysterectomy S/P ovarian cystectomy S/P parathyroidectomy Social History household members: none housing: house Smoking Status: Current every day smoker tobacco type: cigarettes alcohol intake: current alcohol intake frequency: a few times a week substance use type: does not use caffeine: No what type of physical activity do you participate in: none frequency: does not exercise seatbelt use: always do you feel safe at home: Yes additional social history: takes aspirin no ibuprofen ROS ROS ED Constitutional Constitutional ED: Reports systems reviewed and no addt'l complaints, except as documented; Denies body ache(s), change in weight or chills Eyes Eyes: Denies acute decrease in peripheral vision, change in vision, double vision or loss of vision ENT ENT ED: Reports none; Denies ear pain, lip swelling, loss taste/smell, neck pain, otalgia or sore throat Cardiovascular Cardiovascular: Reports none; Denies abdominal pain, chest pain with activity, leg edema, lightheadedness, palpitations, rapid heart rate or syncope Respiratory/Chest Respiratory/Chest: Reports none; Denies change in mental status, dry cough, dyspnea, hemoptysis, shortness of breath at rest or shortness of breath with exertion Gastrointestinal Gastrointestinal: Reports none; Denies abdominal pain, change in stool character, diarrhea, hematemesis, hematochezia, melena, rectal bleeding or vomiting Genitourinary Genitourinary ED: Reports none; Denies abdominal discomfort, anuria, dysuria, genital pain or polyuria Musculoskeletal Musculoskeletal: Reports none and other Details: Left groin pain ; Denies arthralgias, back pain, difficulty walking, extremity pain, muscle weakness or myalgias Integumentary Reports none; Denies abscess or rash Neurologic Neurologic: Reports none; Denies abnormal gait, confusion, focal weakness, frequent falls, headache(s), loss of vision, numbness, paresthesias, radicular pain, vertigo or weakness Psychiatric Psychiatric: Reports systems reviewed and no addt'l complaints, except as documented and none; Denies behavioral changes, confusion, difficulty concentr ating, hallucinations, suicidal ideation, tactile hallucinations or visual hallucinations Endocrine Endocrinology: Denies none, cold intolerance, excessive sweating, fatigue or heat intolerance Hematologic/Lymphatic Hematologic/Lymphatic: Reports none; Denies anemia, easy bleeding or easy bruising Allergic/Immunologic Allergic/Immunologic ED: Denies as per HPI, none, lip swelling, mouth swelling, throat swelling, tongue swelling or hives EXAM Physical Exam Const Vital Signs: 05/29/21 06:27 05/29/21 06:30 Temperature 96.8 F L Temperature Source Temporal Pulse Rate 80 Respiratory Rate 20 H Respiratory Effort Normal Respiratory Depth Normal Respiratory Pattern Normal Blood Pressure 157/73 H Blood Pressure Mean 101 Pulse Ox 95 Oxygen Delivery Method Room Air Room Air MDM MDM MDM Narrative Medical decision making narrative: Patient was able to ambulate in the department. Her urinalysis was normal. Patient is comfortable going home. Dr. Martinez was comfortable that patient could go home as long as her ambulation trial went well. Patient has Percocet at home for pain. She is advised to follow-up with her primary care physician 5 to 7 days. Lab Data Labs: Laboratory Results - last 24 hr 05/29/21 07:55 Urine Color Straw Urine Clarity Clear Urine pH 6.0 Ur Specific [place] 1.010 Urine Protein Negative Urine Glucose (UA) Normal Urine Ketones Negative Urine Occult Blood Negative Urine Nitrite Negative Urine Bilirubin Negative Urine Urobilinogen Normal Ur Leukocyte Esterase Negative Urine RBC 0 SEEN Urine WBC 0 SEEN Ur Squamous Epith Cells 0-5 SEEN Urine Bacteria 0 SEEN Urine Mucus 0 SEEN Radiography Diagnostic Testing: Clinical Impression(s) from Imaging Studies Chest CT 05/29/21 06:40 IMPRESSION: Increased AP diameter of the chest suggestive of chronic obstructive pulmonary disease. Mild cardiac enlargement coronary calcification Hyperdense appearance of the liver which can be associated with amiodarone therapy. Bilateral renal stones, no hydronephrosis. Diverticulosis no diverticulitis. Electronically Signed: Ashley Xiong MD at 7:49 EST Tel , Service support , Femur X-Ray 05/29/21 06:40 IMPRESSION: Bony osteopenia and degenerative change Incidental visualization of a left inferior pubic ramus fracture. Electronically Signed: Ashley Xiong MD at 7:56 EST Tel , Service support , Pelvis X-Ray 05/29/21 06:40 IMPRESSION: Left inferior pubic ramus fracture. Left hip open reduction internal fixation. Acute fracture of the left inferior pubic ramus. Electronically Signed: Ashley Xiong MD at 7:54 EST Tel , Service support , Discharge Plan Triage Chief Complaint: Fall ED Provider: Yung Calvert Dx/Rx/DC Orders Clinical Impression: Fall, Closed fracture of left inferior pubic ramus Instructions: ED Mechanical Fall, ED Pelvic Fracture Prescriptions: No Action atorvastatin 40 mg tablet 40 mg PO DAILY RF: 0 cholecalciferol (vitamin D3) 5,000 unit capsule 2,000 unit PO DAILY RF: 0 levothyroxine 50 mcg tablet 50 mcg PO DAILY RF: 0 Spiriva Respimat 2.5 mcg/actuation mist 2 inh INHALATION QAM RF: 0 polyethylene glycol 3350 [Miralax] 17 gram/dose powder 17 g PO DAILY RF: 0 lidocaine [Lidoderm] 5 % adhesive patch,medicated 1 patch topical BID RF: 0 ascorbate calcium (vitamin C) 500 mg tablet 500 mg PO DAILY RF: 0 ferrous fumarate 325 mg (106 mg iron) tablet 325 mg PO DAILY RF: 0 albuterol sulfate [Ventolin HFA] 90 mcg/actuation HFA aerosol inhaler 2 inh inhalation Q4H PRN (Reason: Wheezing) RF: 0 ondansetron 4 MG tablet 4 mg PO Q8H PRN PRN (Reason: Nausea) Qty: 10 RF: 0 sertraline 100 mg Tablet 200 mg PO DAILY RF: 0 amiodarone 200 mg tablet 200 mg PO DAILY RF: 0 sennosides-docusate sodium [Stool Softener-Stimulant Laxat] 8.6-50 mg Tablet 2 tab PO BID 30 Days Qty: 120 RF: 0 acetaminophen 500 mg Tablet 1,000 mg PO Q6H PRN PRN (Reason: Pain Score 1-5) Qty: 0 RF: 0 potassium chloride [Klor-Con M20] 20 mEq Tablet,Er Particles/Crystals 20 meq PO DAILYCM 30 Days Qty: 30 RF: 0 nystatin [Nyamyc] 100,000 unit/gram Powder 1 applic topical BID Qty: 0 RF: 0 oxycodone 5 mg Tablet 5 mg PO Q4H PRN PRN (Reason: Pain Score 6-10) 7 Days Qty: 42 RF: 0 sodium chloride [Deep Sea Nasal] 0.65 % Aerosol,[place] 2 spray NASAL TID PRN PRN (Reason: NASAL DRYNESS) Qty: 0 RF: 0 melatonin 10 mg Tablet, Sublingual 10 mg PO QHS Qty: 0 RF: 0 Primary Care Provider: Marino Williamson Referrals: Marino Williamson MD [Primary Care Provider] - 3-5 Days Disposition Disposition: Home, Self Care
[2021-05-29 09:56] VITALS: PULSE 88; RESP 17; O2SAT 94
== END 2021-05-29 09:58 | disposition home or self-care (01) ==
PROVIDERS: Emergency Provider Emergency Medicine; PCP Family Medicine; Visit Provider Emergency Medicine
DX: S32.592A Other specified fracture of left pubis, initial encounter for closed fracture (principal); F17.210 Nicotine dependence, cigarettes, uncomplicated; I25.10 Atherosclerotic heart disease of native coronary artery without angina pectoris; G47.33 Obstructive sleep apnea (adult) (pediatric); W19.XXXA Unspecified fall, initial encounter
CPT/HCPCS: 71250; 72170; 73552; 81001; 96372; 99284

== ENCOUNTER 2021-06-04 17:07 | Outpatient (CLI) | payer MEDICARE, MEDICAID, SELFPAY ==
--- NOTE | 2021-06-04 17:17 | RAD_ITS ---
STUDY: X-RAY - PELVIS AND LEFT HIP REASON FOR EXAM: Female, 75 years old. Follow-up of pubic ramus fracture. TECHNIQUE: 3 views of the pelvis and hip. COMPARISON: 05/29/2021. FINDINGS: There is a non-specific bowel gas pattern. Vascular calcifications and injection granulomas, unchanged. Osteopenia. Normal bilateral iliac wings, sacroiliac joints and visualized sacrum. Nondisplaced fracture of the inferior pubic ramus on the left with sclerotic vertical line, unchanged. Stable mild arthrosis of the symphysis pubis. Normal bilateral ischial tuberosities. Mild arthrosis of the right hip unchanged. 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 Arthrosis of the left hip unchanged. RAD/HIP, UNI W/ Pelvis 2-3 Views IMPRESSION: Stable pelvis and bilateral hips. No complicating features. Electronically Signed: Chet Magaña MD at 10:18 EST , Service support ,
== END 2021-06-04 23:59 | disposition home or self-care (01) ==
LOC: MTRAD 17:09
PROVIDERS: PCP Family Medicine; Referring Provider Family Medicine; Visit Provider Family Medicine
DX: M62.81 Muscle weakness (generalized) (principal); S32.592S Other specified fracture of left pubis, sequela; X58.XXXS Exposure to other specified factors, sequela
CPT/HCPCS: 73502

== ENCOUNTER 2021-06-13 14:33 | Outpatient (CLI) | payer MEDICARE, MEDICAID, SELFPAY ==
--- NOTE | 2021-06-13 14:36 | RAD_ITS ---
STUDY: X-RAY - FACIAL BONES REASON FOR STUDY: Female, 75 years old. FACIAL TRAUMA TECHNIQUE: 3 view(s) of the facial bones. COMPARISON: None. FINDINGS: Normal bilateral frontozygomatic and zygomatic-temporal arches. Normal bilateral medial and inferior orbital aguilar. Normal bilateral orbits. Normal visualized nasal bones. Normal anterior nasal spine. The remaining visualized osseous structures are normal. Normal visualized paranasal sinuses. RAD/Facial Bones min 3 Views IMPRESSION: Normal x-ray examination of the facial bones. Electronically Signed: Fco Eric MD at 15:42 EST , Service support ,
== END 2021-06-13 23:59 | disposition short-term general hospital (02) ==
LOC: MTRAD 14:34
PROVIDERS: PCP Family Medicine; Referring Provider Family Medicine; Visit Provider Family Medicine
DX: S09.93XA Unspecified injury of face, initial encounter (principal); X58.XXXA Exposure to other specified factors, initial encounter
CPT/HCPCS: 70150